=== PATIENT | female | born 1940 | race Caucasian/White ===

== ENCOUNTER 2016-12-11 12:21 | Inpatient (IN) | payer MEDICARE, OTHER ==
[2016-12-11] MEDS ORDERED: Famotidine 20 MG/2 ML SDV IVPUSH ONE (12:35)
[2016-12-11] MEDS ORDERED: Lactated Ringers 1,000 ML IV ONE (12:35)
[2016-12-11] MEDS ORDERED: Pantoprazole 40 MG Vial IVPUSH ONE (12:35)
--- NOTE | 2016-12-11 12:35 | EDM.PDOC ---
ED HPI GENERAL MEDICAL PROBLEM - General Chief Complaint: Abdominal Pain Stated Complaint: upper epigastric pain Time Seen by Provider: 12/11/16 12:30 Source of Information: Reports: Patient, Family (Sister), Old Records ([facility] chart/EMR), Other (Limited records from [facility] in [place]) History Limitations: Reports: No Limitations - History of Present Illness INITIAL COMMENTS - FREE TEXT/NARRATIVE: The patient drove herself to the emergency room via private automobile for evaluation of nonspecific 9/10 sharp epigastric pain with symptoms starting at about 22:30 hours this past evening. She was briefly evaluated by her regular provider, Jenae Blank PA-C, at the [facility] in [place], who did send the patient to our facility for further evaluation. No medical therapy in that facility, although x-rays were conducted as below. Patient apparently did take her medications this morning with 3 normal bowel movements during the last 24 hours. The patient denies any chest pain/pressure, heart flutter, dizziness, orthostasis, orthopnea, diaphoresis, paresthesias, recent decreased exercise tolerance, or any other anginal-type symptoms. No recent history of abdominal pain, heartburn, nausea, diarrhea, melena, gross hematochezia, or any food intolerance, including fatty foods, etc.. The patient also denies any recent fever, cough, wheezing, dyspnea, etc.. There is a pleuritic component to patient 's symptoms, which also worsened with movement. Onset: Today, Gradual Onset Date: 12/10/16 Onset Time: 22:30 Duration: Constant Location: Reports: Abdomen. Denies: Head, Face, Neck, Chest, Upper Extremity, Left, Upper Extremity, Right, Generalized, Radiates to Quality: Reports: Same as Previous Episode, Sharp Severity: Severe Improves with: Reports: Rest Worsens with: Reports: Movement Context: Reports: Other (As above) Associated Symptoms: Denies: Confusion, Chest Pain, Cough, Diaphoresis, Fever/ Chills, Headaches, Malaise, Nausea/Vomiting, Seizure, Shortness of Breath, Syncope, Weakness Treatments HEAD OF ENGLISH: Reports: Other (see below) (Morning medications) Upper Epigastric Pain Score (Numeric/FACES): 9 - Related Data Allergies Allergy/AdvReac Type Severity Reaction Status Date / Time cephalexin monohydrate Allergy Cannot Verified 03/13/15 18:22 [From [employer]] Remember Home Meds: Home Meds Albuterol/Ipratropium [Combivent] 2 puff INH QID PRN 06/05/13 [History] Calcium Carbonate/Vitamin D3 [Calcium 600 + Vit D 400] 1 each PO BID 06/05/13 [ History] Hydroxychloroquine [Plaquenil] 200 mg PO DAILY 06/05/13 [History] Metoclopramide [Reglan] 10 mg PO TIDAC PRN 06/05/13 [History] Metoprolol Succinate [Toprol XL] 50 mg PO DAILY 06/05/13 [History] Omeprazole [Omeprazole] 20 mg PO QAM 06/05/13 [History] Simvastatin [Zocor] 40 mg PO BEDTIME 06/05/13 [History] Vitamin B Complex 1 each PO DAILY 06/05/13 [History] Warfarin [Coumadin] 5 mg PO DAILY@1800 06/05/13 [History] Ascorbic Acid 500 mg PO DAILY 03/13/15 [History] Aspirin 325 mg PO DAILY 03/13/15 [History] Cholecalciferol (Vitamin D3) [Vitamin D3] 400 unit PO DAILY 03/13/15 [History] Digoxin 125 mcg PO DAILY 03/13/15 [History] Levothyroxine Sodium [Synthroid] 75 mcg PO DAILY 03/13/15 [History] Oxybutynin [Oxybutynin ER] 5 mg PO DAILY 03/13/15 [History] Fluticasone Propionate [Flonase] 1 spray NASBOTH BID 12/11/16 [History] Lisinopril/Hydrochlorothiazide [Zestoretic 10-12.5 mg Tablet] 1 tab PO DAILY 02/16 [History] Past Medical History HEENT History: Reports: Allergic Rhinitis, Hard of Hearing, Impaired Vision, Other (See Below). Denies: Cataract, Glaucoma, Macular Degeneration, Retinal Detachment Other HEENT History: Reading glasses, moderate presbycusis with no current hearing aide therapy Cardiovascular History: Reports: Afib, Arrhythmia, CAD, Cardiomyopathy, Heart Failure, High Cholesterol, Hypertension, PVD, Syncope, Other (See Below). Denies: Aneurysm, Blood Clots/VTE/DVT, Bypass, Heart Murmur, SD, Pacemaker Other Cardiovascular History: Incomplete right bundle branch block, history of atrial fibrillation with rapid ventricular response on 06/29/08 with current Coumadin therapy, PVCs, mild cardiomegaly and borderline CHF with possible history of mild borderline anterior wall cardiac ischemia with negative subsequent heart catheterization as below, borderline carotid occlusive disease Respiratory History: Reports: Asthma, COPD Gastrointestinal History: Reports: Cholelithiasis, Diverticulosis, Gastritis, GERD, Hepatitis, Hiatal Hernia, Jaundice, Other (See Below). Denies: Celiac Disease, Chronic Constipation, Chronic Diarrhea, Colon Polyp, GI Bleed, Inflammatory Bowel Disease, Irritable Bowel Syndrome, Pancreatitis, PUD Other Gastrointestinal History: sigmoid diverticulosis without diverticulitis, GERD and peptic ulcer disease with moderate lower esophageal insufficiency and secondary chronic cough, fatty liver secondary to hyperlipidemia with mild hepatomegaly and secondary LFTs elevation, acute cholecystitis with secondary LFTs elevation and borderline jaundice on 06/05/13 Genitourinary History: Reports: Urinary Incontinence, UTI, Recurrent, Other ( See Below) Other Genitourinary History: Cystocele and rectocele with history of urinary incontinence 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 Denies: Dysfunctional Uterine Bleeding, Endometriosis, Spontaneous : 2 Para: 2 (Full term without complications during pregnancies or deliveries) LMP (Approximate): Other (See Below) (Menopause in her 40s with history of fibrocystic breast disease and recent negative breast biopsy as below, large uterine fibroids and small bilateral ovarian cysts by CT scan can on 06/05/13) Musculoskeletal History: Reports: Arthritis, Back Pain, Chronic, Fracture, Gout , Neck Pain, Chronic, Osteoarthritis, Osteoporosis, Other (See Below). 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 Denies: Alzheimers Disease, Cerebral Aneurysms, Concussion, CVA, Head Trauma, Migraines, MS, Neuropathy, Peripheral, Parkinson's, Seizure, TIA Psychiatric History: Reports: Anxiety, Depression. Denies: Abuse, Victim of, ADD, ADHD, Addiction, Psych Hospitalization(s), PTSD, Suicide Attempt, Suicidal Ideation Endocrine/Metabolic History: Reports: Diabetes, Type II, Hypothyroidism, Obesity /BMI 30+, Osteoporosis, Other (See Below). Denies: Diabetes, Type I, IDDM Other Endocrine/Metabolic History: Mild hyperglycemia currently treated with diet, obesity, probable benign 1.2 cm right adrenal adenoma by CT scan on 06/05/13 Hematologic History: Reports: None. Denies: Anemia, Blood Transfusion(s), Iron Deficiency Immunologic History: Reports: None. Denies: AIDS, HIV, SLE Oncologic (Cancer) History: Reports: None. Denies: Basal Cell Carcinoma, Cervix , Colon, Hodgkin's Lymphoma, Leukemia, Liver, Lymphoma, Malignant Melanoma, Non- Hodgkin's Lymphoma, Squamous Cell Carcinoma Dermatologic History: Reports: None. Denies: Eczema, Psoriasis - Infectious Disease History Infectious Disease History: Reports: Other (See Below). Denies: C-Difficile, Chicken Pox, Helicobacter Pylori, Measles, Meningitis, Mononucleosis, MRSA, Mumps, Pertussis (Whooping Cough), Rubella, Scarlet Fever, VRE Other Infectious Disease History: Smallpox, CMV - Past Surgical History Head Surgeries/Procedures: Reports: None HEENT Surgical History: Reports: Oral Surgery, Other (See Below). Denies: Adenoidectomy, Cataract Surgery, Eye Surgery, Laser Surgery, LASIK, Myringotomy w Tube(s), Naso-Sinus Surgery, Tonsillectomy Other HEENT Surgeries/Procedures: Multiple tooth extractions with partial dentures uppers and lowers Cardiovascular Surgical History: Reports: None. Denies: Varicose, Vascular Surgery Respiratory Surgical History: Reports: None. Denies: Lung Biopsies, Thoracentesis GI Surgical History: Reports: Cholecystectomy, Colonoscopy, EGD, Other (See Below). Denies: Appendectomy, ERCP, Hernia, Abdominal, Hernia, Inguinal, Hernia Repair/Other, Polypectomy Other GI Surgeries/Procedures: Liver biopsy on 09/16/96, laparoscopic cholecystectomy on 06/05/13, EGD and colonoscopy on 01/31/07 Female Surgical History: Reports: Breast Biopsy, Other (See Below). Denies: Cystoscopy, D&C, Hysterectomy, Oophorectomy, Salpingo-Oophorectomy, Tubal Ligation Other Female Surgeries/Procedures: Left breast biopsy for benign disease in January 2016 Endocrine Surgical History: Reports: None. Denies: Thyroid Biopsy Neurological Surgical History: Reports: None. Denies: C-Spine, Discectomy, Laminectomy, Lumbar Spine, Scoliosis, Spinal Fusion, Vertebroplasty Musculoskeletal Surgical History: Reports: Arthroscopic Knee, Arthroscopic Procedure, Other (See Below). Denies: Amputation, Carpal Tunnel, Ganglion Cyst , Joint Replacement, ORIF, Shoulder Replacement, Shoulder Surgery Other Musculoskeletal Surgeries/Procedures:: Right arthroscopic knee surgery for medial meniscal repair on 08/18/08 in July 2009, left arthroscopic knee surgery in 2010 Oncologic Surgical History: Reports: Biopsy of Breast, Other (See Below) Other Oncologic Surgeries/Procedures: Left breast biopsy for benign disease as above Dermatological Surgical History: Reports: None - Past Imaging History Past Imaging History: Reports: Angiography (Negative by history heart catheterization on 08/18/08), CAT Scan (CT of the abdomen and pelvis on 06/05/13), DEXA Scan (Last DEXA scan on 09/09/12), Mammogram (Last mammogram on 12/30/15), PFT (01/18/07), Stress Testing (Cardiolite stress test on 07/30/08 showed some borderline anterior wall cardiac ischemia with ejection fraction of 61% with previous Cardiolite stress test on 12/06/06 with similar findings and ejection fraction of 60% at that time), Ultrasound (Left breast ultrasound on 12/30/15) Social & Family History - Family History HEENT: Reports: None. Denies: Glaucoma, Macular Degeneration, Retinal Detachment Cardiac: Reports: CAD, High Cholesterol, Hypertension, SD, Other (See Below). Denies: Afib, Aneurysm, Arrhythmia, Blood Clots/VTE/DVT, Heart Failure, Pacemaker, PVD/COD Other Cardiac Family History: Mother with fatal SD at age 89, mother with possible hypertension, half sister with hyperlipidemia Respiratory: Reports: None. Denies: Asthma, COPD, PE, Pneumothorax, Sleep Apnea GI: Reports: None. Denies: Celiac Disease, Cholelithiasis, Colon Polyps, GERD, GI bleed, Inflammatory Bowel Disease, Irritable Bowel Syndrome, PUD : Reports: None. Denies: Dialysis, Renal Calculus, Renal Disease/ Insufficiency OBGYN: Reports: None. Denies: Endometriosis, Fibroids, Recurrent Spontaneous Musculoskeletal: Reports: Osteoarthritis, Other (See Below). Denies: Gout, RA, SLE Other Musculoskeletal Family History: Mother with osteoarthritis Neurological: Reports: CVA, MS, Seizure, TIA, Other (See Below) Other Neurological Family History: Mother with history of CVA 2 in her 80s, maternal cousin with MS and fatal unknown type of seizure disorder, half-sister with TIA at age 64 Psychiatric: Reports: Anxiety, Depression, Other (See Below). Denies: Abuse, Victim of, ADD, ADHD, Psych Hospitalization(s), PTSD, Suicide Attempt Other Psychiatric Family History: Mother with anxiety depression disorder Endocrine/Metabolic: Reports: None. Denies: Diabetes, Type I, Diabetes, type II , Hypothyroidism, IDDM Hematologic: Reports: None. Denies: Anemia, SLE, Transfusion Reaction Immunologic: Reports: None. Denies: AIDS, HIV, SLE Dermatologic: Reports: Eczema, Other (See Below). Denies: Psoriasis Other Dermatologic Family History: Mother with possible eczema Oncologic: Reports: Breast, Other (See Below). Denies: Colon, Hodgkin's Lymphoma, Leukemia, Lymphoma, Non-Hodgkin's Lymphoma, Ovarian, Uterine Other Oncologic Family History: First maternal cousin with breast cancer - Tobacco Use Smoking Status *Q: Former Smoker Tobacco Use Within Last Twelve Months: Cigarettes Years of Tobacco use: 1 Packs/Tins Daily: 0.1 (Experimented at age 16) Used Tobacco, but Quit: No Smoking Cessation Information Provided To Patient: No Second Hand Smoke Exposure: No Second Hand Smoke Education Provided: No - Caffeine Use Caffeine Use: Reports: Soda (1 soda per week). Denies: Coffee, Energy Drinks, Tea - Alcohol Use Alcohol Use History: No Days Per Week of Alcohol Use: 0 (No previous DWIs, problems with alcohol abuse, etc.) Number of Drinks Per Day: 0 Total Drinks Per Week: 0 Alcohol Use in Last Twelve Months: No - Recreational Drug Use Recreational Drug Use: No Drug Use in Last 12 Months: No Recreational Drug Type: Denies: Amphetamines (Speed), Cocaine, Heroin, LSD (Acid ), Marijuana/Hashish, Methamphetamine, Morphine - Living Situation & Occupation Living situation: Reports: (10/26/03, 2 children), Alone Occupation: Retired (Retired at age 63, previously a [id number]) ED ROS GENERAL - Review of Systems Review Of Systems: See Below Constitutional: Reports: No Symptoms. Denies: Fever, Chills, Malaise, Weakness , Fatigue, Night Sweats, Diaphoresis, Decreased Appetite, Weight Loss, Weight Gain HEENT: Reports: Glasses, Hearing Loss (Stable chronic). Denies: Contact Lenses , Dental Pain, Ear Pain, Eye Pain, Rhinitis, Sinus Problem, Throat Pain, Throat Swelling, Vertigo, Vision Change Respiratory: Reports: Pleuritic Chest Pain. Denies: Shortness of Breath, Wheezing, Cough, Hemoptysis Cardiovascular: Reports: Edema (Stable chronic). Denies: Chest Pain, Blood Pressure Problem, Claudication, Dyspnea on Exertion, Lightheadedness, Orthopnea , Palpitations, PND, Syncope Endocrine: Reports: No Symptoms. Denies: Fatigue, High Glucose GI/Abdominal: Reports: Abdominal Pain. Denies: Anorexia, Black Stool, Bloody Stool, Constipation, Diarrhea, Decreased Appetite, Difficulty Swallowing, Distension, Flatus, Hematemesis, Hematochezia, Melena, Mucous in Stool, Nausea, Stool Incontinence, Vomiting : Reports: Incontinence (Stable chronic). Denies: Discharge, Dysuria, Flank Pain, Frequency, Hematuria, Pain, Urgency, Urinary Retention Musculoskeletal: Reports: No Symptoms. Denies: Neck Pain, Shoulder Pain, Arm Pain, Back Pain, Leg Pain Skin: Reports: No Symptoms. Denies: Jaundice, Pallor, Diaphoresis, Bruising, Wound Neurological: Reports: No Symptoms. Denies: Confusion, Dizziness, Headache, Numbness, Paresthesia, Tingling, Trouble Speaking, Difficulty Walking, Weakness , Change in Speech Psychiatric: Reports: No Symptoms. Denies: Agitation, Anxiety, Confusion, Cravings, Depression, Hallucinations, Homicidal Ideation, Suicidal Ideation Hematologic/Lymphatic: Reports: No Symptoms Immunologic: Reports: No Symptoms ED EXAM, GI/ABD - Physical Exam Exam: See Below Exam Limited By: No Limitations General Appearance: Alert, WD/WN, No Apparent Distress Eyes: Bilateral: Normal Appearance (No nystagmus, mild bilateral arcus senilis) , EOMI (PERRLA) Ears: Normal External Exam, Normal Canal, Normal TMs, Hearing Loss (Moderate bilateral presbycusis) Nose: Normal Inspection, Normal Mucosa, No Blood Throat/Mouth: Normal Inspection, Normal Lips, Normal Gums, Normal Oropharynx, Normal Voice, No Airway Compromise. No: Normal Teeth (Partial dentures uppers and lowers), Dysphagia, Inflammation, Perioral Cyanosis Head: Atraumatic, Normocephalic. No: Facial Swelling, Facial Tenderness, Sinus Tenderness Neck: Normal Inspection, Supple, Non-Tender, Full Range of Motion, Carotid Bruit (Mild bilateral carotid bruits versus transmitted heart sounds). No: Lymphadenopathy (L), Lymphadenopathy (R), Thyromegaly Respiratory/Chest: No Respiratory Distress, Lungs Clear, Normal Breath Sounds, No Accessory Muscle Use, Chest Non-Tender. No: Pleural Rub, Retractions Cardiovascular: Normal Peripheral Pulses, Regular Rate, Rhythm, No Gallop, No JVD, No Murmur, No Rub, Systolic Murmur (Mild 1/6 BROOKS of the aortic valve). No : No Edema (Dependent edema as below) GI/Abdominal Exam: Normal Bowel Sounds, Soft, No Organomegaly, No Distention, No Abnormal Bruit, No Mass, Pelvis Stable, Tender (Mild to moderate palpation pain in the epigastric region), Other (Obese, 1 cm in diameter benign rash in the right upper quadrant with possible eczema ). No: Guarding, Rebound (Female) Exam: Deferred Rectal (Female) Exam: Normal Rectal Tone, Heme - Stool (Brown stool), Hemorrhoids (Grade 4 internal/external hemorrhoids). No: Fecal Impaction, Tenderness (No Aidan space tenderness) Back Exam: Normal Inspection, Full Range of Motion. No: CVA Tenderness (L), CVA Tenderness (R), Muscle Spasm Extremities: Normal Range of Motion, Non-Tender, Normal Capillary Refill, Pedal Edema (Bilateral +1 pedal/pretibial edema). No: Red's Sign Neurological: Alert, Oriented, CN II-XII Intact, Normal Cognition, Normal Gait, Normal Reflexes (Negative Babinski's), No Motor/Sensory Deficits Psychiatric: Normal Affect, Normal Mood Skin Exam: Warm, Dry, Intact, Normal Color, Rash (As above). No: Diaphoretic, Ecchymosis, Lymphangitis, Wound/Incision Lymphatic: No Adenopathy EKG INTERPRETATION EKG Date: 12/11/16 Time: 12:40 Rhythm: NSR Rate (Beats/Min): 64 [place]: Normal (Neutral) P-Wave: Enlarged (Mild diffuse biphasic P waves with moderate decreased R-wave progression in the anterior leads) QRS: RBBB (QRS interval of 0.11 seconds representing a stable incomplete right bundle branch block) ST-T: Other (T-wave inversion in lead 3 and V1 through V3 with previous T-wave inversions through V4 at time of Cardiolite stress test as below) QT: Normal PA/PQ Interval: 0.18 seconds Comparison: Change From Previous EKG (Cardiolite stress test on 09/29/08) EKG Interpretation Comments: 1. Improved/stable mild anterior wall cardiac ischemia 2. Incomplete right bundle branch block Course - Vital Signs Last Recorded V/S: Last Vital Signs Temp 36.4 C 12/11/16 12:23 Pulse 69 12/11/16 16:20 Resp 25 H 12/11/16 16:20 BP 148/53 H 12/11/16 16:20 Pulse Ox 97 12/11/16 16:20 Vital Signs - 24 hr 12/11/16 12/11/16 12/11/16 12:23 12:55 13:30 Temperature [ 36.4 C Temporal] Pulse, 71 70 69 Peripheral [ Left Pulse Oximetry] Respiratory 18 25 H 26 H Rate Blood Pressure 152/71 H 153/67 H 149/64 H [Left Upper Arm ] O2 Sat by Pulse 96 96 94 L Oximetry 12/11/16 12/11/16 12/11/16 14:00 14:28 15:05 Temperature [ Temporal] Pulse, 69 68 66 Peripheral [ Left Pulse Oximetry] Respiratory 28 H 22 H 26 H Rate Blood Pressure 162/65 H 154/56 H 164/56 H [Left Upper Arm ] O2 Sat by Pulse 97 97 97 Oximetry 12/11/16 12/11/16 15:21 16:20 Temperature [ Temporal] Pulse, 71 69 Peripheral [ Left Pulse Oximetry] Respiratory 28 H 25 H Rate Blood Pressure 155/56 H 148/53 H [Left Upper Arm ] O2 Sat by Pulse 97 97 Oximetry - Orders/Labs/Meds Orders: Active Orders 24 hr Category Date Time Status Cardiac Monitoring [RC] . DIRECTED Care 12/11/16 12:38 Active EKG Documentation Completion [RC] ASDIRECTED Care 12/11/16 12:37 Active Peripheral IV Care [RC] . DIRECTED Care 12/11/16 12:35 Active Nothing Per Oral Diet [DIET] Diet 12/11/16 Breakfast Active Abdomen Pelvis w Cont [CT] Stat Exams 12/11/16 13:58 Taken CULTURE URINE [RM] Routine Lab 12/11/16 13:55 Received H PYLORI STOOL ANTIGEN [MREF] Urgent Lab 12/11/16 12:35 Uncollected Ciprofloxacin in D5W [Cipro in D5W 200 MG/100 ML] 200 Med 12/11/16 14:14 Active mg Premix Bag 1 bag IV Q12HR Sodium Chloride 0.9% [Saline Flush] Med 12/11/16 12:35 Active 10 ml FLUSH ASDIRECTED PRN metroNIDAZOLE/Normal Saline [Flagyl 500 MG in NS 100 ML Med 12/11/16 14:00 Active ] 500 mg Premix Bag 1 bag IV Q8H Obtain Past Medical Record [OM.PC] Urgent Oth 12/11/16 12:35 Active Peripheral IV Insertion Adult [OM.PC] Stat Oth 12/11/16 12:35 Ordered Resuscitation Status Stat Resus Stat 12/11/16 12:35 Ordered Medication Orders Metronidazole 500 mg/ Premix 100 mls @ 100 mls/hr IV Q8H HYACINTH Last Admin: 12/11/16 14:20 Dose: 100 mls/hr Ciprofloxacin/Dextrose 200 mg/ (Premix) 100 mls @ 100 mls/hr IV Q12HR HYACINTH Last Admin: 12/11/16 15:37 Dose: 100 mls/hr Sodium Chloride (Saline Flush) 10 ml FLUSH ASDIRECTED PRN PRN Reason: Keep Vein Open Labs: Laboratory Tests 12/11/16 12/11/16 12/11/16 Range/Units 12:25 12:25 12:25 WBC 12.5 H (4.0-10.2) K/uL RBC 4.63 (3.77-5.09) M/uL Hgb 14.6 (11.7-15.5) g/dL Hct 43.1 (34.0-46.0) % MCV 93.1 (84.0-98.0) fL MCH 31.5 (28.2-33.3) pg MCHC 33.9 (31.7-36.0) g/dL RDW 12.9 (11.2-14.1) % Plt Count 296 (150-350) K/uL Neut % (Auto) 74.7 (45.0-80.0) % Lymph % (Auto) 13.7 (10.0-50.0) % [facility] % (Auto) 9.7 (2.0-14.0) % Eos % (Auto) 1.6 (0.0-5.0) % Baso % (Auto) 0.3 (0.0-2.0) % Neut # (Auto) 9.36 H (1.40-7.00) K/uL Lymph # (Auto) 1.72 (0.50-3.50) K/uL [facility] # (Auto) 1.21 H (0.00-1.00) K/uL Eos # (Auto) 0.20 (0.00-0.50) K/uL Baso # (Auto) 0.04 (0.00-0.20) K/uL PT 20.0 H (9.8-11.7) SEC INR 1.8 APTT 30.9 H (23.5-30.0) SEC D-Dimer, Quantitative (0-400) ng/mL Sodium (136-145) mmol/L Potassium (3.5-5.1) mmol/L Chloride (98-107) mmol/L Carbon Dioxide (21.0-32.0) mmol/L BUN (7-18) mg/dL Creatinine (0.51-1.17) mg/dL Est Cr Clr Drug Dosing mL/min Estimated GFR (MDRD) mL/min Glucose (74-106) mg/dL Lactic Acid (0.4-2.0) mmol/L Uric Acid (2.6-7.2) mg/dL Calcium (8.5-10.1) mg/dL Magnesium (1.8-2.4) mg/dL Total Bilirubin (0.2-1.0) mg/dL Direct Bilirubin (0.0-0.2) mg/dL Indirect Bilirubin AST (15-37) U/L ALT (12-78) U/L Alkaline Phosphatase (46-116) IU/L Creatine Kinase (26-308) U/L Creatine Kinase Index (0.0-2.5) % CK-MB (CK-2) (0.00-3.60) ng/mL Troponin I (0.000-0.056) ng/mL NT-Pro-B Natriuret Pep (0-125) pg/mL Total Protein (6.4-8.2) g/dL Albumin (3.4-5.0) g/dL Amylase 23 L (25-115) U/L Lipase (73-393) U/L Specimen Type Urine Color Urine Appearance Urine pH (5.0-9.0) Ur Specific [place] (1.005-1.030) Urine Protein (NEGATIVE) mg/dL Urine Glucose (UA) (NEGATIVE) mg/dL Urine Ketones (NEGATIVE) mg/dL Urine Occult Blood (NEGATIVE) Urine Nitrite (NEGATIVE) Urine Bilirubin (NEGATIVE) Urine Urobilinogen (0.2-1.0) E.U./dL Ur Leukocyte Esterase (NEGATIVE) Urine RBC /HPF Urine WBC /HPF Ur Epithelial Cells /LPF Urine Bacteria (NONE TO FEW) /HPF Digoxin (0.90-2.00) ng/mL 12/11/16 12/11/16 12/11/16 Range/Units 12:25 12:25 12:25 WBC (4.0-10.2) K/uL RBC (3.77-5.09) M/uL Hgb (11.7-15.5) g/dL Hct (34.0-46.0) % MCV (84.0-98.0) fL MCH (28.2-33.3) pg MCHC (31.7-36.0) g/dL RDW (11.2-14.1) % Plt Count (150-350) K/uL Neut % (Auto) (45.0-80.0) % Lymph % (Auto) (10.0-50.0) % [facility] % (Auto) (2.0-14.0) % Eos % (Auto) (0.0-5.0) % Baso % (Auto) (0.0-2.0) % Neut # (Auto) (1.40-7.00) K/uL Lymph # (Auto) (0.50-3.50) K/uL [facility] # (Auto) (0.00-1.00) K/uL Eos # (Auto) (0.00-0.50) K/uL Baso # (Auto) (0.00-0.20) K/uL PT (9.8-11.7) SEC INR APTT (23.5-30.0) SEC D-Dimer, Quantitative 112 (0-400) ng/mL Sodium 136 (136-145) mmol/L Potassium 4.6 (3.5-5.1) mmol/L Chloride 101 (98-107) mmol/L Carbon Dioxide 27.4 (21.0-32.0) mmol/L BUN 17 (7-18) mg/dL Creatinine 0.79 (0.51-1.17) mg/dL Est Cr Clr Drug Dosing 50.90 mL/min Estimated GFR (MDRD) > 60 mL/min Glucose 108 H (74-106) mg/dL Lactic Acid 1.3 (0.4-2.0) mmol/L Uric Acid 7.8 H (2.6-7.2) mg/dL Calcium 9.9 (8.5-10.1) mg/dL Magnesium 1.7 L (1.8-2.4) mg/dL Total Bilirubin 2.1 H (0.2-1.0) mg/dL Direct Bilirubin (0.0-0.2) mg/dL Indirect Bilirubin AST 458 H (15-37) U/L ALT 383 H (12-78) U/L Alkaline Phosphatase 128 H (46-116) IU/L Creatine Kinase 185 (26-308) U/L Creatine Kinase Index 0.7 (0.0-2.5) % CK-MB (CK-2) 1.30 (0.00-3.60) ng/mL Troponin I 0.006 (0.000-0.056) ng/mL NT-Pro-B Natriuret Pep 276 H (0-125) pg/mL Total Protein 7.7 (6.4-8.2) g/dL Albumin 4.1 (3.4-5.0) g/dL Amylase (25-115) U/L Lipase 154 (73-393) U/L Specimen Type Urine Color Urine Appearance Urine pH (5.0-9.0) Ur Specific [place] (1.005-1.030) Urine Protein (NEGATIVE) mg/dL Urine Glucose (UA) (NEGATIVE) mg/dL Urine Ketones (NEGATIVE) mg/dL Urine Occult Blood (NEGATIVE) Urine Nitrite (NEGATIVE) Urine Bilirubin (NEGATIVE) Urine Urobilinogen (0.2-1.0) E.U./dL Ur Leukocyte Esterase (NEGATIVE) Urine RBC /HPF Urine WBC /HPF Ur Epithelial Cells /LPF Urine Bacteria (NONE TO FEW) /HPF Digoxin (0.90-2.00) ng/mL 12/11/16 12/11/16 12/11/16 Range/Units 12:35 12:48 13:55 WBC (4.0-10.2) K/uL RBC (3.77-5.09) M/uL Hgb (11.7-15.5) g/dL Hct (34.0-46.0) % MCV (84.0-98.0) fL MCH (28.2-33.3) pg MCHC (31.7-36.0) g/dL RDW (11.2-14.1) % Plt Count (150-350) K/uL Neut % (Auto) (45.0-80.0) % Lymph % (Auto) (10.0-50.0) % [place] % (Auto) (2.0-14.0) % Eos % (Auto) (0.0-5.0) % Baso % (Auto) (0.0-2.0) % Neut # (Auto) (1.40-7.00) K/uL Lymph # (Auto) (0.50-3.50) K/uL [facility] # (Auto) (0.00-1.00) K/uL Eos # (Auto) (0.00-0.50) K/uL Baso # (Auto) (0.00-0.20) K/uL PT (9.8-11.7) SEC INR APTT (23.5-30.0) SEC D-Dimer, Quantitative (0-400) ng/mL Sodium (136-145) mmol/L Potassium (3.5-5.1) mmol/L Chloride (98-107) mmol/L Carbon Dioxide (21.0-32.0) mmol/L BUN (7-18) mg/dL Creatinine (0.51-1.17) mg/dL Est Cr Clr Drug Dosing mL/min Estimated GFR (MDRD) mL/min Glucose (74-106) mg/dL Lactic Acid (0.4-2.0) mmol/L Uric Acid (2.6-7.2) mg/dL Calcium (8.5-10.1) mg/dL Magnesium (1.8-2.4) mg/dL Total Bilirubin 2.1 H (0.2-1.0) mg/dL Direct Bilirubin 1.4 H (0.0-0.2) mg/dL Indirect Bilirubin 0.7 AST (15-37) U/L ALT (12-78) U/L Alkaline Phosphatase (46-116) IU/L Creatine Kinase (26-308) U/L Creatine Kinase Index (0.0-2.5) % CK-MB (CK-2) (0.00-3.60) ng/mL Troponin I (0.000-0.056) ng/mL NT-Pro-B Natriuret Pep (0-125) pg/mL Total Protein (6.4-8.2) g/dL Albumin (3.4-5.0) g/dL Amylase (25-115) U/L Lipase (73-393) U/L Specimen Type Urincc Urine Color Dark yellow Urine Appearance Clear Urine pH 7.0 (5.0-9.0) Ur Specific [place] 1.020 (1.005-1.030) Urine Protein Negative (NEGATIVE) mg/dL Urine Glucose (UA) Negative (NEGATIVE) mg/dL Urine Ketones Negative (NEGATIVE) mg/dL Urine Occult Blood Negative (NEGATIVE) Urine Nitrite Negative (NEGATIVE) Urine Bilirubin Negative (NEGATIVE) Urine Urobilinogen 0.2 (0.2-1.0) E.U./dL Ur Leukocyte Esterase Negative (NEGATIVE) Urine RBC 0-5 /HPF Urine WBC 0-5 /HPF Ur Epithelial Cells Few /LPF Urine Bacteria Rare (NONE TO FEW) /HPF Digoxin 0.98 (0.90-2.00) ng/mL Meds: Medications Generic Name Dose Route Start Last Admin Trade Name Freq PRN Reason Stop Dose Admin Metronidazole 500 mg/ Premix 100 mls @ 100 mls/hr 12/11/16 14:00 12/11/16 14: 20 IV 100 mls/hr Q8H HYACINTH Administration Ciprofloxacin/Dextrose 200 mg/ 100 mls @ 100 mls/hr 12/11/16 14:14 12/11/16 15:37 Premix IV 100 mls/hr Q12HR HYACINTH Administration Sodium Chloride 10 ml 12/11/16 12:35 Saline Flush FLUSH ASDIRECTED PRN Keep Vein Open Discontinued Medications Generic Name Dose Route Start Last Admin Trade Name Benq PRN Reason Stop Dose Admin Famotidine 40 mg 12/11/16 12:35 12/11/16 13:05 Pepcid IVPUSH 12/11/16 12:36 40 mg ONETIME ONE Administration Lactated Ringer's 1,000 mls @ 999 mls/hr 12/11/16 12:35 12/11/16 13:32 Ringers, Lactated IV 12/11/16 13:35 Not Given .BOLUS ONE Ciprofloxacin/Dextrose 200 mg/ 100 mls @ 100 mls/hr 12/11/16 20:00 Premix IV Q12HR HYACINTH Iopamidol 100 ml 12/11/16 14:30 12/11/16 15:46 Isovue-300 (61%) IVPUSH 12/11/16 14:31 100 ml ONETIME ONE Administration Pantoprazole Sodium 40 mg 12/11/16 12:35 12/11/16 13:05 Protonix Iv IVPUSH 12/11/16 12:36 40 mg ONETIME ONE Administration - Radiology Interpretation Free Text/Narrative:: monitoring analyst showed evidence of normal sinus rhythm with heart rate in the 60s and 70s with no ectopy or arrhythmia Acute abdominal x-rays, which were taken at the [facility] in [place], were reviewed through PACS with evidence of moderate distal stool and mild to moderate increased nonspecific bowel gaseous distention with no free air, fluid levels, ileus, or obstruction. Note status post cholecystectomy with additional moderate COPD and probable pulmonary hypertension versus mild borderline centralized CHF. No pneumothorax or pulmonary infiltrates. 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 Borderline mild hiatal hernia noted Telephone consultation at 16:12 hours with the radiology department at [facility] with verbal report of CT scan of the abdomen and pelvis with both IV and oral contrast. No acute changes with stable exam from previous evaluation on 06/05/13. No explanation of current LFTs elevation. CT Results Date: 12/11/16 CT Results Time: 16:12 Departure - Departure Time of Disposition: 16:30 Disposition: Admitted As Inpatient 67 Clinical Impression: Abdominal pain, Coronary artery disease, Hypertension, COPD (chronic obstructive pulmonary disease), Peptic reflux disease, CHF (congestive heart failure), Elevated LFTs, Hypomagnesemia, Hyperuricemia - Discharge Information Referrals: Jenny Blank PA [Primary Care Provider] - Forms: ED Department Discharge Care Plan Goals: See plan - Problem List & Annotations (1) Abdominal pain SNOMED Code(s): 11653201 Code(s): R10.9 - UNSPECIFIED ABDOMINAL PAIN Status: Acute Priority: High Current Visit: Yes Onset Date: 12/11/16 Annotation/Comment:: Note CT scan results as above with no direct explanation of patient's significant LFTs elevation and mild hyperbilirubinemia. The patient did have some flatulence during later part of emergency room care with some improvement of her symptoms. Direct evidence of diverticulitis by CT scan however known history of diverticulosis with evidence of some possible constipation by x-rays as above. Note IV Cipro and IV Flagyl initiated in the emergency room and very to some leukocytosis with possible beginning mild diverticulitis by clinical history and exam. Lipase and amylase are normal. INR is subtherapeutic as below, however closely observe her coagulation studies secondary to the above antibiotics and LFTs elevation. Further GI consultation depending on her clinical course. TARIQ, hepatitis panel, etc. also to be conducted. Qualifiers: Abdominal location: epigastric Qualified Code(s): R10.13 - Epigastric pain (2) Elevated LFTs SNOMED Code(s): 340113233 Code(s): R79.89 - OTHER SPECIFIED ABNORMAL FINDINGS OF BLOOD CHEMISTRY Status: Acute Priority: High Current Visit: Yes Onset Date: 12/11/16 Annotation/Comment:: As above. Significant progression of her LFTs elevation, including after past acute cholecystitis in 2013 as above, with additional evidence of persistent hyperbilirubinemia. Previous known history of chronic LFTs elevation secondary to fatty liver (3) Coronary artery disease SNOMED Code(s): 04537949 Code(s): I25.10 - ATHSCL HEART DISEASE OF [place] CORONARY ARTERY W/O ANG PCTRS Status: Chronic Priority: Medium Current Visit: Yes Annotation/ Comment:: Borderline anterior wall cardiac ischemia by Cardiolite stress test with negative follow-up heart catheterization as above. No recent anginal complaints as above. Initiate standard rule out SD orders Qualifiers: Coronary Disease-Associated Artery/Lesion type: [place] artery [place] vs. transplanted heart: minto heart Associated angina: without angina Qualified Code(s): I25.10 - Atherosclerotic heart disease of [place] coronary artery without angina pectoris (4) CHF (congestive heart failure) SNOMED Code(s): 78182610 Code(s): I50.9 - HEART FAILURE, UNSPECIFIED Status: Acute Priority: Medium Current Visit: Yes Annotation/Comment:: Borderline BNP elevation with no significant clinical evidence of acute CHF. Mild secondary change of her troponin I with no true chest pain or other anginal-type symptoms. Note EKG does show stable anterior wall cardiac ischemia with previous negative heart catheterization as above. Consider cardiology consultation depending on her clinical course. The patient is a no code, however does agree to possible transfer to [facility] depending on her clinical course. Echocardiogram in the a.m. Qualifiers: Congestive heart failure type: unspecified congestive heart failure type Congestive heart failure chronicity: acute on chronic Qualified Code(s): I50.9 - Heart failure, unspecified (5) COPD (chronic obstructive pulmonary disease) SNOMED Code(s): 81815138 Code(s): J44.9 - CHRONIC OBSTRUCTIVE PULMONARY DISEASE, UNSPECIFIED Status : Chronic Priority: Medium Current Visit: Yes Annotation/Comment:: Stable by history with no recent fever or bronchitic type symptoms Qualifiers: COPD type: emphysema Emphysema type: panlobular Qualified Code(s): J43.1 - Panlobular emphysema (6) Hypertension SNOMED Code(s): 03876300 Code(s): I10 - ESSENTIAL (PRIMARY) HYPERTENSION Status: Acute Priority: Medium Current Visit: Yes Annotation/Comment:: Stable BPs in the emergency room. Continue to observe closely Qualifiers: Hypertension type: essential hypertension Qualified Code(s): I10 - Essential (primary) hypertension (7) Hyperuricemia SNOMED Code(s): 31525226 Code(s): E79.0 - HYPERURICEMIA W/O SIGNS OF INFLAM ARTHRIT AND TOPHACEOUS DIS Status: Chronic Priority: Medium Current Visit: Yes Annotation/ Comment:: History of known hyperuricemia with no recent gout-type symptoms. Her arthritis is otherwise been stable. 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 (9) Peptic reflux disease SNOMED Code(s): 99585734 Code(s): K21.9 - GASTRO-ESOPHAGEAL REFLUX DISEASE WITHOUT ESOPHAGITIS Status: Chronic Priority: Medium Current Visit: Yes Annotation/Comment:: High-dose IV Pepcid and IV Protonix given in the emergency room with no significant improvement of patient's symptoms. Continue to observe symptoms closely (10) Atrial fibrillation SNOMED Code(s): 65996317 Code(s): I48.91 - UNSPECIFIED ATRIAL FIBRILLATION Status: Chronic Priority: Medium Current Visit: Yes Annotation/Comment:: INR subtherapeutic today with previous INR of 2.4 on 11/30/16. Normal sinus rhythm by telemetry today. No adjustment of her Coumadin for now secondary to IV Cipro and IV Flagyl therapy as above, however Coumadin will be held this afternoon secondary to these antibiotics. Qualifiers: Atrial fibrillation type: chronic Qualified Code(s): I48.2 - Chronic atrial fibrillation - Problem List Review Problem List Initiated/Reviewed/Updated: Yes - My Orders Last 24 Hours: My Active Orders 12/11/16 12:35 Peripheral IV Care [RC] . DIRECTED H PYLORI STOOL ANTIGEN [MREF] Urgent Sodium Chloride 0.9% [Saline Flush] 10 ml FLUSH ASDIRECTED PRN Obtain Past Medical Record [OM.PC] Urgent Peripheral IV Insertion Adult [OM.PC] Stat Resuscitation Status Stat 12/11/16 12:37 EKG Documentation Completion [RC] ASDIRECTED 12/11/16 12:38 Cardiac Monitoring [RC] . DIRECTED 12/11/16 13:55 CULTURE URINE [RM] Routine 12/11/16 13:58 Abdomen Pelvis w Cont [CT] Stat 12/11/16 14:00 metroNIDAZOLE/Normal Saline [Flagyl 500 MG in NS 100 ML] 500 mg Premix Bag 1 bag IV Q8H 12/11/16 14:14 Ciprofloxacin in D5W [Cipro in D5W 200 MG/100 ML] 200 mg Premix Bag 1 bag IV Q12HR 12/11/16 Breakfast Nothing Per Oral Diet [DIET] - Assessment/Plan Admission H&P: Please use this note as an admission H&P Last 24 Hours: My Active Orders 12/11/16 12:35 Peripheral IV Care [RC] . DIRECTED H PYLORI STOOL ANTIGEN [MREF] Urgent Sodium Chloride 0.9% [Saline Flush] 10 ml FLUSH ASDIRECTED PRN Obtain Past Medical Record [OM.PC] Urgent Peripheral IV Insertion Adult [OM.PC] Stat Resuscitation Status Stat 12/11/16 12:37 EKG Documentation Completion [RC] ASDIRECTED 12/11/16 12:38 Cardiac Monitoring [RC] . DIRECTED 12/11/16 13:55 CULTURE URINE [RM] Routine 12/11/16 13:58 Abdomen Pelvis w Cont [CT] Stat 12/11/16 14:00 metroNIDAZOLE/Normal Saline [Flagyl 500 MG in NS 100 ML] 500 mg Premix Bag 1 bag IV Q8H 12/11/16 14:14 Ciprofloxacin in D5W [Cipro in D5W 200 MG/100 ML] 200 mg Premix Bag 1 bag IV Q12HR 12/11/16 Breakfast Nothing Per Oral Diet [DIET] Assessment:: As above Plan: As above. Extensive precautions were given to the patient and her sister, who are in agreement with the treatment plan.
[2016-12-11 13:18] LABS: CHLORIDE,CL 101 mmol/L (98-107); SODIUM,NA 136 mmol/L (136-145)
[2016-12-11] MEDS: metroNIDAZOLE/Normal Saline 500 MG in Premix Bag 1 BAG IV SCH ×2 (14:20→22:42)
[2016-12-11] MEDS ORDERED: Iopamidol 612 MG/ML 100 ML Bottle IVPUSH ONE (14:30)
[2016-12-11] MEDS: Ciprofloxacin in D5W 200 MG in Premix Bag 1 BAG IV SCH ×4 (15:37→19:42)
[2016-12-11] MEDS ORDERED: Temazepam 15 MG Cap PO PRN (16:39)
[2016-12-11] MEDS ORDERED: Albuterol/Ipratropium 3.0-0.5 MG/3 ML Neb Soln NEB PRN (16:45)
[2016-12-11] MEDS ORDERED: Albuterol 0.083% 2.5 MG/3 ML Neb Soln INH PRN (17:00)
[2016-12-11] MEDS: Acetaminophen 325 MG Tab PO PRN (17:36)
[2016-12-11] MEDS: Magnesium Oxide 400 MG Tab PO SCH (17:36)
[2016-12-11] MEDS: Fluticasone Propionate Nasal Spray 16 GM Bottle NASBOTH SCH (17:37)
[2016-12-11] MEDS: Sodium Chloride 0.9% 10 ML Syringe FLUSH PRN ×4 (19:41→23:59)
[2016-12-11] MEDS: Albuterol/Ipratropium 3.0-0.5 MG/3 ML Neb Soln NEB SCH (19:42)
[2016-12-11] MEDS ORDERED: Ciprofloxacin in D5W 200 MG in Premix Bag 1 BAG IV SCH ×2 (20:00)
[2016-12-11] MEDS: Pantoprazole 40 MG Vial IVPUSH SCH (23:59)
[2016-12-12] MEDS ORDERED: Pantoprazole 40 MG Vial IVPUSH SCH (00:05)
[2016-12-12] MEDS: Albuterol/Ipratropium 3.0-0.5 MG/3 ML Neb Soln NEB SCH ×4 (01:45→20:05)
[2016-12-12] MEDS: Acetaminophen 325 MG Tab PO PRN (04:12)
[2016-12-12] MEDS: Sodium Chloride 0.9% 10 ML Syringe FLUSH PRN ×7 (05:57→21:16)
[2016-12-12] MEDS: metroNIDAZOLE/Normal Saline 500 MG in Premix Bag 1 BAG IV SCH ×3 (05:57→21:16)
[2016-12-12] MEDS: Ciprofloxacin in D5W 200 MG in Premix Bag 1 BAG IV SCH ×4 (07:27→20:06)
[2016-12-12] MEDS: Metoprolol Succinate 50 MG Tab.ER PO SCH (07:28)
[2016-12-12] MEDS: Digoxin 125 MCG Tab PO SCH (07:28)
[2016-12-12] MEDS: Magnesium Oxide 400 MG Tab PO SCH (07:28)
[2016-12-12] MEDS: Levothyroxine 75 MCG Tab PO SCH (07:28)
[2016-12-12] MEDS: Lisinopril 10 MG Tab PO SCH (07:28)
[2016-12-12] MEDS: Hydrochlorothiazide 25 MG Tab PO SCH (07:28)
[2016-12-12] MEDS: Aspirin 325 MG Tab PO SCH (07:28)
[2016-12-12] MEDS: Fluticasone Propionate Nasal Spray 16 GM Bottle NASBOTH SCH (07:32)
[2016-12-12] MEDS: Oxybutynin 5 MG Tab.ER PO SCH (07:32)
[2016-12-12] MEDS ORDERED: LISINOPRIL PO SCH (08:00)
[2016-12-12] MEDS ORDERED: Hydroxychloroquine 200 MG Tab PO SCH (08:00)
[2016-12-12] MEDS ORDERED: HYDROCHLOROTHIAZIDE PO SCH (08:00)
[2016-12-12] MEDS ORDERED: [UNRECOGNIZED DRUG - OTHER] PO SCH (08:00)
[2016-12-12 08:19] LABS: CHLORIDE,CL 100 mmol/L (98-107); SODIUM,NA 136 mmol/L (136-145)
--- NOTE | 2016-12-12 09:26 | PCM.PN ---
- General Info Date of Service: 12/12/16 Admission Dx/Problem (Free Text): 1. Abdominal pain 2. CHF 3. LFTs elevation Functional Status: Reports: Pain Controlled, Tolerating Diet, Ambulating, Urinating. Denies: New Symptoms Pain Score: 0 - Review of Systems General: Reports: No Symptoms. Denies: Fever, Weakness, Fatigue, Malaise, Chills, Night Sweats, Appetite (Tolerating diet well) HEENT: Reports: Glasses. Denies: Ear Pain, Eye Pain, Headaches, Post Nasal Drip , Sinus Congestion, Sore Throat, Rhinitis, Visual Changes Pulmonary: Reports: No Symptoms. Denies: Shortness of Breath, Pleuritic Chest Pain, Cough, Sputum, Hemoptysis, Wheezing Cardiovascular: Reports: No Symptoms, Edema (Stable dependent). Denies: Chest Pain, Palpitations, Dyspnea on Exertion, Orthopnea, Lightheadedness Gastrointestinal: Reports: No Symptoms, Other (2 normal bowel movement since admission by patient history). Denies: Abdominal Pain, Constipation, Decreased Appetite, Diarrhea, Difficulty Swallowing, Flatus, Hematochezia, Melena, Nausea , Vomiting Genitourinary: Reports: Incontinence (Stable). Denies: Dysuria, Frequency, Burning, Pain, Urgency, Hematuria, Retention, Flank Pain Musculoskeletal: Reports: No Symptoms. Denies: Neck Pain, Shoulder Pain, Arm Pain, Back Pain, Leg Pain Skin: Reports: Jaundice (Beginning scleral icterus). Denies: Mottled, Pallor, Diaphoresis, Bruising, Pruritis, Rash Neurological: Reports: No Symptoms. Denies: Confusion, Dizziness, Headache, Numbness, Paresthesia, Tingling, Weakness Psychiatric: Reports: No Symptoms. Denies: Confusion, Depression, Anxiety, Agitation, Hallucinations - Patient Data Vitals - Most Recent: Last Vital Signs Temp 36.4 C 12/12/16 07:56 Pulse 77 12/12/16 07:56 Resp 20 12/12/16 07:56 BP 148/66 H 12/12/16 07:56 Pulse Ox 95 12/12/16 07:56 Vital Signs - 24 hr 12/11/16 12/11/16 12/11/16 12:23 12:55 13:30 Temperature [ Oral] Temperature [ 36.4 C Temporal] Pulse, Peripheral Pulse, 71 70 69 Peripheral [ Left Pulse Oximetry] Respiratory 18 25 H 26 H Rate Blood Pressure Blood Pressure [Left Lower Arm ] Blood Pressure 152/71 H 153/67 H 149/64 H [Left Upper Arm ] O2 Sat by Pulse 96 96 94 L Oximetry 12/11/16 12/11/16 12/11/16 14:00 14:28 15:05 Temperature [ Oral] Temperature [ Temporal] Pulse, Peripheral Pulse, 69 68 66 Peripheral [ Left Pulse Oximetry] Respiratory 28 H 22 H 26 H Rate Blood Pressure Blood Pressure [Left Lower Arm ] Blood Pressure 162/65 H 154/56 H 164/56 H [Left Upper Arm ] O2 Sat by Pulse 97 97 97 Oximetry 12/11/16 12/11/16 12/11/16 15:21 16:20 16:39 Temperature [ Oral] Temperature [ 36.4 C Temporal] Pulse, Peripheral Pulse, 71 69 68 Peripheral [ Left Pulse Oximetry] Respiratory 28 H 25 H 25 H Rate Blood Pressure Blood Pressure [Left Lower Arm ] Blood Pressure 155/56 H 148/53 H 144/53 H [Left Upper Arm ] O2 Sat by Pulse 97 97 97 Oximetry 12/11/16 12/11/16 12/11/16 16:54 18:50 20:00 Temperature [ 36.7 C Oral] Temperature [ 36.3 C Temporal] Pulse, Peripheral Pulse, 61 62 Peripheral [ Left Pulse Oximetry] Respiratory 20 16 Rate Blood Pressure Blood Pressure 170/65 H 153/58 H [Left Lower Arm ] Blood Pressure [Left Upper Arm ] O2 Sat by Pulse 98 99 99 Oximetry 12/12/16 12/12/16 12/12/16 00:00 04:00 07:28 Temperature [ Oral] Temperature [ 36.6 C 36.6 C Temporal] Pulse, 77 Peripheral Pulse, 67 64 Peripheral [ Left Pulse Oximetry] Respiratory 18 20 Rate Blood Pressure 148/66 H Blood Pressure 159/66 H [Left Lower Arm ] Blood Pressure 151/54 H [Left Upper Arm ] O2 Sat by Pulse 96 99 Oximetry 12/12/16 07:56 Temperature [ 36.4 C Oral] Temperature [ Temporal] Pulse, Peripheral Pulse, 77 Peripheral [ Left Pulse Oximetry] Respiratory 20 Rate Blood Pressure Blood Pressure [Left Lower Arm ] Blood Pressure 148/66 H [Left Upper Arm ] O2 Sat by Pulse 95 Oximetry Weight - Most Recent: 91.172 kg I&O - Last 24 Hours: Intake & Output 12/11/16 12/12/16 12/12/16 22:59 06:59 14:59 Intake Total 200 600 480 Output Total 1050 950 450 Balance -850 -350 30 Imaging Impressions - Last 24 Hours: cardiac monitor shows normal sinus rhythm with heart rate in the 60s to 70s with no ectopy or arrhythmia Lab Results Last 24 Hours: Laboratory Results - last 24 hr 12/11/16 12/11/16 12/12/16 Range/Units 17:00 22:55 07:44 WBC 8.0 (4.0-10.2) K/uL RBC 4.34 (3.77-5.09) M/uL Hgb 13.7 (11.7-15.5) g/dL Hct 40.6 (34.0-46.0) % MCV 93.5 (84.0-98.0) fL MCH 31.6 (28.2-33.3) pg MCHC 33.7 (31.7-36.0) g/dL RDW 12.7 (11.2-14.1) % Plt Count 271 (150-350) K/uL Neut % (Auto) 65.8 (45.0-80.0) % Lymph % (Auto) 19.2 (10.0-50.0) % Lewis % (Auto) 11.4 (2.0-14.0) % Eos % (Auto) 2.9 (0.0-5.0) % Baso % (Auto) 0.7 (0.0-2.0) % Neut # (Auto) 5.29 (1.40-7.00) K/uL Lymph # (Auto) 1.54 (0.50-3.50) K/uL Lewis # (Auto) 0.92 (0.00-1.00) K/uL Eos # (Auto) 0.23 (0.00-0.50) K/uL Baso # (Auto) 0.06 (0.00-0.20) K/uL APTT (23.5-30.0) SEC Sodium (136-145) mmol/L Potassium (3.5-5.1) mmol/L Chloride (98-107) mmol/L Carbon Dioxide (21.0-32.0) mmol/L BUN (7-18) mg/dL Creatinine (0.51-1.17) mg/dL Est Cr Clr Drug Dosing mL/min Estimated GFR (MDRD) mL/min Glucose (74-106) mg/dL Calcium (8.5-10.1) mg/dL Total Bilirubin (0.2-1.0) mg/dL AST (15-37) U/L ALT (12-78) U/L Alkaline Phosphatase (46-116) IU/L Creatine Kinase 168 160 (26-308) U/L Creatine Kinase Index 0.7 0.9 (0.0-2.5) % CK-MB (CK-2) 1.10 1.40 (0.00-3.60) ng/mL Troponin I 0.010 0.012 (0.000-0.056) ng/mL NT-Pro-B Natriuret Pep (0-125) pg/mL Total Protein (6.4-8.2) g/dL Albumin (3.4-5.0) g/dL Triglycerides (30-150) mg/dL Cholesterol (100-200) mg/dL LDL Cholesterol, Calc (0-100) mg/dL HDL Cholesterol (40-60) mg/dL Amylase (25-115) U/L Lipase (73-393) U/L 12/12/16 12/12/16 Range/Units 07:44 07:44 WBC (4.0-10.2) K/uL RBC (3.77-5.09) M/uL Hgb (11.7-15.5) g/dL Hct (34.0-46.0) % MCV (84.0-98.0) fL MCH (28.2-33.3) pg MCHC (31.7-36.0) g/dL RDW (11.2-14.1) % Plt Count (150-350) K/uL Neut % (Auto) (45.0-80.0) % Lymph % (Auto) (10.0-50.0) % Lewis % (Auto) (2.0-14.0) % Eos % (Auto) (0.0-5.0) % Baso % (Auto) (0.0-2.0) % Neut # (Auto) (1.40-7.00) K/uL Lymph # (Auto) (0.50-3.50) K/uL [place] # (Auto) (0.00-1.00) K/uL Eos # (Auto) (0.00-0.50) K/uL Baso # (Auto) (0.00-0.20) K/uL APTT 30.0 (23.5-30.0) SEC Sodium 136 (136-145) mmol/L Potassium 4.5 (3.5-5.1) mmol/L Chloride 100 (98-107) mmol/L Carbon Dioxide 29.5 (21.0-32.0) mmol/L BUN 14 (7-18) mg/dL Creatinine 0.91 (0.51-1.17) mg/dL Est Cr Clr Drug Dosing 44.17 mL/min Estimated GFR (MDRD) > 60 mL/min Glucose 111 H (74-106) mg/dL Calcium 9.3 (8.5-10.1) mg/dL Total Bilirubin 5.4 H (0.2-1.0) mg/dL AST 749 H (15-37) U/L ALT 917 H (12-78) U/L Alkaline Phosphatase 162 H (46-116) IU/L Creatine Kinase 158 (26-308) U/L Creatine Kinase Index 1.0 (0.0-2.5) % CK-MB (CK-2) 1.60 (0.00-3.60) ng/mL Troponin I 0.008 (0.000-0.056) ng/mL NT-Pro-B Natriuret Pep 350 H (0-125) pg/mL Total Protein 6.9 (6.4-8.2) g/dL Albumin 3.7 (3.4-5.0) g/dL Triglycerides 49 (30-150) mg/dL Cholesterol 141 (100-200) mg/dL LDL Cholesterol, Calc 51 (0-100) mg/dL HDL Cholesterol 80 H (40-60) mg/dL Amylase 18 L (25-115) U/L Lipase 104 (73-393) U/L Laboratory Tests 12/11/16 12/11/16 12/11/16 Range/Units 12:25 12:25 12:25 WBC 12.5 H (4.0-10.2) K/uL RBC 4.63 (3.77-5.09) M/uL Hgb 14.6 (11.7-15.5) g/dL Hct 43.1 (34.0-46.0) % MCV 93.1 (84.0-98.0) fL MCH 31.5 (28.2-33.3) pg MCHC 33.9 (31.7-36.0) g/dL RDW 12.9 (11.2-14.1) % Plt Count 296 (150-350) K/uL Neut % (Auto) 74.7 (45.0-80.0) % Lymph % (Auto) 13.7 (10.0-50.0) % Lewis % (Auto) 9.7 (2.0-14.0) % Eos % (Auto) 1.6 (0.0-5.0) % Baso % (Auto) 0.3 (0.0-2.0) % Neut # (Auto) 9.36 H (1.40-7.00) K/uL Lymph # (Auto) 1.72 (0.50-3.50) K/uL Lewis # (Auto) 1.21 H (0.00-1.00) K/uL Eos # (Auto) 0.20 (0.00-0.50) K/uL Baso # (Auto) 0.04 (0.00-0.20) K/uL PT 20.0 H (9.8-11.7) SEC INR 1.8 APTT 30.9 H (23.5-30.0) SEC D-Dimer, Quantitative (0-400) ng/mL Sodium (136-145) mmol/L Potassium (3.5-5.1) mmol/L Chloride (98-107) mmol/L Carbon Dioxide (21.0-32.0) mmol/L BUN (7-18) mg/dL Creatinine (0.51-1.17) mg/dL Est Cr Clr Drug Dosing mL/min Estimated GFR (MDRD) mL/min Glucose (74-106) mg/dL Lactic Acid (0.4-2.0) mmol/L Uric Acid (2.6-7.2) mg/dL Calcium (8.5-10.1) mg/dL Magnesium (1.8-2.4) mg/dL Total Bilirubin (0.2-1.0) mg/dL Direct Bilirubin (0.0-0.2) mg/dL Indirect Bilirubin AST (15-37) U/L ALT (12-78) U/L Alkaline Phosphatase (46-116) IU/L Creatine Kinase (26-308) U/L Creatine Kinase Index (0.0-2.5) % CK-MB (CK-2) (0.00-3.60) ng/mL Troponin I (0.000-0.056) ng/mL NT-Pro-B Natriuret Pep (0-125) pg/mL Total Protein (6.4-8.2) g/dL Albumin (3.4-5.0) g/dL Triglycerides (30-150) mg/dL Cholesterol (100-200) mg/dL LDL Cholesterol, Calc (0-100) mg/dL HDL Cholesterol (40-60) mg/dL Amylase 23 L (25-115) U/L Lipase (73-393) U/L Specimen Type Urine Color Urine Appearance Urine pH (5.0-9.0) Ur Specific [place] (1.005-1.030) Urine Protein (NEGATIVE) mg/dL Urine Glucose (UA) (NEGATIVE) mg/dL Urine Ketones (NEGATIVE) mg/dL Urine Occult Blood (NEGATIVE) Urine Nitrite (NEGATIVE) Urine Bilirubin (NEGATIVE) Urine Urobilinogen (0.2-1.0) E.U./dL Ur Leukocyte Esterase (NEGATIVE) Urine RBC /HPF Urine WBC /HPF Ur Epithelial Cells /LPF Urine Bacteria (NONE TO FEW) /HPF Digoxin (0.90-2.00) ng/mL 12/11/16 12/11/16 12/11/16 Range/Units 12:25 12:25 12:25 WBC (4.0-10.2) K/uL RBC (3.77-5.09) M/uL Hgb (11.7-15.5) g/dL Hct (34.0-46.0) % MCV (84.0-98.0) fL MCH (28.2-33.3) pg MCHC (31.7-36.0) g/dL RDW (11.2-14.1) % Plt Count (150-350) K/uL Neut % (Auto) (45.0-80.0) % Lymph % (Auto) (10.0-50.0) % Lewis % (Auto) (2.0-14.0) % Eos % (Auto) (0.0-5.0) % Baso % (Auto) (0.0-2.0) % Neut # (Auto) (1.40-7.00) K/uL Lymph # (Auto) (0.50-3.50) K/uL Lewis # (Auto) (0.00-1.00) K/uL Eos # (Auto) (0.00-0.50) K/uL Baso # (Auto) (0.00-0.20) K/uL PT (9.8-11.7) SEC INR APTT (23.5-30.0) SEC D-Dimer, Quantitative 112 (0-400) ng/mL Sodium 136 (136-145) mmol/L Potassium 4.6 (3.5-5.1) mmol/L Chloride 101 (98-107) mmol/L Carbon Dioxide 27.4 (21.0-32.0) mmol/L BUN 17 (7-18) mg/dL Creatinine 0.79 (0.51-1.17) mg/dL Est Cr Clr Drug Dosing 50.90 mL/min Estimated GFR (MDRD) > 60 mL/min Glucose 108 H (74-106) mg/dL Lactic Acid 1.3 (0.4-2.0) mmol/L Uric Acid 7.8 H (2.6-7.2) mg/dL Calcium 9.9 (8.5-10.1) mg/dL Magnesium 1.7 L (1.8-2.4) mg/dL Total Bilirubin 2.1 H (0.2-1.0) mg/dL Direct Bilirubin (0.0-0.2) mg/dL Indirect Bilirubin AST 458 H (15-37) U/L ALT 383 H (12-78) U/L Alkaline Phosphatase 128 H (46-116) IU/L Creatine Kinase 185 (26-308) U/L Creatine Kinase Index 0.7 (0.0-2.5) % CK-MB (CK-2) 1.30 (0.00-3.60) ng/mL Troponin I 0.006 (0.000-0.056) ng/mL NT-Pro-B Natriuret Pep 276 H (0-125) pg/mL Total Protein 7.7 (6.4-8.2) g/dL Albumin 4.1 (3.4-5.0) g/dL Triglycerides (30-150) mg/dL Cholesterol (100-200) mg/dL LDL Cholesterol, Calc (0-100) mg/dL HDL Cholesterol (40-60) mg/dL Amylase (25-115) U/L Lipase 154 (73-393) U/L Specimen Type Urine Color Urine Appearance Urine pH (5.0-9.0) Ur Specific [place] (1.005-1.030) Urine Protein (NEGATIVE) mg/dL Urine Glucose (UA) (NEGATIVE) mg/dL Urine Ketones (NEGATIVE) mg/dL Urine Occult Blood (NEGATIVE) Urine Nitrite (NEGATIVE) Urine Bilirubin (NEGATIVE) Urine Urobilinogen (0.2-1.0) E.U./dL Ur Leukocyte Esterase (NEGATIVE) Urine RBC /HPF Urine WBC /HPF Ur Epithelial Cells /LPF Urine Bacteria (NONE TO FEW) /HPF Digoxin (0.90-2.00) ng/mL 12/11/16 12/11/16 12/11/16 Range/Units 12:35 12:48 13:55 WBC (4.0-10.2) K/uL RBC (3.77-5.09) M/uL Hgb (11.7-15.5) g/dL Hct (34.0-46.0) % MCV (84.0-98.0) fL MCH (28.2-33.3) pg MCHC (31.7-36.0) g/dL RDW (11.2-14.1) % Plt Count (150-350) K/uL Neut % (Auto) (45.0-80.0) % Lymph % (Auto) (10.0-50.0) % Lewis % (Auto) (2.0-14.0) % Eos % (Auto) (0.0-5.0) % Baso % (Auto) (0.0-2.0) % Neut # (Auto) (1.40-7.00) K/uL Lymph # (Auto) (0.50-3.50) K/uL Lewis # (Auto) (0.00-1.00) K/uL Eos # (Auto) (0.00-0.50) K/uL Baso # (Auto) (0.00-0.20) K/uL PT (9.8-11.7) SEC INR APTT (23.5-30.0) SEC D-Dimer, Quantitative (0-400) ng/mL Sodium (136-145) mmol/L Potassium (3.5-5.1) mmol/L Chloride (98-107) mmol/L Carbon Dioxide (21.0-32.0) mmol/L BUN (7-18) mg/dL Creatinine (0.51-1.17) mg/dL Est Cr Clr Drug Dosing mL/min Estimated GFR (MDRD) mL/min Glucose (74-106) mg/dL Lactic Acid (0.4-2.0) mmol/L Uric Acid (2.6-7.2) mg/dL Calcium (8.5-10.1) mg/dL Magnesium (1.8-2.4) mg/dL Total Bilirubin 2.1 H (0.2-1.0) mg/dL Direct Bilirubin 1.4 H (0.0-0.2) mg/dL Indirect Bilirubin 0.7 AST (15-37) U/L ALT (12-78) U/L Alkaline Phosphatase (46-116) IU/L Creatine Kinase (26-308) U/L Creatine Kinase Index (0.0-2.5) % CK-MB (CK-2) (0.00-3.60) ng/mL Troponin I (0.000-0.056) ng/mL NT-Pro-B Natriuret Pep (0-125) pg/mL Total Protein (6.4-8.2) g/dL Albumin (3.4-5.0) g/dL Triglycerides (30-150) mg/dL Cholesterol (100-200) mg/dL LDL Cholesterol, Calc (0-100) mg/dL HDL Cholesterol (40-60) mg/dL Amylase (25-115) U/L Lipase (73-393) U/L Specimen Type Urincc Urine Color Dark yellow Urine Appearance Clear Urine pH 7.0 (5.0-9.0) Ur Specific [place] 1.020 (1.005-1.030) Urine Protein Negative (NEGATIVE) mg/dL Urine Glucose (UA) Negative (NEGATIVE) mg/dL Urine Ketones Negative (NEGATIVE) mg/dL Urine Occult Blood Negative (NEGATIVE) Urine Nitrite Negative (NEGATIVE) Urine Bilirubin Negative (NEGATIVE) Urine Urobilinogen 0.2 (0.2-1.0) E.U./dL Ur Leukocyte Esterase Negative (NEGATIVE) Urine RBC 0-5 /HPF Urine WBC 0-5 /HPF Ur Epithelial Cells Few /LPF Urine Bacteria Rare (NONE TO FEW) /HPF Digoxin 0.98 (0.90-2.00) ng/mL 12/11/16 12/11/16 12/12/16 Range/Units 17:00 22:55 07:44 WBC 8.0 (4.0-10.2) K/uL RBC 4.34 (3.77-5.09) M/uL Hgb 13.7 (11.7-15.5) g/dL Hct 40.6 (34.0-46.0) % MCV 93.5 (84.0-98.0) fL MCH 31.6 (28.2-33.3) pg MCHC 33.7 (31.7-36.0) g/dL RDW 12.7 (11.2-14.1) % Plt Count 271 (150-350) K/uL Neut % (Auto) 65.8 (45.0-80.0) % Lymph % (Auto) 19.2 (10.0-50.0) % Lewis % (Auto) 11.4 (2.0-14.0) % Eos % (Auto) 2.9 (0.0-5.0) % Baso % (Auto) 0.7 (0.0-2.0) % Neut # (Auto) 5.29 (1.40-7.00) K/uL Lymph # (Auto) 1.54 (0.50-3.50) K/uL [place] # (Auto) 0.92 (0.00-1.00) K/uL Eos # (Auto) 0.23 (0.00-0.50) K/uL Baso # (Auto) 0.06 (0.00-0.20) K/uL PT (9.8-11.7) SEC INR APTT (23.5-30.0) SEC D-Dimer, Quantitative (0-400) ng/mL Sodium (136-145) mmol/L Potassium (3.5-5.1) mmol/L Chloride (98-107) mmol/L Carbon Dioxide (21.0-32.0) mmol/L BUN (7-18) mg/dL Creatinine (0.51-1.17) mg/dL Est Cr Clr Drug Dosing mL/min Estimated GFR (MDRD) mL/min Glucose (74-106) mg/dL Lactic Acid (0.4-2.0) mmol/L Uric Acid (2.6-7.2) mg/dL Calcium (8.5-10.1) mg/dL Magnesium (1.8-2.4) mg/dL Total Bilirubin (0.2-1.0) mg/dL Direct Bilirubin (0.0-0.2) mg/dL Indirect Bilirubin AST (15-37) U/L ALT (12-78) U/L Alkaline Phosphatase (46-116) IU/L Creatine Kinase 168 160 (26-308) U/L Creatine Kinase Index 0.7 0.9 (0.0-2.5) % CK-MB (CK-2) 1.10 1.40 (0.00-3.60) ng/mL Troponin I 0.010 0.012 (0.000-0.056) ng/mL NT-Pro-B Natriuret Pep (0-125) pg/mL Total Protein (6.4-8.2) g/dL Albumin (3.4-5.0) g/dL Triglycerides (30-150) mg/dL Cholesterol (100-200) mg/dL LDL Cholesterol, Calc (0-100) mg/dL HDL Cholesterol (40-60) mg/dL Amylase (25-115) U/L Lipase (73-393) U/L Specimen Type Urine Color Urine Appearance Urine pH (5.0-9.0) Ur Specific [place] (1.005-1.030) Urine Protein (NEGATIVE) mg/dL Urine Glucose (UA) (NEGATIVE) mg/dL Urine Ketones (NEGATIVE) mg/dL Urine Occult Blood (NEGATIVE) Urine Nitrite (NEGATIVE) Urine Bilirubin (NEGATIVE) Urine Urobilinogen (0.2-1.0) E.U./dL Ur Leukocyte Esterase (NEGATIVE) Urine RBC /HPF Urine WBC /HPF Ur Epithelial Cells /LPF Urine Bacteria (NONE TO FEW) /HPF Digoxin (0.90-2.00) ng/mL 12/12/16 12/12/16 Range/Units 07:44 07:44 WBC (4.0-10.2) K/uL RBC (3.77-5.09) M/uL Hgb (11.7-15.5) g/dL Hct (34.0-46.0) % MCV (84.0-98.0) fL MCH (28.2-33.3) pg MCHC (31.7-36.0) g/dL RDW (11.2-14.1) % Plt Count (150-350) K/uL Neut % (Auto) (45.0-80.0) % Lymph % (Auto) (10.0-50.0) % [place] % (Auto) (2.0-14.0) % Eos % (Auto) (0.0-5.0) % Baso % (Auto) (0.0-2.0) % Neut # (Auto) (1.40-7.00) K/uL Lymph # (Auto) (0.50-3.50) K/uL [place] # (Auto) (0.00-1.00) K/uL Eos # (Auto) (0.00-0.50) K/uL Baso # (Auto) (0.00-0.20) K/uL PT (9.8-11.7) SEC INR APTT 30.0 (23.5-30.0) SEC D-Dimer, Quantitative (0-400) ng/mL Sodium 136 (136-145) mmol/L Potassium 4.5 (3.5-5.1) mmol/L Chloride 100 (98-107) mmol/L Carbon Dioxide 29.5 (21.0-32.0) mmol/L BUN 14 (7-18) mg/dL Creatinine 0.91 (0.51-1.17) mg/dL Est Cr Clr Drug Dosing 44.17 mL/min Estimated GFR (MDRD) > 60 mL/min Glucose 111 H (74-106) mg/dL Lactic Acid (0.4-2.0) mmol/L Uric Acid (2.6-7.2) mg/dL Calcium 9.3 (8.5-10.1) mg/dL Magnesium (1.8-2.4) mg/dL Total Bilirubin 5.4 H (0.2-1.0) mg/dL Direct Bilirubin (0.0-0.2) mg/dL Indirect Bilirubin AST 749 H (15-37) U/L ALT 917 H (12-78) U/L Alkaline Phosphatase 162 H (46-116) IU/L Creatine Kinase 158 (26-308) U/L Creatine Kinase Index 1.0 (0.0-2.5) % CK-MB (CK-2) 1.60 (0.00-3.60) ng/mL Troponin I 0.008 (0.000-0.056) ng/mL NT-Pro-B Natriuret Pep 350 H (0-125) pg/mL Total Protein 6.9 (6.4-8.2) g/dL Albumin 3.7 (3.4-5.0) g/dL Triglycerides 49 (30-150) mg/dL Cholesterol 141 (100-200) mg/dL LDL Cholesterol, Calc 51 (0-100) mg/dL HDL Cholesterol 80 H (40-60) mg/dL Amylase 18 L (25-115) U/L Lipase 104 (73-393) U/L Specimen Type Urine Color Urine Appearance Urine pH (5.0-9.0) Ur Specific [place] (1.005-1.030) Urine Protein (NEGATIVE) mg/dL Urine Glucose (UA) (NEGATIVE) mg/dL Urine Ketones (NEGATIVE) mg/dL Urine Occult Blood (NEGATIVE) Urine Nitrite (NEGATIVE) Urine Bilirubin (NEGATIVE) Urine Urobilinogen (0.2-1.0) E.U./dL Ur Leukocyte Esterase (NEGATIVE) Urine RBC /HPF Urine WBC /HPF Ur Epithelial Cells /LPF Urine Bacteria (NONE TO FEW) /HPF Digoxin (0.90-2.00) ng/mL INR 1.7 today Brandan Results Last 24 Hours: Microbiology 12/12/16 02:00 Stool Occult Blood (BRANDAN) - Final Stool / Feces NEGATIVE OCCULT BLOOD Microbiology 12/12/16 02:00 Stool / Feces Stool Occult Blood (BRANDAN) - Final NEGATIVE OCCULT BLOOD 12/11/16 12:35 Stool / Feces Stool Occult Blood (BRANDAN) - Final NEGATIVE OCCULT BLOOD Med Orders - Current: Current Medications Acetaminophen (Tylenol) 650 mg PO Q4H PRN PRN Reason: Pain Last Admin: 12/12/16 04:12 Dose: 650 mg Albuterol (Proventil Neb Soln) 2.5 mg INH Q2H PRN PRN Reason: SHORTNESS OF BREATH Albuterol/Ipratropium (Duoneb 3.0-0.5 Mg/3 Ml) 3 ml NEB Q4HRRT PRN PRN Reason: Dyspnea Albuterol/Ipratropium (Duoneb 3.0-0.5 Mg/3 Ml) 3 ml NEB Q6HRRT [facility] Last Admin: 12/12/16 07:29 Dose: 3 ml Aspirin (Aspirin) 325 mg PO DAILY [facility] Last Admin: 12/12/16 07:28 Dose: 325 mg Digoxin (Lanoxin) 125 mcg PO DAILY [facility] Last Admin: 12/12/16 07:28 Dose: 125 mcg Famotidine (Pepcid) 20 mg IVPUSH BID [facility] Fluticasone Propionate (Flonase) 0 gm NASBOTH BID [facility] Last Admin: 12/12/16 07:32 Dose: Not Given Hydrochlorothiazide (Hydrochlorothiazide) 12.5 mg PO DAILY [facility] Last Admin: 12/12/16 07:28 Dose: 12.5 mg Hydroxychloroquine Sulfate (Plaquenil) 200 mg PO DAILY [facility] Last Admin: 12/12/16 07:28 Dose: 200 mg Metronidazole 500 mg/ Premix 100 mls @ 100 mls/hr IV Q8H [facility] Last Admin: 12/12/16 05:57 Dose: 100 mls/hr Ciprofloxacin/Dextrose 200 mg/ (Premix) 100 mls @ 100 mls/hr IV Q12HR [facility] Last Admin: 12/12/16 07:27 Dose: 100 mls/hr Levothyroxine Sodium (Levothyroxine) 75 mcg PO DAILY [facility] Last Admin: 12/12/16 07:28 Dose: 75 mcg Lisinopril (Prinivil) 10 mg PO DAILY [facility] Last Admin: 12/12/16 07:28 Dose: 10 mg Magnesium Oxide (Magnesium Oxide) 400 mg PO DAILY [facility] Last Admin: 12/12/16 07:28 Dose: 400 mg Metoprolol Succinate (Toprol Xl) 50 mg PO DAILY [facility] Last Admin: 12/12/16 07:28 Dose: 50 mg Oxybutynin Chloride (Oxybutynin Er) 5 mg PO DAILY [facility] Last Admin: 12/12/16 07:32 Dose: 5 mg Pantoprazole Sodium (Protonix Iv) 40 mg IVPUSH Q12H [facility] Last Admin: 12/11/16 23:59 Dose: 40 mg Sodium Chloride (Saline Flush) 10 ml FLUSH ASDIRECTED PRN PRN Reason: Keep Vein Open Last Admin: 12/12/16 05:57 Dose: 10 ml Sodium Chloride (Saline Flush) 10 ml FLUSH Q12HR PRN PRN Reason: Keep Vein Open Last Admin: 12/11/16 23:59 Dose: 10 ml Temazepam (Restoril) 15 mg PO BEDTIME PRN PRN Reason: Insomnia Discontinued Medications Famotidine (Pepcid) 40 mg IVPUSH ONETIME ONE Stop: 12/11/16 12:36 Last Admin: 12/11/16 13:05 Dose: 40 mg Lactated Ringer's (Ringers, Lactated) 1,000 mls @ 999 mls/hr IV .BOLUS ONE Stop: 12/11/16 13:35 Last Admin: 12/11/16 13:32 Dose: Not Given Ciprofloxacin/Dextrose 200 mg/ (Premix) 100 mls @ 100 mls/hr IV Q12HR [facility] Iopamidol (Isovue-300 (61%)) 100 ml IVPUSH ONETIME ONE Stop: 12/11/16 14:31 Last Admin: 12/11/16 15:46 Dose: 100 ml Non-Formulary Medication (Lisinopril/Hydrochlorothiazide [Zestoretic 10-12.5 Mg Tablet]) 1 tab PO DAILY [facility] Pantoprazole Sodium (Protonix Iv) 40 mg IVPUSH ONETIME ONE Stop: 12/11/16 12:36 Last Admin: 12/11/16 13:05 Dose: 40 mg Pantoprazole Sodium (Protonix Iv) 40 mg IVPUSH Q12H [facility] - Exam Quality Assessment: Supplemental Oxygen, DVT Prophylaxis (On Coumadin). No: Central Line/PICC, Urine Catheter, Skin Breakdown, Restraints General: Oriented, Cooperative, No Acute Distress HEENT: Pupils Equal, Pupils Reactive, EOMI, Mucous Membr. Moist/[place], Scleral Icterus (Borderline) Neck: Supple, Trachea Midline, No JVD, No Thyromegaly, Carotid Bruit (Mild bilateral carotid bruits versus transmitted heart sounds). No: Lymphadenopathy Lungs: Normal Respiratory Effort, Rales (Mild bilateral basilar rales). No: Rub Cardiovascular: Regular Rate, Regular Rhythm, Murmurs (Mild 1/6 BROOKS of the aortic valve). No: Gallops, Rubs GI/Abdominal Exam: Normal Bowel Sounds, Soft, Non-Tender, No Organomegaly, No Distention, No Abnormal Bruit, No Mass, Pelvis Stable, Other (Obese). No: Guarding (Female) Exam: Deferred Back Exam: Normal Inspection, Full Range of Motion. No: CVA Tenderness (L), CVA Tenderness (R), Muscle Spasm Extremities: Normal Range of Motion, Non-Tender, Normal Capillary Refill, Pedal Edema (Stable +1 bilateral pedal/pretibial edema). No: Red's Sign Peripheral Pulses: 2+: Radial (L), Radial (R), Dorsalis Pedis (L), Dorsalis Pedis (R) Skin: Warm, Dry, Intact. No: Ecchymosis Neurological: No New Focal Deficit Psy/Mental Status: Alert, Normal Affect, Normal Mood EKG INTERPRETATION EKG Date: 12/12/16 Time: 07:40 Rhythm: NSR Rate (Beats/Min): 64 [place]: Normal (Neutral cardiac axis) P-Wave: Enlarged (Mild diffuse biphasic P waves with extreme poor R-wave progression in the anterior leads) QRS: Wide (QRS interval of 0.10 seconds representing a stable incomplete right bundle branch block) ST-T: Other (T-wave inversions in leads V1 through V3 with resolution of previous T-wave inversion in lead 3) Comparison: Change From Previous EKG (As above since last EKG on 12/12/16) EKG Interpretation Comments: 1. Stable probable anterior wall cardiac ischemia 2. Incomplete right bundle branch block - Problem List & Annotations (1) Abdominal pain SNOMED Code(s): 45103275 Code(s): R10.9 - UNSPECIFIED ABDOMINAL PAIN Status: Acute Priority: High Current Visit: Yes Onset Date: 12/11/16 Qualifiers: Abdominal location: epigastric Qualified Code(s): R10.13 - Epigastric pain Annotation/Comment:: Abdominal pain has resolved since emergency room evaluation. Normal bowel movements to this point as above with [address] scan results from yesterday show no direct explanation of patient's significant LFTs elevation and hyperbilirubinemia, which has progressed this morning. The patient did have some flatulence during later part of emergency room care with some improvement of her symptoms prior to admission. No direct evidence of diverticulitis by CT scan however known history of diverticulosis with evidence of some possible constipation by x-rays as above. Repeat acute abdominal x-rays in the a.m. tomorrow. Continue IV Cipro and IV Flagyl, which was initiated in the emergency room. Leukocytosis has since resolved with blood work to be repeated in the a.m. Possible mild diverticulitis by clinical history and exam. Lipase and amylase are normal again this morning. INR and PTT to be repeated tomorrow secondary to her Coumadin therapy and also LFTs elevation. Further GI consultation, including possible transfer to [place] for liver biopsy depending on her clinical course. TARIQ, hepatitis panel, etc. results still pending. Initiate hepatitis precautions. Progression of LFTs elevation despite discontinuation of Zocor with discontinuation of Plaquenil today and one dose of IV Solu-Medrol therapy as anti-inflammatory agent. (2) Elevated LFTs SNOMED Code(s): 215286167 Code(s): R79.89 - OTHER SPECIFIED ABNORMAL FINDINGS OF BLOOD CHEMISTRY Status: Acute Priority: High Current Visit: Yes Onset Date: 12/11/16 Annotation/Comment:: As above. Significant progression of her LFTs elevation, including after past acute cholecystitis in 2013 with additional evidence of persistent and progressive hyperbilirubinemia. Previous known history of chronic LFTs elevation secondary to fatty liver (3) Coronary artery disease SNOMED Code(s): 44310187 Code(s): I25.10 - ATHSCL HEART DISEASE OF [place] CORONARY ARTERY W/O ANG PCTRS Status: Chronic Priority: Medium Current Visit: Yes Qualifiers: Coronary Disease-Associated Artery/Lesion type: [place] artery [place] vs. transplanted heart: [place] heart Associated angina: without angina Qualified Code(s): I25.10 - Atherosclerotic heart disease of [place] coronary artery without angina pectoris Annotation/Comment:: Stable anterior wall cardiac ischemia with previous distant negative heart catheterization as per emergency room note. No recent anginal complaints as above. Negative workup for acute AL to this point. Repeat EKG and blood work in the a.m. Cardiology consultation depending on her clinical course (4) CHF (congestive heart failure) SNOMED Code(s): 87480548 Code(s): I50.9 - HEART FAILURE, UNSPECIFIED Status: Acute Priority: Medium Current Visit: Yes Qualifiers: Congestive heart failure type: unspecified congestive heart failure type Congestive heart failure chronicity: acute on chronic Qualified Code(s): I50.9 - Heart failure, unspecified Annotation/Comment:: Persistent mild BNP elevation with no significant clinical evidence of acute CHF. Mild change of her troponin I secondary to her CHF with no true chest pain or other anginal-type symptoms. Note EKG does show stable anterior wall cardiac ischemia with previous negative heart catheterization as above. Consider cardiology consultation depending on her clinical course. The patient is a no code, however does agree to possible transfer to [place] depending on her clinical course. Echocardiogram to be conducted later today. Her weight is down 2 kg since admission (5) COPD (chronic obstructive pulmonary disease) SNOMED Code(s): 23698703 Code(s): J44.9 - CHRONIC OBSTRUCTIVE PULMONARY DISEASE, UNSPECIFIED Status : Chronic Priority: Medium Current Visit: Yes Qualifiers: COPD type: emphysema Emphysema type: panlobular Qualified Code(s): J43.1 - Panlobular emphysema Annotation/Comment:: Stable by history with no recent fever or bronchitic type symptoms. Continue nebulizer therapy. Initiate incentive spirometry (6) Hypertension SNOMED Code(s): 13739414 Code(s): I10 - ESSENTIAL (PRIMARY) HYPERTENSION Status: Acute Priority: Medium Current Visit: Yes Qualifiers: Hypertension type: essential hypertension Qualified Code(s): I10 - Essential (primary) hypertension Annotation/Comment:: Stable BPs during this hospitalization with occasional mildly elevated values. Continue to observe closely (7) Hyperuricemia SNOMED Code(s): 16084502 Code(s): E79.0 - HYPERURICEMIA W/O SIGNS OF INFLAM ARTHRIT AND TOPHACEOUS DIS Status: Chronic Priority: Medium Current Visit: Yes Annotation/ Comment:: History of known hyperuricemia with no recent gout-type symptoms. Her arthritis is otherwise been stable. 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 Repeat magnesium level in the a.m. (9) Peptic reflux disease SNOMED Code(s): 70426469 Code(s): K21.9 - GASTRO-ESOPHAGEAL REFLUX DISEASE WITHOUT ESOPHAGITIS Status: Chronic Priority: Medium Current Visit: Yes Annotation/Comment:: High-dose IV Pepcid and IV Protonix given in the emergency room with no significant improvement of patient's symptoms initially in the emergency room. Continue to observe symptoms closely with continuation of IV Protonix and IV Pepcid for now (10) Atrial fibrillation SNOMED Code(s): 73090321 Code(s): I48.91 - UNSPECIFIED ATRIAL FIBRILLATION Status: Chronic Priority: Medium Current Visit: Yes Qualifiers: Atrial fibrillation type: chronic Qualified Code(s): I48.2 - Chronic atrial fibrillation Annotation/Comment:: INR still subtherapeutic this morning Coumadin still to be held for the time being. INR and PTT to be repeated in the a.m. as above with previous INR of 2.4 on 11/30/16. Normal sinus rhythm by telemetry today. No adjustment of her Coumadin for now secondary to IV Cipro and IV Flagyl therapy as above, however Coumadin will be adjusted carefully secondary to her LFTs elevation and the above antibiotics tomorrow. - Problem List Review Problem List Initiated/Reviewed/Updated: Yes - My Orders Last 24 Hours: My Active Orders 12/11/16 12:35 Resuscitation Status Stat 12/11/16 16:39 Antiembolic Devices [RC] .Routine Antiembolic Devices [RC] 08,20 Communication Order [RC] ROUTINE EKG Documentation Completion [RC] 0700 Height and Weight [RC] DAILY Intake and Output Strict [RC] 06,14,22 Oxygen Therapy [RC] 2300 Pulse Oximetry [RC] ASDIRECTED Up With Assistance [RC] ASDIRECTED VTE/DVT Education [RC] PER UNIT ROUTINE Sodium Chloride 0.9% [Saline Flush] 10 ml FLUSH Q12HR PRN Temazepam [Restoril] 15 mg PO BEDTIME PRN Antiembolic Hose [OM.PC] Routine CHF Questionnaire [COMM] Routine DVT/VTE Prophylaxis Reflex [OM.PC] Routine GM Immunization Reflex [OM.PC] Click To Edit 12/11/16 16:45 Albuterol/Ipratropium [DuoNeb 3.0-0.5 MG/3 ML] 3 ml NEB Q4HRRT PRN Magnesium Oxide 400 mg PO DAILY 12/11/16 16:46 RT Aerosol Therapy [RC] 02,08,14,20 12/11/16 16:47 RT Aerosol Therapy [RC] .PRN 12/11/16 16:51 Communication Order [RC] Q4HR 12/11/16 17:00 Acetaminophen [Tylenol] 650 mg PO Q4H PRN Albuterol [Proventil Neb Soln] 2.5 mg INH Q2H PRN 12/11/16 18:00 Fluticasone Propionate [Flonase] 0 gm NASBOTH BID 12/11/16 20:00 Albuterol/Ipratropium [DuoNeb 3.0-0.5 MG/3 ML] 3 ml NEB Q6HRRT 12/11/16 20:28 Vital Signs [RC] Q4HR 12/12/16 00:30 Pantoprazole [ProTONIX IV] 40 mg IVPUSH Q12H 12/12/16 05:11 Abdomen Series w Chest 1V [CR] Routine Echo Comp wo Cont [US] Routine INR,PT,PROTHROMBIN TIME [COAG] Stat 12/12/16 07:44 TARIQ SCREEN RFLX [REF] Routine HEPATITIS PANEL, ACUTE [REF] Routine 12/12/16 08:00 Aspirin 325 mg PO DAILY Digoxin [Lanoxin] 125 mcg PO DAILY Hydrochlorothiazide 12.5 mg PO DAILY Hydroxychloroquine [Plaquenil] 200 mg PO DAILY Levothyroxine 75 mcg PO DAILY Lisinopril [Prinivil] 10 mg PO DAILY Metoprolol Succinate [Toprol XL] 50 mg PO DAILY Oxybutynin [Oxybutynin ER] 5 mg PO DAILY 12/12/16 18:00 Famotidine [Pepcid] 20 mg IVPUSH BID 12/12/16 Breakfast Fluid Restriction [DIET] - Assessment Assessment:: As above - Plan Plan:: As above. Extensive precautions were given to the patient, who is in agreement with the treatment plan. Anticipate 1-2 days of inpatient care versus transfer to [place] as above
[2016-12-12] MEDS ORDERED: methylPREDNISolone Sodium Succinate 125 MG/2 ML SDV IVPUSH ONE (09:44)
[2016-12-12] MEDS ORDERED: Fluticasone Propionate Nasal Spray 16 GM Bottle NASBOTH PRN (09:50)
[2016-12-12] MEDS: Budesonide 0.5 MG/2 ML Neb Susp NEB SCH ×2 (10:10→20:05)
[2016-12-12] MEDS: Pantoprazole 40 MG Vial IVPUSH SCH (12:11)
[2016-12-12] MEDS ORDERED: Metoclopramide 10 MG/2 ML SDV IVPUSH PRN (16:06)
[2016-12-12] MEDS: Famotidine 20 MG/2 ML SDV IVPUSH SCH (17:21)
[2016-12-12] MEDS ORDERED: Ondansetron 4 MG/2 ML SDV IVPUSH PRN (17:41)
[2016-12-13] MEDS: Pantoprazole 40 MG Vial IVPUSH SCH ×3 (00:57→23:31)
[2016-12-13] MEDS: Sodium Chloride 0.9% 10 ML Syringe FLUSH PRN ×15 (00:57→23:22)
[2016-12-13] MEDS: Albuterol/Ipratropium 3.0-0.5 MG/3 ML Neb Soln NEB SCH ×4 (01:02→19:26)
[2016-12-13] MEDS: metroNIDAZOLE/Normal Saline 500 MG in Premix Bag 1 BAG IV SCH ×3 (05:01→22:18)
[2016-12-13] MEDS: Aspirin 325 MG Tab PO SCH (07:19)
[2016-12-13] MEDS: Oxybutynin 5 MG Tab.ER PO SCH (07:19)
[2016-12-13] MEDS: Levothyroxine 75 MCG Tab PO SCH (07:20)
[2016-12-13] MEDS: Magnesium Oxide 400 MG Tab PO SCH ×2 (07:20→17:14)
[2016-12-13] MEDS: Hydrochlorothiazide 25 MG Tab PO SCH (07:20)
[2016-12-13] MEDS: Digoxin 125 MCG Tab PO SCH (07:20)
[2016-12-13] MEDS: Famotidine 20 MG/2 ML SDV IVPUSH SCH ×2 (07:22→17:14)
[2016-12-13] MEDS: Ciprofloxacin in D5W 200 MG in Premix Bag 1 BAG IV SCH ×6 (07:22→19:26)
[2016-12-13] MEDS: Budesonide 0.5 MG/2 ML Neb Susp NEB SCH ×2 (07:22→19:26)
[2016-12-13 07:40] LABS: CHLORIDE,CL 97 mmol/L (98-107); SODIUM,NA 132 mmol/L (136-145)
[2016-12-13] MEDS: Lisinopril 10 MG Tab PO SCH (09:14)
[2016-12-13] MEDS: Metoprolol Succinate 50 MG Tab.ER PO SCH (09:14)
--- NOTE | 2016-12-13 10:35 | PCM.PN ---
- General Info Date of Service: 12/13/16 Admission Dx/Problem (Free Text): 1. Abdominal pain 2. CHF 3. LFTs elevation Subjective Update: As below Functional Status: Reports: Pain Controlled, Tolerating Diet, Ambulating, Urinating, New Symptoms (Patient did have some mild nausea and emesis yesterday afternoon and evening with no symptoms today and overall good results with IV Reglan and IV Zofran. She is tolerating clear liquid diet and crackers at this time and requests advance of her diet), Incentive Spirometry Pain Score: 0 - Review of Systems General: Reports: No Symptoms. Denies: Fever, Weakness, Fatigue, Malaise, Chills, Night Sweats, Appetite (Appetite improved as above) HEENT: Reports: Other (Persistent bilateral presbycusis). Denies: Ear Pain, Eye Pain, Headaches, Sinus Congestion, Visual Changes Pulmonary: Reports: No Symptoms. Denies: Shortness of Breath, Pleuritic Chest Pain, Cough, Sputum, Wheezing Cardiovascular: Reports: Edema (Stable dependent edema). Denies: Chest Pain, Palpitations, Dyspnea on Exertion, Orthopnea, PND, Lightheadedness Gastrointestinal: Reports: Other (Normal bowel movement earlier this morning by her history). Denies: Abdominal Pain, Constipation, Decreased Appetite, Diarrhea, Difficulty Swallowing, Flatus, Hematochezia, Melena, Nausea (Resolved as above), Vomiting (Resolved as above) Genitourinary: Reports: No Symptoms. Denies: Dysuria, Frequency, Burning, Urgency, Hematuria, Retention, Flank Pain Musculoskeletal: Reports: No Symptoms. Denies: Neck Pain, Shoulder Pain, Arm Pain, Back Pain, Leg Pain Skin: Reports: No Symptoms. Denies: Jaundice, Diaphoresis, Bruising Neurological: Reports: No Symptoms. Denies: Confusion, Dizziness, Headache, Numbness, Paresthesia, Tingling, Weakness Psychiatric: Reports: No Symptoms. Denies: Confusion, Depression, Anxiety, Agitation, Hallucinations - Patient Data Vitals - Most Recent: Last Vital Signs Temp 36.4 C 12/13/16 07:56 Pulse 71 12/13/16 09:14 Resp 17 12/13/16 07:56 BP 137/53 L 12/13/16 09:14 Pulse Ox 94 L 12/13/16 07:56 Vital Signs - 24 hr 12/12/16 12/12/1617 12:00 17:20 20:00 Temperature [ Oral] Temperature [ 36.8 C 36.4 C 36.4 C Temporal] Pulse, Peripheral Pulse, 75 93 87 Peripheral [ Left Pulse Oximetry] Respiratory 15 12 24 H Rate Blood Pressure Blood Pressure 164/77 H 154/64 H [Left Lower Arm ] Blood Pressure 157/67 H [Left Upper Arm ] O2 Sat by Pulse 94 L 93 L 93 L Oximetry 12/13/16 12/13/16 12/13/16 01:05 05:00 07:20 Temperature [ 37.0 C Oral] Temperature [ 37.2 C Temporal] Pulse, 71 Peripheral Pulse, 83 73 Peripheral [ Left Pulse Oximetry] Respiratory 20 18 Rate Blood Pressure Blood Pressure 115/54 L 110/52 L [Left Lower Arm ] Blood Pressure [Left Upper Arm ] O2 Sat by Pulse 95 94 L Oximetry 12/13/16 12/13/16 12/13/16 07:56 09:10 09:14 Temperature [ 36.4 C Oral] Temperature [ Temporal] Pulse, 71 Peripheral Pulse, 71 Peripheral [ Left Pulse Oximetry] Respiratory 17 Rate Blood Pressure 137/53 L Blood Pressure 137/53 L [Left Lower Arm ] Blood Pressure 138/49 L [Left Upper Arm ] O2 Sat by Pulse 94 L Oximetry Weight - Most Recent: 92.442 kg I&O - Last 24 Hours: Intake & Output 12/12/16 12/13/16 12/13/16 22:59 06:59 14:59 Intake Total 400 440 400 Output Total 1100 550 Balance -700 -110 400 Imaging Impressions - Last 24 Hours: Acute abdominal x-rays shows evidence of moderate diffuse stool and contrast in the distal colon with mild increased nonspecific bowel gaseous pattern with no fluid levels, ileus, obstruction, free air, etc. Moderate osteoarthritic changes noted. Moderate COPD and cardiomegaly with mild centralized CHF and pulmonary hypertension Heart monitor shows normal sinus rhythm with heart rate in the 70s to 80s with no ectopy or arrhythmia Lab Results Last 24 Hours: Laboratory Results - last 24 hr 12/13/16 12/13/16 12/13/16 Range/Units 06:50 06:50 06:50 WBC 21.5 H (4.0-10.2) K/uL RBC 4.36 (3.77-5.09) M/uL Hgb 13.8 (11.7-15.5) g/dL Hct 40.7 (34.0-46.0) % MCV 93.3 (84.0-98.0) fL MCH 31.7 (28.2-33.3) pg MCHC 33.9 (31.7-36.0) g/dL RDW 13.1 (11.2-14.1) % Plt Count 298 (150-350) K/uL Neut % (Auto) 86.2 H (45.0-80.0) % Lymph % (Auto) 6.3 L (10.0-50.0) % Wallace % (Auto) 7.5 (2.0-14.0) % Eos % (Auto) 0.0 (0.0-5.0) % Baso % (Auto) 0.0 (0.0-2.0) % Neut # (Auto) 18.53 H (1.40-7.00) K/uL Lymph # (Auto) 1.36 (0.50-3.50) K/uL Wallace # (Auto) 1.62 H (0.00-1.00) K/uL Eos # (Auto) 0.01 (0.00-0.50) K/uL Baso # (Auto) 0.01 (0.00-0.20) K/uL PT 16.3 H (9.8-11.7) SEC INR 1.5 APTT 27.4 (23.5-30.0) SEC Sodium 132 L (136-145) mmol/L Potassium 4.5 (3.5-5.1) mmol/L Chloride 97 L (98-107) mmol/L Carbon Dioxide 25.7 (21.0-32.0) mmol/L BUN 17 (7-18) mg/dL Creatinine 0.84 (0.51-1.17) mg/dL Est Cr Clr Drug Dosing 47.85 mL/min Estimated GFR (MDRD) > 60 mL/min Glucose 139 H (74-106) mg/dL Uric Acid 7.2 (2.6-7.2) mg/dL Calcium 9.1 (8.5-10.1) mg/dL Magnesium 1.6 L (1.8-2.4) mg/dL Total Bilirubin 3.3 H (0.2-1.0) mg/dL Direct Bilirubin 2.3 H (0.0-0.2) mg/dL Indirect Bilirubin 1.0 AST 456 H (15-37) U/L ALT 842 H (12-78) U/L Alkaline Phosphatase 154 H (46-116) IU/L Creatine Kinase 193 (26-308) U/L Creatine Kinase Index 1.3 (0.0-2.5) % CK-MB (CK-2) 2.60 (0.00-3.60) ng/mL Troponin I 0.012 (0.000-0.056) ng/mL NT-Pro-B Natriuret Pep 523 H (0-125) pg/mL Total Protein 6.6 (6.4-8.2) g/dL Albumin 3.4 (3.4-5.0) g/dL Brandan Results Last 24 Hours: Microbiology 12/12/16 02:00 Helicobacter pylori Antigen - Final Stool / Feces 12/13/16 06:35 Stool Occult Blood (BRANDAN) - Final Stool / Feces NEGATIVE OCCULT BLOOD 12/12/16 02:00 Stool Occult Blood (BRANDAN) - Final Stool / Feces NEGATIVE OCCULT BLOOD H. pylori antigen negative Med Orders - Current: Current Medications Albuterol (Proventil Neb Soln) 2.5 mg INH Q2H PRN PRN Reason: SHORTNESS OF BREATH Albuterol/Ipratropium (Duoneb 3.0-0.5 Mg/3 Ml) 3 ml NEB Q4HRRT PRN PRN Reason: Dyspnea Albuterol/Ipratropium (Duoneb 3.0-0.5 Mg/3 Ml) 3 ml NEB Q6HRRT [facility] Last Admin: 12/13/16 07:22 Dose: 3 ml Aspirin (Aspirin) 325 mg PO DAILY [facility] Last Admin: 12/13/16 07:19 Dose: 325 mg Budesonide (Pulmicort) 0.5 mg NEB BIDRT [facility] Last Admin: 12/13/16 07:22 Dose: 0.5 mg Digoxin (Lanoxin) 125 mcg PO DAILY [facility] Last Admin: 12/13/16 07:20 Dose: 125 mcg Famotidine (Pepcid) 20 mg IVPUSH BID [facility] Last Admin: 12/13/16 07:22 Dose: 20 mg Fluticasone Propionate (Flonase) 0 gm NASBOTH BID PRN PRN Reason: Allergies Hydrochlorothiazide (Hydrochlorothiazide) 12.5 mg PO DAILY [facility] Last Admin: 12/13/16 07:20 Dose: 12.5 mg Metronidazole 500 mg/ Premix 100 mls @ 100 mls/hr IV Q8H [facility] Last Admin: 12/13/16 05:01 Dose: 100 mls/hr Ciprofloxacin/Dextrose 200 mg/ (Premix) 100 mls @ 100 mls/hr IV Q12HR [facility] Last Admin: 12/13/16 07:35 Dose: 100 mls/hr Levothyroxine Sodium (Levothyroxine) 75 mcg PO DAILY [facility] Last Admin: 12/13/16 07:20 Dose: 75 mcg Lisinopril (Prinivil) 10 mg PO DAILY [facility] Last Admin: 12/13/16 09:14 Dose: 10 mg Magnesium Oxide (Magnesium Oxide) 400 mg PO DAILY [facility] Last Admin: 12/13/16 07:20 Dose: 400 mg Metoclopramide HCl (Reglan) 10 mg IVPUSH Q6H PRN PRN Reason: Nausea/Vomiting Last Admin: 12/12/16 16:49 Dose: 10 mg Metoprolol Succinate (Toprol Xl) 50 mg PO DAILY [facility] Last Admin: 12/13/16 09:14 Dose: 50 mg Ondansetron HCl (Zofran) 4 mg IVPUSH Q6H PRN PRN Reason: Nausea/Vomiting Last Admin: 12/12/16 18:08 Dose: 4 mg Oxybutynin Chloride (Oxybutynin Er) 5 mg PO DAILY [facility] Last Admin: 12/13/16 07:19 Dose: 5 mg Pantoprazole Sodium (Protonix Iv) 40 mg IVPUSH Q12H [facility] Last Admin: 12/13/16 00:57 Dose: 40 mg Sodium Chloride (Saline Flush) 10 ml FLUSH ASDIRECTED PRN PRN Reason: Keep Vein Open Last Admin: 12/13/16 07:23 Dose: 10 ml Sodium Chloride (Saline Flush) 10 ml FLUSH Q12HR PRN PRN Reason: Keep Vein Open Last Admin: 12/11/16 23:59 Dose: 10 ml Temazepam (Restoril) 15 mg PO BEDTIME PRN PRN Reason: Insomnia Last Admin: 12/12/16 20:05 Dose: 15 mg Discontinued Medications Acetaminophen (Tylenol) 650 mg PO Q4H PRN PRN Reason: Pain Last Admin: 12/12/16 04:12 Dose: 650 mg Famotidine (Pepcid) 40 mg IVPUSH ONETIME ONE Stop: 12/11/16 12:36 Last Admin: 12/11/16 13:05 Dose: 40 mg Fluticasone Propionate (Flonase) 0 gm NASBOTH BID [facility] Last Admin: 12/12/16 07:32 Dose: Not Given Hydroxychloroquine Sulfate (Plaquenil) 200 mg PO DAILY [facility] Last Admin: 12/12/16 07:28 Dose: 200 mg Lactated Ringer's (Ringers, Lactated) 1,000 mls @ 999 mls/hr IV .BOLUS ONE Stop: 12/11/16 13:35 Last Admin: 12/11/16 13:32 Dose: Not Given Ciprofloxacin/Dextrose 200 mg/ (Premix) 100 mls @ 100 mls/hr IV Q12HR [facility] Iopamidol (Isovue-300 (61%)) 100 ml IVPUSH ONETIME ONE Stop: 12/11/16 14:31 Last Admin: 12/11/16 15:46 Dose: 100 ml Methylprednisolone Sodium Succinate (Solu-Medrol) 125 mg IVPUSH ONETIME ONE Stop: 12/12/16 09:45 Last Admin: 12/12/16 10:10 Dose: 125 mg Non-Formulary Medication (Lisinopril/Hydrochlorothiazide [Zestoretic 10-12.5 Mg Tablet]) 1 tab PO DAILY [facility] Pantoprazole Sodium (Protonix Iv) 40 mg IVPUSH ONETIME ONE Stop: 12/11/16 12:36 Last Admin: 12/11/16 13:05 Dose: 40 mg Pantoprazole Sodium (Protonix Iv) 40 mg IVPUSH Q12H [facility] - Exam Quality Assessment: Supplemental Oxygen, DVT Prophylaxis. No: Central Line/PICC , Urine Catheter, Skin Breakdown, Restraints General: Alert, Oriented, Cooperative, No Acute Distress HEENT: Pupils Equal, Pupils Reactive, EOMI, Mucous Membr. Moist/[place], Other ( Stable presbycusis) Neck: Supple, Trachea Midline, No JVD, No Thyromegaly, Carotid Bruit (Mild bilateral carotid bruits versus transmitted heart sounds). No: Lymphadenopathy Lungs: Clear to Auscultation, Normal Respiratory Effort. No: Rub Cardiovascular: Regular Rate, Regular Rhythm, Murmurs (Mild 1/6 BROOKS at the aortic valve). No: Gallops, Rubs GI/Abdominal Exam: Normal Bowel Sounds, Soft, Non-Tender, No Organomegaly, No Distention, No Abnormal Bruit, No Mass, Pelvis Stable, Other (Obese). No: Guarding, Rebound (Female) Exam: Deferred Back Exam: Normal Inspection, Full Range of Motion. No: CVA Tenderness (L), CVA Tenderness (R), Muscle Spasm Extremities: Normal Range of Motion, Non-Tender, No Pedal Edema, Normal Capillary Refill, Pedal Edema (Stable bilateral +1 pedal/pretibial edema). No: Red's Sign Peripheral Pulses: 2+: Radial (L), Radial (R), Dorsalis Pedis (L), Dorsalis Pedis (R) Skin: Warm, Dry, Intact. No: Ecchymosis Neurological: No New Focal Deficit, Other (No clinical orthostasis) Psy/Mental Status: Alert, Normal Affect, Normal Mood. No: Agitated, Hallucinations, Withdrawal Symptoms EKG INTERPRETATION EKG Date: 12/13/16 Time: 07:12 Rhythm: NSR Rate (Beats/Min): 70 [place]: Normal (Neutral) P-Wave: Enlarged (Moderate diffuse biphasic P waves with poor R-wave progression in the anterior leads) QRS: RBBB (QRS interval of 0.10 seconds representing an incomplete right bundle branch block with T-wave inversion in leads V1 through V3) ST-T: Other (As above) QT: Normal [place]/PQ Interval: 0.20 seconds representing a new first degree AV block Comparison: Change From Previous EKG (As above since last EKG on 12/12/16) EKG Interpretation Comments: 1. Stable anterior wall cardiac ischemia 2. New borderline first-degree AV block 3. Incomplete right bundle branch block 4. Left atrial enlargement - Problem List & Annotations (1) Abdominal pain SNOMED Code(s): 76387095 Code(s): R10.9 - UNSPECIFIED ABDOMINAL PAIN Status: Acute Priority: High Current Visit: Yes Onset Date: 12/11/16 Qualifiers: Abdominal location: epigastric Qualified Code(s): R10.13 - Epigastric pain Annotation/Comment:: Abdominal pain has resolved since emergency room evaluation with resolution this morning of previous mild nausea and emesis yesterday as above. Normal bowel movements to this point, including this morning. Negative stool specimen for H. pylori antigen with additional [address] scan of the abdomen and pelvis results from 12/11 show no direct explanation of patient's significant LFTs elevation and hyperbilirubinemia. Patient's LFTs have improved somewhat with high-dose IV Solu -Medrol yesterday and discontinuation of her plaque when L and Zocor. Various therapeutic options were discussed with the patient and her son, Albino, including transfer to [place] for possible GI evaluation on the liver biopsy, etc. Per the request the patient will be kept in this facility with additional IV Solu-Medrol to be given today. Repeat blood work in the a.m.. Planned hospital discharged tomorrow and/or transfer to [place] depending on her clinical course. No direct evidence of diverticulitis by CT scan however known history of diverticulosis with evidence of some possible constipation by x-rays as above. Note significant leukocytosis this morning likely secondary to IV Solu- Medrol yesterday with no fever at this time. Continue IV Cipro and IV Flagyl, which was initiated in the emergency room. Possible mild diverticulitis by clinical history and exam. Lipase and amylase have been normal during this hospitalization. INR subtherapeutic at 1.5 this morning with one dose of Coumadin today. TARIQ and hepatitis panel results are still pending. Continue hepatitis precautions. (2) Elevated LFTs SNOMED Code(s): 126684893 Code(s): R79.89 - OTHER SPECIFIED ABNORMAL FINDINGS OF BLOOD CHEMISTRY Status: Acute Priority: High Current Visit: Yes Onset Date: 12/11/16 Annotation/Comment:: As above. Previous known history of chronic LFTs elevation secondary to fatty liver (3) Coronary artery disease SNOMED Code(s): 77968649 Code(s): I25.10 - ATHSCL HEART DISEASE OF [place] CORONARY ARTERY W/O ANG PCTRS Status: Chronic Priority: Medium Current Visit: Yes Qualifiers: Coronary Disease-Associated Artery/Lesion type: [place] artery [place] vs. transplanted heart: [place] heart Associated angina: without angina Qualified Code(s): I25.10 - Atherosclerotic heart disease of [place] coronary artery without angina pectoris Annotation/Comment:: Stable anterior wall cardiac ischemia by EKG with previous distant negative heart catheterization as per emergency room note. No recent anginal complaints as above. Negative workup for acute AL to this point. Cardiology consultation depending on her clinical course (4) CHF (congestive heart failure) SNOMED Code(s): 67953171 Code(s): I50.9 - HEART FAILURE, UNSPECIFIED Status: Acute Priority: Medium Current Visit: Yes Qualifiers: Congestive heart failure type: unspecified congestive heart failure type Congestive heart failure chronicity: acute on chronic Qualified Code(s): I50.9 - Heart failure, unspecified Annotation/Comment:: Persistent and somewhat progressive BNP elevation with no significant clinical evidence of acute CHF. Initiate IV Lasix and potassium supplementation today with caution secondary to her current hepatitis. Mild progressive change of her troponin I secondary to her CHF, although this is still in the normal range. The patient is a no code, however does agree to possible transfer to [place] depending on her clinical course. Echocardiogram to be conducted yesterday, however verbal report not received from the quick technician. (5) COPD (chronic obstructive pulmonary disease) SNOMED Code(s): 97604581 Code(s): J44.9 - CHRONIC OBSTRUCTIVE PULMONARY DISEASE, UNSPECIFIED Status : Chronic Priority: Medium Current Visit: Yes Qualifiers: COPD type: emphysema Emphysema type: panlobular Qualified Code(s): J43.1 - Panlobular emphysema Annotation/Comment:: Stable by history with no recent fever or bronchitic type symptoms. Continue nebulizer therapy. Initiate incentive spirometry (6) Hypertension SNOMED Code(s): 42685070 Code(s): I10 - ESSENTIAL (PRIMARY) HYPERTENSION Status: Acute Priority: Medium Current Visit: Yes Qualifiers: Hypertension type: essential hypertension Qualified Code(s): I10 - Essential (primary) hypertension Annotation/Comment:: Stable BPs during this hospitalization with occasional mildly elevated values. Continue to observe closely (7) Hyperuricemia SNOMED Code(s): 28436237 Code(s): E79.0 - HYPERURICEMIA W/O SIGNS OF INFLAM ARTHRIT AND TOPHACEOUS DIS Status: Chronic Priority: Medium Current Visit: Yes Annotation/ Comment:: History of known hyperuricemia with no recent gout-type symptoms. Her arthritis is otherwise been stable. 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 Repeat magnesium level this morning is still increased with increase of supplementation to a twice a day regimen secondary to initiation of IV Lasix therapy today. (9) Peptic reflux disease SNOMED Code(s): 05518768 Code(s): K21.9 - GASTRO-ESOPHAGEAL REFLUX DISEASE WITHOUT ESOPHAGITIS Status: Chronic Priority: Medium Current Visit: Yes Annotation/Comment:: High-dose IV Pepcid and IV Protonix given in the emergency room with no significant improvement of patient's symptoms initially in the emergency room. Continue to observe symptoms closely with continuation of IV Protonix and IV Pepcid for now (10) Atrial fibrillation SNOMED Code(s): 49930984 Code(s): I48.91 - UNSPECIFIED ATRIAL FIBRILLATION Status: Chronic Priority: Medium Current Visit: Yes Qualifiers: Atrial fibrillation type: chronic Qualified Code(s): I48.2 - Chronic atrial fibrillation Annotation/Comment:: INR still subtherapeutic this morning as above. Coumadin will be given today. INR and PTT to be repeated in the a.m. as above with previous INR of 2.4 on 11/30/16. Normal sinus rhythm by telemetry today. No further adjustment of her Coumadin for now secondary to IV Cipro and IV Flagyl therapy as above, however Coumadin will be adjusted carefully secondary to her LFTs elevation and the above antibiotics. - Problem List Review Problem List Initiated/Reviewed/Updated: Yes - My Orders Last 24 Hours: My Active Orders 12/12/16 09:41 Communication Order [RC] 12/12/16 09:48 RT Incentive Spirometry [RC] Q2HR 12/12/16 09:49 RT Aerosol Therapy [RC] 08,20 Budesonide [Pulmicort] 0.5 mg NEB BIDRT 12/12/16 09:50 Fluticasone Propionate [Flonase] 0 gm NASBOTH BID PRN 12/12/16 16:06 Metoclopramide [Reglan] 10 mg IVPUSH Q6H PRN 12/12/16 17:41 Ondansetron [Zofran] 4 mg IVPUSH Q6H PRN 12/12/16 17:43 Vital Signs [RC] Q4HR 12/12/16 18:00 Famotidine [Pepcid] 20 mg IVPUSH BID 12/12/16 Dinner Clear Liquid Diet [DIET] 12/13/16 05:11 EKG Documentation Completion [RC] ASDIRECTED 12/13/16 08:09 Abdomen Series w Chest 1V [CR] Routine - Assessment Assessment:: As above - Plan Plan:: As above. Extensive precautions were given to the patient and her son, who are in agreement with the treatment plan. Anticipate 1 additional day of inpatient care versus transfer to [place] as above.
[2016-12-13] MEDS ORDERED: Warfarin 5 MG Tab PO ONE (10:55)
[2016-12-13] MEDS: methylPREDNISolone Sodium Succinate 125 MG/2 ML SDV IVPUSH SCH ×2 (11:48→23:22)
[2016-12-13] MEDS: Furosemide 40 MG/4 ML VIAL IVPUSH SCH ×2 (11:50→23:22)
[2016-12-13] MEDS: Potassium Chloride 20 MEQ Tab.ER PO SCH (17:13)
[2016-12-14] MEDS: Albuterol/Ipratropium 3.0-0.5 MG/3 ML Neb Soln NEB SCH ×2 (02:53→07:10)
[2016-12-14] MEDS: Sodium Chloride 0.9% 10 ML Syringe FLUSH PRN ×5 (05:46→11:50)
[2016-12-14] MEDS: metroNIDAZOLE/Normal Saline 500 MG in Premix Bag 1 BAG IV SCH (05:47)
[2016-12-14] MEDS: Budesonide 0.5 MG/2 ML Neb Susp NEB SCH (07:10)
[2016-12-14] MEDS: Potassium Chloride 20 MEQ Tab.ER PO SCH (07:10)
[2016-12-14] MEDS: Metoprolol Succinate 50 MG Tab.ER PO SCH (07:10)
[2016-12-14] MEDS: Digoxin 125 MCG Tab PO SCH (07:10)
[2016-12-14] MEDS: Oxybutynin 5 MG Tab.ER PO SCH (07:11)
[2016-12-14] MEDS: Magnesium Oxide 400 MG Tab PO SCH (07:11)
[2016-12-14] MEDS: Ciprofloxacin in D5W 200 MG in Premix Bag 1 BAG IV SCH ×2 (07:11)
[2016-12-14] MEDS: Levothyroxine 75 MCG Tab PO SCH (07:11)
[2016-12-14] MEDS: Aspirin 325 MG Tab PO SCH (07:11)
[2016-12-14] MEDS: Lisinopril 10 MG Tab PO SCH (07:11)
[2016-12-14] MEDS: Famotidine 20 MG/2 ML SDV IVPUSH SCH (07:11)
--- NOTE | 2016-12-14 10:28 | PCM.DCSUM1 ---
Discharge Summary - Hospital Course HPI Initial Comments: See emergency room note/admission H&P Brief History: See emergency room note/admission H&P - Discharge Data Discharge Date: 12/14/16 Discharge Disposition: Home, W Home Health Agency 06 Condition: Good - Discharge Diagnosis/Problem(s) (1) Abdominal pain SNOMED Code(s): 00698983 ICD Code: R10.9 - UNSPECIFIED ABDOMINAL PAIN Status: Acute Priority: High Current Visit: Yes Onset Date: 12/11/16 Problem Details: She is tolerating the advanced diet well with no recurrence of her abdominal pain, nausea, and emesis. Only one loose we formed BM yesterday with no diarrhea or other GI complaints. Negative stool specimen for H. pylori antigen with additional [address] scan of the abdomen and pelvis results from 12/11 show no direct explanation of patient's significant LFTs elevation and hyperbilirubinemia. Patient's LFTs and change to improve slowly with increased IV Solu-Medrol therapy yesterday and previous discontinuation of her high-dose Zocor and Plaquenil. Patient will be discharged to home today with close follow-up by her regular provider, Jenae Blank PA-C, at the [facility] in [facility], as per discharge instructions. Strict compliance with diet was strongly encouraged. Weight loss in moderation is also advisable. Consider reinitiation of Zocor and/or Plaquenil once her LFTs normalize. Further workup depending on her clinical course, including possible liver biopsy, etc. Acute hepatitis panel and TARIQ results are still pending. No direct evidence of diverticulitis by CT scan however known history of diverticulosis with evidence of some possible constipation by previous x-rays as below. Note previous significant leukocytosis has improved today despite increase of her IV Solu- Medrol therapy yesterday. Continue oral prednisone with consideration of tapering regimen at follow-up visit. Adrenal crisis precautions given. Previous IV Cipro and IV Flagyl, which was initiated in the emergency room, will be changed to an oral regimen. Lipase and amylase have been normal during this hospitalization. INR and PTT to be followed closely by her regular provider secondary to LFTs elevation and antibiotics. Continue hepatitis precautions. She is requesting home health at discharge Qualifiers: Abdominal location: epigastric Qualified Code(s): R10.13 - Epigastric pain (2) Elevated LFTs SNOMED Code(s): 843337623 ICD Code: R79.89 - OTHER SPECIFIED ABNORMAL FINDINGS OF BLOOD CHEMISTRY Status: Acute Priority: High Current Visit: Yes Onset Date: 12/11/16 Problem Details: As above. Previous known history of chronic LFTs elevation secondary to fatty liver (3) Coronary artery disease SNOMED Code(s): 27058819 ICD Code: I25.10 - ATHSCL HEART DISEASE OF [place] CORONARY ARTERY W/O ANG PCTRS Status: Chronic Priority: Medium Current Visit: Yes Problem Details: Stable anterior wall cardiac ischemia by EKG with previous distant negative heart catheterization as per emergency room note. No recent anginal complaints as above. Negative workup for acute AR to this point. Repeat EKG and cardiac enzymes at follow-up with mild troponin I change secondary to her CHF, which is improved with initiation of IV Lasix therapy yesterday. Cardiology consultation depending on her clinical course Qualifiers: Coronary Disease-Associated Artery/Lesion type: [place] artery [place] vs. transplanted heart: [place] heart Associated angina: without angina Qualified Code(s): I25.10 - Atherosclerotic heart disease of [place] coronary artery without angina pectoris (4) CHF (congestive heart failure) SNOMED Code(s): 88720596 ICD Code: I50.9 - HEART FAILURE, UNSPECIFIED Status: Acute Priority: Medium Current Visit: Yes Problem Details: Significantly improved BNP initiation of IV Lasix therapy. Continue oral Lasix therapy at discharge with continuation of her previous lisinopril HCT. No clinical evidence of significant CHF with mild improvement of her previous hyponatremia. The patient is a no code, however does agree to possible further evaluation in [place] depending on her clinical course. Echocardiogram was conducted on 12/12, however verbal report not received from the all terrain vehicle technician. Discuss results at follow-up visit with regular provider at follow-up Qualifiers: Congestive heart failure type: unspecified congestive heart failure type Congestive heart failure chronicity: acute on chronic Qualified Code(s): I50.9 - Heart failure, unspecified (5) COPD (chronic obstructive pulmonary disease) SNOMED Code(s): 02865864 ICD Code: J44.9 - CHRONIC OBSTRUCTIVE PULMONARY DISEASE, UNSPECIFIED Status : Chronic Priority: Medium Current Visit: Yes Problem Details: Stable by history with no recent fever or bronchitic type symptoms. Aggressive nebulizer therapy during this hospitalization, including additional incentive spirometry Qualifiers: COPD type: emphysema Emphysema type: panlobular Qualified Code(s): J43.1 - Panlobular emphysema (6) Hypertension SNOMED Code(s): 74044644 ICD Code: I10 - ESSENTIAL (PRIMARY) HYPERTENSION Status: Acute Priority: Medium Current Visit: Yes Problem Details: Stable BPs during this hospitalization with occasional mildly elevated values. Continue to observe closely by her regular provider Qualifiers: Hypertension type: essential hypertension Qualified Code(s): I10 - Essential (primary) hypertension (7) Hyperuricemia SNOMED Code(s): 58066330 ICD Code: E79.0 - HYPERURICEMIA W/O SIGNS OF INFLAM ARTHRIT AND TOPHACEOUS DIS Status: Chronic Priority: Medium Current Visit: Yes Problem Details : History of known hyperuricemia with no recent gout-type symptoms. Her arthritis is otherwise been stable. Uric acid level at follow-up secondary to new Lasix therapy. 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 Repeat magnesium level at follow-up with high- dose magnesium oxide supplementation at a twice a day regimen required during this hospitalization. Consider decreasing this therapy at follow-up depending on blood work results. (9) Peptic reflux disease SNOMED Code(s): 39230128 ICD Code: K21.9 - GASTRO-ESOPHAGEAL REFLUX DISEASE WITHOUT ESOPHAGITIS Status: Chronic Priority: Medium Current Visit: Yes Problem Details: High- dose IV Pepcid and IV Protonix given throughout this hospitalization with continuation of GI prophylaxis at discharge especially in light of her steroid therapy. (10) Atrial fibrillation SNOMED Code(s): 88311888 ICD Code: I48.91 - UNSPECIFIED ATRIAL FIBRILLATION Status: Chronic Priority: Medium Current Visit: Yes Problem Details: INR still subtherapeutic this morning with Coumadin just reinitiated yesterday. Continue Coumadin therapy her previous home regimen with caution secondary to antibiotics and LFTs elevation as above. Qualifiers: Atrial fibrillation type: chronic Qualified Code(s): I48.2 - Chronic atrial fibrillation (11) Dyslipidemia SNOMED Code(s): 857996528 ICD Code: E78.5 - HYPERLIPIDEMIA, UNSPECIFIED Status: Chronic Priority: Medium Current Visit: Yes Problem Details: Persistent dyslipidemia despite previous high dose Zocor therapy. Close follow-up by regular provider. Continue to hold Zocor for now as above. Weight loss in moderation advisable with strict dietary compliance strongly encouraged (12) Hypothyroidism (acquired) SNOMED Code(s): 825076415 ICD Code: E03.9 - HYPOTHYROIDISM, UNSPECIFIED Status: Chronic Priority: Medium Current Visit: Yes Problem Details: Under therapy with normal TSH during this hospitalization - Patient Summary/Data Operative Procedure(s) Performed: None Complications: LFTs elevation Consults: None Labs Pending at D/C: Hepatitis panel, TARIQ titer, and echocardiogram results as above Recommended Follow-up Testing/Procedures: As per discharge instructions Planned Operative Procedure(s) after DC: None Hospital Course: The patient was admitted to inpatient/acute care on telemetry with negative workup for acute AR. Secondary to progression of BNP elevation she was started on IV Lasix with overall improvement of her subclinical CHF at that time. No chest pain or anginal type symptoms during this hospitalization. Note significant LFTs elevation including initial mild progression during this hospitalization with etiology unknown based on CT scan on admission. Her hepatitis is likely secondary to medications with improvement with IV Solu- Medrol and discontinuation of her previous Zocor and Plaquenil as above. TARIQ panel and acute hepatitis panel were conducted with results pending at time of discharge. Close follow-up by her regular provider. Note that IV Cipro and IV Flagyl therapy was initiated in the emergency room and continued during hospitalization secondary to possibility of concomitant mild diverticulitis by clinical exam with resolution of patient's previous abdominal pain, nausea, and emesis prior to discharge. - Patient Instructions Diet: Fluid Restriction Diet, Other: Strict heart healthy, diverticulosis Fluid Restriction: 2000 mL Activity: No Strenuous Activities (50% maximum exercise restriction until otherwise directed by your regular providers) Driving: May Drive Today Showering/Bathing: May Shower Notify Provider of: Fever, Increased Pain, Nausea and/or Vomiting Other/Special Instructions: 1. Follow-up with your regular provider on 12/18/16 for reevaluation with recommended CBC, comprehensive metabolic panel, direct/ indirect bilirubin, uric acid level, magnesium level, CPK, CPK-MB, troponin I, BNP, INR, PTT, EKG, and acute abdominal x-rays. 2. Discuss pending acute hepatitis panel, TARIQ titer, and echocardiogram results at follow-up visit. 3. Hepatitis precautions including fluid isolation. 4. Adrenal crisis precautions as discussed, i.e., do not discontinue oral prednisone therapy until otherwise directed - Discharge Plan Prescriptions/Med Rec: Ciprofloxacin [Ciprofloxacin HCl] 500 mg PO BID #14 tablet Furosemide [Lasix] 20 mg PO DAILY #10 tablet Magnesium Oxide 400 mg PO BID #30 tablet metroNIDAZOLE [Flagyl] 500 mg PO Q8H #21 tablet Potassium Chloride 20 meq PO DAILY #10 tablet.er Prednisone [IJD: predniSONE] 20 mg PO BID #10 tab Home Medications: Home Meds Albuterol/Ipratropium [Combivent] 2 puff INH QID PRN 06/05/13 [History] Calcium Carbonate/Vitamin D3 [Calcium 600 + Vit D 400] 1 each PO BID 06/05/13 [ History] Metoclopramide [Reglan] 10 mg PO TIDAC PRN 06/05/13 [History] Metoprolol Succinate [Toprol XL 100mg] 50 mg PO DAILY 06/05/13 [History] Omeprazole 20 mg PO QAM 06/05/13 [History] Vitamin B Complex 1 each PO DAILY 06/05/13 [History] Warfarin [Coumadin] 5 mg PO DAILY@1800 06/05/13 [History] Ascorbic Acid 500 mg PO DAILY 03/13/15 [History] Aspirin 325 mg PO DAILY 03/13/15 [History] Cholecalciferol (Vitamin D3) [Vitamin D3] 400 unit PO DAILY 03/13/15 [History] Digoxin 125 mcg PO DAILY 03/13/15 [History] Levothyroxine Sodium [Synthroid] 75 mcg PO DAILY 03/13/15 [History] Oxybutynin [Oxybutynin ER] 5 mg PO DAILY 03/13/15 [History] Fluticasone Propionate [Flonase] 1 spray NASBOTH BID PRN 12/11/16 [History] Lisinopril/Hydrochlorothiazide [Zestoretic 10-12.5 mg Tablet] 1 tab PO DAILY 02/16 [History] Ciprofloxacin [Ciprofloxacin HCl] 500 mg PO BID #14 tablet 12/14/16 [Rx] Furosemide [Lasix] 20 mg PO DAILY #10 tablet 12/14/16 [Rx] Magnesium Oxide 400 mg PO BID #30 tablet 12/14/16 [Rx] Potassium Chloride 20 meq PO DAILY #10 tablet.er 12/14/16 [Rx] Prednisone [IJD: predniSONE] 20 mg PO BID #10 tab 12/14/16 [Rx] metroNIDAZOLE [Flagyl] 500 mg PO Q8H #21 tablet 12/14/16 [Rx] Patient Handouts: Abdominal Pain, Adult, [id number], Heart Failure, Metronidazole injection, Ciprofloxacin injection Forms: ED Department Discharge Referrals: Jenny Blank PA [Primary Care Provider] - - Discharge Summary/Plan Comment DC Time >30 min.: Yes (Coordination of care) Discharge Summary/Plan Comment: As above. Extensive precautions were given to the patient, who is in agreement with the treatment plan. See Patient Instructions for further treatment and plan. - General Info Date of Service: 12/14/16 Admission Dx/Problem (Free Text: 1. Abdominal pain 2. CHF 3. LFTs elevation Subjective Update: As below Functional Status: Reports: Pain Controlled, Tolerating Diet, Ambulating, Urinating, New Symptoms, Incentive Spirometry Numeric/FACES Score: 0 - Review of Systems General: Reports: No Symptoms. Denies: Fever, Weakness, Fatigue, Malaise, Chills, Night Sweats, Appetite (Appetite good) HEENT: Reports: Glasses. Denies: Dysphasia, Ear Pain, Eye Pain, Headaches, Post Nasal Drip, Sinus Congestion, Sore Throat, Visual Changes Pulmonary: Reports: No Symptoms. Denies: Shortness of Breath, Pleuritic Chest Pain, Cough, Sputum, Hemoptysis, Wheezing Cardiovascular: Reports: Edema (Stable dependent). Denies: Chest Pain, Palpitations, Dyspnea on Exertion, Orthopnea, PND, Lightheadedness Gastrointestinal: Reports: No Symptoms. Denies: Abdominal Pain, Constipation, Decreased Appetite, Diarrhea, Difficulty Swallowing, Flatus, Hematochezia, Melena, Nausea, Vomiting Genitourinary: Reports: No Symptoms. Denies: Dysuria, Frequency, Burning, Pain , Urgency, Hematuria, Retention, Flank Pain Musculoskeletal: Reports: No Symptoms. Denies: Neck Pain, Shoulder Pain, Arm Pain, Back Pain, Leg Pain Skin: Reports: No Symptoms. Denies: Diaphoresis, Bruising Neurological: Denies: Confusion, Dizziness, Headache, Numbness, Paresthesia, Tingling, Difficulty Walking, Weakness Psychiatric: Reports: No Symptoms. Denies: Confusion, Depression, Anxiety, Agitation, Hallucinations - Patient Data Vitals - Most Recent: Last Vital Signs Temp 36.4 C 12/14/16 05:44 Pulse 71 12/14/16 07:10 Resp 20 12/14/16 05:44 BP 119/52 L 12/14/16 07:11 Pulse Ox 94 L 12/14/16 05:44 Vital Signs (72 hours) 12/11/16 12/11/16 12/11/16 12:23 12:55 13:30 Temperature [ Oral] Temperature [ 36.4 C Temporal] Pulse, Peripheral Pulse, 71 70 69 Peripheral [ Left Pulse Oximetry] Respiratory 18 25 H 26 H Rate Blood Pressure Blood Pressure [Left Lower Arm ] Blood Pressure 152/71 H 153/67 H 149/64 H [Left Upper Arm ] O2 Sat by Pulse 96 96 94 L Oximetry 12/11/16 12/11/16 12/11/16 14:00 14:28 15:05 Temperature [ Oral] Temperature [ Temporal] Pulse, Peripheral Pulse, 69 68 66 Peripheral [ Left Pulse Oximetry] Respiratory 28 H 22 H 26 H Rate Blood Pressure Blood Pressure [Left Lower Arm ] Blood Pressure 162/65 H 154/56 H 164/56 H [Left Upper Arm ] O2 Sat by Pulse 97 97 97 Oximetry 12/11/16 12/11/16 12/11/16 15:21 16:20 16:39 Temperature [ Oral] Temperature [ 36.4 C Temporal] Pulse, Peripheral Pulse, 71 69 68 Peripheral [ Left Pulse Oximetry] Respiratory 28 H 25 H 25 H Rate Blood Pressure Blood Pressure [Left Lower Arm ] Blood Pressure 155/56 H 148/53 H 144/53 H [Left Upper Arm ] O2 Sat by Pulse 97 97 97 Oximetry 12/11/16 12/11/16 12/11/16 16:54 18:50 20:00 Temperature [ 36.7 C Oral] Temperature [ 36.3 C Temporal] Pulse, Peripheral Pulse, 61 62 Peripheral [ Left Pulse Oximetry] Respiratory 20 16 Rate Blood Pressure Blood Pressure 170/65 H 153/58 H [Left Lower Arm ] Blood Pressure [Left Upper Arm ] O2 Sat by Pulse 98 99 99 Oximetry 12/12/16 12/12/16 12/12/16 00:00 04:00 07:28 Temperature [ Oral] Temperature [ 36.6 C 36.6 C Temporal] Pulse, 77 Peripheral Pulse, 67 64 Peripheral [ Left Pulse Oximetry] Respiratory 18 20 Rate Blood Pressure 148/66 H Blood Pressure 159/66 H [Left Lower Arm ] Blood Pressure 151/54 H [Left Upper Arm ] O2 Sat by Pulse 96 99 Oximetry 12/12/16 12/12/16 12/12/16 07:56 12:00 17:20 Temperature [ 36.4 C Oral] Temperature [ 36.8 C 36.4 C Temporal] Pulse, Peripheral Pulse, 77 75 93 Peripheral [ Left Pulse Oximetry] Respiratory 20 15 12 Rate Blood Pressure Blood Pressure 164/77 H [Left Lower Arm ] Blood Pressure 148/66 H 157/67 H [Left Upper Arm ] O2 Sat by Pulse 95 94 L 93 L Oximetry 12/12/16 12/13/16 12/13/16 20:00 01:05 05:00 Temperature [ 37.0 C Oral] Temperature [ 36.4 C 37.2 C Temporal] Pulse, Peripheral Pulse, 87 83 73 Peripheral [ Left Pulse Oximetry] Respiratory 24 H 20 18 Rate Blood Pressure Blood Pressure 154/64 H 115/54 L 110/52 L [Left Lower Arm ] Blood Pressure [Left Upper Arm ] O2 Sat by Pulse 93 L 95 94 L Oximetry 12/13/16 12/13/16 12/13/16 07:20 07:56 09:10 Temperature [ 36.4 C Oral] Temperature [ Temporal] Pulse, 71 Peripheral Pulse, 71 Peripheral [ Left Pulse Oximetry] Respiratory 17 Rate Blood Pressure Blood Pressure 137/53 L [Left Lower Arm ] Blood Pressure 138/49 L [Left Upper Arm ] O2 Sat by Pulse 94 L Oximetry 12/13/16 12/13/16 12/13/16 09:14 11:14 18:00 Temperature [ Oral] Temperature [ 36.1 C 36.3 C Temporal] Pulse, 71 Peripheral Pulse, 72 71 Peripheral [ Left Pulse Oximetry] Respiratory 18 18 Rate Blood Pressure 137/53 L Blood Pressure 110/41 L [Left Lower Arm ] Blood Pressure 145/59 H [Left Upper Arm ] O2 Sat by Pulse 96 93 L Oximetry 12/13/16 12/14/16 12/14/16 23:29 05:44 07:10 Temperature [ Oral] Temperature [ 36.7 C 36.4 C Temporal] Pulse, 71 Peripheral Pulse, 69 84 Peripheral [ Left Pulse Oximetry] Respiratory 18 20 Rate Blood Pressure 119/52 L Blood Pressure 121/50 L 102/45 L [Left Lower Arm ] Blood Pressure [Left Upper Arm ] O2 Sat by Pulse 94 L 94 L Oximetry 12/14/16 12/14/16 07:11 11:08 Temperature [ 36.2 C Oral] Temperature [ Temporal] Pulse, Peripheral Pulse, 69 Peripheral [ Left Pulse Oximetry] Respiratory 18 Rate Blood Pressure 119/52 L Blood Pressure 124/52 L [Left Lower Arm ] Blood Pressure [Left Upper Arm ] O2 Sat by Pulse 91 L Oximetry Weight - Most Recent: 90.673 kg (Patient has lost 2 kg since yesterday) I&O - Last 24 hours: Intake & Output 12/13/16 12/14/16 12/14/16 22:59 06:59 14:59 Intake Total 890 360 Output Total 700 850 Balance 190 -850 360 Imaging Impressions - Last 24 hrs: Acute abdominal x-rays on 12/13/16 shows evidence of moderate diffuse stool and contrast in the distal colon with mild increased nonspecific bowel gaseous pattern with no fluid levels, ileus, obstruction, free air, etc. Moderate osteoarthritic changes noted. Moderate COPD and cardiomegaly with mild centralized CHF and pulmonary hypertension Acute abdominal x-rays, which were taken at the [facility] in [place], on were reviewed through PACS with evidence of moderate distal stool and mild to moderate increased nonspecific bowel gaseous distention with no free air , fluid levels, ileus, or obstruction. Note status post cholecystectomy with additional moderate COPD and probable pulmonary hypertension versus mild borderline centralized CHF. No pneumothorax or pulmonary infiltrates. 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 Borderline mild hiatal hernia noted Telephone consultation at 16:12 hours with the radiology department at [facility] with verbal report of CT scan of the abdomen and pelvis with both IV and oral contrast, which was conducted on 12/12/16. No acute changes with stable exam from previous evaluation on 06/05/13. No explanation of current LFTs elevation. Subsequent official written report confirm the above findings Serial EKGs showed multiple stable T-wave inversions in leads V1 through V3 representing likely stable anterior wall cardiac ischemia frozen food department manager during previous 24 hours prior to discharge showed a normal sinus rhythm with heart rates ranging in the 60s to 80s with no ectopy or arrhythmia Echocardiogram on 12/12/16 showed a somewhat technically difficult study with ejection fraction of 60-65%. There was some mild left atrial enlargement and mild mitral valve, pulmonary valve, and tricuspid valve insufficiency, however no current aortic valve stenosis despite clinical exam Lab Results - Last 24 hrs: Laboratory Results - last 24 hr 12/14/16 12/14/16 12/14/16 Range/Units 06:55 06:55 06:55 WBC 15.4 H (4.0-10.2) K/uL RBC 4.42 (3.77-5.09) M/uL Hgb 14.0 (11.7-15.5) g/dL Hct 40.9 (34.0-46.0) % MCV 92.5 (84.0-98.0) fL MCH 31.7 (28.2-33.3) pg MCHC 34.2 (31.7-36.0) g/dL RDW 13.0 (11.2-14.1) % Plt Count 294 (150-350) K/uL Neut % (Auto) 90.5 H (45.0-80.0) % Lymph % (Auto) 5.6 L (10.0-50.0) % [place] % (Auto) 3.7 (2.0-14.0) % Eos % (Auto) 0.1 (0.0-5.0) % Baso % (Auto) 0.1 (0.0-2.0) % Neut # (Auto) 13.92 H (1.40-7.00) K/uL Lymph # (Auto) 0.86 (0.50-3.50) K/uL [place] # (Auto) 0.57 (0.00-1.00) K/uL Eos # (Auto) 0.01 (0.00-0.50) K/uL Baso # (Auto) 0.01 (0.00-0.20) K/uL PT 16.1 H (9.8-11.7) SEC INR 1.5 APTT 26.9 (23.5-30.0) SEC Sodium 133 L (136-145) mmol/L Potassium 4.3 (3.5-5.1) mmol/L Chloride 98 (98-107) mmol/L Carbon Dioxide 28.8 (21.0-32.0) mmol/L BUN 25 H (7-18) mg/dL Creatinine 0.94 (0.51-1.17) mg/dL Est Cr Clr Drug Dosing 42.76 mL/min Estimated GFR (MDRD) 58 mL/min Glucose 156 H (74-106) mg/dL Calcium 9.1 (8.5-10.1) mg/dL Total Bilirubin 1.5 H (0.2-1.0) mg/dL AST 235 H (15-37) U/L ALT 698 H (12-78) U/L Alkaline Phosphatase 142 H (46-116) IU/L Creatine Kinase 204 (26-308) U/L Creatine Kinase Index 1.4 (0.0-2.5) % CK-MB (CK-2) 2.90 (0.00-3.60) ng/mL Troponin I 0.007 (0.000-0.056) ng/mL NT-Pro-B Natriuret Pep 235 H (0-125) pg/mL Total Protein 6.9 (6.4-8.2) g/dL Albumin 3.5 (3.4-5.0) g/dL Laboratory Tests 12/11/16 12/11/16 12/11/16 Range/Units 12:25 12:25 12:25 WBC 12.5 H (4.0-10.2) K/uL RBC 4.63 (3.77-5.09) M/uL Hgb 14.6 (11.7-15.5) g/dL Hct 43.1 (34.0-46.0) % MCV 93.1 (84.0-98.0) fL MCH 31.5 (28.2-33.3) pg MCHC 33.9 (31.7-36.0) g/dL RDW 12.9 (11.2-14.1) % Plt Count 296 (150-350) K/uL Neut % (Auto) 74.7 (45.0-80.0) % Lymph % (Auto) 13.7 (10.0-50.0) % [place] % (Auto) 9.7 (2.0-14.0) % Eos % (Auto) 1.6 (0.0-5.0) % Baso % (Auto) 0.3 (0.0-2.0) % Neut # (Auto) 9.36 H (1.40-7.00) K/uL Lymph # (Auto) 1.72 (0.50-3.50) K/uL [place] # (Auto) 1.21 H (0.00-1.00) K/uL Eos # (Auto) 0.20 (0.00-0.50) K/uL Baso # (Auto) 0.04 (0.00-0.20) K/uL PT 20.0 H (9.8-11.7) SEC INR 1.8 APTT 30.9 H (23.5-30.0) SEC D-Dimer, Quantitative (0-400) ng/mL Sodium (136-145) mmol/L Potassium (3.5-5.1) mmol/L Chloride (98-107) mmol/L Carbon Dioxide (21.0-32.0) mmol/L BUN (7-18) mg/dL Creatinine (0.51-1.17) mg/dL Est Cr Clr Drug Dosing mL/min Estimated GFR (MDRD) mL/min Glucose (74-106) mg/dL Lactic Acid (0.4-2.0) mmol/L Uric Acid (2.6-7.2) mg/dL Calcium (8.5-10.1) mg/dL Magnesium (1.8-2.4) mg/dL Total Bilirubin (0.2-1.0) mg/dL Direct Bilirubin (0.0-0.2) mg/dL Indirect Bilirubin AST (15-37) U/L ALT (12-78) U/L Alkaline Phosphatase (46-116) IU/L Creatine Kinase (26-308) U/L Creatine Kinase Index (0.0-2.5) % CK-MB (CK-2) (0.00-3.60) ng/mL Troponin I (0.000-0.056) ng/mL NT-Pro-B Natriuret Pep (0-125) pg/mL Total Protein (6.4-8.2) g/dL Albumin (3.4-5.0) g/dL Triglycerides (30-150) mg/dL Cholesterol (100-200) mg/dL LDL Cholesterol, Calc (0-100) mg/dL HDL Cholesterol (40-60) mg/dL Amylase 23 L (25-115) U/L Lipase (73-393) U/L Specimen Type Urine Color Urine Appearance Urine pH (5.0-9.0) Ur Specific [place] (1.005-1.030) Urine Protein (NEGATIVE) mg/dL Urine Glucose (UA) (NEGATIVE) mg/dL Urine Ketones (NEGATIVE) mg/dL Urine Occult Blood (NEGATIVE) Urine Nitrite (NEGATIVE) Urine Bilirubin (NEGATIVE) Urine Urobilinogen (0.2-1.0) E.U./dL Ur Leukocyte Esterase (NEGATIVE) Urine RBC /HPF Urine WBC /HPF Ur Epithelial Cells /LPF Urine Bacteria (NONE TO FEW) /HPF Digoxin (0.90-2.00) ng/mL 12/11/16 12/11/16 12/11/16 Range/Units 12:25 12:25 12:25 WBC (4.0-10.2) K/uL RBC (3.77-5.09) M/uL Hgb (11.7-15.5) g/dL Hct (34.0-46.0) % MCV (84.0-98.0) fL MCH (28.2-33.3) pg MCHC (31.7-36.0) g/dL RDW (11.2-14.1) % Plt Count (150-350) K/uL Neut % (Auto) (45.0-80.0) % Lymph % (Auto) (10.0-50.0) % [place] % (Auto) (2.0-14.0) % Eos % (Auto) (0.0-5.0) % Baso % (Auto) (0.0-2.0) % Neut # (Auto) (1.40-7.00) K/uL Lymph # (Auto) (0.50-3.50) K/uL [place] # (Auto) (0.00-1.00) K/uL Eos # (Auto) (0.00-0.50) K/uL Baso # (Auto) (0.00-0.20) K/uL PT (9.8-11.7) SEC INR APTT (23.5-30.0) SEC D-Dimer, Quantitative 112 (0-400) ng/mL Sodium 136 (136-145) mmol/L Potassium 4.6 (3.5-5.1) mmol/L Chloride 101 (98-107) mmol/L Carbon Dioxide 27.4 (21.0-32.0) mmol/L BUN 17 (7-18) mg/dL Creatinine 0.79 (0.51-1.17) mg/dL Est Cr Clr Drug Dosing 50.90 mL/min Estimated GFR (MDRD) > 60 mL/min Glucose 108 H (74-106) mg/dL Lactic Acid 1.3 (0.4-2.0) mmol/L Uric Acid 7.8 H (2.6-7.2) mg/dL Calcium 9.9 (8.5-10.1) mg/dL Magnesium 1.7 L (1.8-2.4) mg/dL Total Bilirubin 2.1 H (0.2-1.0) mg/dL Direct Bilirubin (0.0-0.2) mg/dL Indirect Bilirubin AST 458 H (15-37) U/L ALT 383 H (12-78) U/L Alkaline Phosphatase 128 H (46-116) IU/L Creatine Kinase 185 (26-308) U/L Creatine Kinase Index 0.7 (0.0-2.5) % CK-MB (CK-2) 1.30 (0.00-3.60) ng/mL Troponin I 0.006 (0.000-0.056) ng/mL NT-Pro-B Natriuret Pep 276 H (0-125) pg/mL Total Protein 7.7 (6.4-8.2) g/dL Albumin 4.1 (3.4-5.0) g/dL Triglycerides (30-150) mg/dL Cholesterol (100-200) mg/dL LDL Cholesterol, Calc (0-100) mg/dL HDL Cholesterol (40-60) mg/dL Amylase (25-115) U/L Lipase 154 (73-393) U/L Specimen Type Urine Color Urine Appearance Urine pH (5.0-9.0) Ur Specific [place] (1.005-1.030) Urine Protein (NEGATIVE) mg/dL Urine Glucose (UA) (NEGATIVE) mg/dL Urine Ketones (NEGATIVE) mg/dL Urine Occult Blood (NEGATIVE) Urine Nitrite (NEGATIVE) Urine Bilirubin (NEGATIVE) Urine Urobilinogen (0.2-1.0) E.U./dL Ur Leukocyte Esterase (NEGATIVE) Urine RBC /HPF Urine WBC /HPF Ur Epithelial Cells /LPF Urine Bacteria (NONE TO FEW) /HPF Digoxin (0.90-2.00) ng/mL 12/11/16 12/11/16 12/11/16 Range/Units 12:35 12:48 13:55 WBC (4.0-10.2) K/uL RBC (3.77-5.09) M/uL Hgb (11.7-15.5) g/dL Hct (34.0-46.0) % MCV (84.0-98.0) fL MCH (28.2-33.3) pg MCHC (31.7-36.0) g/dL RDW (11.2-14.1) % Plt Count (150-350) K/uL Neut % (Auto) (45.0-80.0) % Lymph % (Auto) (10.0-50.0) % [place] % (Auto) (2.0-14.0) % Eos % (Auto) (0.0-5.0) % Baso % (Auto) (0.0-2.0) % Neut # (Auto) (1.40-7.00) K/uL Lymph # (Auto) (0.50-3.50) K/uL [place] # (Auto) (0.00-1.00) K/uL Eos # (Auto) (0.00-0.50) K/uL Baso # (Auto) (0.00-0.20) K/uL PT (9.8-11.7) SEC INR APTT (23.5-30.0) SEC D-Dimer, Quantitative (0-400) ng/mL Sodium (136-145) mmol/L Potassium (3.5-5.1) mmol/L Chloride (98-107) mmol/L Carbon Dioxide (21.0-32.0) mmol/L BUN (7-18) mg/dL Creatinine (0.51-1.17) mg/dL Est Cr Clr Drug Dosing mL/min Estimated GFR (MDRD) mL/min Glucose (74-106) mg/dL Lactic Acid (0.4-2.0) mmol/L Uric Acid (2.6-7.2) mg/dL Calcium (8.5-10.1) mg/dL Magnesium (1.8-2.4) mg/dL Total Bilirubin 2.1 H (0.2-1.0) mg/dL Direct Bilirubin 1.4 H (0.0-0.2) mg/dL Indirect Bilirubin 0.7 AST (15-37) U/L ALT (12-78) U/L Alkaline Phosphatase (46-116) IU/L Creatine Kinase (26-308) U/L Creatine Kinase Index (0.0-2.5) % CK-MB (CK-2) (0.00-3.60) ng/mL Troponin I (0.000-0.056) ng/mL NT-Pro-B Natriuret Pep (0-125) pg/mL Total Protein (6.4-8.2) g/dL Albumin (3.4-5.0) g/dL Triglycerides (30-150) mg/dL Cholesterol (100-200) mg/dL LDL Cholesterol, Calc (0-100) mg/dL HDL Cholesterol (40-60) mg/dL Amylase (25-115) U/L Lipase (73-393) U/L Specimen Type Urincc Urine Color Dark yellow Urine Appearance Clear Urine pH 7.0 (5.0-9.0) Ur Specific [place] 1.020 (1.005-1.030) Urine Protein Negative (NEGATIVE) mg/dL Urine Glucose (UA) Negative (NEGATIVE) mg/dL Urine Ketones Negative (NEGATIVE) mg/dL Urine Occult Blood Negative (NEGATIVE) Urine Nitrite Negative (NEGATIVE) Urine Bilirubin Negative (NEGATIVE) Urine Urobilinogen 0.2 (0.2-1.0) E.U./dL Ur Leukocyte Esterase Negative (NEGATIVE) Urine RBC 0-5 /HPF Urine WBC 0-5 /HPF Ur Epithelial Cells Few /LPF Urine Bacteria Rare (NONE TO FEW) /HPF Digoxin 0.98 (0.90-2.00) ng/mL 12/11/16 12/11/1617 Range/Units 17:00 22:55 07:44 WBC 8.0 (4.0-10.2) K/uL RBC 4.34 (3.77-5.09) M/uL Hgb 13.7 (11.7-15.5) g/dL Hct 40.6 (34.0-46.0) % MCV 93.5 (84.0-98.0) fL MCH 31.6 (28.2-33.3) pg MCHC 33.7 (31.7-36.0) g/dL RDW 12.7 (11.2-14.1) % Plt Count 271 (150-350) K/uL Neut % (Auto) 65.8 (45.0-80.0) % Lymph % (Auto) 19.2 (10.0-50.0) % [place] % (Auto) 11.4 (2.0-14.0) % Eos % (Auto) 2.9 (0.0-5.0) % Baso % (Auto) 0.7 (0.0-2.0) % Neut # (Auto) 5.29 (1.40-7.00) K/uL Lymph # (Auto) 1.54 (0.50-3.50) K/uL [place] # (Auto) 0.92 (0.00-1.00) K/uL Eos # (Auto) 0.23 (0.00-0.50) K/uL Baso # (Auto) 0.06 (0.00-0.20) K/uL PT (9.8-11.7) SEC INR APTT (23.5-30.0) SEC D-Dimer, Quantitative (0-400) ng/mL Sodium (136-145) mmol/L Potassium (3.5-5.1) mmol/L Chloride (98-107) mmol/L Carbon Dioxide (21.0-32.0) mmol/L BUN (7-18) mg/dL Creatinine (0.51-1.17) mg/dL Est Cr Clr Drug Dosing mL/min Estimated GFR (MDRD) mL/min Glucose (74-106) mg/dL Lactic Acid (0.4-2.0) mmol/L Uric Acid (2.6-7.2) mg/dL Calcium (8.5-10.1) mg/dL Magnesium (1.8-2.4) mg/dL Total Bilirubin (0.2-1.0) mg/dL Direct Bilirubin (0.0-0.2) mg/dL Indirect Bilirubin AST (15-37) U/L ALT (12-78) U/L Alkaline Phosphatase (46-116) IU/L Creatine Kinase 168 160 (26-308) U/L Creatine Kinase Index 0.7 0.9 (0.0-2.5) % CK-MB (CK-2) 1.10 1.40 (0.00-3.60) ng/mL Troponin I 0.010 0.012 (0.000-0.056) ng/mL NT-Pro-B Natriuret Pep (0-125) pg/mL Total Protein (6.4-8.2) g/dL Albumin (3.4-5.0) g/dL Triglycerides (30-150) mg/dL Cholesterol (100-200) mg/dL LDL Cholesterol, Calc (0-100) mg/dL HDL Cholesterol (40-60) mg/dL Amylase (25-115) U/L Lipase (73-393) U/L Specimen Type Urine Color Urine Appearance Urine pH (5.0-9.0) Ur Specific [place] (1.005-1.030) Urine Protein (NEGATIVE) mg/dL Urine Glucose (UA) (NEGATIVE) mg/dL Urine Ketones (NEGATIVE) mg/dL Urine Occult Blood (NEGATIVE) Urine Nitrite (NEGATIVE) Urine Bilirubin (NEGATIVE) Urine Urobilinogen (0.2-1.0) E.U./dL Ur Leukocyte Esterase (NEGATIVE) Urine RBC /HPF Urine WBC /HPF Ur Epithelial Cells /LPF Urine Bacteria (NONE TO FEW) /HPF Digoxin (0.90-2.00) ng/mL 12/12/16 12/12/16 12/12/16 Range/Units 07:44 07:44 07:44 WBC (4.0-10.2) K/uL RBC (3.77-5.09) M/uL Hgb (11.7-15.5) g/dL Hct (34.0-46.0) % MCV (84.0-98.0) fL MCH (28.2-33.3) pg MCHC (31.7-36.0) g/dL RDW (11.2-14.1) % Plt Count (150-350) K/uL Neut % (Auto) (45.0-80.0) % Lymph % (Auto) (10.0-50.0) % [place] % (Auto) (2.0-14.0) % Eos % (Auto) (0.0-5.0) % Baso % (Auto) (0.0-2.0) % Neut # (Auto) (1.40-7.00) K/uL Lymph # (Auto) (0.50-3.50) K/uL [place] # (Auto) (0.00-1.00) K/uL Eos # (Auto) (0.00-0.50) K/uL Baso # (Auto) (0.00-0.20) K/uL PT 18.8 H (9.8-11.7) SEC INR 1.7 APTT 30.0 (23.5-30.0) SEC D-Dimer, Quantitative (0-400) ng/mL Sodium 136 (136-145) mmol/L Potassium 4.5 (3.5-5.1) mmol/L Chloride 100 (98-107) mmol/L Carbon Dioxide 29.5 (21.0-32.0) mmol/L BUN 14 (7-18) mg/dL Creatinine 0.91 (0.51-1.17) mg/dL Est Cr Clr Drug Dosing 44.17 mL/min Estimated GFR (MDRD) > 60 mL/min Glucose 111 H (74-106) mg/dL Lactic Acid (0.4-2.0) mmol/L Uric Acid (2.6-7.2) mg/dL Calcium 9.3 (8.5-10.1) mg/dL Magnesium (1.8-2.4) mg/dL Total Bilirubin 5.4 H (0.2-1.0) mg/dL Direct Bilirubin (0.0-0.2) mg/dL Indirect Bilirubin AST 749 H (15-37) U/L ALT 917 H (12-78) U/L Alkaline Phosphatase 162 H (46-116) IU/L Creatine Kinase 158 (26-308) U/L Creatine Kinase Index 1.0 (0.0-2.5) % CK-MB (CK-2) 1.60 (0.00-3.60) ng/mL Troponin I 0.008 (0.000-0.056) ng/mL NT-Pro-B Natriuret Pep 350 H (0-125) pg/mL Total Protein 6.9 (6.4-8.2) g/dL Albumin 3.7 (3.4-5.0) g/dL Triglycerides 49 (30-150) mg/dL Cholesterol 141 (100-200) mg/dL LDL Cholesterol, Calc 51 (0-100) mg/dL HDL Cholesterol 80 H (40-60) mg/dL Amylase 18 L (25-115) U/L Lipase 104 (73-393) U/L Specimen Type Urine Color Urine Appearance Urine pH (5.0-9.0) Ur Specific [place] (1.005-1.030) Urine Protein (NEGATIVE) mg/dL Urine Glucose (UA) (NEGATIVE) mg/dL Urine Ketones (NEGATIVE) mg/dL Urine Occult Blood (NEGATIVE) Urine Nitrite (NEGATIVE) Urine Bilirubin (NEGATIVE) Urine Urobilinogen (0.2-1.0) E.U./dL Ur Leukocyte Esterase (NEGATIVE) Urine RBC /HPF Urine WBC /HPF Ur Epithelial Cells /LPF Urine Bacteria (NONE TO FEW) /HPF Digoxin (0.90-2.00) ng/mL 12/13/16 12/13/16 12/13/16 Range/Units 06:50 06:50 06:50 WBC 21.5 H (4.0-10.2) K/uL RBC 4.36 (3.77-5.09) M/uL Hgb 13.8 (11.7-15.5) g/dL Hct 40.7 (34.0-46.0) % MCV 93.3 (84.0-98.0) fL MCH 31.7 (28.2-33.3) pg MCHC 33.9 (31.7-36.0) g/dL RDW 13.1 (11.2-14.1) % Plt Count 298 (150-350) K/uL Neut % (Auto) 86.2 H (45.0-80.0) % Lymph % (Auto) 6.3 L (10.0-50.0) % [place] % (Auto) 7.5 (2.0-14.0) % Eos % (Auto) 0.0 (0.0-5.0) % Baso % (Auto) 0.0 (0.0-2.0) % Neut # (Auto) 18.53 H (1.40-7.00) K/uL Lymph # (Auto) 1.36 (0.50-3.50) K/uL [place] # (Auto) 1.62 H (0.00-1.00) K/uL Eos # (Auto) 0.01 (0.00-0.50) K/uL Baso # (Auto) 0.01 (0.00-0.20) K/uL PT 16.3 H (9.8-11.7) SEC INR 1.5 APTT 27.4 (23.5-30.0) SEC D-Dimer, Quantitative (0-400) ng/mL Sodium 132 L (136-145) mmol/L Potassium 4.5 (3.5-5.1) mmol/L Chloride 97 L (98-107) mmol/L Carbon Dioxide 25.7 (21.0-32.0) mmol/L BUN 17 (7-18) mg/dL Creatinine 0.84 (0.51-1.17) mg/dL Est Cr Clr Drug Dosing 47.85 mL/min Estimated GFR (MDRD) > 60 mL/min Glucose 139 H (74-106) mg/dL Lactic Acid (0.4-2.0) mmol/L Uric Acid 7.2 (2.6-7.2) mg/dL Calcium 9.1 (8.5-10.1) mg/dL Magnesium 1.6 L (1.8-2.4) mg/dL Total Bilirubin 3.3 H (0.2-1.0) mg/dL Direct Bilirubin 2.3 H (0.0-0.2) mg/dL Indirect Bilirubin 1.0 AST 456 H (15-37) U/L ALT 842 H (12-78) U/L Alkaline Phosphatase 154 H (46-116) IU/L Creatine Kinase 193 (26-308) U/L Creatine Kinase Index 1.3 (0.0-2.5) % CK-MB (CK-2) 2.60 (0.00-3.60) ng/mL Troponin I 0.012 (0.000-0.056) ng/mL NT-Pro-B Natriuret Pep 523 H (0-125) pg/mL Total Protein 6.6 (6.4-8.2) g/dL Albumin 3.4 (3.4-5.0) g/dL Triglycerides (30-150) mg/dL Cholesterol (100-200) mg/dL LDL Cholesterol, Calc (0-100) mg/dL HDL Cholesterol (40-60) mg/dL Amylase (25-115) U/L Lipase (73-393) U/L Specimen Type Urine Color Urine Appearance Urine pH (5.0-9.0) Ur Specific [place] (1.005-1.030) Urine Protein (NEGATIVE) mg/dL Urine Glucose (UA) (NEGATIVE) mg/dL Urine Ketones (NEGATIVE) mg/dL Urine Occult Blood (NEGATIVE) Urine Nitrite (NEGATIVE) Urine Bilirubin (NEGATIVE) Urine Urobilinogen (0.2-1.0) E.U./dL Ur Leukocyte Esterase (NEGATIVE) Urine RBC /HPF Urine WBC /HPF Ur Epithelial Cells /LPF Urine Bacteria (NONE TO FEW) /HPF Digoxin (0.90-2.00) ng/mL 12/14/16 12/14/16 12/14/16 Range/Units 06:55 06:55 06:55 WBC 15.4 H (4.0-10.2) K/uL RBC 4.42 (3.77-5.09) M/uL Hgb 14.0 (11.7-15.5) g/dL Hct 40.9 (34.0-46.0) % MCV 92.5 (84.0-98.0) fL MCH 31.7 (28.2-33.3) pg MCHC 34.2 (31.7-36.0) g/dL RDW 13.0 (11.2-14.1) % Plt Count 294 (150-350) K/uL Neut % (Auto) 90.5 H (45.0-80.0) % Lymph % (Auto) 5.6 L (10.0-50.0) % [place] % (Auto) 3.7 (2.0-14.0) % Eos % (Auto) 0.1 (0.0-5.0) % Baso % (Auto) 0.1 (0.0-2.0) % Neut # (Auto) 13.92 H (1.40-7.00) K/uL Lymph # (Auto) 0.86 (0.50-3.50) K/uL [place] # (Auto) 0.57 (0.00-1.00) K/uL Eos # (Auto) 0.01 (0.00-0.50) K/uL Baso # (Auto) 0.01 (0.00-0.20) K/uL PT 16.1 H (9.8-11.7) SEC INR 1.5 APTT 26.9 (23.5-30.0) SEC D-Dimer, Quantitative (0-400) ng/mL Sodium 133 L (136-145) mmol/L Potassium 4.3 (3.5-5.1) mmol/L Chloride 98 (98-107) mmol/L Carbon Dioxide 28.8 (21.0-32.0) mmol/L BUN 25 H (7-18) mg/dL Creatinine 0.94 (0.51-1.17) mg/dL Est Cr Clr Drug Dosing 42.76 mL/min Estimated GFR (MDRD) 58 mL/min Glucose 156 H (74-106) mg/dL Lactic Acid (0.4-2.0) mmol/L Uric Acid (2.6-7.2) mg/dL Calcium 9.1 (8.5-10.1) mg/dL Magnesium (1.8-2.4) mg/dL Total Bilirubin 1.5 H (0.2-1.0) mg/dL Direct Bilirubin (0.0-0.2) mg/dL Indirect Bilirubin AST 235 H (15-37) U/L ALT 698 H (12-78) U/L Alkaline Phosphatase 142 H (46-116) IU/L Creatine Kinase 204 (26-308) U/L Creatine Kinase Index 1.4 (0.0-2.5) % CK-MB (CK-2) 2.90 (0.00-3.60) ng/mL Troponin I 0.007 (0.000-0.056) ng/mL NT-Pro-B Natriuret Pep 235 H (0-125) pg/mL Total Protein 6.9 (6.4-8.2) g/dL Albumin 3.5 (3.4-5.0) g/dL Triglycerides (30-150) mg/dL Cholesterol (100-200) mg/dL LDL Cholesterol, Calc (0-100) mg/dL HDL Cholesterol (40-60) mg/dL Amylase (25-115) U/L Lipase (73-393) U/L Specimen Type Urine Color Urine Appearance Urine pH (5.0-9.0) Ur Specific [place] (1.005-1.030) Urine Protein (NEGATIVE) mg/dL Urine Glucose (UA) (NEGATIVE) mg/dL Urine Ketones (NEGATIVE) mg/dL Urine Occult Blood (NEGATIVE) Urine Nitrite (NEGATIVE) Urine Bilirubin (NEGATIVE) Urine Urobilinogen (0.2-1.0) E.U./dL Ur Leukocyte Esterase (NEGATIVE) Urine RBC /HPF Urine WBC /HPF Ur Epithelial Cells /LPF Urine Bacteria (NONE TO FEW) /HPF Digoxin (0.90-2.00) ng/mL [facility] Results - Last 24 hrs: Microbiology 12/12/16 02:00 Helicobacter pylori Antigen - Final Stool / Feces 12/13/16 06:35 Stool Occult Blood ([facility]) - Final Stool / Feces NEGATIVE OCCULT BLOOD Microbiology 12/12/16 02:00 Stool / Feces Helicobacter pylori Antigen - Final 12/13/16 06:35 Stool / Feces Stool Occult Blood ([facility]) - Final NEGATIVE OCCULT BLOOD 12/12/16 02:00 Stool / Feces Stool Occult Blood ([facility]) - Final NEGATIVE OCCULT BLOOD 12/11/16 12:35 Stool / Feces Stool Occult Blood ([facility]) - Final NEGATIVE OCCULT BLOOD Note stool specimen for H. pylori antigen was negative Med Orders - Current: Current Medications Albuterol (Proventil Neb Soln) 2.5 mg INH Q2H PRN PRN Reason: SHORTNESS OF BREATH Albuterol/Ipratropium (Duoneb 3.0-0.5 Mg/3 Ml) 3 ml NEB Q4HRRT PRN PRN Reason: Dyspnea Albuterol/Ipratropium (Duoneb 3.0-0.5 Mg/3 Ml) 3 ml NEB Q6HRRT [facility] Last Admin: 12/14/16 07:10 Dose: 3 ml Aspirin (Aspirin) 325 mg PO DAILY [facility] Last Admin: 12/14/16 07:11 Dose: 325 mg Budesonide (Pulmicort) 0.5 mg NEB BIDRT [facility] Last Admin: 12/14/16 07:10 Dose: 0.5 mg Digoxin (Lanoxin) 125 mcg PO DAILY [facility] Last Admin: 12/14/16 07:10 Dose: 125 mcg Famotidine (Pepcid) 20 mg IVPUSH BID [facility] Last Admin: 12/14/16 07:11 Dose: 20 mg Fluticasone Propionate (Flonase) 0 gm NASBOTH BID PRN PRN Reason: Allergies Furosemide (Lasix) 40 mg IVPUSH Q12H [facility] Last Admin: 12/13/16 23:22 Dose: 40 mg Metronidazole 500 mg/ Premix 100 mls @ 100 mls/hr IV Q8H [facility] Last Admin: 12/14/16 05:47 Dose: 100 mls/hr Ciprofloxacin/Dextrose 200 mg/ (Premix) 100 mls @ 100 mls/hr IV Q12HR [facility] Last Admin: 12/14/16 07:11 Dose: 100 mls/hr Levothyroxine Sodium (Levothyroxine) 75 mcg PO DAILY [facility] Last Admin: 12/14/16 07:11 Dose: 75 mcg Lisinopril (Prinivil) 10 mg PO DAILY [facility] Last Admin: 12/14/16 07:11 Dose: 10 mg Magnesium Oxide (Magnesium Oxide) 400 mg PO BID [facility] Last Admin: 12/14/16 07:11 Dose: 400 mg Methylprednisolone Sodium Succinate (Solu-Medrol) 125 mg IVPUSH Q12H [facility] Last Admin: 12/13/16 23:22 Dose: 125 mg Metoclopramide HCl (Reglan) 10 mg IVPUSH Q6H PRN PRN Reason: Nausea/Vomiting Last Admin: 12/12/16 16:49 Dose: 10 mg Metoprolol Succinate (Toprol Xl) 50 mg PO DAILY [facility] Last Admin: 12/14/16 07:10 Dose: 50 mg Ondansetron HCl (Zofran) 4 mg IVPUSH Q6H PRN PRN Reason: Nausea/Vomiting Last Admin: 12/12/16 18:08 Dose: 4 mg Oxybutynin Chloride (Oxybutynin Er) 5 mg PO DAILY [facility] Last Admin: 12/14/16 07:11 Dose: 5 mg Pantoprazole Sodium (Protonix Iv) 40 mg IVPUSH Q12H [facility] Last Admin: 12/13/16 23:31 Dose: 40 mg Potassium Chloride (Klor-Con M20) 20 meq PO BID [facility] Last Admin: 12/14/16 07:10 Dose: 20 meq Sodium Chloride (Saline Flush) 10 ml FLUSH ASDIRECTED PRN PRN Reason: Keep Vein Open Last Admin: 12/14/16 07:14 Dose: 10 ml Sodium Chloride (Saline Flush) 10 ml FLUSH Q12HR PRN PRN Reason: Keep Vein Open Last Admin: 12/13/16 23:22 Dose: 10 ml Temazepam (Restoril) 15 mg PO BEDTIME PRN PRN Reason: Insomnia Last Admin: 12/12/16 20:05 Dose: 15 mg Discontinued Medications Acetaminophen (Tylenol) 650 mg PO Q4H PRN PRN Reason: Pain Last Admin: 12/12/16 04:12 Dose: 650 mg Famotidine (Pepcid) 40 mg IVPUSH ONETIME ONE Stop: 12/11/16 12:36 Last Admin: 12/11/16 13:05 Dose: 40 mg Fluticasone Propionate (Flonase) 0 gm NASBOTH BID [facility] Last Admin: 12/12/16 07:32 Dose: Not Given Hydrochlorothiazide (Hydrochlorothiazide) 12.5 mg PO DAILY [facility] Last Admin: 12/13/16 07:20 Dose: 12.5 mg Hydroxychloroquine Sulfate (Plaquenil) 200 mg PO DAILY [facility] Last Admin: 12/12/16 07:28 Dose: 200 mg Lactated Ringer's (Ringers, Lactated) 1,000 mls @ 999 mls/hr IV .BOLUS ONE Stop: 12/11/16 13:35 Last Admin: 12/11/16 13:32 Dose: Not Given Ciprofloxacin/Dextrose 200 mg/ (Premix) 100 mls @ 100 mls/hr IV Q12HR [facility] Iopamidol (Isovue-300 (61%)) 100 ml IVPUSH ONETIME ONE Stop: 12/11/16 14:31 Last Admin: 12/11/16 15:46 Dose: 100 ml Magnesium Oxide (Magnesium Oxide) 400 mg PO DAILY [facility] Last Admin: 12/13/16 07:20 Dose: 400 mg Methylprednisolone Sodium Succinate (Solu-Medrol) 125 mg IVPUSH ONETIME ONE Stop: 12/12/16 09:45 Last Admin: 12/12/16 10:10 Dose: 125 mg Non-Formulary Medication (Lisinopril/Hydrochlorothiazide [Zestoretic 10-12.5 Mg Tablet]) 1 tab PO DAILY [facility] Pantoprazole Sodium (Protonix Iv) 40 mg IVPUSH ONETIME ONE Stop: 12/11/16 12:36 Last Admin: 12/11/16 13:05 Dose: 40 mg Pantoprazole Sodium (Protonix Iv) 40 mg IVPUSH Q12H [facility] Warfarin Sodium (Coumadin) 5 mg PO ONETIME ONE Stop: 12/13/16 10:56 Last Admin: 12/13/16 11:49 Dose: 5 mg - Exam Quality Assessment: Reports: DVT Prophylaxis (On Coumadin). Denies: Supplemental Oxygen, Urine Catheter, Skin Breakdown, Restraints General: Reports: Alert, Oriented, Cooperative, No Acute Distress HEENT: Reports: Pupils Equal, Pupils Reactive, EOMI, Mucous Membr. Moist/[place]: Reports: Supple, Trachea Midline, No JVD, No Thyromegaly, Carotid Bruit ( Mild Bilateral carotid bruits versus transmitted heart sounds). Denies: Lymphadenopathy Lungs: Reports: Clear to Auscultation, Normal Respiratory Effort. Denies: Rub Cardiovascular: Reports: Regular Rate, Regular Rhythm, Murmurs (1/6 BROOKS at the aortic valve). Denies: Gallops, Rubs GI/Abdominal Exam: Normal Bowel Sounds, Soft, Non-Tender, No Organomegaly, No Distention, No Abnormal Bruit, No Mass, Pelvis Stable, Other (Obese) (Female) Exam: Deferred Rectal (Female) Exam: Deferred Back Exam: Reports: Normal Inspection, Full Range of Motion. Denies: CVA Tenderness (L), CVA Tenderness (R), Muscle Spasm Extremities: Normal Range of Motion, Non-Tender, No Pedal Edema, Normal Capillary Refill, Pedal Edema (Stable +1 bilateral tibial/pretibial edema). No : Red's Sign Skin: Reports: Warm, Dry, Intact. Denies: Ecchymosis Neurological: Reports: No New Focal Deficit, Other (No clinical orthostasis) Psy/Mental Status: Reports: Alert, Normal Affect, Normal Mood. Denies: Agitated , Hallucinations, Withdrawal Symptoms *Q Meaningful Use (DIS) - VTE *Q VTE Criteria *Q: - Stroke *Q Stroke Criteria *Q: - AMI *Q AMI Criteria *Q:
[2016-12-14 11:09] VITALS: BP 124/52
[2016-12-14] MEDS: methylPREDNISolone Sodium Succinate 125 MG/2 ML SDV IVPUSH SCH (11:48)
[2016-12-14] MEDS: Pantoprazole 40 MG Vial IVPUSH SCH (11:48)
[2016-12-14] MEDS: Furosemide 40 MG/4 ML VIAL IVPUSH SCH (11:48)
[2016-12-14] MEDS ORDERED: Aluminum Hydroxide/Magnesium Hydroxide/Simethicone Susp 30 ML Cup PO ONE (13:14)
== END 2016-12-14 13:40 | disposition home health service (06) | DRG 392 ==
LOC: LL.ED 12:21 → LL.MS 16:28
PROVIDERS: ADMIT Family Medicine; ATTEND Family Medicine
DX: R10.13 Epigastric pain (principal); I25.10 Atherosclerotic heart disease of native coronary artery without angina pectoris; I11.0 Hypertensive heart disease with heart failure; I50.9 Heart failure, unspecified; Z87.891 Personal history of nicotine dependence; J44.9 Chronic obstructive pulmonary disease, unspecified; E79.0 Hyperuricemia without signs of inflammatory arthritis and tophaceous disease; E83.42 Hypomagnesemia; K21.9 Gastro-esophageal reflux disease without esophagitis; K44.9 Diaphragmatic hernia without obstruction or gangrene; I48.91 Unspecified atrial fibrillation; E78.5 Hyperlipidemia, unspecified; E03.9 Hypothyroidism, unspecified; E11.9 Type 2 diabetes mellitus without complications; I73.9 Peripheral vascular disease, unspecified; M19.90 Unspecified osteoarthritis, unspecified site; K76.0 Fatty (change of) liver, not elsewhere classified; Z88.1 Allergy status to other antibiotic agents; Z79.01 Long term (current) use of anticoagulants; Z79.82 Long term (current) use of aspirin; Z79.899 Other long term (current) drug therapy
CPT/HCPCS: 36415; 74177; 80053; 80162; 81001; 82150; 82248; 82272; 82550; 82553; 83605; 83690; 83735; 83880; 84484; 84550; 85025; 85379; 85610; 85730; 87086; 93005; 96365; 96367; 96375; 99285; C9113; J0744; Q9967 ×2; 74022; 80061; 80074; 82247; 86038; 87338; 93306; 94640; 94664; A9270-GY; J1940; J2405; J2765; J2930; J7050; S0028

== ENCOUNTER → 2019-02-17 | Outpatient (CLI) | payer MEDICARE, OTHER, MEDICAID | LOC: LL.US 16:10 | PROVIDERS: ATTEND Physician Assistant | DX: M79.604 Pain in right leg (principal) | CPT/HCPCS: 93971 ==

== ENCOUNTER 2020-09-17 07:23 | Inpatient (IN) | payer MEDICARE, MEDICAID ==
[2020-09-17] MEDS ORDERED: Pantoprazole 40 MG Vial IVPUSH ONE (07:46)
[2020-09-17] MEDS ORDERED: Famotidine 20 MG/2 ML SDV IVPUSH ONE (07:46)
--- NOTE | 2020-09-17 07:46 | EDM.PDOC ---
ED HPI GENERAL MEDICAL PROBLEM - General Chief Complaint: Respiratory Problem Stated Complaint: cough/sob Time Seen by Provider: 09/17/20 07:45 Source of Information: Reports: Patient, Old Records ([facility] chart/EMR) History Limitations: Reports: Other (Presbycusis) - History of Present Illness INITIAL COMMENTS - FREE TEXT/NARRATIVE: Patient was brought to the emergency room via private automobile by her son for evaluation of progressive nonproductive cough, nasal drainage, borderline left- sided pleurisy, and nonspecific epigastric pain with symptoms starting on 09/14/2020. She did see her normal provider at the [facility] in [place] on 09/15 with no antibiotics given or prescribed at that time, although she was prescribed prednisone. She is a somewhat poor historian secondary to her severe presbycusis. The patient denies any chest pressure, heart flutter, dizziness, orthostasis, orthopnea, diaphoresis, paresthesias, recent decreased exercise tolerance, or any other anginal-type symptoms. No recent history of other abdominal pain, emesis, nausea, diarrhea, melena, gross hematochezia, or any food intolerance, including fatty foods, etc.. She denies any gross hematuria, colic, or UTI symptoms. The patient also denies any recent fever, wheezing, etc., although some mild dyspnea and cough as above. No history of recent headaches, visual changes, diplopia, change in mental status, or other change in neurological status. She did not take her morning medications. Onset: Gradual Onset Date: 09/14/20 Duration: Constant, Getting Worse Location: Reports: Chest, Abdomen. Denies: Head, Face, Neck, Back, Pelvis, Upper Extremity, Left, Upper Extremity, Right Quality: Reports: Ache, Same as Previous Episode Severity: Mild Improves with: Reports: None Worsens with: Reports: None Context: Reports: Other (As above). Denies: Sick Contact, Trauma Associated Symptoms: Reports: Chest Pain (Pleurisy), Cough, Shortness of Breath. Denies: Confusion, cough w sputum, Diaphoresis, Fever/Chills, Loss of Appetite, Malaise, Nausea/Vomiting, Rash, Seizure, Syncope, Weakness Treatments [employer]LOBAL MARKETING INTERN: Reports: Other (see below) (None) - Related Data Allergies Allergy/AdvReac Type Severity Reaction Status Date / Time cephalexin monohydrate Allergy Cannot Verified 03/13/15 18:22 [From SMR SITE] Remember Home Meds: Home Meds Albuterol/Ipratropium [Combivent] 2 puff INH QID PRN 06/05/13 [History] Calcium Carbonate/Vitamin D3 [Calcium 600 + Vit D 400] 1 each PO BID 06/05/13 [History] Metoprolol Succinate [Toprol XL 100mg] 25 mg PO DAILY 06/05/13 [History] Omeprazole 20 mg PO QAM 06/05/13 [History] Vitamin B Complex 1 each PO DAILY 06/05/13 [History] Warfarin [Coumadin] 5 mg PO DAILY@1800 06/05/13 [History] Ascorbic Acid 500 mg PO DAILY 03/13/15 [History] Cholecalciferol (Vitamin D3) [Vitamin D3] 400 unit PO DAILY 03/13/15 [History] Digoxin 0.25 mg PO DAILY 03/13/15 [History] Levothyroxine Sodium [Synthroid] 75 mcg PO DAILY 03/13/15 [History] Fluticasone Propionate [Flonase] 50 mcg NASBOTH BID PRN 12/11/16 [History] Lisinopril/Hydrochlorothiazide [Zestoretic 10-12.5 mg Tablet] 2 tab PO DAILY 12/11/16 [History] Magnesium Oxide 400 mg PO BID #30 tablet 12/14/16 [Rx] Acetaminophen [8 Hour Pain Relief] 650 mg PO Q4HWA PRN 09/17/20 [History] Albuterol [Proventil Neb Soln] 1 vial INH DAILY 09/17/20 [History] Budesonide [Pulmicort] 1 vial INH BID 09/17/20 [History] Budesonide [Pulmicort] 1 vial INH DAILY 09/17/20 [History] Clotrimazole/Betameth Dip/Zinc [Dermacinrx Therazole Brandon] 1 applic TOP BID 09/17/20 [History] Denosumab [Prolia] 1 ml [id number] ASDIRECTED 09/17/20 [History] Formoterol [Perforomist] 1 vial INH BID 09/17/20 [History] Ipratropium [Atrovent] 1 vial INH ASDIRECTED 09/17/20 [History] Loratadine [Claritin] 10 mg PO DAILY 09/17/20 [History] Simvastatin [Zocor] 40 mg PO BEDTIME 09/17/20 [History] predniSONE [Prednisone] 20 mg PO BID 09/17/20 [History] Past Medical History HEENT History: Reports: Allergic Rhinitis, Cataract, Hard of Hearing, Impaired Vision, Other (See Below). Denies: Glaucoma, Macular Degeneration, Otitis Media, Retinal Detachment Other HEENT History: Reading glasses, Moderate to severe presbycusis with no current hearing aide therapy Cardiovascular History: Reports: Afib, Arrhythmia, CAD, Cardiomyopathy, Heart Failure, High Cholesterol, Hypertension, PVD, Syncope, Other (See Below). Denies: Aneurysm, Blood Clots/VTE/DVT, Bypass, MD, PTCA, Stents Other Cardiovascular History: Incomplete right bundle branch block, history of atrial fibrillation with rapid ventricular response on 06/29/08 with current Coumadin therapy, PVCs, mild cardiomegaly and borderline CHF with possible history of mild borderline anterior wall cardiac ischemia with negative subsequent heart catheterization as below, borderline carotid occlusive disease. Dyslipidemia. Respiratory History: Reports: Asthma, Bronchitis, Recurrent, COPD, Intubation, Previous. Denies: Intubation, Difficult, PE, Pneumonia, Recurrent, Pneumothorax, Pulmonary Fibrosis, Sleep Apnea, TB Gastrointestinal History: Reports: Cholelithiasis, Diverticulosis, Fatty Liver, Gastritis, GERD, Hepatitis, Hiatal Hernia, Jaundice, Other (See Below). Denies: Bowel Obstruction, Celiac Disease, Chronic Constipation, Chronic Diarrhea, Colon Polyp, Fecal Incontinence, GI Bleed, Irritable Bowel Syndrome, Pancreatitis, PUD Other Gastrointestinal History: sigmoid diverticulosis without diverticulitis, GERD and peptic ulcer disease with moderate lower esophageal insufficiency and secondary chronic cough, fatty liver secondary to hyperlipidemia with mild hepatomegaly and secondary LFTs elevation, acute cholecystitis with secondary LFTs elevation and borderline jaundice on 06/05/13 Genitourinary History: Reports: Urinary Incontinence, UTI, Recurrent, Other (See Below). Denies: Acute Renal Failure, Chronic Renal Insuffiency, Renal Calculus, STD Other Genitourinary History: Cystocele and rectocele with history of urinary incontinence SUTURE POLISHER History: Reports: Fibroids, . Denies: Dysfunctional Uterine Bleeding, Spontaneous : 2 Para: 2 LMP (Approximate): Other (See Below) Other SUTURE POLISHER History: Menopause in her 40s. Fibrocystic breast disease. Bilateral ovarian cysts. Full term without complications during pregnancies or deliveries. Musculoskeletal History: Reports: Arthritis, Back Pain, Chronic, Fracture, Gout, Neck Pain, Chronic, Osteoarthritis, Osteoporosis, Other (See Below). 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 Neurological History: Reports: Headaches, Chronic. Denies: Alzheimers Disease, Cerebral Aneurysms, Concussion, CVA, Head Trauma, Migraines, MS, Neuropathy, Peripheral, Parkinson's, Seizure, TIA, Vertigo Psychiatric History: Reports: Anxiety, Depression. Denies: Abuse, Victim of, ADD, ADHD, Addiction, Psych Hospitalization(s), PTSD, Suicide Attempt, Suicidal Ideation Endocrine/Metabolic History: Reports: Diabetes, Type II, Hypothyroidism, Obesity/BMI 30+, Osteopenia, Osteoporosis, Other (See Below). Denies: Diabetes, Gestational, Diabetes Mellitus, Type 3c Other Endocrine/Metabolic History: Mild hyperglycemia currently treated with diet, obesity, probable benign 1.2 cm right adrenal adenoma by CT scan on 06/05/13 Hematologic History: Reports: None. Denies: Anemia, Blood Transfusion(s), Iron Deficiency Immunologic History: Reports: None. Denies: AIDS, HIV, SLE Oncologic (Cancer) History: Reports: None. Denies: Basal Cell Carcinoma, Breast, Cervix, Colon, Hodgkin's Lymphoma, Leukemia, Lymphoma, Malignant Melanoma, Non-Hodgkin's Lymphoma, Ovarian, Squamous Cell Carcinoma, Uterine Dermatologic History: Reports: None. Denies: Eczema, Psoriasis - Infectious Disease History Infectious Disease History: Reports: Other (See Below). Denies: C-Difficile, Chicken Pox, Measles, Meningitis, Mononucleosis, MRSA, Mumps, Novel Coronavirus (No immunizations), Pertussis (Whooping Cough) (Acute), Rheumatic Fever, Rubella, Scarlet Fever, Shingles, TB, VRE Other Infectious Disease History: Smallpox, CMV - Past Surgical History Head Surgeries/Procedures: Reports: None HEENT Surgical History: Reports: Cataract Surgery, Oral Surgery, Other (See Below). Denies: Adenoidectomy, Eye Surgery, Laser Surgery, LASIK, Myringotomy w Tube(s), Naso-Sinus Surgery, Tonsillectomy Other HEENT Surgeries/Procedures: Bilateral cataract surgery in about 2017. Multiple tooth extractions with partial dentures uppers and lowers Cardiovascular Surgical History: Reports: None. Denies: Varicose Respiratory Surgical History: Reports: None. Denies: Thoracentesis GI Surgical History: Reports: Cholecystectomy, Colonoscopy, EGD, Other (See Below). Denies: Appendectomy, Hernia, Abdominal, Hernia, Inguinal, Hernia Repair/Other, Polypectomy Other GI Surgeries/Procedures: Liver biopsy on 09/16/96, laparoscopic cholecystectomy on 06/05/13, EGD and colonoscopy on 01/31/07 Female Surgical History: Reports: Breast Biopsy, Other (See Below). Denies: Section, D&C, Hysterectomy, Lithotripsy/ESWL, Salpingo-Oophorectomy, Tubal Ligation Other Female Surgeries/Procedures: Left breast biopsy for benign disease in January 2016 Endocrine Surgical History: Reports: None. Denies: Thyroid Biopsy Neurological Surgical History: Reports: None. Denies: C-Spine, Discectomy, Laminectomy, Lumbar Spine, Sacral Spine, Spinal Fusion, Thoracic Spine, Vertebroplasty Musculoskeletal Surgical History: Reports: Arthroscopic Knee, Arthroscopic Procedure, Other (See Below). Denies: Carpal Tunnel, Ganglion Cyst, Joint Replacement, ORIF, Shoulder Surgery Other Musculoskeletal Surgeries/Procedures:: Right arthroscopic knee surgery for medial meniscal repair on 08/18/08 in July 2009, left arthroscopic knee surgery in 2010 Oncologic Surgical History: Reports: Biopsy of Breast, Other (See Below) Other Oncologic Surgeries/Procedures: Left breast biopsy for benign disease as above Dermatological Surgical History: Reports: None - Past Imaging History Past Imaging History: Reports: Angiography (Negative by history heart catheterization on 08/18/08), Cardiac Echo (01/08/2018 with ejection fraction of 55-60% with previous evaluation on 12/11/2016.), CAT Scan (CT of the abdomen and pelvis on 12/11/2016 and 06/05/13.), DEXA Scan (Last DEXA scan on 01/27/2019 and 09/09/12.), Mammogram (Last mammogram on 12/30/15), MRI (Lumbar spine on 07/19/2020 and 07/12/2020.), PFT (01/18/07), Stress Testing (Cardiolite stress test on 07/30/08 showed some borderline anterior wall cardiac ischemia with ejection fraction of 61% with previous Cardiolite stress test on 12/06/06 with similar findings and ejection fraction of 60% at that time), Ultrasound (Left breast ultrasound on 12/30/15), Venous Doppler (Negative of the right leg on 02/17/2019.) Social & Family History - Family History HEENT: Reports: None. Denies: Glaucoma, Macular Degeneration, Retinal Detachment Cardiac: Reports: CAD, High Cholesterol, Hypertension, MD, Other (See Below). Denies: AICD, Aneurysm, Arrhythmia, Blood Clots/VTE/DVT, Bypass, Heart Failure, Pacemaker, PVD/COD, Syncope Other Cardiac Family History: Mother with fatal MD at age 89, mother with possible hypertension, half sister with hyperlipidemia Respiratory: Reports: None. Denies: Asthma, COPD, PE, Pneumothorax, Sleep Apnea GI: Reports: None. Denies: Celiac Disease, Cholelithiasis, Colon Polyps, GERD, GI bleed, Inflammatory Bowel Disease, Irritable Bowel Syndrome, PUD : Reports: None. Denies: Renal Calculus, Renal Disease/Insufficiency OBGYN: Reports: None. Denies: Dysfunctional uterine bleeding, Endometriosis, Recurrent Spontaneous Musculoskeletal: Reports: Arthritis, Osteoarthritis, Other (See Below). Denies: Gout, RA, SLE Other Musculoskeletal Family History: Mother with osteoarthritis Neurological: Reports: CVA, MS, Seizure, TIA, Other (See Below). Denies: Alzheimers Disease, Cerebral Aneurysms, Dementia, Migraines, Parkinson's Other Neurological Family History: Mother with history of CVA 2 in her 80s, maternal cousin with MS and fatal unknown type of seizure disorder, half-sister with TIA at age 64 Psychiatric: Reports: Anxiety, Depression, Other (See Below). Denies: Abuse, Victim of, ADD, ADHD, Psych Hospitalization(s), PTSD, Suicide Attempt Other Psychiatric Family History: Mother with anxiety depression disorder Endocrine/Metabolic: Reports: None. Denies: Diabetes, Type I, Diabetes, type II, Diabetes Mellitus, Type 3c, Hypothyroidism, IDDM Hematologic: Reports: None. Denies: Anemia, SLE Immunologic: Reports: None. Denies: AIDS, HIV, SLE Dermatologic: Reports: Eczema, Other (See Below). Denies: Psoriasis Other Dermatologic Family History: Mother with possible eczema Oncologic: Reports: Breast, Other (See Below). Denies: Cervix, Colon, Hodgkin's Lymphoma, Leukemia, Lung, Lymphoma, Non-Hodgkin's Lymphoma, Ovarian, Skin, Uterine Other Oncologic Family History: First maternal cousin with breast cancer - Tobacco Use Tobacco Use Status *Q: Never Tobacco User Tobacco Use Within Last Twelve Months: No Used Tobacco, but Quit: No Second Hand Smoke Exposure: No - Caffeine Use Caffeine Use: Reports: Soda (1 soda per week), Tea. Denies: Coffee, Energy Drinks - Alcohol Use Alcohol Use History: No Days Per Week of Alcohol Use: 0 Number of Drinks Per Day: 0 Number of Drinks Per Day Comment: No previous DWIs, problems with alcohol abuse, etc. Total Drinks Per Week: 0 Alcohol Use in Last Twelve Months: No - Recreational Drug Use Recreational Drug Use: No Drug Use in Last 12 Months: No Recreational Drug Type: Denies: Amphetamines (Speed), Cocaine, Dextromethorphan (Cough Syrup), Heroin, Inhalants (Glues, Solvents, Aerosols), LSD (Acid), Marijuana/Hashish, Methamphetamine, Oxycodone - Living Situation & Occupation Living situation: Reports: (10/26/03, 2 children), Alone Occupation: Retired (Retired at age 63, previously a [id number]) ED ROS GENERAL - Review of Systems Review Of Systems: Comprehensive ROS is negative, except as noted in HPI. ED EXAM, GENERAL - Physical Exam Exam: See Below Exam Limited By: No Limitations General Appearance: Alert, WD/WN, No Apparent Distress, Anxious (Mild) Eye Exam: Bilateral Eye: EOMI, Normal Inspection (The patient is wearing glasses. No vertigo or nystagmus), PERRL Ears: Normal External Exam, Normal Canal, Normal TMs, Hearing Loss (Severe bilateral presbycusis) Nose: Normal Mucosa, No Blood, Clear Rhinorrhea (Moderate bilateral) Throat/Mouth: Normal Lips, Normal Gums, Normal Oropharynx, Normal Voice, No Airway Compromise. No: Normal Teeth (Multiple missing teeth and only few lower dentition remaining with no acute caries, etc.), Dysphagia, Perioral Cyanosis Head: Atraumatic, Normocephalic. No: Facial Swelling, Facial Tenderness, Sinus Tenderness Neck: Supple, Non-Tender, Full Range of Motion, Carotid Bruit (Mild bilateral carotid bruits versus transmitted heart sounds). No: Lymphadenopathy (L), Lymphadenopathy (R), Thyromegaly Respiratory/Chest: No Respiratory Distress, No Accessory Muscle Use, Chest Non- Tender, Rales (Mild diffuse bilateral), Other (Harsh cough). No: Rhonchi, Wheezing, Pleural Rub, Retractions Cardiovascular: Normal Peripheral Pulses, Regular Rate, Rhythm, No Gallop, No JVD, No Rub, Systolic Murmur (1/6 BROOKS of the aortic and mitral valves). No: No Edema (Dependent edema as below), Gallop/S3, Gallop/S4, Extra Beats (No extrasystoles at time of exam) Peripheral Pulses: 2+: Radial (L), Radial (R), Dorsalis Pedis (L), Dorsalis Pedis (R) GI/Abdominal: Normal Bowel Sounds, Soft, Non-Tender, No Organomegaly, No Distention, No Abnormal Bruit, No Mass, Other (Obese). No: Guarding (Female) Exam: Deferred Rectal (Female) Exam: Deferred Back Exam: Normal Inspection, Full Range of Motion. No: CVA Tenderness (L), CVA Tenderness (R), Muscle Spasm Extremities: Normal Inspection, Normal Range of Motion, Non-Tender, Normal Capillary Refill, Pedal Edema (+1+2 bilateral pedal/pretibial edema). No: Red's Sign Neurological: Alert, Oriented, CN II-XII Intact, Normal Cognition, Normal Gait, Normal Reflexes (Negative Babinski's), No Motor/Sensory Deficits Psychiatric: Anxious (Mild), Depressed Mood (Borderline) Skin Exam: Warm, Dry, Intact, Normal Color, No Rash. No: Diaphoretic, Wound/Incision Lymphatic: No Adenopathy Course - Vital Signs Last Recorded V/S: Last Vital Signs Temp 36.9 C 09/17/20 07:30 Pulse 86 09/17/20 09:19 Resp 18 09/17/20 09:19 BP 153/62 H 09/17/20 09:19 Pulse Ox 96 09/17/20 09:19 - Orders/Labs/Meds Orders: Active Orders 24 hr Category Date Time Status Cardiac Monitoring [RC] . DIRECTED Care 09/17/20 07:48 Active Peripheral IV Care [RC] . DIRECTED Care 09/17/20 07:47 Active Nothing Per Oral Diet [DIET] Diet 09/17/20 Breakfast Active Abdomen Series w Chest 1V [CR] Stat Exams 09/17/20 07:46 Taken CORONAVIRUS COVID-19 MARY KATE [MOLEC] Stat Lab 09/17/20 08:00 Received CULTURE BLOOD [BC] Stat Lab 09/17/20 07:55 Received CULTURE BLOOD [BC] Stat Lab 09/17/20 08:35 Received Sodium Chloride 0.9% [Saline Flush] Med 09/17/20 07:46 Active 10 ml FLUSH ASDIRECTED PRN Blood Culture x2 Reflex Set [OM.PC] Urgent Oth 09/17/20 07:46 Ordered Isolation [COMM] Routine Oth 09/17/20 07:48 Active Obtain Past Medical Record [OM.PC] Urgent Oth 09/17/20 07:46 Active Peripheral IV Insertion Adult [OM.PC] Stat Oth 09/17/20 07:46 Ordered Resuscitation Status Stat Resus Stat 09/17/20 07:46 Ordered Medication Orders Sodium Chloride (Sodium Chloride 0.9% 10 Ml Syringe) 10 ml FLUSH ASDIRECTED PRN PRN Reason: Keep Vein Open Last Admin: 09/17/20 08:02 Dose: 10 ml Documented by: RENATE Labs: Laboratory Tests 09/17/20 09/17/20 09/17/20 Range/Units 07:55 07:55 07:55 WBC 10.4 H (4.0-10.2) K/uL RBC 4.69 (3.77-5.09) M/uL Hgb 14.8 (11.7-15.5) g/dL Hct 43.1 (34.0-46.0) % MCV 91.9 (84.0-98.0) fL MCH 31.6 (28.2-33.3) pg MCHC 34.3 (31.7-36.0) g/dL RDW 12.4 (11.2-14.1) % Plt Count 310 (150-350) K/uL Neut % (Auto) 85.7 H (45.0-80.0) % Lymph % (Auto) 5.1 L (10.0-50.0) % [place] % (Auto) 8.9 (2.0-14.0) % Eos % (Auto) 0.1 (0.0-5.0) % Baso % (Auto) 0.2 (0.0-2.0) % Neut # (Auto) 8.91 H (1.40-7.00) K/uL Lymph # (Auto) 0.53 (0.50-3.50) K/uL [place] # (Auto) 0.92 (0.00-1.00) K/uL Eos # (Auto) 0.01 (0.00-0.50) K/uL Baso # (Auto) 0.02 (0.00-0.20) K/uL PT 18.8 H (9.5-12.0) SEC INR 1.9 Sodium (136-145) mmol/L Potassium (3.5-5.1) mmol/L Chloride (98-107) mmol/L Carbon Dioxide (21.0-32.0) mmol/L BUN (7-18) mg/dL Creatinine (0.51-1.17) mg/dL Est Cr Clr Drug Dosing mL/min Estimated GFR (MDRD) mL/min Glucose (70-99) mg/dL Lactic Acid (0.4-2.0) mmol/L Uric Acid (2.6-7.2) mg/dL Calcium (8.5-10.1) mg/dL Magnesium (1.8-2.4) mg/dL Total Bilirubin (0.2-1.0) mg/dL AST (15-37) U/L ALT (12-78) U/L Alkaline Phosphatase (46-116) IU/L Troponin I (0.000-0.056) ng/mL NT-Pro-B Natriuret Pep (0-125) pg/mL Total Protein (6.4-8.2) g/dL Albumin (3.4-5.0) g/dL Amylase 16 L (25-115) U/L Lipase (73-393) U/L 09/17/20 09/17/20 Range/Units 07:55 07:55 WBC (4.0-10.2) K/uL RBC (3.77-5.09) M/uL Hgb (11.7-15.5) g/dL Hct (34.0-46.0) % MCV (84.0-98.0) fL MCH (28.2-33.3) pg MCHC (31.7-36.0) g/dL RDW (11.2-14.1) % Plt Count (150-350) K/uL Neut % (Auto) (45.0-80.0) % Lymph % (Auto) (10.0-50.0) % [place] % (Auto) (2.0-14.0) % Eos % (Auto) (0.0-5.0) % Baso % (Auto) (0.0-2.0) % Neut # (Auto) (1.40-7.00) K/uL Lymph # (Auto) (0.50-3.50) K/uL [place] # (Auto) (0.00-1.00) K/uL Eos # (Auto) (0.00-0.50) K/uL Baso # (Auto) (0.00-0.20) K/uL PT (9.5-12.0) SEC INR Sodium 130 L (136-145) mmol/L Potassium 4.2 (3.5-5.1) mmol/L Chloride 95 L (98-107) mmol/L Carbon Dioxide 24.4 (21.0-32.0) mmol/L BUN 14 (7-18) mg/dL Creatinine 0.71 (0.51-1.17) mg/dL Est Cr Clr Drug Dosing 54.02 mL/min Estimated GFR (MDRD) > 60 mL/min Glucose 127 H (70-99) mg/dL Lactic Acid 2.3 H (0.4-2.0) mmol/L Uric Acid 6.6 (2.6-7.2) mg/dL Calcium 8.9 (8.5-10.1) mg/dL Magnesium 1.5 L (1.8-2.4) mg/dL Total Bilirubin 0.5 (0.2-1.0) mg/dL AST 50 H (15-37) U/L ALT 41 (12-78) U/L Alkaline Phosphatase 55 (46-116) IU/L Troponin I 0.016 (0.000-0.056) ng/mL NT-Pro-B Natriuret Pep 1522 H (0-125) pg/mL Total Protein 7.1 (6.4-8.2) g/dL Albumin 3.6 (3.4-5.0) g/dL Amylase (25-115) U/L Lipase 68 L (73-393) U/L Meds: Medications Generic Name Dose Route Start Last Admin Trade Name Freq PRN Reason Stop Dose Admin Sodium Chloride 10 ml 09/17/20 07:46 09/17/20 08:02 Sodium Chloride 0.9% 10 Ml Syringe FLUSH 10 ml ASDIRECTED PRN Administration Keep Vein Open Discontinued Medications Generic Name Dose Route Start Last Admin Trade Name Freq PRN Reason Stop Dose Admin Famotidine 40 mg 09/17/20 07:46 09/17/20 08:03 Famotidine 20 Mg/2 Ml Sdv IVPUSH 09/17/20 07:47 40 mg ONETIME ONE Administration Pantoprazole Sodium 40 mg 09/17/20 07:46 09/17/20 08:02 Pantoprazole 40 Mg Vial IVPUSH 09/17/20 07:47 40 mg ONETIME ONE Administration - Radiology Interpretation Free Text/Narrative:: mohs surgeon shows normal sinus rhythm with heart rate in the 80s to 90s with very occasional PVCs but no other significant arrhythmia Acute abdominal x-rays shows evidence of moderate COPD with no significant pulmonary infiltrates or pneumothorax. Life alert button noted. Mild cardiomegaly with probable pulmonary hypertension and/or mild centralized CHF. Mild aortic valve calcification. Departure - Departure Time of Disposition: 10:00 Disposition: Admitted As Inpatient 67 Condition: Good Clinical Impression: Peptic reflux disease, PVCs (premature ventricular contractions), Presbycusis of both ears, Hypomagnesemia, Elevated LFTs, Hyponatremia, Elevated lactic acid level COPD (chronic obstructive pulmonary disease) Qualifiers: COPD type: emphysema Emphysema type: panlobular Qualified Code(s): J43.1 - Panlobular emphysema Coronary artery disease Qualifiers: Coronary Disease-Associated Artery/Lesion type: crow artery [place] vs. transplanted heart: crow heart Associated angina: without angina Qualified Code(s): I25.10 - Atherosclerotic heart disease of crow coronary artery without angina pectoris Hypertension Qualifiers: Hypertension type: essential hypertension Qualified Code(s): I10 - Essential (primary) hypertension CHF (congestive heart failure) Qualifiers: Qualified Code(s): I50.9 - Heart failure, unspecified - Discharge Information *PRESCRIPTION DRUG MONITORING PROGRAM REVIEWED*: Not Applicable *COPY OF PRESCRIPTION DRUG MONITORING REPORT IN PATIENT MIKE: Not Applicable Referrals: PCP,None [Primary Care Provider] - Forms: ED Department Discharge Care Plan Goals: See plan Sepsis Event Note (ED) - Evaluation Sepsis Screening Result: No Definite Risk - Focused Exam Vital Signs: Vital Signs Temp Pulse Resp BP Pulse Ox 09/17/20 09:19 86 18 153/62 H 96 09/17/20 08:08 92 18 149/64 H 96 09/17/20 07:32 97 21 H 164/64 H 97 09/17/20 07:30 36.9 C 97 20 215/74 H 96 - Problem List & Annotations (1) CHF (congestive heart failure) SNOMED Code(s): 33759592 Code(s): I50.9 - HEART FAILURE, UNSPECIFIED Status: Acute Priority: Medium Current Visit: Yes Annotation/Comment:: No chest pain or anginal type symptoms. Initiate IV Lasix and oral potassium therapy. Cardiology consultation depending on her clinical course. Note previous echocardiogram on 01/08/2018 with consideration of repeating this on an outpatient basis. Initiate GUERRERO inhibitor therapy/lisinopril later this afternoon. Initiate standard rule out MD orders with EKG shortly after admission. (2) COPD (chronic obstructive pulmonary disease) SNOMED Code(s): 61974910 Code(s): J44.9 - CHRONIC OBSTRUCTIVE PULMONARY DISEASE, UNSPECIFIED Status: Chronic Priority: Medium Current Visit: Yes Annotation/Comment:: Probable bronchitis and/or developing pneumonia. IV Levaquin therapy will be initiated with additional Mucinex DM. Change from oral to IV Solu-Medrol therapy. Attempt to obtain sputum specimen RICARDO. Qualifiers: COPD type: emphysema Emphysema type: panlobular Qualified Code(s): J43.1 - Panlobular emphysema (3) Elevated lactic acid level SNOMED Code(s): 2806715 Code(s): R79.89 - OTHER SPECIFIED ABNORMAL FINDINGS OF BLOOD CHEMISTRY Status: Acute Priority: High Current Visit: Yes Onset Date: 09/17/20 Annotation/Comment:: No clinical evidence of sepsis. Blood cultures x2 were collected. IV Levaquin initiated as above. (4) Coronary artery disease SNOMED Code(s): 54472876 Code(s): I25.10 - ATHSCL HEART DISEASE OF [place] CORONARY ARTERY W/O ANG PCTRS Status: Chronic Priority: Medium Current Visit: Yes Deisy otation/Comment:: As above Qualifiers: Coronary Disease-Associated Artery/Lesion type: crow artery [place] vs. transplanted heart: crow heart Associated angina: without angina Qualified Code(s): I25.10 - Atherosclerotic heart disease of [place] coronary artery without angina pectoris (5) Elevated LFTs SNOMED Code(s): 702460242 Code(s): R79.89 - OTHER SPECIFIED ABNORMAL FINDINGS OF BLOOD CHEMISTRY Status: Acute Priority: High Current Visit: Yes Onset Date: 12/11/16 Annotation/Comment:: As above. Previous known history of chronic LFTs elevation secondary to fatty liver and current mild CHF. (6) Hypertension SNOMED Code(s): 57544212 Code(s): I10 - ESSENTIAL (PRIMARY) HYPERTENSION Status: Acute Priority: Medium Current Visit: Yes Annotation/Comment:: Elevated blood pressures initially on arrival in the emergency room, however improved without therapy. IV Lasix and oral lisinopril therapy to be initiated as above. Qualifiers: Hypertension type: essential hypertension Qualified Code(s): I10 - Essential (primary) hypertension (7) Hypomagnesemia SNOMED Code(s): 966716079 Code(s): E83.42 - HYPOMAGNESEMIA Status: Acute Priority: Medium Current Visit: Yes Onset Date: 12/11/16 Annotation/Comment:: Additional increase of her previous magnesium oxide therapy especially in light of IV Lasix. Continue close follow-up during this hospitalization and by her regular providers after discharge. (8) Hyponatremia SNOMED Code(s): 72258392 Code(s): E87.1 - HYPO-OSMOLALITY AND HYPONATREMIA Status: Acute Priority: Medium Current Visit: Yes Onset Date: 09/17/20 Annotation/Comment:: Likely secondary to her CHF. (9) Peptic reflux disease SNOMED Code(s): 471592096 Code(s): K21.9 - GASTRO-ESOPHAGEAL REFLUX DISEASE WITHOUT ESOPHAGITIS Sta t[place]: Chronic Priority: Medium Current Visit: Yes Annotation/Comment:: High-dose IV Pepcid and IV Protonix given in the emergency room and will be continued during this hospitalization. Further GI work-up depending on her clinical course. - Problem List Review Problem List Initiated/Reviewed/Updated: Yes - My Orders Last 24 Hours: My Active Orders 09/17/20 Breakfast Nothing Per Oral Diet [DIET] 09/17/20 07:46 Abdomen Series w Chest 1V [CR] Stat Sodium Chloride 0.9% [Saline Flush] 10 ml FLUSH ASDIRECTED PRN Blood Culture x2 Reflex Set [OM.PC] Urgent Obtain Past Medical Record [OM.PC] Urgent Peripheral IV Insertion Adult [OM.PC] Stat Resuscitation Status Stat 09/17/20 07:47 Peripheral IV Care [RC] . DIRECTED 09/17/20 07:48 Cardiac Monitoring [RC] . DIRECTED Isolation [COMM] Routine 09/17/20 07:55 CULTURE BLOOD [BC] Stat 09/17/20 08:00 CORONAVIRUS COVID-19 MARY KATE [MOLEC] Stat 09/17/20 08:35 CULTURE BLOOD [BC] Stat - Assessment/Plan Admission H&P: Please use this note as an admission H&P Last 24 Hours: My Active Orders 09/17/20 Breakfast Nothing Per Oral Diet [DIET] 09/17/20 07:46 Abdomen Series w Chest 1V [CR] Stat Sodium Chloride 0.9% [Saline Flush] 10 ml FLUSH ASDIRECTED PRN Blood Culture x2 Reflex Set [OM.PC] Urgent Obtain Past Medical Record [OM.PC] Urgent Peripheral IV Insertion Adult [OM.PC] Stat Resuscitation Status Stat 09/17/20 07:47 Peripheral IV Care [RC] . DIRECTED 09/17/20 07:48 Cardiac Monitoring [RC] . DIRECTED Isolation [COMM] Routine 09/17/20 07:55 CULTURE BLOOD [BC] Stat 09/17/20 08:00 CORONAVIRUS COVID-19 MARY KATE [MOLEC] Stat 09/17/20 08:35 CULTURE BLOOD [BC] Stat Assessment:: As above Plan: As above. Extensive precautions were given to the patient and her son, who are in agreement with the treatment plan. The patient will require about 3-4 days of inpatient/acute care secondary to multiple health problems as above. Cooper fischer provider assumes care in the a.m.
[2020-09-17] MEDS: Sodium Chloride 0.9% 10 ML Syringe FLUSH PRN ×5 (08:02→21:47)
[2020-09-17 08:37] LABS: CHLORIDE,CL 95 mmol/L (98-107); SODIUM,NA 130 mmol/L (136-145)
[2020-09-17] MEDS ORDERED: Fluticasone Propionate Nasal Spray 16 GM Bottle NASBOTH PRN (10:56)
[2020-09-17] MEDS ORDERED: Temazepam 15 MG Cap PO PRN (10:57)
[2020-09-17] MEDS ORDERED: Albuterol 0.083% 2.5 MG/3 ML Neb Soln NEB PRN (10:57)
[2020-09-17] MEDS ORDERED: Albuterol/Ipratropium 3.0-0.5 MG/3 ML Neb Soln NEB PRN (10:57)
[2020-09-17] MEDS ORDERED: Magnesium Oxide 400 MG Tab PO ONE (10:57)
[2020-09-17] MEDS ORDERED: methylPREDNISolone Sodium Succinate 125 MG/2 ML SDV IVPUSH ONE (11:01)
[2020-09-17] MEDS: Acetaminophen 325 MG Tab PO PRN ×2 (11:44→17:17)
[2020-09-17] MEDS: Furosemide 40 MG/4 ML VIAL IVPUSH SCH ×2 (11:55→20:03)
[2020-09-17] MEDS: Sodium Chloride 0.9% 10 ML Syringe FLUSH SCH ×2 (11:59→23:57)
[2020-09-17] MEDS: Dextromethorphan/guaiFENesin 600-30 MG Tab.ER PO SCH ×2 (12:00→17:17)
[2020-09-17] MEDS: Levofloxacin/Dextrose 5%-Water 500 MG in Premix Bag 1 BAG IV SCH (12:01)
[2020-09-17] MEDS: Potassium Chloride 20 MEQ Tab.ER PO SCH ×2 (12:01→17:15)
[2020-09-17] MEDS: Albuterol/Ipratropium 3.0-0.5 MG/3 ML Neb Soln NEB SCH ×2 (13:50→19:14)
[2020-09-17] MEDS: VANCOmycin 1.5 GM/300 ML 1.5 GM in Premix Bag 1 BAG IV SCH (16:39)
[2020-09-17] MEDS: Warfarin 5 MG Tab PO SCH (17:16)
[2020-09-17] MEDS: Magnesium Oxide 400 MG Tab PO SCH (17:16)
[2020-09-17] MEDS ORDERED: GI Cocktail Oral Solution 30 ML PO ONE (18:24)
[2020-09-17] MEDS: Budesonide 0.5 MG/2 ML Neb Susp NEB SCH (20:02)
[2020-09-17] MEDS: Simvastatin 20 MG Tab PO SCH (20:03)
[2020-09-17] MEDS: Pantoprazole 40 MG Vial IVPUSH SCH (20:03)
[2020-09-17] MEDS: Arformoterol 15 MCG/2 ML Neb Soln INH SCH (20:03)
[2020-09-17] MEDS ORDERED: Lactated Ringers 1,000 ML IV ONE (21:24)
[2020-09-17] MEDS ORDERED: Diltiazem 25 MG/5 ML SDV IVPUSH ONE (21:24)
[2020-09-17] MEDS ORDERED: Metoprolol Tartrate 50 MG Tab PO ONE (21:50)
[2020-09-17] MEDS: Metoclopramide 10 MG/2 ML SDV IVPUSH PRN (22:01)
[2020-09-18] MEDS: Albuterol/Ipratropium 3.0-0.5 MG/3 ML Neb Soln NEB SCH ×4 (02:25→19:50)
[2020-09-18] MEDS: Sodium Chloride 0.9% 10 ML Syringe FLUSH PRN ×4 (07:36→19:51)
[2020-09-18] MEDS: Pantoprazole 40 MG Vial IVPUSH SCH ×2 (07:36→19:50)
[2020-09-18] MEDS: Metoclopramide 10 MG/2 ML SDV IVPUSH PRN (07:40)
[2020-09-18] MEDS: Magnesium Oxide 400 MG Tab PO SCH ×2 (07:43→17:21)
[2020-09-18] MEDS: Loratadine 10 MG Tab PO SCH (07:43)
[2020-09-18] MEDS: Ascorbic Acid 500 MG Tab PO SCH (07:43)
[2020-09-18] MEDS: Digoxin 125 MCG Tab PO SCH (07:43)
[2020-09-18] MEDS: Acetaminophen 325 MG Tab PO PRN ×2 (07:44→17:21)
[2020-09-18] MEDS: Potassium Chloride 20 MEQ Tab.ER PO SCH ×2 (07:44→12:16)
[2020-09-18] MEDS: Vitamin B Complex Tab PO SCH (07:44)
[2020-09-18] MEDS: Levothyroxine 75 MCG Tab PO SCH (07:44)
[2020-09-18] MEDS: Dextromethorphan/guaiFENesin 600-30 MG Tab.ER PO SCH ×2 (07:45→17:22)
[2020-09-18] MEDS: Budesonide 0.5 MG/2 ML Neb Susp NEB SCH ×2 (07:46→19:50)
[2020-09-18] MEDS: Arformoterol 15 MCG/2 ML Neb Soln INH SCH ×2 (07:49→19:50)
[2020-09-18] MEDS: Famotidine 20 MG/2 ML SDV IVPUSH SCH (07:49)
[2020-09-18] MEDS: Lisinopril 20 MG Tab PO SCH (07:58)
[2020-09-18] MEDS: Hydrochlorothiazide 25 MG Tab PO SCH (07:58)
[2020-09-18] MEDS: Metoprolol Succinate 25 MG Tab.ER PO SCH (07:58)
[2020-09-18 08:45] LABS: CHLORIDE,CL 91 mmol/L (98-107); SODIUM,NA 130 mmol/L (136-145)
[2020-09-18] MEDS ORDERED: Diltiazem 25 MG/5 ML SDV IVPUSH ONE (09:05)
[2020-09-18] MEDS ORDERED: Diltiazem 25 MG/5 ML SDV ONE (09:08)
[2020-09-18] MEDS ORDERED: Iopamidol 612 MG/ML 100 ML Bottle IVPUSH ONE (09:54)
--- NOTE | 2020-09-18 11:45 | PCM.PN ---
- General Info Date of Service: 09/18/20 Subjective Update: Pt. has had 2 episodes of afib/flutter with RVR since admission. At shift change today, pt. was found to have a heart rate of 150 in a flutter. Pt. was given IV diltiazem 20mg IV and rate decreased to 70s-80s. She did not convert back into a sinus rhythm. She remained hemodynamically stable when she was tachycardic and post IV diltiazem. Pt. did not have any chest pain, shortness of breath, lightheadedness, or palpitations when her rate was that high. Pt. was continuing to experience abdominal discomfort and lactic acid was still elevated. It has dropped from 5.5 last night to 3.0 this AM. She continues to be afebrile. She is currently on IV levaquin but was also started on vancomycin 1.5gm/kg BID which was started due to the lactic acidosis. She has had several loose stools. Pt. did have a CT abdomen and pelvis with contrast. No obvious acute pathology was noted per [place] radiologist. She did report some bronchial wall thickening. No perforation, abscess, or other pathology noted. - Review of Systems General: Reports: Weakness HEENT: Reports: Other (extremely hard of hearing) Pulmonary: Reports: No Symptoms Cardiovascular: Reports: No Symptoms Gastrointestinal: Reports: Diarrhea Genitourinary: Reports: No Symptoms Musculoskeletal: Reports: No Symptoms Skin: Reports: No Symptoms Neurological: Reports: No Symptoms Psychiatric: Reports: No Symptoms - Patient Data Vitals - Most Recent: Last Vital Signs Temp 36.3 C 09/18/20 07:40 Pulse 79 09/18/20 10:30 Resp 24 H 09/18/20 07:40 BP 112/45 L 09/18/20 10:30 Pulse Ox 96 09/18/20 07:45 Weight - Most Recent: 74.797 kg I&O - Last 24 Hours: Intake & Output 09/17/20 09/18/20 09/18/20 22:59 06:59 14:59 Intake Total 700 300 Output Total 400 100 Balance 700 -400 200 Lab Results Last 24 Hours: Laboratory Results - last 24 hr 09/17/20 09/17/20 09/17/20 Range/Units 14:10 14:10 20:39 WBC (4.0-10.2) K/uL RBC (3.77-5.09) M/uL Hgb (11.7-15.5) g/dL Hct (34.0-46.0) % MCV (84.0-98.0) fL MCH (28.2-33.3) pg MCHC (31.7-36.0) g/dL RDW (11.2-14.1) % Plt Count (150-350) K/uL Neut % (Auto) (45.0-80.0) % Lymph % (Auto) (10.0-50.0) % Greene % (Auto) (2.0-14.0) % Eos % (Auto) (0.0-5.0) % Baso % (Auto) (0.0-2.0) % Neut # (Auto) (1.40-7.00) K/uL Lymph # (Auto) (0.50-3.50) K/uL Greene # (Auto) (0.00-1.00) K/uL Eos # (Auto) (0.00-0.50) K/uL Baso # (Auto) (0.00-0.20) K/uL PT (9.5-12.0) SEC INR D-Dimer, Quantitative (0-400) ng/mL Sodium (136-145) mmol/L Potassium (3.5-5.1) mmol/L Chloride (98-107) mmol/L Carbon Dioxide (21.0-32.0) mmol/L BUN (7-18) mg/dL Creatinine (0.51-1.17) mg/dL Est Cr Clr Drug Dosing mL/min Estimated GFR (MDRD) mL/min Glucose (70-99) mg/dL Hemoglobin A1c (4.3-5.7) % Lactic Acid 3.4 H (0.4-2.0) mmol/L Calcium (8.5-10.1) mg/dL Total Bilirubin (0.2-1.0) mg/dL AST (15-37) U/L ALT (12-78) U/L Alkaline Phosphatase (46-116) IU/L Troponin I 0.012 0.017 (0.000-0.056) ng/mL NT-Pro-B Natriuret Pep (0-125) pg/mL Total Protein (6.4-8.2) g/dL Albumin (3.4-5.0) g/dL Triglycerides (30-150) mg/dL Cholesterol (100-200) mg/dL LDL Cholesterol, Calc (0-100) mg/dL HDL Cholesterol (40-60) mg/dL TSH, Ultra Sensitive (0.358-3.740) mIU/mL Specimen Type Urine Color Urine Appearance Urine pH (5.0-9.0) Ur Specific [place] (1.005-1.030) Urine Protein (NEGATIVE) mg/dL Urine Glucose (UA) (NEGATIVE) mg/dL Urine Ketones (NEGATIVE) mg/dL Urine Occult Blood (NEGATIVE) Urine Nitrite (NEGATIVE) Urine Bilirubin (NEGATIVE) Urine Urobilinogen (0.2-1.0) E.U./dL Ur Leukocyte Esterase (NEGATIVE) Urine RBC /HPF Urine WBC /HPF Ur Epithelial Cells /LPF Urine Bacteria (NONE TO FEW) /HPF Digoxin 1.11 (0.90-2.00) ng/mL 09/17/20 09/17/20 09/17/20 Range/Units 20:39 23:24 23:40 WBC (4.0-10.2) K/uL RBC (3.77-5.09) M/uL Hgb (11.7-15.5) g/dL Hct (34.0-46.0) % MCV (84.0-98.0) fL MCH (28.2-33.3) pg MCHC (31.7-36.0) g/dL RDW (11.2-14.1) % Plt Count (150-350) K/uL Neut % (Auto) (45.0-80.0) % Lymph % (Auto) (10.0-50.0) % Greene % (Auto) (2.0-14.0) % Eos % (Auto) (0.0-5.0) % Baso % (Auto) (0.0-2.0) % Neut # (Auto) (1.40-7.00) K/uL Lymph # (Auto) (0.50-3.50) K/uL Greene # (Auto) (0.00-1.00) K/uL Eos # (Auto) (0.00-0.50) K/uL Baso # (Auto) (0.00-0.20) K/uL PT (9.5-12.0) SEC INR D-Dimer, Quantitative (0-400) ng/mL Sodium (136-145) mmol/L Potassium (3.5-5.1) mmol/L Chloride (98-107) mmol/L Carbon Dioxide (21.0-32.0) mmol/L BUN (7-18) mg/dL Creatinine (0.51-1.17) mg/dL Est Cr Clr Drug Dosing mL/min Estimated GFR (MDRD) mL/min Glucose (70-99) mg/dL Hemoglobin A1c (4.3-5.7) % Lactic Acid 6.0 H 5.5 H (0.4-2.0) mmol/L Calcium (8.5-10.1) mg/dL Total Bilirubin (0.2-1.0) mg/dL AST (15-37) U/L ALT (12-78) U/L Alkaline Phosphatase (46-116) IU/L Troponin I (0.000-0.056) ng/mL NT-Pro-B Natriuret Pep (0-125) pg/mL Total Protein (6.4-8.2) g/dL Albumin (3.4-5.0) g/dL Triglycerides (30-150) mg/dL Cholesterol (100-200) mg/dL LDL Cholesterol, Calc (0-100) mg/dL HDL Cholesterol (40-60) mg/dL TSH, Ultra Sensitive (0.358-3.740) mIU/mL Specimen Type Urinvoid Urine Color Yellow Urine Appearance Clear Urine pH 5.0 (5.0-9.0) Ur Specific [place] 1.015 (1.005-1.030) Urine Protein Negative (NEGATIVE) mg/dL Urine Glucose (UA) Negative (NEGATIVE) mg/dL Urine Ketones Negative (NEGATIVE) mg/dL Urine Occult Blood Trace-intact H (NEGATIVE) Urine Nitrite Negative (NEGATIVE) Urine Bilirubin Negative (NEGATIVE) Urine Urobilinogen 0.2 (0.2-1.0) E.U./dL Ur Leukocyte Esterase Negative (NEGATIVE) Urine RBC 0-5 /HPF Urine WBC Not seen /HPF Ur Epithelial Cells Occasional /LPF Urine Bacteria Few (NONE TO FEW) /HPF Digoxin (0.90-2.00) ng/mL 09/18/20 09/18/20 09/18/20 Range/Units 07:51 07:51 07:51 WBC 13.5 H (4.0-10.2) K/uL RBC 4.76 (3.77-5.09) M/uL Hgb 14.9 (11.7-15.5) g/dL Hct 43.4 (34.0-46.0) % MCV 91.2 (84.0-98.0) fL MCH 31.3 (28.2-33.3) pg MCHC 34.3 (31.7-36.0) g/dL RDW 12.5 (11.2-14.1) % Plt Count 315 (150-350) K/uL Neut % (Auto) 85.2 H (45.0-80.0) % Lymph % (Auto) 4.7 L (10.0-50.0) % Greene % (Auto) 10.0 (2.0-14.0) % Eos % (Auto) 0.0 (0.0-5.0) % Baso % (Auto) 0.1 (0.0-2.0) % Neut # (Auto) 11.47 H (1.40-7.00) K/uL Lymph # (Auto) 0.63 (0.50-3.50) K/uL Greene # (Auto) 1.35 H (0.00-1.00) K/uL Eos # (Auto) 0.00 (0.00-0.50) K/uL Baso # (Auto) 0.01 (0.00-0.20) K/uL PT 22.4 H (9.5-12.0) SEC INR 2.3 D-Dimer, Quantitative (0-400) ng/mL Sodium 130 L (136-145) mmol/L Potassium 4.3 (3.5-5.1) mmol/L Chloride 91 L (98-107) mmol/L Carbon Dioxide 25.5 (21.0-32.0) mmol/L BUN 16 (7-18) mg/dL Creatinine 0.74 (0.51-1.17) mg/dL Est Cr Clr Drug Dosing 51.83 mL/min Estimated GFR (MDRD) > 60 mL/min Glucose 119 H (70-99) mg/dL Hemoglobin A1c (4.3-5.7) % Lactic Acid (0.4-2.0) mmol/L Calcium 8.1 L (8.5-10.1) mg/dL Total Bilirubin 0.5 (0.2-1.0) mg/dL AST 48 H (15-37) U/L ALT 46 (12-78) U/L Alkaline Phosphatase 52 (46-116) IU/L Troponin I 0.030 (0.000-0.056) ng/mL NT-Pro-B Natriuret Pep 4217 H (0-125) pg/mL Total Protein 6.9 (6.4-8.2) g/dL Albumin 3.3 L (3.4-5.0) g/dL Triglycerides 129 (30-150) mg/dL Cholesterol 138 (100-200) mg/dL LDL Cholesterol, Calc 56 (0-100) mg/dL HDL Cholesterol 56 (40-60) mg/dL TSH, Ultra Sensitive 1.091 (0.358-3.740) mIU/mL Specimen Type Urine Color Urine Appearance Urine pH (5.0-9.0) Ur Specific [place] (1.005-1.030) Urine Protein (NEGATIVE) mg/dL Urine Glucose (UA) (NEGATIVE) mg/dL Urine Ketones (NEGATIVE) mg/dL Urine Occult Blood (NEGATIVE) Urine Nitrite (NEGATIVE) Urine Bilirubin (NEGATIVE) Urine Urobilinogen (0.2-1.0) E.U./dL Ur Leukocyte Esterase (NEGATIVE) Urine RBC /HPF Urine WBC /HPF Ur Epithelial Cells /LPF Urine Bacteria (NONE TO FEW) /HPF Digoxin (0.90-2.00) ng/mL 09/18/20 09/18/20 09/18/20 Range/Units 07:51 07:51 07:51 WBC (4.0-10.2) K/uL RBC (3.77-5.09) M/uL Hgb (11.7-15.5) g/dL Hct (34.0-46.0) % MCV (84.0-98.0) fL MCH (28.2-33.3) pg MCHC (31.7-36.0) g/dL RDW (11.2-14.1) % Plt Count (150-350) K/uL Neut % (Auto) (45.0-80.0) % Lymph % (Auto) (10.0-50.0) % Greene % (Auto) (2.0-14.0) % Eos % (Auto) (0.0-5.0) % Baso % (Auto) (0.0-2.0) % Neut # (Auto) (1.40-7.00) K/uL Lymph # (Auto) (0.50-3.50) K/uL Greene # (Auto) (0.00-1.00) K/uL Eos # (Auto) (0.00-0.50) K/uL Baso # (Auto) (0.00-0.20) K/uL PT (9.5-12.0) SEC INR D-Dimer, Quantitative 228 (0-400) ng/mL Sodium (136-145) mmol/L Potassium (3.5-5.1) mmol/L Chloride (98-107) mmol/L Carbon Dioxide (21.0-32.0) mmol/L BUN (7-18) mg/dL Creatinine (0.51-1.17) mg/dL Est Cr Clr Drug Dosing mL/min Estimated GFR (MDRD) mL/min Glucose (70-99) mg/dL Hemoglobin A1c 6.0 H (4.3-5.7) % Lactic Acid 3.0 H (0.4-2.0) mmol/L Calcium (8.5-10.1) mg/dL Total Bilirubin (0.2-1.0) mg/dL AST (15-37) U/L ALT (12-78) U/L Alkaline Phosphatase (46-116) IU/L Troponin I (0.000-0.056) ng/mL NT-Pro-B Natriuret Pep (0-125) pg/mL Total Protein (6.4-8.2) g/dL Albumin (3.4-5.0) g/dL Triglycerides (30-150) mg/dL Cholesterol (100-200) mg/dL LDL Cholesterol, Calc (0-100) mg/dL HDL Cholesterol (40-60) mg/dL TSH, Ultra Sensitive (0.358-3.740) mIU/mL Specimen Type Urine Color Urine Appearance Urine pH (5.0-9.0) Ur Specific [place]row (1.005-1.030) Urine Protein (NEGATIVE) mg/dL Urine Glucose (UA) (NEGATIVE) mg/dL Urine Ketones (NEGATIVE) mg/dL Urine Occult Blood (NEGATIVE) Urine Nitrite (NEGATIVE) Urine Bilirubin (NEGATIVE) Urine Urobilinogen (0.2-1.0) E.U./dL Ur Leukocyte Esterase (NEGATIVE) Urine RBC /HPF Urine WBC /HPF Ur Epithelial Cells /LPF Urine Bacteria (NONE TO FEW) /HPF Digoxin (0.90-2.00) ng/mL Brandan Results Last 24 Hours: Microbiology 09/18/20 08:22 Stool Occult Blood (BRANDAN) - Final Stool / Feces NEGATIVE OCCULT BLOOD REFERENCE RANGE: NEGATIVE 09/17/20 08:35 Aerobic Blood Culture - Preliminary Blood - Venous - Lab Draw NO GROWTH AFTER 1 DAY Anaerobic Blood Culture - Preliminary NO GROWTH AFTER 1 DAY 09/17/20 07:55 Aerobic Blood Culture - Preliminary Blood - Venous NO GROWTH AFTER 1 DAY Anaerobic Blood Culture - Preliminary NO GROWTH AFTER 1 DAY 09/17/20 08:00 Respiratory Syncytial Virus Ag Scrn - Final Nasal, Unspecified NEGATIVE RSV ANTIGEN REFERENCE RANGE: NEGATIVE Med Orders - Current: Current Medications Acetaminophen (Acetaminophen 325 Mg Tab) 650 mg PO Q4H PRN PRN Reason: Pain/Fever Last Admin: 09/18/20 07:44 Dose: 650 mg Documented by: Albuterol (Albuterol 0.083% 2.5 Mg/3 Ml Neb Soln) 2.5 mg NEB Q2H PRN PRN Reason: Dyspnea Albuterol/Ipratropium (Albuterol/Ipratropium 3.0-0.5 Mg/3 Ml Neb Soln) 3 ml NEB Q4HRRT PRN PRN Reason: Dyspnea Last Admin: 09/17/20 11:40 Dose: 3 ml Documented by: Albuterol/Ipratropium (Albuterol/Ipratropium 3.0-0.5 Mg/3 Ml Neb Soln) 3 ml NEB Q6HRRT HYACINTH Last Admin: 09/18/20 07:39 Dose: 3 ml Documented by: Arformoterol Tartrate (Arformoterol 15 Mcg/2 Ml Neb Soln) 15 mcg INH BIDRT HYACINTH Last Admin: 09/18/20 07:49 Dose: 15 mcg Documented by: Ascorbic Acid (Ascorbic Acid 500 Mg Tab) 500 mg PO DAILY [facility] Last Admin: 09/18/20 07:43 Dose: 500 mg Documented by: Budesonide (Budesonide 0.5 Mg/2 Ml Neb Susp) 0.5 mg NEB BIDRT [facility] Last Admin: 09/18/20 07:46 Dose: 0.5 mg Documented by: Digoxin (Digoxin 125 Mcg Tab) 250 mcg PO DAILY [facility] Last Admin: 09/18/20 07:43 Dose: 250 mcg Documented by: Diltiazem HCl (Diltiazem 120 Mg Cap.Cd) 120 mg PO DAILY [facility] Famotidine (Famotidine 20 Mg/2 Ml Sdv) 20 mg IVPUSH Q24H [facility] Last Admin: 09/18/20 07:49 Dose: 20 mg Documented by: Fluticasone Propionate (Fluticasone Propionate Nasal [place] 16 Gm Bottle) 0 gm NASBOTH BID PRN PRN Reason: Allergies Guaifenesin/Dextromethorphan (Dextromethorphan/Guaifenesin 600-30 Mg Tab.Er) 1 tab PO BID [facility] Last Admin: 09/18/20 07:45 Dose: 1 tab Documented by: Hydrochlorothiazide (Hydrochlorothiazide 25 Mg Tab) 25 mg PO DAILY [facility] Last Admin: 09/18/20 07:58 Dose: 25 mg Documented by: Levofloxacin/Dextrose 500 mg/ (Premix) 100 mls @ 100 mls/hr IV Q24H [facility] Last Admin: 09/17/20 12:01 Dose: 100 mls/hr Documented by: Vancomycin HCl 1.5 gm/ Premix 300 mls @ 200 mls/hr IV Q24H [facility] Last Admin: 09/17/20 16:39 Dose: 200 mls/hr Documented by: Levothyroxine Sodium (Levothyroxine 75 Mcg Tab) 75 mcg PO ACBREAKFAST [facility] Last Admin: 09/18/20 07:44 Dose: 75 mcg Documented by: Lisinopril (Lisinopril 20 Mg Tab) 20 mg PO DAILY [facility] Last Admin: 09/18/20 07:58 Dose: 20 mg Documented by: Loratadine (Loratadine 10 Mg Tab) 10 mg PO DAILY [facility] Last Admin: 09/18/20 07:43 Dose: 10 mg Documented by: Magnesium Oxide (Magnesium Oxide 400 Mg Tab) 400 mg PO BID [facility] Last Admin: 09/18/20 07:43 Dose: 400 mg Documented by: Metoclopramide HCl (Metoclopramide 10 Mg/2 Ml Sdv) 10 mg IVPUSH Q6H PRN PRN Reason: Abdominal Pain Last Admin: 09/18/20 07:40 Dose: 10 mg Documented by: Metoprolol Succinate (Metoprolol Succinate 25 Mg Tab.Er) 25 mg PO DAILY [facility] Last Admin: 09/18/20 07:58 Dose: 25 mg Documented by: Pantoprazole Sodium (Pantoprazole 40 Mg Vial) 40 mg IVPUSH Q12H [facility] Last Admin: 09/18/20 07:36 Dose: 40 mg Documented by: Potassium Chloride (Potassium Chloride 20 Meq Tab.Er) 20 meq PO TID [facility] Last Admin: 09/18/20 07:44 Dose: 20 meq Documented by: Simvastatin (Simvastatin 20 Mg Tab) 40 mg PO BEDTIME [facility] Last Admin: 09/17/20 20:03 Dose: 40 mg Documented by: Sodium Chloride (Sodium Chloride 0.9% 10 Ml Syringe) 10 ml FLUSH ASDIRECTED PRN PRN Reason: Keep Vein Open Last Admin: 09/18/20 07:40 Dose: 10 ml Documented by: Sodium Chloride (Sodium Chloride 0.9% 10 Ml Syringe) 10 ml FLUSH Q12H [facility] Last Admin: 09/17/20 23:57 Dose: Not Given Documented by: Temazepam (Temazepam 15 Mg Cap) 15 mg PO BEDTIME PRN PRN Reason: Insomnia Vitamin B Complex (Vitamin B Complex Tab) 1 each PO DAILY [facility] Last Admin: 09/18/20 07:44 Dose: 1 each Documented by: Warfarin Sodium (Warfarin 5 Mg Tab) 5 mg PO DAILY@1800 [facility] Last Admin: 09/17/20 17:16 Dose: 5 mg Documented by: Discontinued Medications Al Hydroxide/Mg Hydroxide (Gi Cocktail Oral Solution 30 Ml) 30 ml PO ONETIME ONE Stop: 09/17/20 18:25 Last Admin: 09/17/20 19:12 Dose: 30 ml Documented by: Diltiazem HCl (Diltiazem 25 Mg/5 Ml Sdv) 20 mg IVPUSH ONETIME ONE Stop: 09/17/20 21:25 Last Admin: 09/17/20 21:45 Dose: 20 mg Documented by: Diltiazem HCl (Diltiazem 25 Mg/5 Ml Sdv) 20 mg IVPUSH ONETIME ONE Stop: 09/18/20 09:06 Last Admin: 09/18/20 09:06 Dose: 20 mg Documented by: Diltiazem HCl (Diltiazem 25 Mg/5 Ml Sdv) Confirm Administered Dose 25 mg .ROUTE .STK-MED ONE Stop: 09/18/20 09:09 Last Admin: 09/18/20 09:50 Dose: Not Given Documented by: Famotidine (Famotidine 20 Mg/2 Ml Sdv) 40 mg IVPUSH ONETIME ONE Stop: 09/17/20 07:47 Last Admin: 09/17/20 08:03 Dose: 40 mg Documented by: Furosemide (Furosemide 40 Mg/4 Ml Vial) 40 mg IVPUSH Q8H [facility] Last Admin: 09/17/20 20:03 Dose: 40 mg Documented by: Vancomycin HCl 1 gm/ Dextrose/ (Water) 250 mls @ 165 mls/hr IV Q24H [facility] Last Admin: 09/17/20 16:13 Dose: Not Given Documented by: Lactated Ringer's (Ringers, Lactated) 1,000 mls @ 999 mls/hr IV .BOLUS ONE Stop: 09/17/20 22:24 Last Admin: 09/17/20 21:45 Dose: 999 mls/hr Documented by: Iopamidol (Iopamidol 612 Mg/Ml 100 Ml Bottle) 100 ml IVPUSH ONETIME ONE Stop: 09/18/20 09:55 Last Admin: 09/18/20 10:36 Dose: 100 ml Documented by: Magnesium Oxide (Magnesium Oxide 400 Mg Tab) 800 mg PO ONETIME ONE Stop: 09/17/20 10:58 Last Admin: 09/17/20 12:00 Dose: 800 mg Documented by: Methylprednisolone Sodium Succinate (Methylprednisolone Sodium Succinate 125 Mg/2 Ml Sdv) 125 mg IVPUSH ONETIME ONE Stop: 09/17/20 11:02 Last Admin: 09/17/20 11:52 Dose: 125 mg Documented by: Metoprolol Tartrate (Metoprolol Tartrate 50 Mg Tab) 25 mg PO ONETIME ONE Stop: 09/17/20 21:51 Last Admin: 09/17/20 22:01 Dose: 25 mg Documented by: Pantoprazole Sodium (Pantoprazole 40 Mg Vial) 40 mg IVPUSH ONETIME ONE Stop: 09/17/20 07:47 Last Admin: 09/17/20 08:02 Dose: 40 mg Documented by: - Exam Lungs: Clear to Auscultation, Normal Respiratory Effort Cardiovascular: Irregular Rhythm GI/Abdominal Exam: Soft, Non-Tender, No Organomegaly, No Mass Back Exam: Normal Inspection, Full Range of Motion Extremities: Normal Inspection, Normal Range of Motion, Non-Tender, No Pedal Edema, Normal Capillary Refill Skin: Warm, Dry, Intact Neurological: No New Focal Deficit Psy/Mental Status: Alert, Normal Affect, Normal Mood - Patient Data Lab Results Last 24 hrs: Laboratory Results - last 24 hr 09/17/20 09/17/20 09/17/20 Range/Units 14:10 14:10 20:39 WBC (4.0-10.2) K/uL RBC (3.77-5.09) M/uL Hgb (11.7-15.5) g/dL Hct (34.0-46.0) % MCV (84.0-98.0) fL MCH (28.2-33.3) pg MCHC (31.7-36.0) g/dL RDW (11.2-14.1) % Plt Count (150-350) K/uL Neut % (Auto) (45.0-80.0) % Lymph % (Auto) (10.0-50.0) % Greene % (Auto) (2.0-14.0) % Eos % (Auto) (0.0-5.0) % Baso % (Auto) (0.0-2.0) % Neut # (Auto) (1.40-7.00) K/uL Lymph # (Auto) (0.50-3.50) K/uL Greene # (Auto) (0.00-1.00) K/uL Eos # (Auto) (0.00-0.50) K/uL Baso # (Auto) (0.00-0.20) K/uL PT (9.5-12.0) SEC INR D-Dimer, Quantitative (0-400) ng/mL Sodium (136-145) mmol/L Potassium (3.5-5.1) mmol/L Chloride (98-107) mmol/L Carbon Dioxide (21.0-32.0) mmol/L BUN (7-18) mg/dL Creatinine (0.51-1.17) mg/dL Est Cr Clr Drug Dosing mL/min Estimated GFR (MDRD) mL/min Glucose (70-99) mg/dL Hemoglobin A1c (4.3-5.7) % Lactic Acid 3.4 H (0.4-2.0) mmol/L Calcium (8.5-10.1) mg/dL Total Bilirubin (0.2-1.0) mg/dL AST (15-37) U/L ALT (12-78) U/L Alkaline Phosphatase (46-116) IU/L Troponin I 0.012 0.017 (0.000-0.056) ng/mL NT-Pro-B Natriuret Pep (0-125) pg/mL Total Protein (6.4-8.2) g/dL Albumin (3.4-5.0) g/dL Triglycerides (30-150) mg/dL Cholesterol (100-200) mg/dL LDL Cholesterol, Calc (0-100) mg/dL HDL Cholesterol (40-60) mg/dL TSH, Ultra Sensitive (0.358-3.740) mIU/mL Specimen Type Urine Color Urine Appearance Urine pH (5.0-9.0) Ur Specific [place] (1.005-1.030) Urine Protein (NEGATIVE) mg/dL Urine Glucose (UA) (NEGATIVE) mg/dL Urine Ketones (NEGATIVE) mg/dL Urine Occult Blood (NEGATIVE) Urine Nitrite (NEGATIVE) Urine Bilirubin (NEGATIVE) Urine Urobilinogen (0.2-1.0) E.U./dL Ur Leukocyte Esterase (NEGATIVE) Urine RBC /HPF Urine WBC /HPF Ur Epithelial Cells /LPF Urine Bacteria (NONE TO FEW) /HPF Digoxin 1.11 (0.90-2.00) ng/mL 09/17/20 09/17/20 09/17/20 Range/Units 20:39 23:24 23:40 WBC (4.0-10.2) K/uL RBC (3.77-5.09) M/uL Hgb (11.7-15.5) g/dL Hct (34.0-46.0) % MCV (84.0-98.0) fL MCH (28.2-33.3) pg MCHC (31.7-36.0) g/dL RDW (11.2-14.1) % Plt Count (150-350) K/uL Neut % (Auto) (45.0-80.0) % Lymph % (Auto) (10.0-50.0) % Greene % (Auto) (2.0-14.0) % Eos % (Auto) (0.0-5.0) % Baso % (Auto) (0.0-2.0) % Neut # (Auto) (1.40-7.00) K/uL Lymph # (Auto) (0.50-3.50) K/uL Greene # (Auto) (0.00-1.00) K/uL Eos # (Auto) (0.00-0.50) K/uL Baso # (Auto) (0.00-0.20) K/uL PT (9.5-12.0) SEC INR D-Dimer, Quantitative (0-400) ng/mL Sodium (136-145) mmol/L Potassium (3.5-5.1) mmol/L Chloride (98-107) mmol/L Carbon Dioxide (21.0-32.0) mmol/L BUN (7-18) mg/dL Creatinine (0.51-1.17) mg/dL Est Cr Clr Drug Dosing mL/min Estimated GFR (MDRD) mL/min Glucose (70-99) mg/dL Hemoglobin A1c (4.3-5.7) % Lactic Acid 6.0 H 5.5 H (0.4-2.0) mmol/L Calcium (8.5-10.1) mg/dL Total Bilirubin (0.2-1.0) mg/dL AST (15-37) U/L ALT (12-78) U/L Alkaline Phosphatase (46-116) IU/L Troponin I (0.000-0.056) ng/mL NT-Pro-B Natriuret Pep (0-125) pg/mL Total Protein (6.4-8.2) g/dL Albumin (3.4-5.0) g/dL Triglycerides (30-150) mg/dL Cholesterol (100-200) mg/dL LDL Cholesterol, Calc (0-100) mg/dL HDL Cholesterol (40-60) mg/dL TSH, Ultra Sensitive (0.358-3.740) mIU/mL Specimen Type Urinvoid Urine Color Yellow Urine Appearance Clear Urine pH 5.0 (5.0-9.0) Ur Specific Morrow 1.015 (1.005-1.030) Urine Protein Negative (NEGATIVE) mg/dL Urine Glucose (UA) Negative (NEGATIVE) mg/dL Urine Ketones Negative (NEGATIVE) mg/dL Urine Occult Blood Trace-intact H (NEGATIVE) Urine Nitrite Negative (NEGATIVE) Urine Bilirubin Negative (NEGATIVE) Urine Urobilinogen 0.2 (0.2-1.0) E.U./dL Ur Leukocyte Esterase Negative (NEGATIVE) Urine RBC 0-5 /HPF Urine WBC Not seen /HPF Ur Epithelial Cells Occasional /LPF Urine Bacteria Few (NONE TO FEW) /HPF Digoxin (0.90-2.00) ng/mL 09/18/20 09/18/20 09/18/20 Range/Units 07:51 07:51 07:51 WBC 13.5 H (4.0-10.2) K/uL RBC 4.76 (3.77-5.09) M/uL Hgb 14.9 (11.7-15.5) g/dL Hct 43.4 (34.0-46.0) % MCV 91.2 (84.0-98.0) fL MCH 31.3 (28.2-33.3) pg MCHC 34.3 (31.7-36.0) g/dL RDW 12.5 (11.2-14.1) % Plt Count 315 (150-350) K/uL Neut % (Auto) 85.2 H (45.0-80.0) % Lymph % (Auto) 4.7 L (10.0-50.0) % Greene % (Auto) 10.0 (2.0-14.0) % Eos % (Auto) 0.0 (0.0-5.0) % Baso % (Auto) 0.1 (0.0-2.0) % Neut # (Auto) 11.47 H (1.40-7.00) K/uL Lymph # (Auto) 0.63 (0.50-3.50) K/uL Greene # (Auto) 1.35 H (0.00-1.00) K/uL Eos # (Auto) 0.00 (0.00-0.50) K/uL Baso # (Auto) 0.01 (0.00-0.20) K/uL PT 22.4 H (9.5-12.0) SEC INR 2.3 D-Dimer, Quantitative (0-400) ng/mL Sodium 130 L (136-145) mmol/L Potassium 4.3 (3.5-5.1) mmol/L Chloride 91 L (98-107) mmol/L Carbon Dioxide 25.5 (21.0-32.0) mmol/L BUN 16 (7-18) mg/dL Creatinine 0.74 (0.51-1.17) mg/dL Est Cr Clr Drug Dosing 51.83 mL/min Estimated GFR (MDRD) > 60 mL/min Glucose 119 H (70-99) mg/dL Hemoglobin A1c (4.3-5.7) % Lactic Acid (0.4-2.0) mmol/L Calcium 8.1 L (8.5-10.1) mg/dL Total Bilirubin 0.5 (0.2-1.0) mg/dL AST 48 H (15-37) U/L ALT 46 (12-78) U/L Alkaline Phosphatase 52 (46-116) IU/L Troponin I 0.030 (0.000-0.056) ng/mL NT-Pro-B Natriuret Pep 4217 H (0-125) pg/mL Total Protein 6.9 (6.4-8.2) g/dL Albumin 3.3 L (3.4-5.0) g/dL Triglycerides 129 (30-150) mg/dL Cholesterol 138 (100-200) mg/dL LDL Cholesterol, Calc 56 (0-100) mg/dL HDL Cholesterol 56 (40-60) mg/dL TSH, Ultra Sensitive 1.091 (0.358-3.740) mIU/mL Specimen Type Urine Color Urine Appearance Urine pH (5.0-9.0) Ur Specific Morrow (1.005-1.030) Urine Protein (NEGATIVE) mg/dL Urine Glucose (UA) (NEGATIVE) mg/dL Urine Ketones (NEGATIVE) mg/dL Urine Occult Blood (NEGATIVE) Urine Nitrite (NEGATIVE) Urine Bilirubin (NEGATIVE) Urine Urobilinogen (0.2-1.0) E.U./dL Ur Leukocyte Esterase (NEGATIVE) Urine RBC /HPF Urine WBC /HPF Ur Epithelial Cells /LPF Urine Bacteria (NONE TO FEW) /HPF Digoxin (0.90-2.00) ng/mL 09/18/20 09/18/20 09/18/20 Range/Units 07:51 07:51 07:51 WBC (4.0-10.2) K/uL RBC (3.77-5.09) M/uL Hgb (11.7-15.5) g/dL Hct (34.0-46.0) % MCV (84.0-98.0) fL MCH (28.2-33.3) pg MCHC (31.7-36.0) g/dL RDW (11.2-14.1) % Plt Count (150-350) K/uL Neut % (Auto) (45.0-80.0) % Lymph % (Auto) (10.0-50.0) % Greene % (Auto) (2.0-14.0) % Eos % (Auto) (0.0-5.0) % Baso % (Auto) (0.0-2.0) % Neut # (Auto) (1.40-7.00) K/uL Lymph # (Auto) (0.50-3.50) K/uL Greene # (Auto) (0.00-1.00) K/uL Eos # (Auto) (0.00-0.50) K/uL Baso # (Auto) (0.00-0.20) K/uL PT (9.5-12.0) SEC INR D-Dimer, Quantitative 228 (0-400) ng/mL Sodium (136-145) mmol/L Potassium (3.5-5.1) mmol/L Chloride (98-107) mmol/L Carbon Dioxide (21.0-32.0) mmol/L BUN (7-18) mg/dL Creatinine (0.51-1.17) mg/dL Est Cr Clr Drug Dosing mL/min Estimated GFR (MDRD) mL/min Glucose (70-99) mg/dL Hemoglobin A1c 6.0 H (4.3-5.7) % Lactic Acid 3.0 H (0.4-2.0) mmol/L Calcium (8.5-10.1) mg/dL Total Bilirubin (0.2-1.0) mg/dL AST (15-37) U/L ALT (12-78) U/L Alkaline Phosphatase (46-116) IU/L Troponin I (0.000-0.056) ng/mL NT-Pro-B Natriuret Pep (0-125) pg/mL Total Protein (6.4-8.2) g/dL Albumin (3.4-5.0) g/dL Triglycerides (30-150) mg/dL Cholesterol (100-200) mg/dL LDL Cholesterol, Calc (0-100) mg/dL HDL Cholesterol (40-60) mg/dL TSH, Ultra Sensitive (0.358-3.740) mIU/mL Specimen Type Urine Color Urine Appearance Urine pH (5.0-9.0) Ur Specific Morrow (1.005-1.030) Urine Protein (NEGATIVE) mg/dL Urine Glucose (UA) (NEGATIVE) mg/dL Urine Ketones (NEGATIVE) mg/dL Urine Occult Blood (NEGATIVE) Urine Nitrite (NEGATIVE) Urine Bilirubin (NEGATIVE) Urine Urobilinogen (0.2-1.0) E.U./dL Ur Leukocyte Esterase (NEGATIVE) Urine RBC /HPF Urine WBC /HPF Ur Epithelial Cells /LPF Urine Bacteria (NONE TO FEW) /HPF Digoxin (0.90-2.00) ng/mL Result Diagrams: 09/18/20 07:51 09/18/20 07:51 Brandan Results Last 24 hrs: Microbiology 09/18/20 08:22 Stool Occult Blood (BRANDAN) - Final Stool / Feces NEGATIVE OCCULT BLOOD REFERENCE RANGE: NEGATIVE 09/17/20 08:35 Aerobic Blood Culture - Preliminary Blood - Venous - Lab Draw NO GROWTH AFTER 1 DAY Anaerobic Blood Culture - Preliminary NO GROWTH AFTER 1 DAY 09/17/20 07:55 Aerobic Blood Culture - Preliminary Blood - Venous NO GROWTH AFTER 1 DAY Anaerobic Blood Culture - Preliminary NO GROWTH AFTER 1 DAY 09/17/20 08:00 Respiratory Syncytial Virus Ag Scrn - Final Nasal, Unspecified NEGATIVE RSV ANTIGEN REFERENCE RANGE: NEGATIVE Sepsis Event Note - Evaluation Sepsis Screening Result: Severe Sepsis Risk - Focused Exam Vital Signs: Vital Signs Temp Pulse Pulse Pulse Resp BP BP 09/18/20 10:30 79 112/45 L 09/18/20 09:34 84 114/41 L 09/18/20 09:24 86 96/44 L 09/18/20 09:12 109 H 124/46 L 09/18/20 07:58 130 H 150/82 H 09/18/20 07:45 09/18/20 07:43 90 09/18/20 07:40 36.3 C 130 H 24 H 150/82 H 09/18/20 04:00 36.2 C 97 20 126/55 L 09/17/20 23:53 36.5 C 99 22 H 159/70 H Pulse Ox 09/18/20 10:30 09/18/20 09:34 09/18/20 09:24 09/18/20 09:12 09/18/20 07:58 09/18/20 07:45 96 09/18/20 07:43 09/18/20 07:40 91 L 09/18/20 04:00 97 09/17/20 23:53 97 - Problem List Review Problem List Initiated/Reviewed/Updated: Yes - My Orders Last 24 Hours: My Active Orders 09/18/20 09:49 Abdomen Pelvis w Cont [CT] Stat 09/18/20 10:24 EKG Documentation Completion [RC] ASDIRECTED 09/18/20 11:45 Diltiazem [Cardizem CD] 120 mg PO DAILY 09/18/20 13:00 LACTATE SEPSIS W/ REFLEX [CHEM] Routine - Plan Plan:: Start diltiazem ER 120mg PO daily. Will continue Toprol XL and digoxin for now. Stool for c-diff. She has not recently been on antibiotics and has not recently been hospitalized. Lactic acid today at 1300. If continuing to trend downward, likely we will discontinue IV vancomycin and just continue the levaquin. Diet was advanced after obtained CT results. Pt. is currently anticoagulated and her INR is theraputic today.
[2020-09-18] MEDS: Diltiazem 120 MG Cap.CD PO SCH (12:16)
[2020-09-18] MEDS: Levofloxacin/Dextrose 5%-Water 500 MG in Premix Bag 1 BAG IV SCH (12:16)
[2020-09-18] MEDS: Sodium Chloride 0.9% 10 ML Syringe FLUSH SCH (12:17)
[2020-09-18] MEDS: VANCOmycin 1.5 GM/300 ML 1.5 GM in Premix Bag 1 BAG IV SCH (16:13)
[2020-09-18] MEDS: Warfarin 5 MG Tab PO SCH (17:21)
[2020-09-18] MEDS: Nystatin Susp 100,000 Unit/ML 5 ML UD Cup PO SCH (19:50)
[2020-09-18] MEDS: Simvastatin 20 MG Tab PO SCH (19:50)
[2020-09-19] MEDS: Sodium Chloride 0.9% 10 ML Syringe FLUSH SCH ×3 (01:45→19:56)
[2020-09-19] MEDS: Albuterol/Ipratropium 3.0-0.5 MG/3 ML Neb Soln NEB SCH ×4 (03:04→19:55)
[2020-09-19] MEDS: Sodium Chloride 0.9% 10 ML Syringe FLUSH PRN ×2 (07:26→16:39)
[2020-09-19] MEDS: Famotidine 20 MG/2 ML SDV IVPUSH SCH (07:26)
[2020-09-19] MEDS: Pantoprazole 40 MG Vial IVPUSH SCH ×2 (07:30→19:54)
[2020-09-19] MEDS: Dextromethorphan/guaiFENesin 600-30 MG Tab.ER PO SCH ×2 (07:32→18:02)
[2020-09-19] MEDS: Acetaminophen 325 MG Tab PO PRN ×2 (07:32→18:02)
[2020-09-19] MEDS: Loratadine 10 MG Tab PO SCH (07:33)
[2020-09-19] MEDS: Magnesium Oxide 400 MG Tab PO SCH ×2 (07:33→18:02)
[2020-09-19] MEDS: Levothyroxine 75 MCG Tab PO SCH (07:33)
[2020-09-19] MEDS: Diltiazem 120 MG Cap.CD PO SCH (07:33)
[2020-09-19] MEDS: Nystatin Susp 100,000 Unit/ML 5 ML UD Cup PO SCH ×3 (07:33→19:54)
[2020-09-19] MEDS: Hydrochlorothiazide 25 MG Tab PO SCH (07:34)
[2020-09-19] MEDS: Metoprolol Succinate 25 MG Tab.ER PO SCH (07:34)
[2020-09-19] MEDS: Ascorbic Acid 500 MG Tab PO SCH (07:34)
[2020-09-19] MEDS: Lisinopril 20 MG Tab PO SCH (07:34)
[2020-09-19] MEDS: Digoxin 125 MCG Tab PO SCH (07:34)
[2020-09-19] MEDS: Potassium Chloride 20 MEQ Tab.ER PO SCH (07:35)
[2020-09-19] MEDS: Vitamin B Complex Tab PO SCH (07:35)
[2020-09-19] MEDS: Budesonide 0.5 MG/2 ML Neb Susp NEB SCH ×2 (07:36→19:54)
[2020-09-19] MEDS: Arformoterol 15 MCG/2 ML Neb Soln INH SCH ×2 (07:36→19:54)
[2020-09-19 08:57] LABS: CHLORIDE,CL 91 mmol/L (98-107); SODIUM,NA 127 mmol/L (136-145)
[2020-09-19] MEDS ORDERED: Diltiazem 120 MG Cap.CD PO ONE (09:00)
[2020-09-19] MEDS: Levofloxacin/Dextrose 5%-Water 500 MG in Premix Bag 1 BAG IV SCH (11:29)
--- NOTE | 2020-09-19 11:50 | PCM.PN ---
- General Info Date of Service: 09/19/20 Admission Dx/Problem (Free Text): Hospital day 3. Pt. heart rate has remained in the 70-90 range on diltiazem ER 120mg daily until early this AM. Her rate was increasing into the 120 range with activity. Her diltiazem ER was increased to 240mg daily and her rate has been back in normal range. Pt. denies any chest pain, shortness of breath, or palpitations. Blood culture was positive for gram positive cocci. Her WBCs increased to 16.7 from 13.5 and lactic acid did increase to 3.7 from 3. Pt. has been afebrile since yesterday. IV vancomycin and IV levaquin are continued pending susceptibility. Pt. seems stronger today, sitting upright in chair. She did eat breakfast. She does complain of continued abdominal discomfort. CT abdomen and pelvis with contrast were obtained yesterday and did not show any acute pathology. Functional Status: Reports: Pain Controlled - Review of Systems General: Reports: No Symptoms HEENT: Reports: No Symptoms Pulmonary: Reports: No Symptoms Cardiovascular: Reports: No Symptoms Gastrointestinal: Reports: No Symptoms Genitourinary: Reports: No Symptoms Musculoskeletal: Reports: No Symptoms Skin: Reports: No Symptoms Neurological: Reports: No Symptoms Psychiatric: Reports: No Symptoms - Patient Data Vitals - Most Recent: Last Vital Signs Temp 36.3 C 09/19/20 07:27 Pulse 108 H 09/19/20 08:20 Resp 20 09/19/20 07:27 BP 144/59 H 09/19/20 08:20 Pulse Ox 94 L 09/19/20 07:27 Weight - Most Recent: 74.797 kg I&O - Last 24 Hours: Intake & Output 09/18/20 09/19/20 09/19/20 22:59 06:59 14:59 Intake Total 940 300 Output Total 100 200 300 Balance 840 -200 0 Lab Results Last 24 Hours: Laboratory Results - last 24 hr 09/18/20 09/18/20 09/19/20 Range/Units 13:10 16:57 08:17 WBC (4.0-10.2) K/uL RBC (3.77-5.09) M/uL Hgb (11.7-15.5) g/dL Hct (34.0-46.0) % MCV (84.0-98.0) fL MCH (28.2-33.3) pg MCHC (31.7-36.0) g/dL RDW (11.2-14.1) % Plt Count (150-350) K/uL Neut % (Auto) (45.0-80.0) % Lymph % (Auto) (10.0-50.0) % [place] % (Auto) (2.0-14.0) % Eos % (Auto) (0.0-5.0) % Baso % (Auto) (0.0-2.0) % Neut # (Auto) (1.40-7.00) K/uL Lymph # (Auto) (0.50-3.50) K/uL [place] # (Auto) (0.00-1.00) K/uL Eos # (Auto) (0.00-0.50) K/uL Baso # (Auto) (0.00-0.20) K/uL PT 38.4 H D (9.5-12.0) SEC INR 4.0 Sodium (136-145) mmol/L Potassium (3.5-5.1) mmol/L Chloride (98-107) mmol/L Carbon Dioxide (21.0-32.0) mmol/L BUN (7-18) mg/dL Creatinine (0.51-1.17) mg/dL Est Cr Clr Drug Dosing mL/min Estimated GFR (MDRD) mL/min Glucose (70-99) mg/dL Lactic Acid 3.7 H 3.0 H (0.4-2.0) mmol/L Calcium (8.5-10.1) mg/dL 09/19/20 09/19/20 09/19/20 Range/Units 08:17 08:17 08:17 WBC 16.7 H (4.0-10.2) K/uL RBC 4.75 (3.77-5.09) M/uL Hgb 14.9 (11.7-15.5) g/dL Hct 43.2 (34.0-46.0) % MCV 90.9 (84.0-98.0) fL MCH 31.4 (28.2-33.3) pg MCHC 34.5 (31.7-36.0) g/dL RDW 12.7 (11.2-14.1) % Plt Count 309 (150-350) K/uL Neut % (Auto) 82.1 H (45.0-80.0) % Lymph % (Auto) 9.3 L (10.0-50.0) % [place] % (Auto) 8.3 (2.0-14.0) % Eos % (Auto) 0.2 (0.0-5.0) % Baso % (Auto) 0.1 (0.0-2.0) % Neut # (Auto) 13.71 H (1.40-7.00) K/uL Lymph # (Auto) 1.56 (0.50-3.50) K/uL [place] # (Auto) 1.38 H (0.00-1.00) K/uL Eos # (Auto) 0.04 (0.00-0.50) K/uL Baso # (Auto) 0.02 (0.00-0.20) K/uL PT (9.5-12.0) SEC INR Sodium 127 L (136-145) mmol/L Potassium 4.3 (3.5-5.1) mmol/L Chloride 91 L (98-107) mmol/L Carbon Dioxide 24.6 (21.0-32.0) mmol/L BUN 16 (7-18) mg/dL Creatinine 0.71 (0.51-1.17) mg/dL Est Cr Clr Drug Dosing 54.02 mL/min Estimated GFR (MDRD) > 60 mL/min Glucose 131 H (70-99) mg/dL Lactic Acid 3.7 H (0.4-2.0) mmol/L Calcium 7.8 L (8.5-10.1) mg/dL Brandan Results Last 24 Hours: Microbiology 09/17/20 07:55 Aerobic Blood Culture - Preliminary Blood - Venous Gram Positive Cocci Anaerobic Blood Culture - Preliminary NO GROWTH AFTER 2 DAYS 09/17/20 08:35 Aerobic Blood Culture - Preliminary Blood - Venous - Lab Draw NO GROWTH AFTER 2 DAYS Anaerobic Blood Culture - Preliminary NO GROWTH AFTER 2 DAYS 09/18/20 08:22 Stool Occult Blood (BRANDAN) - Final Stool / Feces NEGATIVE OCCULT BLOOD REFERENCE RANGE: NEGATIVE Med Orders - Current: Current Medications Acetaminophen (Acetaminophen 325 Mg Tab) 650 mg PO Q4H PRN PRN Reason: Pain/Fever Last Admin: 09/19/20 07:32 Dose: 650 mg Documented by: Albuterol (Albuterol 0.083% 2.5 Mg/3 Ml Neb Soln) 2.5 mg NEB Q2H PRN PRN Reason: Dyspnea Albuterol/Ipratropium (Albuterol/Ipratropium 3.0-0.5 Mg/3 Ml Neb Soln) 3 ml NEB Q4HRRT PRN PRN Reason: Dyspnea Last Admin: 09/17/20 11:40 Dose: 3 ml Documented by: Albuterol/Ipratropium (Albuterol/Ipratropium 3.0-0.5 Mg/3 Ml Neb Soln) 3 ml NEB Q6HRRT [facility] Last Admin: 09/19/20 03:04 Dose: 3 ml Documented by: Arformoterol Tartrate (Arformoterol 15 Mcg/2 Ml Neb Soln) 15 mcg INH BIDRT [facility] Last Admin: 09/19/20 07:36 Dose: 15 mcg Documented by: Ascorbic Acid (Ascorbic Acid 500 Mg Tab) 500 mg PO DAILY [facility] Last Admin: 09/19/20 07:34 Dose: 500 mg Documented by: Budesonide (Budesonide 0.5 Mg/2 Ml Neb Susp) 0.5 mg NEB BIDRT [facility] Last Admin: 09/19/20 07:36 Dose: 0.5 mg Documented by: Digoxin (Digoxin 125 Mcg Tab) 250 mcg PO DAILY [facility] Last Admin: 09/19/20 07:34 Dose: 250 mcg Documented by: Diltiazem HCl (Diltiazem 120 Mg Cap.Cd) 240 mg PO DAILY [facility] Famotidine (Famotidine 20 Mg/2 Ml Sdv) 20 mg IVPUSH Q24H [facility] Last Admin: 09/19/20 07:26 Dose: 20 mg Documented by: Fluticasone Propionate (Fluticasone Propionate Nasal [place] 16 Gm Bottle) 0 gm NASBOTH BID PRN PRN Reason: Allergies Guaifenesin/Dextromethorphan (Dextromethorphan/Guaifenesin 600-30 Mg Tab.Er) 1 tab PO BID [facility] Last Admin: 09/19/20 07:32 Dose: 1 tab Documented by: Hydrochlorothiazide (Hydrochlorothiazide 25 Mg Tab) 25 mg PO DAILY [facility] Last Admin: 09/19/20 07:34 Dose: 25 mg Documented by: Levofloxacin/Dextrose 500 mg/ (Premix) 100 mls @ 100 mls/hr IV Q24H [facility] Last Admin: 09/19/20 11:29 Dose: 100 mls/hr Documented by: Vancomycin HCl 1.5 gm/ Premix 300 mls @ 200 mls/hr IV Q24H [facility] Last Admin: 09/18/20 16:13 Dose: 200 mls/hr Documented by: Levothyroxine Sodium (Levothyroxine 75 Mcg Tab) 75 mcg PO ACBREAKFAST [facility] Last Admin: 09/19/20 07:33 Dose: 75 mcg Documented by: Lisinopril (Lisinopril 20 Mg Tab) 20 mg PO DAILY [facility] Last Admin: 09/19/20 07:34 Dose: 20 mg Documented by: Loratadine (Loratadine 10 Mg Tab) 10 mg PO DAILY [facility] Last Admin: 09/19/20 07:33 Dose: 10 mg Documented by: Magnesium Oxide (Magnesium Oxide 400 Mg Tab) 400 mg PO BID [facility] Last Admin: 09/19/20 07:33 Dose: 400 mg Documented by: Metoclopramide HCl (Metoclopramide 10 Mg/2 Ml Sdv) 10 mg IVPUSH Q6H PRN PRN Reason: Abdominal Pain Last Admin: 09/18/20 07:40 Dose: 10 mg Documented by: Metoprolol Succinate (Metoprolol Succinate 25 Mg Tab.Er) 25 mg PO DAILY [facility] Last Admin: 09/19/20 07:34 Dose: 25 mg Documented by: Nystatin (Nystatin Susp 100,000 Unit/Ml 5 Ml Ud Cup) 5 ml PO QID [facility] Last Admin: 09/19/20 11:30 Dose: 5 ml Documented by: Pantoprazole Sodium (Pantoprazole 40 Mg Vial) 40 mg IVPUSH Q12H [facility] Last Admin: 09/19/20 07:30 Dose: 40 mg Documented by: Potassium Chloride (Potassium Chloride 20 Meq Tab.Er) 20 meq PO DAILY [facility] Last Admin: 09/19/20 07:35 Dose: 20 meq Documented by: Simvastatin (Simvastatin 20 Mg Tab) 40 mg PO BEDTIME [facility] Last Admin: 09/18/20 19:50 Dose: 40 mg Documented by: Sodium Chloride (Sodium Chloride 0.9% 10 Ml Syringe) 10 ml FLUSH ASDIRECTED PRN PRN Reason: Keep Vein Open Last Admin: 09/19/20 07:26 Dose: 10 ml Documented by: Sodium Chloride (Sodium Chloride 0.9% 10 Ml Syringe) 10 ml FLUSH Q12H [facility] Last Admin: 09/19/20 01:45 Dose: Not Given Documented by: Temazepam (Temazepam 15 Mg Cap) 15 mg PO BEDTIME PRN PRN Reason: Insomnia Vancomycin HCl (Pharmacy To Dose - Vancomycin) 1 dose .XX ASDIRECTED [facility] Vitamin B Complex (Vitamin B Complex Tab) 1 each PO DAILY [facility] Last Admin: 09/19/20 07:35 Dose: 1 each Documented by: Warfarin Sodium (Warfarin 5 Mg Tab) 5 mg PO DAILY@1800 [facility] Last Admin: 09/18/20 17:21 Dose: 5 mg Documented by: Discontinued Medications Al Hydroxide/Mg Hydroxide (Gi Cocktail Oral Solution 30 Ml) 30 ml PO ONETIME ONE Stop: 09/17/20 18:25 Last Admin: 09/17/20 19:12 Dose: 30 ml Documented by: Diltiazem HCl (Diltiazem 25 Mg/5 Ml Sdv) 20 mg IVPUSH ONETIME ONE Stop: 09/17/20 21:25 Last Admin: 09/17/20 21:45 Dose: 20 mg Documented by: Diltiazem HCl (Diltiazem 25 Mg/5 Ml Sdv) 20 mg IVPUSH ONETIME ONE Stop: 09/18/20 09:06 Last Admin: 09/18/20 09:06 Dose: 20 mg Documented by: Diltiazem HCl (Diltiazem 25 Mg/5 Ml Sdv) Confirm Administered Dose 25 mg .ROUTE .STK-MED ONE Stop: 09/18/20 09:09 Last Admin: 09/18/20 09:50 Dose: Not Given Documented by: Diltiazem HCl (Diltiazem 120 Mg Cap.Cd) 120 mg PO DAILY [facility] Last Admin: 09/19/20 07:33 Dose: 120 mg Documented by: Diltiazem HCl (Diltiazem 120 Mg Cap.Cd) 120 mg PO ONETIME ONE Stop: 09/19/20 09:01 Last Admin: 09/19/20 08:20 Dose: 120 mg Documented by: Famotidine (Famotidine 20 Mg/2 Ml Sdv) 40 mg IVPUSH ONETIME ONE Stop: 09/17/20 07:47 Last Admin: 09/17/20 08:03 Dose: 40 mg Documented by: Furosemide (Furosemide 40 Mg/4 Ml Vial) 40 mg IVPUSH Q8H [facility] Last Admin: 09/17/20 20:03 Dose: 40 mg Documented by: Vancomycin HCl 1 gm/ Dextrose/ (Water) 250 mls @ 165 mls/hr IV Q24H [facility] Last Admin: 09/17/20 16:13 Dose: Not Given Documented by: Lactated Ringer's (Ringers, Lactated) 1,000 mls @ 999 mls/hr IV .BOLUS ONE Stop: 09/17/20 22:24 Last Admin: 09/17/20 21:45 Dose: 999 mls/hr Documented by: Iopamidol (Iopamidol 612 Mg/Ml 100 Ml Bottle) 100 ml IVPUSH ONETIME ONE Stop: 09/18/20 09:55 Last Admin: 09/18/20 10:36 Dose: 100 ml Documented by: Magnesium Oxide (Magnesium Oxide 400 Mg Tab) 800 mg PO ONETIME ONE Stop: 09/17/20 10:58 Last Admin: 09/17/20 12:00 Dose: 800 mg Documented by: Methylprednisolone Sodium Succinate (Methylprednisolone Sodium Succinate 125 Mg/2 Ml Sdv) 125 mg IVPUSH ONETIME ONE Stop: 09/17/20 11:02 Last Admin: 09/17/20 11:52 Dose: 125 mg Documented by: Metoprolol Tartrate (Metoprolol Tartrate 50 Mg Tab) 25 mg PO ONETIME ONE Stop: 09/17/20 21:51 Last Admin: 09/17/20 22:01 Dose: 25 mg Documented by: Pantoprazole Sodium (Pantoprazole 40 Mg Vial) 40 mg IVPUSH ONETIME ONE Stop: 09/17/20 07:47 Last Admin: 09/17/20 08:02 Dose: 40 mg Documented by: Potassium Chloride (Potassium Chloride 20 Meq Tab.Er) 20 meq PO TID [facility] Last Admin: 09/18/20 12:16 Dose: 20 meq Documented by: - Exam General: Alert, Oriented Lungs: Decreased Breath Sounds Cardiovascular: Regular Rate, Regular Rhythm GI/Abdominal Exam: Soft, Non-Tender, No Organomegaly, No Distention, No Mass (Female) Exam: Deferred Extremities: Normal Inspection, Normal Range of Motion, No Pedal Edema, Normal Capillary Refill Peripheral Pulses: 4+: Radial (L) Skin: Warm, Dry, Intact Neurological: No New Focal Deficit Psy/Mental Status: Alert, Normal Affect, Normal Mood - Patient Data Lab Results Last 24 hrs: Laboratory Results - last 24 hr 09/18/20 09/18/20 09/19/20 Range/Units 13:10 16:57 08:17 WBC (4.0-10.2) K/uL RBC (3.77-5.09) M/uL Hgb (11.7-15.5) g/dL Hct (34.0-46.0) % MCV (84.0-98.0) fL MCH (28.2-33.3) pg MCHC (31.7-36.0) g/dL RDW (11.2-14.1) % Plt Count (150-350) K/uL Neut % (Auto) (45.0-80.0) % Lymph % (Auto) (10.0-50.0) % [place] % (Auto) (2.0-14.0) % Eos % (Auto) (0.0-5.0) % Baso % (Auto) (0.0-2.0) % Neut # (Auto) (1.40-7.00) K/uL Lymph # (Auto) (0.50-3.50) K/uL [place] # (Auto) (0.00-1.00) K/uL Eos # (Auto) (0.00-0.50) K/uL Baso # (Auto) (0.00-0.20) K/uL PT 38.4 H D (9.5-12.0) SEC INR 4.0 Sodium (136-145) mmol/L Potassium (3.5-5.1) mmol/L Chloride (98-107) mmol/L Carbon Dioxide (21.0-32.0) mmol/L BUN (7-18) mg/dL Creatinine (0.51-1.17) mg/dL Est Cr Clr Drug Dosing mL/min Estimated GFR (MDRD) mL/min Glucose (70-99) mg/dL Lactic Acid 3.7 H 3.0 H (0.4-2.0) mmol/L Calcium (8.5-10.1) mg/dL 09/19/20 09/19/20 09/19/20 Range/Units 08:17 08:17 08:17 WBC 16.7 H (4.0-10.2) K/uL RBC 4.75 (3.77-5.09) M/uL Hgb 14.9 (11.7-15.5) g/dL Hct 43.2 (34.0-46.0) % MCV 90.9 (84.0-98.0) fL MCH 31.4 (28.2-33.3) pg MCHC 34.5 (31.7-36.0) g/dL RDW 12.7 (11.2-14.1) % Plt Count 309 (150-350) K/uL Neut % (Auto) 82.1 H (45.0-80.0) % Lymph % (Auto) 9.3 L (10.0-50.0) % [place] % (Auto) 8.3 (2.0-14.0) % Eos % (Auto) 0.2 (0.0-5.0) % Baso % (Auto) 0.1 (0.0-2.0) % Neut # (Auto) 13.71 H (1.40-7.00) K/uL Lymph # (Auto) 1.56 (0.50-3.50) K/uL [place] # (Auto) 1.38 H (0.00-1.00) K/uL Eos # (Auto) 0.04 (0.00-0.50) K/uL Baso # (Auto) 0.02 (0.00-0.20) K/uL PT (9.5-12.0) SEC INR Sodium 127 L (136-145) mmol/L Potassium 4.3 (3.5-5.1) mmol/L Chloride 91 L (98-107) mmol/L Carbon Dioxide 24.6 (21.0-32.0) mmol/L BUN 16 (7-18) mg/dL Creatinine 0.71 (0.51-1.17) mg/dL Est Cr Clr Drug Dosing 54.02 mL/min Estimated GFR (MDRD) > 60 mL/min Glucose 131 H (70-99) mg/dL Lactic Acid 3.7 H (0.4-2.0) mmol/L Calcium 7.8 L (8.5-10.1) mg/dL Result Diagrams: 09/19/20 08:17 09/19/20 08:17 Brandan Results Last 24 hrs: Microbiology 09/17/20 07:55 Aerobic Blood Culture - Preliminary Blood - Venous Gram Positive Cocci Anaerobic Blood Culture - Preliminary NO GROWTH AFTER 2 DAYS 09/17/20 08:35 Aerobic Blood Culture - Preliminary Blood - Venous - Lab Draw NO GROWTH AFTER 2 DAYS Anaerobic Blood Culture - Preliminary NO GROWTH AFTER 2 DAYS 09/18/20 08:22 Stool Occult Blood (BRANDAN) - Final Stool / Feces NEGATIVE OCCULT BLOOD REFERENCE RANGE: NEGATIVE Sepsis Event Note - Evaluation Sepsis Screening Result: No Definite Risk - Focused Exam Vital Signs: Vital Signs Temp Pulse Pulse Pulse Resp BP BP 09/19/20 08:20 108 H 144/59 H 09/19/20 07:34 76 144/59 H 09/19/20 07:33 76 144/59 H 09/19/20 07:27 36.3 C 76 20 144/59 H 09/19/20 00:00 36.2 C 80 18 128/59 L Pulse Ox 09/19/20 08:20 09/19/20 07:34 09/19/20 07:33 09/19/20 07:27 94 L 09/19/20 00:00 96 - Problem List Review Problem List Initiated/Reviewed/Updated: Yes - My Orders Last 24 Hours: My Active Orders 09/18/20 11:48 CLOSTRIDIUM DIFFICILE TOX RFLX [MREF] Stat 09/18/20 11:49 Isolation [COMM] Stat 09/18/20 15:15 Pharmacy to Dose - Vancomycin 1 dose .XX ASDIRECTED 09/18/20 Dinner Heart Healthy Diet [DIET] 09/18/20 20:00 Nystatin [Mycostatin] 5 ml PO QID 09/19/20 08:00 Potassium Chloride [Klor-Con M20] 20 meq PO DAILY 09/19/20 10:36 Consult to Occupational Therapy [OT Evaluation and Treatment] [CONS] Routine PT Evaluation and Treatment [CONS] Routine 09/19/20 14:00 LACTIC ACID SEPSIS W/ REFLEX [LACTATE SEPSIS W/ REFLEX] [CHEM] Routine 09/20/20 08:00 Diltiazem [Cardizem CD] 240 mg PO DAILY - Plan Plan:: 09/18/2020 Start diltiazem ER 120mg PO daily. Will continue Toprol XL and digoxin for now. Stool for c-diff. She has not recently been on antibiotics and has not recently been hospitalized. Lactic acid today at 1300. If continuing to trend downward, likely we will discontinue IV vancomycin and just continue the levaquin. Diet was advanced after obtained CT results. Pt. is currently anticoagulated and her INR is theraputic today. 09/19/20 Diltiazem ER was increased to 240mg daily. Will continue to monitor. Stool for c-diff pending. Continue to trend lactic acid. Continue IV levaquin and IV vancomycin. Pharmacy to assist with dosing of vancomycin. Antibiotic susceptibility for positive blood cultures pending. Will adjust antibiotic regimen based on microbiology.
[2020-09-19] MEDS: VANCOmycin 1.5 GM/300 ML 1.5 GM in Premix Bag 1 BAG IV SCH (16:36)
[2020-09-19] MEDS: Simvastatin 20 MG Tab PO SCH (19:55)
[2020-09-20] MEDS: Sodium Chloride 0.9% 10 ML Syringe FLUSH SCH ×3 (03:43→23:11)
[2020-09-20] MEDS: Nystatin Susp 100,000 Unit/ML 5 ML UD Cup PO SCH ×4 (03:44→20:08)
[2020-09-20] MEDS: Albuterol/Ipratropium 3.0-0.5 MG/3 ML Neb Soln NEB SCH ×4 (03:44→19:57)
[2020-09-20] MEDS: Budesonide 0.5 MG/2 ML Neb Susp NEB SCH ×2 (07:55→19:47)
[2020-09-20] MEDS: Arformoterol 15 MCG/2 ML Neb Soln INH SCH ×2 (07:55→19:39)
[2020-09-20] MEDS: Famotidine 20 MG/2 ML SDV IVPUSH SCH (07:55)
[2020-09-20] MEDS: Pantoprazole 40 MG Vial IVPUSH SCH ×2 (07:55→19:35)
[2020-09-20] MEDS: Digoxin 125 MCG Tab PO SCH (07:56)
[2020-09-20] MEDS: Dextromethorphan/guaiFENesin 600-30 MG Tab.ER PO SCH ×2 (07:56→17:43)
[2020-09-20] MEDS: Hydrochlorothiazide 25 MG Tab PO SCH (07:56)
[2020-09-20] MEDS: Potassium Chloride 20 MEQ Tab.ER PO SCH (07:56)
[2020-09-20] MEDS: Metoprolol Succinate 25 MG Tab.ER PO SCH (07:57)
[2020-09-20] MEDS: Vitamin B Complex Tab PO SCH (07:57)
[2020-09-20] MEDS: Diltiazem 120 MG Cap.CD PO SCH (07:57)
[2020-09-20] MEDS: Magnesium Oxide 400 MG Tab PO SCH ×2 (07:57→17:43)
[2020-09-20] MEDS: Loratadine 10 MG Tab PO SCH (07:57)
[2020-09-20] MEDS: Ascorbic Acid 500 MG Tab PO SCH (07:57)
[2020-09-20] MEDS: Lisinopril 20 MG Tab PO SCH (07:58)
[2020-09-20] MEDS: Levothyroxine 75 MCG Tab PO SCH (07:58)
[2020-09-20] MEDS: Sodium Chloride 0.9% 10 ML Syringe FLUSH PRN ×3 (08:10→19:35)
[2020-09-20 09:29] LABS: CHLORIDE,CL 92 mmol/L (98-107); SODIUM,NA 127 mmol/L (136-145)
[2020-09-20] MEDS: Levofloxacin/Dextrose 5%-Water 500 MG in Premix Bag 1 BAG IV SCH (11:18)
--- NOTE | 2020-09-20 11:21 | PCM.PN ---
- General Info Date of Service: 09/20/20 Admission Dx/Problem (Free Text): hospital day 4 for a 79 y/o female with sepsis (gram + cocci) and afib with RVR. She is doing much better this AM. Susceptibility is still pending, so she remains on levaquin and vancomycin. heart rate has stabilized since increasing since increasing diltiazem ER to 240mg daily. She has remained hemodynamically stable. Staff states that she has been able to ambulate some with assistance. Lactic acid is now into the normal range. She has not had any WBCs have trended downward and are now 11.3. Pt. reports that her abdominal discomfort has improved as well. Denies any bloody stools. Denies any chest pain or shortness of breath. No nausea, v omiting, or diarrhea. Functional Status: Reports: Pain Controlled, Tolerating Diet, Ambulating, Urinating - Review of Systems General: Reports: No Symptoms HEENT: Reports: No Symptoms Pulmonary: Reports: No Symptoms Cardiovascular: Reports: No Symptoms Gastrointestinal: Reports: No Symptoms Genitourinary: Reports: No Symptoms Musculoskeletal: Reports: No Symptoms Skin: Reports: No Symptoms Neurological: Reports: No Symptoms Psychiatric: Reports: No Symptoms - Patient Data Vitals - Most Recent: Last Vital Signs Temp 36.4 C 09/20/20 08:00 Pulse 80 09/20/20 08:00 Resp 22 H 09/20/20 08:00 BP 118/68 09/20/20 08:00 Pulse Ox 96 09/20/20 08:00 Weight - Most Recent: 75.523 kg I&O - Last 24 Hours: Intake & Output 09/19/20 09/20/20 09/20/20 22:59 06:59 14:59 Intake Total 900 960 Output Total 300 Balance 900 660 Lab Results Last 24 Hours: Laboratory Results - last 24 hr 09/19/20 09/20/20 09/20/20 Range/Units 14:05 07:30 09:00 WBC 11.3 H (4.0-10.2) K/uL RBC 4.56 (3.77-5.09) M/uL Hgb 14.3 (11.7-15.5) g/dL Hct 41.0 (34.0-46.0) % MCV 89.9 (84.0-98.0) fL MCH 31.4 (28.2-33.3) pg MCHC 34.9 (31.7-36.0) g/dL RDW 12.5 (11.2-14.1) % Plt Count 282 (150-350) K/uL Neut % (Auto) 70.5 (45.0-80.0) % Lymph % (Auto) 16.4 (10.0-50.0) % [place] % (Auto) 12.4 (2.0-14.0) % Eos % (Auto) 0.4 (0.0-5.0) % Baso % (Auto) 0.3 (0.0-2.0) % Neut # (Auto) 7.99 H (1.40-7.00) K/uL Lymph # (Auto) 1.86 (0.50-3.50) K/uL [place] # (Auto) 1.41 H (0.00-1.00) K/uL Eos # (Auto) 0.04 (0.00-0.50) K/uL Baso # (Auto) 0.03 (0.00-0.20) K/uL INR 3.1 Sodium (136-145) mmol/L Potassium (3.5-5.1) mmol/L Chloride (98-107) mmol/L Carbon Dioxide (21.0-32.0) mmol/L BUN (7-18) mg/dL Creatinine (0.51-1.17) mg/dL Est Cr Clr Drug Dosing mL/min Estimated GFR (MDRD) mL/min Glucose (70-99) mg/dL Lactic Acid 1.9 (0.4-2.0) mmol/L Calcium (8.5-10.1) mg/dL 09/20/20 09/20/20 Range/Units 09:00 09:00 WBC (4.0-10.2) K/uL RBC (3.77-5.09) M/uL Hgb (11.7-15.5) g/dL Hct (34.0-46.0) % MCV (84.0-98.0) fL MCH (28.2-33.3) pg MCHC (31.7-36.0) g/dL RDW (11.2-14.1) % Plt Count (150-350) K/uL Neut % (Auto) (45.0-80.0) % Lymph % (Auto) (10.0-50.0) % [place] % (Auto) (2.0-14.0) % Eos % (Auto) (0.0-5.0) % Baso % (Auto) (0.0-2.0) % Neut # (Auto) (1.40-7.00) K/uL Lymph # (Auto) (0.50-3.50) K/uL [place] # (Auto) (0.00-1.00) K/uL Eos # (Auto) (0.00-0.50) K/uL Baso # (Auto) (0.00-0.20) K/uL INR Sodium 127 L (136-145) mmol/L Potassium 3.7 (3.5-5.1) mmol/L Chloride 92 L (98-107) mmol/L Carbon Dioxide 23.9 (21.0-32.0) mmol/L BUN 14 (7-18) mg/dL Creatinine 0.67 (0.51-1.17) mg/dL Est Cr Clr Drug Dosing 57.24 mL/min Estimated GFR (MDRD) > 60 mL/min Glucose 95 (70-99) mg/dL Lactic Acid 1.7 (0.4-2.0) mmol/L Calcium 7.9 L (8.5-10.1) mg/dL Brandan Results Last 24 Hours: Microbiology 09/17/20 08:35 Aerobic Blood Culture - Preliminary Blood - Venous - Lab Draw NO GROWTH AFTER 3 DAYS Anaerobic Blood Culture - Preliminary NO GROWTH AFTER 3 DAYS 09/17/20 07:55 Aerobic Blood Culture - Preliminary Blood - Venous Gram Positive Cocci Anaerobic Blood Culture - Preliminary NO GROWTH AFTER 3 DAYS Med Orders - Current: Current Medications Acetaminophen (Acetaminophen 325 Mg Tab) 650 mg PO Q4H PRN PRN Reason: Pain/Fever Last Admin: 09/19/20 18:02 Dose: 650 mg Documented by: Albuterol (Albuterol 0.083% 2.5 Mg/3 Ml Neb Soln) 2.5 mg NEB Q2H PRN PRN Reason: Dyspnea Albuterol/Ipratropium (Albuterol/Ipratropium 3.0-0.5 Mg/3 Ml Neb Soln) 3 ml NEB Q4HRRT PRN PRN Reason: Dyspnea Last Admin: 09/17/20 11:40 Dose: 3 ml Documented by: Albuterol/Ipratropium (Albuterol/Ipratropium 3.0-0.5 Mg/3 Ml Neb Soln) 3 ml NEB Q6HRRT [facility] Last Admin: 09/20/20 07:55 Dose: 3 ml Documented by: Arformoterol Tartrate (Arformoterol 15 Mcg/2 Ml Neb Soln) 15 mcg INH BIDRT [facility] Last Admin: 09/20/20 07:55 Dose: 15 mcg Documented by: Ascorbic Acid (Ascorbic Acid 500 Mg Tab) 500 mg PO DAILY [facility] Last Admin: 09/20/20 07:57 Dose: 500 mg Documented by: Budesonide (Budesonide 0.5 Mg/2 Ml Neb Susp) 0.5 mg NEB BIDRT [facility] Last Admin: 09/20/20 07:55 Dose: 0.5 mg Documented by: Digoxin (Digoxin 125 Mcg Tab) 250 mcg PO DAILY [facility] Last Admin: 09/20/20 07:56 Dose: 250 mcg Documented by: Diltiazem HCl (Diltiazem 120 Mg Cap.Cd) 240 mg PO DAILY [facility] Last Admin: 09/20/20 07:57 Dose: 240 mg Documented by: Famotidine (Famotidine 20 Mg/2 Ml Sdv) 20 mg IVPUSH Q24H [facility] Last Admin: 09/20/20 07:55 Dose: 20 mg Documented by: Fluticasone Propionate (Fluticasone Propionate Nasal [place] 16 Gm Bottle) 0 gm NASBOTH BID PRN PRN Reason: Allergies Guaifenesin/Dextromethorphan (Dextromethorphan/Guaifenesin 600-30 Mg Tab.Er) 1 tab PO BID [facility] Last Admin: 09/20/20 07:56 Dose: 1 tab Documented by: Hydrochlorothiazide (Hydrochlorothiazide 25 Mg Tab) 25 mg PO DAILY [facility] Last Admin: 09/20/20 07:56 Dose: 25 mg Documented by: Levofloxacin/Dextrose 500 mg/ (Premix) 100 mls @ 100 mls/hr IV Q24H [facility] Last Admin: 09/19/20 11:29 Dose: 100 mls/hr Documented by: Vancomycin HCl 1.5 gm/ Premix 300 mls @ 200 mls/hr IV Q24H [facility] Last Admin: 09/19/20 16:36 Dose: 200 mls/hr Documented by: Levothyroxine Sodium (Levothyroxine 75 Mcg Tab) 75 mcg PO ACBREAKFAST [facility] Last Admin: 09/20/20 07:58 Dose: 75 mcg Documented by: Lisinopril (Lisinopril 20 Mg Tab) 20 mg PO DAILY [facility] Last Admin: 09/20/20 07:58 Dose: 20 mg Documented by: Loratadine (Loratadine 10 Mg Tab) 10 mg PO DAILY [facility] Last Admin: 09/20/20 07:57 Dose: 10 mg Documented by: Magnesium Oxide (Magnesium Oxide 400 Mg Tab) 400 mg PO BID [facility] Last Admin: 09/20/20 07:57 Dose: 400 mg Documented by: Metoclopramide HCl (Metoclopramide 10 Mg/2 Ml Sdv) 10 mg IVPUSH Q6H PRN PRN Reason: Abdominal Pain Last Admin: 09/18/20 07:40 Dose: 10 mg Documented by: Metoprolol Succinate (Metoprolol Succinate 25 Mg Tab.Er) 25 mg PO DAILY [facility] Last Admin: 09/20/20 07:57 Dose: 25 mg Documented by: Nystatin (Nystatin Susp 100,000 Unit/Ml 5 Ml Ud Cup) 5 ml PO QID@0200,0800,1400,2000 [facility] Last Admin: 09/20/20 07:55 Dose: 5 ml Documented by: Pantoprazole Sodium (Pantoprazole 40 Mg Vial) 40 mg IVPUSH Q12H [facility] Last Admin: 09/20/20 07:55 Dose: 40 mg Documented by: Potassium Chloride (Potassium Chloride 20 Meq Tab.Er) 20 meq PO DAILY [facility] Last Admin: 09/20/20 07:56 Dose: 20 meq Documented by: Simvastatin (Simvastatin 20 Mg Tab) 40 mg PO BEDTIME [facility] Last Admin: 09/19/20 19:55 Dose: 40 mg Documented by: Sodium Chloride (Sodium Chloride 0.9% 10 Ml Syringe) 10 ml FLUSH ASDIRECTED PRN PRN Reason: Keep Vein Open Last Admin: 09/20/20 08:10 Dose: 10 ml Documented by: Sodium Chloride (Sodium Chloride 0.9% 10 Ml Syringe) 10 ml FLUSH Q12H [facility] Last Admin: 09/20/20 03:43 Dose: Not Given Documented by: Temazepam (Temazepam 15 Mg Cap) 15 mg PO BEDTIME PRN PRN Reason: Insomnia Vancomycin HCl (Pharmacy To Dose - Vancomycin) 1 dose .XX ASDIRECTED [facility] Vitamin B Complex (Vitamin B Complex Tab) 1 each PO DAILY [facility] Last Admin: 09/20/20 07:57 Dose: 1 each Documented by: Discontinued Medications Al Hydroxide/Mg Hydroxide (Gi Cocktail Oral Solution 30 Ml) 30 ml PO ONETIME ONE Stop: 09/17/20 18:25 Last Admin: 09/17/20 19:12 Dose: 30 ml Documented by: Diltiazem HCl (Diltiazem 25 Mg/5 Ml Sdv) 20 mg IVPUSH ONETIME ONE Stop: 09/17/20 21:25 Last Admin: 09/17/20 21:45 Dose: 20 mg Documented by: Diltiazem HCl (Diltiazem 25 Mg/5 Ml Sdv) 20 mg IVPUSH ONETIME ONE Stop: 09/18/20 09:06 Last Admin: 09/18/20 09:06 Dose: 20 mg Documented by: Diltiazem HCl (Diltiazem 25 Mg/5 Ml Sdv) Confirm Administered Dose 25 mg .ROUTE .STK-MED ONE Stop: 09/18/20 09:09 Last Admin: 09/18/20 09:50 Dose: Not Given Documented by: Diltiazem HCl (Diltiazem 120 Mg Cap.Cd) 120 mg PO DAILY [facility] Last Admin: 09/19/20 07:33 Dose: 120 mg Documented by: Diltiazem HCl (Diltiazem 120 Mg Cap.Cd) 120 mg PO ONETIME ONE Stop: 09/19/20 09:01 Last Admin: 09/19/20 08:20 Dose: 120 mg Documented by: Famotidine (Famotidine 20 Mg/2 Ml Sdv) 40 mg IVPUSH ONETIME ONE Stop: 09/17/20 07:47 Last Admin: 09/17/20 08:03 Dose: 40 mg Documented by: Furosemide (Furosemide 40 Mg/4 Ml Vial) 40 mg IVPUSH Q8H [facility] Last Admin: 09/17/20 20:03 Dose: 40 mg Documented by: Vancomycin HCl 1 gm/ Dextrose/ (Water) 250 mls @ 165 mls/hr IV Q24H [facility] Last Admin: 09/17/20 16:13 Dose: Not Given Documented by: Lactated Ringer's (Ringers, Lactated) 1,000 mls @ 999 mls/hr IV .BOLUS ONE Stop: 09/17/20 22:24 Last Admin: 09/17/20 21:45 Dose: 999 mls/hr Documented by: Iopamidol (Iopamidol 612 Mg/Ml 100 Ml Bottle) 100 ml IVPUSH ONETIME ONE Stop: 09/18/20 09:55 Last Admin: 09/18/20 10:36 Dose: 100 ml Documented by: Magnesium Oxide (Magnesium Oxide 400 Mg Tab) 800 mg PO ONETIME ONE Stop: 09/17/20 10:58 Last Admin: 09/17/20 12:00 Dose: 800 mg Documented by: Methylprednisolone Sodium Succinate (Methylprednisolone Sodium Succinate 125 Mg/2 Ml Sdv) 125 mg IVPUSH ONETIME ONE Stop: 09/17/20 11:02 Last Admin: 09/17/20 11:52 Dose: 125 mg Documented by: Metoprolol Tartrate (Metoprolol Tartrate 50 Mg Tab) 25 mg PO ONETIME ONE Stop: 09/17/20 21:51 Last Admin: 09/17/20 22:01 Dose: 25 mg Documented by: Nystatin (Nystatin Susp 100,000 Unit/Ml 5 Ml Ud Cup) 5 ml PO QID [facility] Last Admin: 09/19/20 11:30 Dose: 5 ml Documented by: Pantoprazole Sodium (Pantoprazole 40 Mg Vial) 40 mg IVPUSH ONETIME ONE Stop: 09/17/20 07:47 Last Admin: 09/17/20 08:02 Dose: 40 mg Documented by: Potassium Chloride (Potassium Chloride 20 Meq Tab.Er) 20 meq PO TID [facility] Last Admin: 09/18/20 12:16 Dose: 20 meq Documented by: Warfarin Sodium (Warfarin 5 Mg Tab) 5 mg PO DAILY@1800 [facility] Last Admin: 09/18/20 17:21 Dose: 5 mg Documented by: - Exam General: Alert, Oriented, Other (extremely [place] HEENT: Pupils Equal Neck: Supple Lungs: Decreased Breath Sounds Cardiovascular: Regular Rate GI/Abdominal Exam: Normal Bowel Sounds, Soft, Non-Tender, No Distention, No Mass (Female) Exam: Deferred Back Exam: Normal Inspection, Full Range of Motion Extremities: Normal Inspection, Normal Range of Motion Peripheral Pulses: 4+: Radial (R) Skin: Warm, Dry Neurological: No New Focal Deficit Psy/Mental Status: Alert, Normal Affect, Normal Mood - Patient Data Lab Results Last 24 hrs: Laboratory Results - last 24 hr 09/19/20 09/20/20 09/20/20 Range/Units 14:05 07:30 09:00 WBC 11.3 H (4.0-10.2) K/uL RBC 4.56 (3.77-5.09) M/uL Hgb 14.3 (11.7-15.5) g/dL Hct 41.0 (34.0-46.0) % MCV 89.9 (84.0-98.0) fL MCH 31.4 (28.2-33.3) pg MCHC 34.9 (31.7-36.0) g/dL RDW 12.5 (11.2-14.1) % Plt Count 282 (150-350) K/uL Neut % (Auto) 70.5 (45.0-80.0) % Lymph % (Auto) 16.4 (10.0-50.0) % [place] % (Auto) 12.4 (2.0-14.0) % Eos % (Auto) 0.4 (0.0-5.0) % Baso % (Auto) 0.3 (0.0-2.0) % Neut # (Auto) 7.99 H (1.40-7.00) K/uL Lymph # (Auto) 1.86 (0.50-3.50) K/uL [place] # (Auto) 1.41 H (0.00-1.00) K/uL Eos # (Auto) 0.04 (0.00-0.50) K/uL Baso # (Auto) 0.03 (0.00-0.20) K/uL INR 3.1 Sodium (136-145) mmol/L Potassium (3.5-5.1) mmol/L Chloride (98-107) mmol/L Carbon Dioxide (21.0-32.0) mmol/L BUN (7-18) mg/dL Creatinine (0.51-1.17) mg/dL Est Cr Clr Drug Dosing mL/min Estimated GFR (MDRD) mL/min Glucose (70-99) mg/dL Lactic Acid 1.9 (0.4-2.0) mmol/L Calcium (8.5-10.1) mg/dL 09/20/20 09/20/20 Range/Units 09:00 09:00 WBC (4.0-10.2) K/uL RBC (3.77-5.09) M/uL Hgb (11.7-15.5) g/dL Hct (34.0-46.0) % MCV (84.0-98.0) fL MCH (28.2-33.3) pg MCHC (31.7-36.0) g/dL RDW (11.2-14.1) % Plt Count (150-350) K/uL Neut % (Auto) (45.0-80.0) % Lymph % (Auto) (10.0-50.0) % [place] % (Auto) (2.0-14.0) % Eos % (Auto) (0.0-5.0) % Baso % (Auto) (0.0-2.0) % Neut # (Auto) (1.40-7.00) K/uL Lymph # (Auto) (0.50-3.50) K/uL [place] # (Auto) (0.00-1.00) K/uL Eos # (Auto) (0.00-0.50) K/uL Baso # (Auto) (0.00-0.20) K/uL INR Sodium 127 L (136-145) mmol/L Potassium 3.7 (3.5-5.1) mmol/L Chloride 92 L (98-107) mmol/L Carbon Dioxide 23.9 (21.0-32.0) mmol/L BUN 14 (7-18) mg/dL Creatinine 0.67 (0.51-1.17) mg/dL Est Cr Clr Drug Dosing 57.24 mL/min Estimated GFR (MDRD) > 60 mL/min Glucose 95 (70-99) mg/dL Lactic Acid 1.7 (0.4-2.0) mmol/L Calcium 7.9 L (8.5-10.1) mg/dL Result Diagrams: 09/20/20 09:00 09/20/20 09:00 Brandan Results Last 24 hrs: Microbiology 09/17/20 08:35 Aerobic Blood Culture - Preliminary Blood - Venous - Lab Draw NO GROWTH AFTER 3 DAYS Anaerobic Blood Culture - Preliminary NO GROWTH AFTER 3 DAYS 09/17/20 07:55 Aerobic Blood Culture - Preliminary Blood - Venous Gram Positive Cocci Anaerobic Blood Culture - Preliminary NO GROWTH AFTER 3 DAYS Sepsis Event Note - Evaluation Sepsis Screening Result: No Definite Risk - Focused Exam Vital Signs: Vital Signs Temp Temp Pulse Pulse Pulse Resp BP 09/20/20 08:00 36.4 C 80 22 H 09/20/20 07:58 118/68 09/20/20 07:57 80 118/68 09/20/20 07:56 80 09/20/20 00:00 37.1 C 62 20 BP BP Pulse Ox 09/20/20 08:00 118/68 96 09/20/20 07:58 09/20/20 07:57 09/20/20 07:56 09/20/20 00:00 108/44 L 96 - Problem List Review Problem List Initiated/Reviewed/Updated: Yes - My Orders Last 24 Hours: My Active Orders 09/19/20 10:36 Consult to Occupational Therapy [OT Evaluation and Treatment] [CONS] Routine PT Evaluation and Treatment [CONS] Routine 09/19/20 16:57 Consult to Case Management/Tourist Agent [CONS] Routine 09/19/20 20:00 Nystatin [Mycostatin] 5 ml PO QID@0200,0800,1400,2000 09/20/20 08:00 Diltiazem [Cardizem CD] 240 mg PO DAILY - Plan Plan:: 09/18/2020 Start diltiazem ER 120mg PO daily. Will continue Toprol XL and digoxin for now. Stool for c-diff. She has not recently been on antibiotics and has not recently been hospitalized. Lactic acid today at 1300. If continuing to trend downward, likely we will discontinue IV vancomycin and just continue the levaquin. Diet was advanced after obtained CT results. Pt. is currently anticoagulated and her INR is theraputic today. 09/19/20 Diltiazem ER was increased to 240mg daily. Will continue to monitor. Stool for c-diff pending. Continue to trend lactic acid. Continue IV levaquin and IV vancomycin. Pharmacy to assist with dosing of vancomycin. Antibiotic susceptibility for positive blood cultures pending. Will adjust antibiotic regimen based on microbiology. 09/20/2020 Continue IV vanco and levaquin pending susceptibility. Pharmacy to assist with dosing. Pt. has had 2 normal lactate levels so trending can be discontinued. No adjustments to be made to Diltiazem ER. We will discontinue her digoxin. Anticipate transfer to [facility] for continued IV antibiotics tomorrow AM.
[2020-09-20] MEDS: VANCOmycin 1.5 GM/300 ML 1.5 GM in Premix Bag 1 BAG IV SCH ×2 (17:43→17:46)
[2020-09-20] MEDS: Simvastatin 20 MG Tab PO SCH (19:34)
[2020-09-21] MEDS: Albuterol/Ipratropium 3.0-0.5 MG/3 ML Neb Soln NEB SCH ×2 (03:17→08:29)
[2020-09-21] MEDS: Nystatin Susp 100,000 Unit/ML 5 ML UD Cup PO SCH ×2 (03:17→08:30)
[2020-09-21] MEDS: VANCOmycin 1.5 GM/300 ML 1.5 GM in Premix Bag 1 BAG IV SCH (05:49)
[2020-09-21] MEDS: Sodium Chloride 0.9% 10 ML Syringe FLUSH PRN ×2 (05:52→08:40)
[2020-09-21 07:51] VITALS: BP 132/63; PULSE 72
[2020-09-21] MEDS: Pantoprazole 40 MG Vial IVPUSH SCH (08:23)
[2020-09-21] MEDS: Diltiazem 120 MG Cap.CD PO SCH (08:25)
[2020-09-21] MEDS: Potassium Chloride 20 MEQ Tab.ER PO SCH (08:26)
[2020-09-21] MEDS: Ascorbic Acid 500 MG Tab PO SCH (08:26)
[2020-09-21] MEDS: Metoprolol Succinate 25 MG Tab.ER PO SCH (08:27)
[2020-09-21] MEDS: Loratadine 10 MG Tab PO SCH (08:27)
[2020-09-21] MEDS: Dextromethorphan/guaiFENesin 600-30 MG Tab.ER PO SCH (08:27)
[2020-09-21] MEDS: Magnesium Oxide 400 MG Tab PO SCH (08:27)
[2020-09-21] MEDS: Lisinopril 20 MG Tab PO SCH (08:28)
[2020-09-21] MEDS: Hydrochlorothiazide 25 MG Tab PO SCH (08:28)
[2020-09-21] MEDS: Vitamin B Complex Tab PO SCH (08:29)
[2020-09-21] MEDS: Levothyroxine 75 MCG Tab PO SCH (08:29)
[2020-09-21] MEDS: Budesonide 0.5 MG/2 ML Neb Susp NEB SCH (08:30)
[2020-09-21] MEDS: Arformoterol 15 MCG/2 ML Neb Soln INH SCH (08:30)
[2020-09-21] MEDS: Famotidine 20 MG/2 ML SDV IVPUSH SCH (08:30)
[2020-09-21 08:58] LABS: CHLORIDE,CL 96 mmol/L (98-107); SODIUM,NA 130 mmol/L (136-145)
--- NOTE | 2020-09-21 09:08 | PCM.DCSUM1 ---
Discharge Summary - Hospital Course Free Text/Narrative:: Please use this discharge summary as pt. swingbed admission H and P. Current diagnosis: Gram + cocci sepsis secondary to pneumonia Pt. was admitted 09/17/2020 with weakness, chest pain, shortness of breath. During her stay, pt. developed a-fib with RVR in the 150-160 range. Pt. received several doses of IV diltiazem and was started on oral diltiazem ER. Rate has been controlled at 240mg daily. Pt. had been started on digoxin on onset of the a-fib with RVR. This was discontinued yesterday. Pt. did have an elevated lactic acid which has now normalized. Pt. continues to have mildly elevated WBC count. Hemogloblin and platelet counts have all been within normal limits. Pt. currently on IV levaquin as well as vancomycin dosed by pharmacy. Currently her dose is 1.5gm BID. Stool for c-diff is pending. Blood culture positive for gram + cocci. Unable to obtain susceptibility locally. This was sent to reference lab and result is pending, so vanco and levaquin will be continued for now. Kidney function, electrolytes and lactic acid are all within normal normal limits. Pt. commences her 96 hour acute stay today. Pt. is currently being transitioned to swing bed for further IV antibiotics, PT and OT for strengthening. Diagnosis: Stroke: No - Discharge Data Discharge Date: 09/21/20 Discharge Disposition: DC/Tfer W/I Hosp To [place] [id number] Condition: Good - Referral to Home Health Primary Care Physician: CROW Diaz-C - Discharge Diagnosis/Problem(s) (1) Sepsis SNOMED Code(s): 04405703 ICD Code: A41.9 - SEPSIS, UNSPECIFIED ORGANISM Status: Acute Current Visit: Yes Qualifiers: Sepsis acute organ dysfunction status: without acute organ dysfunction - Patient Summary/Data Consults: Consultations 09/19/20 10:36 Consult to Occupational Therapy [OT Evaluation and Treatment] [CONS] Routine PT Evaluation and Treatment [CONS] Routine 09/19/20 16:57 Consult to Case Management/[facility] [employer] Professor [CONS] Routine - Patient Instructions Diet: Heart Healthy Diet - Discharge Plan *PRESCRIPTION DRUG MONITORING PROGRAM REVIEWED*: Not Applicable *COPY OF PRESCRIPTION DRUG MONITORING REPORT IN PATIENT MIKE: Not Applicable Home Medications: Home Meds Albuterol/Ipratropium [Combivent] 2 puff INH QID PRN 06/05/13 [History] Calcium Carbonate/Vitamin D3 [Calcium 600 + Vit D 400] 1 each PO BID 06/05/13 [History] Metoprolol Succinate [Toprol XL 100mg] 25 mg PO DAILY 06/05/13 [History] Omeprazole 20 mg PO QAM 06/05/13 [History] Vitamin B Complex 1 each PO DAILY 06/05/13 [History] Warfarin [Coumadin] 5 mg PO DAILY@1800 06/05/13 [History] Ascorbic Acid 500 mg PO DAILY 03/13/15 [History] Cholecalciferol (Vitamin D3) [Vitamin D3] 400 unit PO DAILY 03/13/15 [History] Digoxin 0.25 mg PO DAILY 03/13/15 [History] Levothyroxine Sodium [Synthroid] 75 mcg PO DAILY 03/13/15 [History] Fluticasone Propionate [Flonase] 50 mcg NASBOTH BID PRN 12/11/16 [History] Lisinopril/Hydrochlorothiazide [Zestoretic 10-12.5 mg Tablet] 2 tab PO DAILY 12/11/16 [History] Magnesium Oxide 400 mg PO BID #30 tablet 12/14/16 [Rx] Acetaminophen [8 Hour Pain Relief] 650 mg PO Q4HWA PRN 09/17/20 [History] Albuterol [Proventil Neb Soln] 1 vial INH DAILY 09/17/20 [History] Boswellia Denny Extract 1 tab PO DAILY 09/17/20 [History] Budesonide [Pulmicort] 1 vial INH BID 09/17/20 [History] Budesonide [Pulmicort] 1 vial INH DAILY 09/17/20 [History] Clotrimazole/Betameth Dip/Zinc [Dermacinrx Therazole Brandon] 1 applic TOP BID 09/17/20 [History] Curcumin 1 tab PO DAILY 09/17/20 [History] Denosumab [Prolia] 1 ml SUBCNJ ASDIRECTED 09/17/20 [History] Formoterol [Perforomist] 1 vial INH BID 09/17/20 [History] Ipratropium [Atrovent] 1 vial INH ASDIRECTED 09/17/20 [History] Loratadine [Claritin] 10 mg PO DAILY 09/17/20 [History] Simvastatin [Zocor] 40 mg PO BEDTIME 09/17/20 [History] predniSONE [Prednisone] 20 mg PO BID 09/17/20 [History] Acetaminophen [Tylenol] 650 mg PO Q4H PRN tablet 09/21/20 [Rx] Albuterol [Proventil Neb Soln] 2.5 mg NEB Q2H PRN neb 09/21/20 [Rx] Albuterol/Ipratropium [DuoNeb 3.0-0.5 MG/3 ML] 3 ml NEB Q4HRRT PRN neb 09/21/20 [Rx] Albuterol/Ipratropium [DuoNeb 3.0-0.5 MG/3 ML] 3 ml NEB Q6HRRT neb 09/21/20 [Rx] Budesonide [Pulmicort] 0.5 mg NEB BIDRT neb 09/21/20 [Rx] Dextromethorphan/guaiFENesin [Mucinex DM ER 600-30 MG] 1 tab PO BID tab.er 09/21/20 [Rx] Diltiazem [Cardizem CD] 240 mg PO DAILY cap.cd 09/21/20 [Rx] Famotidine [Pepcid] 20 mg IVPUSH Q24H sdv 09/21/20 [Rx] Levofloxacin/Dextrose 5%-Water [Levaquin in D5W 500 MG/100 ML] 500 mg IV Q24H bag 09/21/20 [Rx] Metoclopramide [Reglan] 10 mg IVPUSH Q6H PRN sdv 09/21/20 [Rx] Nystatin [Mycostatin] 5 ml PO QID@0200,0800,1400,2000 cup 09/21/20 [Rx] Pantoprazole [ProTONIX IV] 40 mg IVPUSH Q12H vial 09/21/20 [Rx] Pharmacy to Dose - Vancomycin 1 dose .XX ASDIRECTED each 09/21/20 [Rx] Potassium Chloride [Klor-Con M20] 20 meq PO DAILY tab.er 09/21/20 [Rx] Premix Bag 1 bag IV Q12H bag 09/21/20 [Rx] Premix Bag 1 bag IV Q24H bag 09/21/20 [Rx] Sodium Chloride 0.9% [Saline Flush] 10 ml FLUSH ASDIRECTED PRN syringe 09/21/20 [Rx] Sodium Chloride 0.9% [Saline Flush] 10 ml FLUSH Q12H syringe 09/21/20 [Rx] Temazepam [Restoril] 15 mg PO BEDTIME PRN cap 09/21/20 [Rx] VANCOmycin 1.5 GM/300 ML 1.5 gm IV Q12H bag 09/21/20 [Rx] Warfarin [Coumadin] 5 mg PO DAILY tablet 09/21/20 [Rx] hydroCHLOROthiazide [Hydrochlorothiazide] 25 mg PO DAILY tablet 09/21/20 [Rx] Patient Handouts: Levofloxacin injection, Vancomycin injection, Diltiazem Oral Extended-Release 24-Hour Pellet Capsules, Atrial Fibrillation, [id number], Acute Bronchitis, Adult Forms: ED Department Discharge Referrals: PCP,None [Ordering Only Provider] - - Discharge Summary/Plan Comment DC Time >30 min.: Yes Discharge Summary/Plan Comment: Pt. will be transitioned to swing bed. Continue IV vancomycin 1.5gm BID and levaquin 500mg daily. Lab states that susceptibility was sent to reference lab. Will continue both antibiotics for now pending this result. CBC, INR in AM. Will discontinue lactic acid as this is within the normal range. PT and OT to evaluate and treat for strengthening, ambulation. Social service consult in anticipation of discharge. She will need home health. - General Info Date of Service: 09/21/20 Functional Status: Reports: Pain Controlled - Review of Systems General: Reports: No Symptoms HEENT: Reports: No Symptoms Pulmonary: Reports: Shortness of Breath (with activity. States that this is much improved.) Cardiovascular: Reports: No Symptoms Gastrointestinal: Reports: No Symptoms Genitourinary: Reports: No Symptoms Musculoskeletal: Reports: No Symptoms Skin: Reports: No Symptoms Neurological: Reports: No Symptoms Psychiatric: Reports: No Symptoms - Patient Data Vitals - Most Recent: Last Vital Signs Temp 36.5 C 09/21/20 07:50 Pulse 72 09/21/20 08:27 Resp 20 09/21/20 07:50 BP 132/63 09/21/20 08:28 Pulse Ox 94 L 09/21/20 07:50 Weight - Most Recent: 75.523 kg I&O - Last 24 hours: Intake & Output 09/20/20 09/21/20 09/21/20 22:59 06:59 14:59 Intake Total 1120 600 120 Output Total 850 200 200 Balance 270 400 -80 Lab Results - Last 24 hrs: Laboratory Results - last 24 hr 09/20/20 09/20/20 09/20/20 Range/Units 09:00 09:00 09:00 WBC 11.3 H (4.0-10.2) K/uL RBC 4.56 (3.77-5.09) M/uL Hgb 14.3 (11.7-15.5) g/dL Hct 41.0 (34.0-46.0) % MCV 89.9 (84.0-98.0) fL MCH 31.4 (28.2-33.3) pg MCHC 34.9 (31.7-36.0) g/dL RDW 12.5 (11.2-14.1) % Plt Count 282 (150-350) K/uL Neut % (Auto) 70.5 (45.0-80.0) % Lymph % (Auto) 16.4 (10.0-50.0) % [place] % (Auto) 12.4 (2.0-14.0) % Eos % (Auto) 0.4 (0.0-5.0) % Baso % (Auto) 0.3 (0.0-2.0) % Neut # (Auto) 7.99 H (1.40-7.00) K/uL Lymph # (Auto) 1.86 (0.50-3.50) K/uL [place] # (Auto) 1.41 H (0.00-1.00) K/uL Eos # (Auto) 0.04 (0.00-0.50) K/uL Baso # (Auto) 0.03 (0.00-0.20) K/uL Sodium 127 L (136-145) mmol/L Potassium 3.7 (3.5-5.1) mmol/L Chloride 92 L (98-107) mmol/L Carbon Dioxide 23.9 (21.0-32.0) mmol/L BUN 14 (7-18) mg/dL Creatinine 0.67 (0.51-1.17) mg/dL Est Cr Clr Drug Dosing 57.24 mL/min Estimated GFR (MDRD) > 60 mL/min Glucose 95 (70-99) mg/dL Lactic Acid 1.7 (0.4-2.0) mmol/L Calcium 7.9 L (8.5-10.1) mg/dL Vancomycin Trough (10-20) ug/mL 09/20/20 09/21/20 09/21/20 Range/Units 15:30 08:20 08:20 WBC 13.7 H (4.0-10.2) K/uL RBC 4.30 (3.77-5.09) M/uL Hgb 13.5 (11.7-15.5) g/dL Hct 39.0 (34.0-46.0) % MCV 90.7 (84.0-98.0) fL MCH 31.4 (28.2-33.3) pg MCHC 34.6 (31.7-36.0) g/dL RDW 12.6 (11.2-14.1) % Plt Count 312 (150-350) K/uL Neut % (Auto) 78.2 (45.0-80.0) % Lymph % (Auto) 12.0 (10.0-50.0) % [place] % (Auto) 9.1 (2.0-14.0) % Eos % (Auto) 0.6 (0.0-5.0) % Baso % (Auto) 0.1 (0.0-2.0) % Neut # (Auto) 10.68 H (1.40-7.00) K/uL Lymph # (Auto) 1.64 (0.50-3.50) K/uL [place] # (Auto) 1.24 H (0.00-1.00) K/uL Eos # (Auto) 0.08 (0.00-0.50) K/uL Baso # (Auto) 0.02 (0.00-0.20) K/uL Sodium 130 L (136-145) mmol/L Potassium 4.1 (3.5-5.1) mmol/L Chloride 96 L (98-107) mmol/L Carbon Dioxide 23.1 (21.0-32.0) mmol/L BUN 13 (7-18) mg/dL Creatinine 0.72 (0.51-1.17) mg/dL Est Cr Clr Drug Dosing 53.27 mL/min Estimated GFR (MDRD) > 60 mL/min Glucose 126 H (70-99) mg/dL Lactic Acid (0.4-2.0) mmol/L Calcium 8.0 L (8.5-10.1) mg/dL Vancomycin Trough 9.1 L (10-20) ug/mL 09/21/20 Range/Units 08:20 WBC (4.0-10.2) K/uL RBC (3.77-5.09) M/uL Hgb (11.7-15.5) g/dL Hct (34.0-46.0) % MCV (84.0-98.0) fL MCH (28.2-33.3) pg MCHC (31.7-36.0) g/dL RDW (11.2-14.1) % Plt Count (150-350) K/uL Neut % (Auto) (45.0-80.0) % Lymph % (Auto) (10.0-50.0) % [place] % (Auto) (2.0-14.0) % Eos % (Auto) (0.0-5.0) % Baso % (Auto) (0.0-2.0) % Neut # (Auto) (1.40-7.00) K/uL Lymph # (Auto) (0.50-3.50) K/uL [place] # (Auto) (0.00-1.00) K/uL Eos # (Auto) (0.00-0.50) K/uL Baso # (Auto) (0.00-0.20) K/uL Sodium (136-145) mmol/L Potassium (3.5-5.1) mmol/L Chloride (98-107) mmol/L Carbon Dioxide (21.0-32.0) mmol/L BUN (7-18) mg/dL Creatinine (0.51-1.17) mg/dL Est Cr Clr Drug Dosing mL/min Estimated GFR (MDRD) mL/min Glucose (70-99) mg/dL Lactic Acid 1.7 (0.4-2.0) mmol/L Calcium (8.5-10.1) mg/dL Vancomycin Trough (10-20) ug/mL [facility] Results - Last 24 hrs: Microbiology 09/17/20 08:35 Aerobic Blood Culture - Preliminary Blood - Venous - Lab Draw NO GROWTH AFTER 4 DAYS Anaerobic Blood Culture - Preliminary NO GROWTH AFTER 4 DAYS 09/17/20 07:55 Aerobic Blood Culture - Preliminary Blood - Venous Gram Positive Cocci Anaerobic Blood Culture - Preliminary NO GROWTH AFTER 4 DAYS Med Orders - Current: Current Medications Acetaminophen (Acetaminophen 325 Mg Tab) 650 mg PO Q4H PRN PRN Reason: Pain/Fever Last Admin: 09/19/20 18:02 Dose: 650 mg Documented by: Albuterol (Albuterol 0.083% 2.5 Mg/3 Ml Neb Soln) 2.5 mg NEB Q2H PRN PRN Reason: Dyspnea Albuterol/Ipratropium (Albuterol/Ipratropium 3.0-0.5 Mg/3 Ml Neb Soln) 3 ml NEB Q4HRRT PRN PRN Reason: Dyspnea Last Admin: 09/17/20 11:40 Dose: 3 ml Documented by: Albuterol/Ipratropium (Albuterol/Ipratropium 3.0-0.5 Mg/3 Ml Neb Soln) 3 ml NEB Q6HRRT [facility] Last Admin: 09/21/20 08:29 Dose: 3 ml Documented by: Arformoterol Tartrate (Arformoterol 15 Mcg/2 Ml Neb Soln) 15 mcg INH BIDRT [facility] Last Admin: 09/21/20 08:30 Dose: 15 mcg Documented by: Ascorbic Acid (Ascorbic Acid 500 Mg Tab) 500 mg PO DAILY [facility] Last Admin: 09/21/20 08:26 Dose: 500 mg Documented by: Budesonide (Budesonide 0.5 Mg/2 Ml Neb Susp) 0.5 mg NEB BIDRT [facility] Last Admin: 09/21/20 08:30 Dose: 0.5 mg Documented by: Diltiazem HCl (Diltiazem 120 Mg Cap.Cd) 240 mg PO DAILY [facility] Last Admin: 09/21/20 08:25 Dose: 240 mg Documented by: Famotidine (Famotidine 20 Mg/2 Ml Sdv) 20 mg IVPUSH Q24H [facility] Last Admin: 09/21/20 08:30 Dose: 20 mg Documented by: Fluticasone Propionate (Fluticasone Propionate Nasal Bowie 16 Gm Bottle) 0 gm NASBOTH BID PRN PRN Reason: Allergies Guaifenesin/Dextromethorphan (Dextromethorphan/Guaifenesin 600-30 Mg Tab.Er) 1 tab PO BID [facility] Last Admin: 09/21/20 08:27 Dose: 1 tab Documented by: Hydrochlorothiazide (Hydrochlorothiazide 25 Mg Tab) 25 mg PO DAILY [facility] Last Admin: 09/21/20 08:28 Dose: 25 mg Documented by: Levofloxacin/Dextrose 500 mg/ (Premix) 100 mls @ 100 mls/hr IV Q24H [facility] Last Admin: 09/20/20 11:18 Dose: 100 mls/hr Documented by: Vancomycin HCl 1.5 gm/ Premix 300 mls @ 200 mls/hr IV Q12H [facility] Last Admin: 09/21/20 05:49 Dose: 200 mls/hr Documented by: Levothyroxine Sodium (Levothyroxine 75 Mcg Tab) 75 mcg PO ACBREAKFAST [facility] Last Admin: 09/21/20 08:29 Dose: 75 mcg Documented by: Lisinopril (Lisinopril 20 Mg Tab) 20 mg PO DAILY [facility] Last Admin: 09/21/20 08:28 Dose: 20 mg Documented by: Loratadine (Loratadine 10 Mg Tab) 10 mg PO DAILY [facility] Last Admin: 09/21/20 08:27 Dose: 10 mg Documented by: Magnesium Oxide (Magnesium Oxide 400 Mg Tab) 400 mg PO BID [facility] Last Admin: 09/21/20 08:27 Dose: 400 mg Documented by: Metoclopramide HCl (Metoclopramide 10 Mg/2 Ml Sdv) 10 mg IVPUSH Q6H PRN PRN Reason: Abdominal Pain Last Admin: 09/18/20 07:40 Dose: 10 mg Documented by: Metoprolol Succinate (Metoprolol Succinate 25 Mg Tab.Er) 25 mg PO DAILY [facility] Last Admin: 09/21/20 08:27 Dose: 25 mg Documented by: Nystatin (Nystatin Susp 100,000 Unit/Ml 5 Ml Ud Cup) 5 ml PO QID@0200,0800,1400,2000 [facility] Last Admin: 09/21/20 08:30 Dose: 5 ml Documented by: Pantoprazole Sodium (Pantoprazole 40 Mg Vial) 40 mg IVPUSH Q12H [facility] Last Admin: 09/21/20 08:23 Dose: 40 mg Documented by: Potassium Chloride (Potassium Chloride 20 Meq Tab.Er) 20 meq PO DAILY [facility] Last Admin: 09/21/20 08:26 Dose: 20 meq Documented by: Simvastatin (Simvastatin 20 Mg Tab) 40 mg PO BEDTIME [facility] Last Admin: 09/20/20 19:34 Dose: 40 mg Documented by: Sodium Chloride (Sodium Chloride 0.9% 10 Ml Syringe) 10 ml FLUSH ASDIRECTED PRN PRN Reason: Keep Vein Open Last Admin: 09/21/20 08:40 Dose: 10 ml Documented by: Sodium Chloride (Sodium Chloride 0.9% 10 Ml Syringe) 10 ml FLUSH Q12H [facility] Last Admin: 09/20/20 23:11 Dose: Not Given Documented by: Temazepam (Temazepam 15 Mg Cap) 15 mg PO BEDTIME PRN PRN Reason: Insomnia Vancomycin HCl (Pharmacy To Dose - Vancomycin) 1 dose .XX ASDIRECTED [facility] Vitamin B Complex (Vitamin B Complex Tab) 1 each PO DAILY [facility] Last Admin: 09/21/20 08:29 Dose: 1 each Documented by: Discontinued Medications Al Hydroxide/Mg Hydroxide (Gi Cocktail Oral Solution 30 Ml) 30 ml PO ONETIME ONE Stop: 09/17/20 18:25 Last Admin: 09/17/20 19:12 Dose: 30 ml Documented by: Digoxin (Digoxin 125 Mcg Tab) 250 mcg PO DAILY [facility] Last Admin: 09/20/20 07:56 Dose: 250 mcg Documented by: Diltiazem HCl (Diltiazem 25 Mg/5 Ml Sdv) 20 mg IVPUSH ONETIME ONE Stop: 09/17/20 21:25 Last Admin: 09/17/20 21:45 Dose: 20 mg Documented by: Diltiazem HCl (Diltiazem 25 Mg/5 Ml Sdv) 20 mg IVPUSH ONETIME ONE Stop: 09/18/20 09:06 Last Admin: 09/18/20 09:06 Dose: 20 mg Documented by: Diltiazem HCl (Diltiazem 25 Mg/5 Ml Sdv) Confirm Administered Dose 25 mg .ROUTE .STK-MED ONE Stop: 09/18/20 09:09 Last Admin: 09/18/20 09:50 Dose: Not Given Documented by: Diltiazem HCl (Diltiazem 120 Mg Cap.Cd) 120 mg PO DAILY [facility] Last Admin: 09/19/20 07:33 Dose: 120 mg Documented by: Diltiazem HCl (Diltiazem 120 Mg Cap.Cd) 120 mg PO ONETIME ONE Stop: 09/19/20 09:01 Last Admin: 09/19/20 08:20 Dose: 120 mg Documented by: Famotidine (Famotidine 20 Mg/2 Ml Sdv) 40 mg IVPUSH ONETIME ONE Stop: 09/17/20 07:47 Last Admin: 09/17/20 08:03 Dose: 40 mg Documented by: Furosemide (Furosemide 40 Mg/4 Ml Vial) 40 mg IVPUSH Q8H [facility] Last Admin: 09/17/20 20:03 Dose: 40 mg Documented by: Vancomycin HCl 1 gm/ Dextrose/ (Water) 250 mls @ 165 mls/hr IV Q24H [facility] Last Admin: 09/17/20 16:13 Dose: Not Given Documented by: Vancomycin HCl 1.5 gm/ Premix 300 mls @ 200 mls/hr IV Q24H [facility] Last Admin: 09/20/20 17:46 Dose: Not Given Documented by: Lactated Ringer's (Ringers, Lactated) 1,000 mls @ 999 mls/hr IV .BOLUS ONE Stop: 09/17/20 22:24 Last Admin: 09/17/20 21:45 Dose: 999 mls/hr Documented by: Iopamidol (Iopamidol 612 Mg/Ml 100 Ml Bottle) 100 ml IVPUSH ONETIME ONE Stop: 09/18/20 09:55 Last Admin: 09/18/20 10:36 Dose: 100 ml Documented by: Magnesium Oxide (Magnesium Oxide 400 Mg Tab) 800 mg PO ONETIME ONE Stop: 09/17/20 10:58 Last Admin: 09/17/20 12:00 Dose: 800 mg Documented by: Methylprednisolone Sodium Succinate (Methylprednisolone Sodium Succinate 125 Mg/2 Ml Sdv) 125 mg IVPUSH ONETIME ONE Stop: 09/17/20 11:02 Last Admin: 09/17/20 11:52 Dose: 125 mg Documented by: Metoprolol Tartrate (Metoprolol Tartrate 50 Mg Tab) 25 mg PO ONETIME ONE Stop: 09/17/20 21:51 Last Admin: 09/17/20 22:01 Dose: 25 mg Documented by: Nystatin (Nystatin Susp 100,000 Unit/Ml 5 Ml Ud Cup) 5 ml PO QID [facility] Last Admin: 09/19/20 11:30 Dose: 5 ml Documented by: Pantoprazole Sodium (Pantoprazole 40 Mg Vial) 40 mg IVPUSH ONETIME ONE Stop: 09/17/20 07:47 Last Admin: 09/17/20 08:02 Dose: 40 mg Documented by: Potassium Chloride (Potassium Chloride 20 Meq Tab.Er) 20 meq PO TID [facility] Last Admin: 09/18/20 12:16 Dose: 20 meq Documented by: Warfarin Sodium (Warfarin 5 Mg Tab) 5 mg PO DAILY@1800 [facility] Last Admin: 09/18/20 17:21 Dose: 5 mg Documented by: - Exam General: Reports: Alert, Oriented Lungs: Reports: Decreased Breath Sounds (diminished in bases) Cardiovascular: Reports: Regular Rate, Irregular Rhythm GI/Abdominal Exam: Normal Bowel Sounds, Non-Tender, No Distention, No Mass (Female) Exam: Deferred Rectal (Female) Exam: Deferred Back Exam: Reports: Normal Inspection, Full Range of Motion Skin: Reports: Warm, Dry Psy/Mental Status: Reports: Alert, Normal Affect, Normal Mood
[2020-09-21] MEDS ORDERED: ALBUTEROL INH PRN (10:14)
[2020-09-21] MEDS ORDERED: IPRATROPIUM INH PRN (10:14)
[2020-09-21] MEDS ORDERED: Acetaminophen 650 MG Tab.ER PO PRN (10:14)
[2020-09-21] MEDS ORDERED: Albuterol 0.083% 2.5 MG/3 ML Neb Soln INH SCH (10:15)
[2020-09-21] MEDS ORDERED: Non-Formulary Medication 1 Each (Denosumab [Prolia] 60 MG/ML Syringe) SUBCNJ SCH (10:15)
[2020-09-21] MEDS ORDERED: Ipratropium 0.02% 0.5 MG/2.5 ML Neb Soln INH SCH (10:15)
[2020-09-21] MEDS: Levofloxacin/Dextrose 5%-Water 500 MG in Premix Bag 1 BAG IV SCH (10:49)
[2020-09-21] MEDS ORDERED: Non-Formulary Medication 1 Each (Clotrimazole/Betameth Dip/Zinc [Dermacinrx Therazole Pak] TOP SCH (18:00)
[2020-09-21] MEDS ORDERED: Non-Formulary Medication 1 Each (Prednisone [Prednisone] 10 MG Tablet) PO SCH (18:00)
[2020-09-21] MEDS ORDERED: Calcium Carbonate/Vitamin D3 1500 MG-400 Units Tab PO SCH (18:00)
[2020-09-21] MEDS ORDERED: Budesonide 0.5 MG/2 ML Neb Susp INH SCH (18:00)
[2020-09-21] MEDS ORDERED: Warfarin 5 MG Tab PO SCH (18:00)
[2020-09-22] MEDS ORDERED: CURCUMIN PO SCH (08:00)
[2020-09-22] MEDS ORDERED: Omeprazole 20 MG Cap.CR PO SCH (08:00)
[2020-09-22] MEDS ORDERED: Cholecalciferol (Vitamin D3) 10 MCG Tab PO SCH (08:00)
[2020-09-22] MEDS ORDERED: Budesonide 0.5 MG/2 ML Neb Susp INH SCH (08:00)
== END 2020-09-21 09:45 | disposition swing bed (61) | DRG 308 ==
LOC: LL.ED 07:23 → UNDOADMIN 10:03 → LL.MS 10:03 → UNDODISIN 09-21 09:45
PROVIDERS: ADMIT Family Medicine; ATTEND Family Medicine
DX: I48.91 Unspecified atrial fibrillation (principal); A40.1 Sepsis due to streptococcus, group B; J10.08 Influenza due to other identified influenza virus with other specified pneumonia; J15.211 Pneumonia due to Methicillin susceptible Staphylococcus aureus; R79.89 Other specified abnormal findings of blood chemistry; E87.1 Hypo-osmolality and hyponatremia; R74.02 Elevation of levels of lactic acid dehydrogenase [LDH]; K27.9 Peptic ulcer, site unspecified, unspecified as acute or chronic, without hemorrhage or perforation; I49.3 Ventricular premature depolarization; H91.13 Presbycusis, bilateral; I42.9 Cardiomyopathy, unspecified; E78.00 Pure hypercholesterolemia, unspecified; Z88.1 Allergy status to other antibiotic agents; I25.10 Atherosclerotic heart disease of native coronary artery without angina pectoris; Z79.890 Hormone replacement therapy; Z79.51 Long term (current) use of inhaled steroids; Z79.52 Long term (current) use of systemic steroids; Z79.899 Other long term (current) drug therapy; I11.0 Hypertensive heart disease with heart failure; I50.9 Heart failure, unspecified; E83.42 Hypomagnesemia; E78.5 Hyperlipidemia, unspecified; I73.9 Peripheral vascular disease, unspecified; J43.1 Panlobular emphysema; K21.9 Gastro-esophageal reflux disease without esophagitis; Z20.822 Contact with and (suspected) exposure to COVID-19; F41.9 Anxiety disorder, unspecified; F32.9 Major depressive disorder, single episode, unspecified; Z98.42 Cataract extraction status, left eye; Z79.01 Long term (current) use of anticoagulants; Z87.440 Personal history of urinary (tract) infections; Z98.41 Cataract extraction status, right eye; Z98.890 Other specified postprocedural states; Z90.49 Acquired absence of other specified parts of digestive tract
CPT/HCPCS: 36415; 74022; 74177; 80048; 80053; 80061; 80162; 80202; 81001; 82150; 82272; 83036; 83605; 83690; 83735; 83880; 84443; 84484; 84550; 85025; 85379; 85610; 87040; 87150; 87186; 87493; 87807; 93005; 94640; 96374; 96375; 97161-GP; 97530-GP; 99285-25; A9270-GY; C9113; J1940; J1956; J2765; J2930; J3370; J3490; J7120; J7620-GY; Q9967; U0002

== ENCOUNTER 2020-09-21 08:40 | Inpatient (IN) | payer MEDICARE, MEDICAID ==
[2020-09-21] MEDS ORDERED: Zolpidem 5 MG Tab PO PRN (09:41)
[2020-09-21] MEDS ORDERED: Calcium Carbonate 500 MG Tab.Chew PO PRN (09:41)
[2020-09-21] MEDS ORDERED: Bisacodyl 5 MG Tab PO PRN (09:41)
[2020-09-21] MEDS ORDERED: Albuterol/Ipratropium 3.0-0.5 MG/3 ML Neb Soln NEB PRN (10:50)
[2020-09-21] MEDS ORDERED: Acetaminophen 325 MG Tab PO PRN ×2 (10:50→11:00)
[2020-09-21] MEDS ORDERED: Temazepam 15 MG Cap PO PRN (10:50)
[2020-09-21] MEDS ORDERED: Albuterol 0.083% 2.5 MG/3 ML Neb Soln INH PRN (10:50)
[2020-09-21] MEDS ORDERED: Sodium Chloride 0.9% 10 ML Syringe FLUSH PRN (10:50)
[2020-09-21] MEDS ORDERED: DENOSUMAB SUBCNJ SCH (10:50)
[2020-09-21] MEDS ORDERED: Acetaminophen 650 MG Tab.ER PO PRN (10:50)
[2020-09-21] MEDS ORDERED: Non-Formulary Medication 1 Each (Albuterol/Ipratropium [Combivent] 2 PUFF) INH PRN (10:50)
[2020-09-21] MEDS ORDERED: Albuterol 0.083% 2.5 MG/3 ML Neb Soln NEB PRN (11:00)
[2020-09-21] MEDS ORDERED: Metoclopramide 10 MG/2 ML SDV IVPUSH PRN (12:00)
[2020-09-21] MEDS ORDERED: Ondansetron 4 MG Tab.DIS PO PRN (12:00)
[2020-09-21] MEDS: Albuterol/Ipratropium 3.0-0.5 MG/3 ML Neb Soln NEB SCH ×2 (14:32→20:11)
[2020-09-21] MEDS: Nystatin Susp 100,000 Unit/ML 5 ML UD Cup PO SCH ×2 (14:33→20:27)
[2020-09-21] MEDS: Magnesium Oxide 400 MG Tab PO SCH (17:04)
[2020-09-21] MEDS: Warfarin 5 MG Tab PO SCH (17:05)
[2020-09-21] MEDS: Dextromethorphan/guaiFENesin 600-30 MG Tab.ER PO SCH (17:06)
[2020-09-21] MEDS: Calcium Carbonate/Vitamin D3 1500 MG-400 Units Tab PO SCH (17:06)
[2020-09-21] MEDS: VANCOmycin 1.5 GM/300 ML 1.5 GM in Premix Bag 1 BAG IV SCH (17:07)
[2020-09-21] MEDS: Sodium Chloride 0.9% 10 ML Syringe FLUSH PRN (17:10)
[2020-09-21] MEDS ORDERED: Non-Formulary Medication 1 Each (Clotrimazole/Betameth Dip/Zinc [Dermacinrx Therazole Pak] TOP SCH (18:00)
[2020-09-21] MEDS ORDERED: PREDNISONE 20 MG PO SCH (18:00)
[2020-09-21] MEDS ORDERED: Budesonide 0.5 MG/2 ML Neb Susp INH SCH (18:00)
[2020-09-21] MEDS: Simvastatin 20 MG Tab PO SCH (19:15)
[2020-09-21] MEDS: Arformoterol 15 MCG/2 ML Neb Soln INH SCH (19:15)
[2020-09-21] MEDS: Budesonide 0.5 MG/2 ML Neb Susp NEB SCH (19:48)
[2020-09-21] MEDS: Sodium Chloride 0.9% 10 ML Syringe FLUSH SCH (19:51)
[2020-09-21] MEDS ORDERED: Ipratropium 0.02% 0.5 MG/2.5 ML Neb Soln INH SCH (20:00)
[2020-09-21] MEDS ORDERED: Pantoprazole 40 MG Vial IVPUSH SCH (20:00)
[2020-09-22] MEDS: Albuterol/Ipratropium 3.0-0.5 MG/3 ML Neb Soln NEB SCH ×4 (03:03→20:01)
[2020-09-22] MEDS: Nystatin Susp 100,000 Unit/ML 5 ML UD Cup PO SCH ×4 (03:03→20:09)
[2020-09-22] MEDS: VANCOmycin 1.5 GM/300 ML 1.5 GM in Premix Bag 1 BAG IV SCH ×2 (05:34→17:36)
[2020-09-22] MEDS: Sodium Chloride 0.9% 10 ML Syringe FLUSH PRN (05:35)
[2020-09-22] MEDS: Famotidine 20 MG/2 ML SDV IVPUSH SCH (07:17)
[2020-09-22] MEDS: Budesonide 0.5 MG/2 ML Neb Susp NEB SCH ×2 (07:17→19:52)
[2020-09-22] MEDS: Arformoterol 15 MCG/2 ML Neb Soln INH SCH ×2 (07:17→19:45)
[2020-09-22] MEDS: Omeprazole 20 MG Cap.CR PO SCH (07:19)
[2020-09-22] MEDS: Dextromethorphan/guaiFENesin 600-30 MG Tab.ER PO SCH ×2 (07:19→17:41)
[2020-09-22] MEDS: Ascorbic Acid 500 MG Tab PO SCH (07:19)
[2020-09-22] MEDS: Levothyroxine 75 MCG Tab PO SCH (07:20)
[2020-09-22] MEDS: Loratadine 10 MG Tab PO SCH (07:20)
[2020-09-22] MEDS: Potassium Chloride 20 MEQ Tab.ER PO SCH (07:20)
[2020-09-22] MEDS: Cholecalciferol (Vitamin D3) 10 MCG Tab PO SCH (07:20)
[2020-09-22] MEDS: Hydrochlorothiazide 25 MG Tab PO SCH (07:21)
[2020-09-22] MEDS: Calcium Carbonate/Vitamin D3 1500 MG-400 Units Tab PO SCH ×2 (07:21→17:41)
[2020-09-22] MEDS: Vitamin B Complex Tab PO SCH (07:21)
[2020-09-22] MEDS: Metoprolol Succinate 25 MG Tab.ER PO SCH (07:21)
[2020-09-22] MEDS: Magnesium Oxide 400 MG Tab PO SCH ×2 (07:21→17:41)
[2020-09-22] MEDS: Diltiazem 120 MG Cap.CD PO SCH (07:22)
[2020-09-22] MEDS: Lisinopril 20 MG Tab PO SCH (07:22)
[2020-09-22] MEDS: Sodium Chloride 0.9% 10 ML Syringe FLUSH SCH ×2 (07:23→19:44)
[2020-09-22] MEDS ORDERED: CURCUMIN PO SCH (08:00)
[2020-09-22] MEDS: Sodium Chloride 1 GM Tab PO SCH ×2 (09:31→17:41)
[2020-09-22] MEDS: Furosemide 40 MG Tab PO SCH (09:31)
[2020-09-22] MEDS: Levofloxacin/Dextrose 5%-Water 500 MG in Premix Bag 1 BAG IV SCH (10:51)
[2020-09-22] MEDS: Warfarin 5 MG Tab PO SCH (17:41)
[2020-09-22] MEDS: Simvastatin 20 MG Tab PO SCH (19:43)
[2020-09-23] MEDS: Albuterol/Ipratropium 3.0-0.5 MG/3 ML Neb Soln NEB SCH ×4 (02:01→20:01)
[2020-09-23] MEDS: Nystatin Susp 100,000 Unit/ML 5 ML UD Cup PO SCH ×4 (02:02→20:01)
[2020-09-23] MEDS: Arformoterol 15 MCG/2 ML Neb Soln INH SCH ×2 (07:24→20:01)
[2020-09-23] MEDS: Budesonide 0.5 MG/2 ML Neb Susp NEB SCH ×2 (07:24→20:01)
[2020-09-23] MEDS: Calcium Carbonate/Vitamin D3 1500 MG-400 Units Tab PO SCH ×2 (07:25→17:05)
[2020-09-23] MEDS: Omeprazole 20 MG Cap.CR PO SCH (07:25)
[2020-09-23] MEDS: Vitamin B Complex Tab PO SCH (07:25)
[2020-09-23] MEDS: Lisinopril 20 MG Tab PO SCH (07:26)
[2020-09-23] MEDS: Potassium Chloride 20 MEQ Tab.ER PO SCH (07:26)
[2020-09-23] MEDS: Magnesium Oxide 400 MG Tab PO SCH ×2 (07:27→17:05)
[2020-09-23] MEDS: Hydrochlorothiazide 25 MG Tab PO SCH (07:27)
[2020-09-23] MEDS: Dextromethorphan/guaiFENesin 600-30 MG Tab.ER PO SCH ×2 (07:27→17:05)
[2020-09-23] MEDS: Ascorbic Acid 500 MG Tab PO SCH (07:27)
[2020-09-23] MEDS: Metoprolol Succinate 25 MG Tab.ER PO SCH (07:28)
[2020-09-23] MEDS: Loratadine 10 MG Tab PO SCH (07:28)
[2020-09-23] MEDS: Levothyroxine 75 MCG Tab PO SCH (07:28)
[2020-09-23] MEDS: Sodium Chloride 1 GM Tab PO SCH ×2 (07:28→17:05)
[2020-09-23] MEDS: Cholecalciferol (Vitamin D3) 10 MCG Tab PO SCH (07:29)
[2020-09-23] MEDS: Diltiazem 120 MG Cap.CD PO SCH (07:29)
[2020-09-23] MEDS: Furosemide 40 MG Tab PO SCH (07:29)
[2020-09-23] MEDS: Famotidine 20 MG/2 ML SDV IVPUSH SCH (07:30)
[2020-09-23] MEDS: Sodium Chloride 0.9% 10 ML Syringe FLUSH SCH ×2 (07:31→20:02)
[2020-09-23] MEDS: Sodium Chloride 0.9% 10 ML Syringe FLUSH PRN (08:35)
[2020-09-23] MEDS ORDERED: Vancomycin 2 GM in Sodium Chloride 0.9% 500 ML IV SCH (09:00)
[2020-09-23] MEDS: Levofloxacin/Dextrose 5%-Water 500 MG in Premix Bag 1 BAG IV SCH (10:31)
--- NOTE | 2020-09-23 13:11 | PCM.SN.2 ---
- Free Text/Narrative Note: Note vancomycin IV dose is being controlled by pharmacy. Pharmacy did hold yesterday afternoon's vancomycin dose secondary to elevated trough vancomycin level with repeat trough vancomycin level this morning still somewhat elevated. The pharmacist did order resumption of her IV vancomycin therapy had a lower dose of 1 g every 12 hours. Continue swing bed care for IV antibiotic therapy and PT/OT with tentative plans of the patient being discharged to home with home health tomorrow. I did order blood work for tomorrow morning, including a repeat trough vancomycin level and INR, which was mildly subtherapeutic on 09/22. [facility] physician assumes care tomorrow morning with further medication adjustment depending on her clinical course. Laboratory Tests 09/22/20 09/22/20 09/22/20 Range/Units 16:27 16:27 16:27 WBC 12.1 H (4.0-10.2) K/uL RBC 4.37 (3.77-5.09) M/uL Hgb 13.9 (11.7-15.5) g/dL Hct 39.8 (34.0-46.0) % MCV 91.1 (84.0-98.0) fL MCH 31.8 (28.2-33.3) pg MCHC 34.9 (31.7-36.0) g/dL RDW 13.0 (11.2-14.1) % Plt Count 318 (150-350) K/uL Neut % (Auto) 72.0 (45.0-80.0) % Lymph % (Auto) 14.9 (10.0-50.0) % [place] % (Auto) 11.1 (2.0-14.0) % Eos % (Auto) 1.7 (0.0-5.0) % Baso % (Auto) 0.3 (0.0-2.0) % Neut # (Auto) 8.72 H (1.40-7.00) K/uL Lymph # (Auto) 1.81 (0.50-3.50) K/uL [place] # (Auto) 1.34 H (0.00-1.00) K/uL Eos # (Auto) 0.20 (0.00-0.50) K/uL Baso # (Auto) 0.04 (0.00-0.20) K/uL PT 18.6 H (9.5-12.0) SEC INR 1.9 Vancomycin Trough 25.6 H (10-20) ug/mL 09/23/20 Range/Units 06:27 WBC (4.0-10.2) K/uL RBC (3.77-5.09) M/uL Hgb (11.7-15.5) g/dL Hct (34.0-46.0) % MCV (84.0-98.0) fL MCH (28.2-33.3) pg MCHC (31.7-36.0) g/dL RDW (11.2-14.1) % Plt Count (150-350) K/uL Neut % (Auto) (45.0-80.0) % Lymph % (Auto) (10.0-50.0) % [place] % (Auto) (2.0-14.0) % Eos % (Auto) (0.0-5.0) % Baso % (Auto) (0.0-2.0) % Neut # (Auto) (1.40-7.00) K/uL Lymph # (Auto) (0.50-3.50) K/uL [place] # (Auto) (0.00-1.00) K/uL Eos # (Auto) (0.00-0.50) K/uL Baso # (Auto) (0.00-0.20) K/uL PT (9.5-12.0) SEC INR Vancomycin Trough 16.1 (10-20) ug/mL
[2020-09-23] MEDS: Warfarin 5 MG Tab PO SCH (17:05)
[2020-09-23] MEDS: Simvastatin 20 MG Tab PO SCH (20:01)
[2020-09-24] MEDS: Nystatin Susp 100,000 Unit/ML 5 ML UD Cup PO SCH ×4 (02:50→20:24)
[2020-09-24] MEDS: Albuterol/Ipratropium 3.0-0.5 MG/3 ML Neb Soln NEB SCH ×4 (02:50→20:24)
[2020-09-24] MEDS: Dextromethorphan/guaiFENesin 600-30 MG Tab.ER PO SCH ×2 (07:49→17:40)
[2020-09-24] MEDS: Magnesium Oxide 400 MG Tab PO SCH ×2 (07:52→17:40)
[2020-09-24] MEDS: Ascorbic Acid 500 MG Tab PO SCH (07:53)
[2020-09-24] MEDS: Vitamin B Complex Tab PO SCH (07:53)
[2020-09-24] MEDS: Diltiazem 120 MG Cap.CD PO SCH (07:53)
[2020-09-24] MEDS: Sodium Chloride 1 GM Tab PO SCH ×2 (07:53→17:40)
[2020-09-24] MEDS: Cholecalciferol (Vitamin D3) 10 MCG Tab PO SCH (07:53)
[2020-09-24] MEDS: Potassium Chloride 20 MEQ Tab.ER PO SCH (07:53)
[2020-09-24] MEDS: Calcium Carbonate/Vitamin D3 1500 MG-400 Units Tab PO SCH ×2 (07:53→17:40)
[2020-09-24] MEDS: Levothyroxine 75 MCG Tab PO SCH (07:53)
[2020-09-24] MEDS: Omeprazole 20 MG Cap.CR PO SCH (07:53)
[2020-09-24] MEDS: Lisinopril 20 MG Tab PO SCH (07:54)
[2020-09-24] MEDS: Metoprolol Succinate 25 MG Tab.ER PO SCH (07:54)
[2020-09-24] MEDS: Hydrochlorothiazide 25 MG Tab PO SCH (07:56)
[2020-09-24] MEDS: Furosemide 40 MG Tab PO SCH (07:57)
[2020-09-24] MEDS: Loratadine 10 MG Tab PO SCH (07:57)
[2020-09-24] MEDS: Budesonide 0.5 MG/2 ML Neb Susp NEB SCH ×2 (07:57→20:24)
[2020-09-24] MEDS: Arformoterol 15 MCG/2 ML Neb Soln INH SCH ×2 (07:57→20:24)
[2020-09-24] MEDS: Famotidine 20 MG/2 ML SDV IVPUSH SCH (08:55)
[2020-09-24 08:57] LABS: CHLORIDE,CL 100 mmol/L (98-107); SODIUM,NA 136 mmol/L (136-145)
[2020-09-24] MEDS: Sodium Chloride 0.9% 10 ML Syringe FLUSH SCH ×2 (10:04→20:25)
[2020-09-24] MEDS: Sodium Chloride 0.9% 10 ML Syringe FLUSH PRN (10:05)
[2020-09-24] MEDS: Levofloxacin/Dextrose 5%-Water 500 MG in Premix Bag 1 BAG IV SCH (11:52)
--- NOTE | 2020-09-24 12:44 | PCM.SN.2 ---
- Free Text/Narrative Note: Patient noted today to have increasing WBC. No fevers. Is otherwise without any acute changes. Given history of sepsis/+ blood cultures will plan on continuing IV antibiotics over weekend so that patient has full 10 days of IV antibiotics. Will recheck labs in 48 hours.
[2020-09-24] MEDS: Warfarin 5 MG Tab PO SCH (17:40)
[2020-09-24] MEDS: Simvastatin 20 MG Tab PO SCH (20:23)
[2020-09-25] MEDS: Albuterol/Ipratropium 3.0-0.5 MG/3 ML Neb Soln NEB SCH ×4 (02:01→19:54)
[2020-09-25] MEDS: Nystatin Susp 100,000 Unit/ML 5 ML UD Cup PO SCH ×4 (02:01→19:54)
[2020-09-25] MEDS: Famotidine 20 MG/2 ML SDV IVPUSH SCH (07:48)
[2020-09-25] MEDS: Dextromethorphan/guaiFENesin 600-30 MG Tab.ER PO SCH ×2 (07:49→17:42)
[2020-09-25] MEDS: Furosemide 40 MG Tab PO SCH (07:49)
[2020-09-25] MEDS: Levothyroxine 75 MCG Tab PO SCH (07:49)
[2020-09-25] MEDS: Metoprolol Succinate 25 MG Tab.ER PO SCH (07:49)
[2020-09-25] MEDS: Cholecalciferol (Vitamin D3) 10 MCG Tab PO SCH (07:49)
[2020-09-25] MEDS: Magnesium Oxide 400 MG Tab PO SCH ×2 (07:49→17:43)
[2020-09-25] MEDS: Potassium Chloride 20 MEQ Tab.ER PO SCH (07:49)
[2020-09-25] MEDS: Vitamin B Complex Tab PO SCH (07:49)
[2020-09-25] MEDS: Ascorbic Acid 500 MG Tab PO SCH (07:49)
[2020-09-25] MEDS: Calcium Carbonate/Vitamin D3 1500 MG-400 Units Tab PO SCH ×2 (07:49→17:42)
[2020-09-25] MEDS: Diltiazem 120 MG Cap.CD PO SCH (07:50)
[2020-09-25] MEDS: Omeprazole 20 MG Cap.CR PO SCH (07:50)
[2020-09-25] MEDS: Sodium Chloride 1 GM Tab PO SCH ×2 (07:50→17:43)
[2020-09-25] MEDS: Hydrochlorothiazide 25 MG Tab PO SCH (07:50)
[2020-09-25] MEDS: Lisinopril 20 MG Tab PO SCH (07:50)
[2020-09-25] MEDS: Loratadine 10 MG Tab PO SCH (07:51)
[2020-09-25] MEDS: Sodium Chloride 0.9% 10 ML Syringe FLUSH SCH ×2 (07:51→19:55)
[2020-09-25] MEDS: Arformoterol 15 MCG/2 ML Neb Soln INH SCH ×2 (09:18→19:54)
[2020-09-25] MEDS: Budesonide 0.5 MG/2 ML Neb Susp NEB SCH ×2 (09:18→19:55)
[2020-09-25] MEDS: Levofloxacin/Dextrose 5%-Water 500 MG in Premix Bag 1 BAG IV SCH (11:08)
[2020-09-25] MEDS: Warfarin 5 MG Tab PO SCH (17:43)
[2020-09-25] MEDS: Simvastatin 20 MG Tab PO SCH (19:54)
[2020-09-26] MEDS: Albuterol/Ipratropium 3.0-0.5 MG/3 ML Neb Soln NEB SCH ×4 (01:52→19:28)
[2020-09-26] MEDS: Nystatin Susp 100,000 Unit/ML 5 ML UD Cup PO SCH ×4 (01:52→19:28)
[2020-09-26 09:04] LABS: CHLORIDE,CL 101 mmol/L (98-107); SODIUM,NA 136 mmol/L (136-145)
[2020-09-26] MEDS: Arformoterol 15 MCG/2 ML Neb Soln INH SCH ×2 (09:06→19:28)
[2020-09-26] MEDS: Magnesium Oxide 400 MG Tab PO SCH ×2 (09:06→18:02)
[2020-09-26] MEDS: Budesonide 0.5 MG/2 ML Neb Susp NEB SCH ×2 (09:06→19:28)
[2020-09-26] MEDS: Sodium Chloride 0.9% 10 ML Syringe FLUSH SCH ×2 (09:06→19:29)
[2020-09-26] MEDS: Famotidine 20 MG/2 ML SDV IVPUSH SCH (09:07)
[2020-09-26] MEDS: Sodium Chloride 1 GM Tab PO SCH ×2 (09:07→18:02)
[2020-09-26] MEDS: Potassium Chloride 20 MEQ Tab.ER PO SCH (09:07)
[2020-09-26] MEDS: Loratadine 10 MG Tab PO SCH (09:07)
[2020-09-26] MEDS: Vitamin B Complex Tab PO SCH (09:07)
[2020-09-26] MEDS: Hydrochlorothiazide 25 MG Tab PO SCH (09:07)
[2020-09-26] MEDS: Diltiazem 120 MG Cap.CD PO SCH (09:07)
[2020-09-26] MEDS: Levothyroxine 75 MCG Tab PO SCH (09:07)
[2020-09-26] MEDS: Cholecalciferol (Vitamin D3) 10 MCG Tab PO SCH (09:08)
[2020-09-26] MEDS: Dextromethorphan/guaiFENesin 600-30 MG Tab.ER PO SCH ×2 (09:08→18:02)
[2020-09-26] MEDS: Calcium Carbonate/Vitamin D3 1500 MG-400 Units Tab PO SCH ×2 (09:08→18:03)
[2020-09-26] MEDS: Metoprolol Succinate 25 MG Tab.ER PO SCH (09:08)
[2020-09-26] MEDS: Furosemide 40 MG Tab PO SCH (09:08)
[2020-09-26] MEDS: Ascorbic Acid 500 MG Tab PO SCH (09:08)
[2020-09-26] MEDS: Omeprazole 20 MG Cap.CR PO SCH (09:08)
[2020-09-26] MEDS: Lisinopril 20 MG Tab PO SCH (09:10)
[2020-09-26] MEDS: Levofloxacin/Dextrose 5%-Water 500 MG in Premix Bag 1 BAG IV SCH (11:01)
[2020-09-26] MEDS: Warfarin 5 MG Tab PO SCH (18:03)
[2020-09-26] MEDS: Simvastatin 20 MG Tab PO SCH (19:27)
[2020-09-27] MEDS: Nystatin Susp 100,000 Unit/ML 5 ML UD Cup PO SCH ×3 (02:13→14:48)
[2020-09-27] MEDS: Albuterol/Ipratropium 3.0-0.5 MG/3 ML Neb Soln NEB SCH ×3 (02:13→14:48)
[2020-09-27] MEDS: Budesonide 0.5 MG/2 ML Neb Susp NEB SCH (08:10)
[2020-09-27] MEDS: Arformoterol 15 MCG/2 ML Neb Soln INH SCH (08:10)
[2020-09-27] MEDS: Sodium Chloride 1 GM Tab PO SCH (08:10)
[2020-09-27] MEDS: Diltiazem 120 MG Cap.CD PO SCH (08:11)
[2020-09-27] MEDS: Vitamin B Complex Tab PO SCH (08:12)
[2020-09-27] MEDS: Magnesium Oxide 400 MG Tab PO SCH (08:12)
[2020-09-27] MEDS: Omeprazole 20 MG Cap.CR PO SCH (08:12)
[2020-09-27] MEDS: Potassium Chloride 20 MEQ Tab.ER PO SCH (08:12)
[2020-09-27] MEDS: Loratadine 10 MG Tab PO SCH (08:12)
[2020-09-27 08:13] VITALS: BP 117/49; PULSE 83
[2020-09-27] MEDS: Furosemide 40 MG Tab PO SCH (08:13)
[2020-09-27] MEDS: Dextromethorphan/guaiFENesin 600-30 MG Tab.ER PO SCH (08:13)
[2020-09-27] MEDS: Ascorbic Acid 500 MG Tab PO SCH (08:13)
[2020-09-27] MEDS: Lisinopril 20 MG Tab PO SCH (08:13)
[2020-09-27] MEDS: Sodium Chloride 0.9% 10 ML Syringe FLUSH SCH (08:14)
[2020-09-27] MEDS: Cholecalciferol (Vitamin D3) 10 MCG Tab PO SCH (08:14)
[2020-09-27] MEDS: Famotidine 20 MG/2 ML SDV IVPUSH SCH (08:14)
[2020-09-27] MEDS: Metoprolol Succinate 25 MG Tab.ER PO SCH (08:14)
[2020-09-27] MEDS: Levothyroxine 75 MCG Tab PO SCH (08:14)
[2020-09-27] MEDS: Calcium Carbonate/Vitamin D3 1500 MG-400 Units Tab PO SCH (08:14)
[2020-09-27] MEDS: Hydrochlorothiazide 25 MG Tab PO SCH (08:14)
[2020-09-27] MEDS: Levofloxacin/Dextrose 5%-Water 500 MG in Premix Bag 1 BAG IV SCH ×2 (11:12→11:49)
--- NOTE | 2020-09-27 13:55 | PCM.DCSUM1 ---
Discharge Summary - Hospital Course Brief History: Patient admitted swing bed to continue IV antibiotics for treatment of blood culture + coag negative staph. Diagnosis: Stroke: No - Discharge Data Discharge Date: 09/27/20 Discharge Disposition: Home, Self-Care 01 Condition: Good - Referral to Home Health Date of Face to Face Encounter: 09/27/20 Reason for Homebound Status: Pt elderly/has mobility issues. Worsening ability to perform ADLs. Needs medication assistance/monitoring. Primary Care Physician: Mariam Calvillo PA-C Skilled Need: as above - Discharge Diagnosis/Problem(s) (1) Sepsis SNOMED Code(s): 95828197 ICD Code: A41.9 - SEPSIS, UNSPECIFIED ORGANISM Status: Acute Priority: High Current Visit: No Problem Details: Patient noted to have increasingly elevated Lactic Acid level. Blood culture + for Coag - Staph. Possible contaminent but given patient's illness and worsening lactic acidosis she did receive a 10 day course of antibiotics IV that included Vanco and Levaquin. Lactic acidosis slowly improved. Elevated WBC actually worsened again around day 7, and patient kept on swing bed in order to continue to receive IV antibiotics. WBC dropped over the last few days and has almost normalized. No fevers/chills. No other signs of localized infection. Patient is back to usual baseline and is feeling good. Did discuss patient with ID at [facility] today, . He agreed no additional antibiotic coverage as outpatient indicated. Qualifiers: Sepsis type: sepsis due to unspecified organism Sepsis acute organ dysfunction status: without acute organ dysfunction Qualified Code(s): A41.9 - Sepsis, unspecified organism (2) Elevated lactic acid level SNOMED Code(s): 0658557 ICD Code: R79.89 - OTHER SPECIFIED ABNORMAL FINDINGS OF BLOOD CHEMISTRY Status: Acute Priority: High Current Visit: No Onset Date: 09/17/20 Problem Details: As above. Normalized during stay. (3) CHF (congestive heart failure) SNOMED Code(s): 59937846 ICD Code: I50.9 - HEART FAILURE, UNSPECIFIED Status: Chronic Priority: Medium Current Visit: No Problem Details: No chest pain or anginal type symptoms. No evidence of acute fluid overload. Negative troponins. (4) Elevated LFTs SNOMED Code(s): 645756781 ICD Code: R79.89 - OTHER SPECIFIED ABNORMAL FINDINGS OF BLOOD CHEMISTRY Status: Chronic Priority: Medium Current Visit: No Onset Date: 12/11/16 Problem Details: As above. Previous known history of chronic LFTs elevation secondary to fatty liver and current mild CHF. (5) Hypertension SNOMED Code(s): 20904486 ICD Code: I10 - ESSENTIAL (PRIMARY) HYPERTENSION Status: Chronic Priority: Medium Current Visit: No Problem Details: Elevated blood pressures initially on arrival in the emergency room, however improved without therapy. IV Lasix and oral lisinopril therapy initiated. Follow up with PCP. Stable BPs. Qualifiers: Hypertension type: essential hypertension Qualified Code(s): I10 - Essential (primary) hypertension (6) Hypomagnesemia SNOMED Code(s): 924643139 ICD Code: E83.42 - HYPOMAGNESEMIA Status: Chronic Priority: Medium Current Visit: No Onset Date: 12/11/16 Problem Details: Additional increase of her previous magnesium oxide therapy especially in light of IV Lasix. Continue close follow-up during this hospitalization and by her regular providers after discharge. Normal level when last checked. (7) Hyponatremia SNOMED Code(s): 73127428 ICD Code: E87.1 - HYPO-OSMOLALITY AND HYPONATREMIA Status: Acute Priority: Medium Current Visit: No Onset Date: 09/17/20 Problem Details: Likely secondary to her CHF/normalized during stay (8) COPD (chronic obstructive pulmonary disease) SNOMED Code(s): 89717589 ICD Code: J44.9 - CHRONIC OBSTRUCTIVE PULMONARY DISEASE, UNSPECIFIED Status: Chronic Priority: Medium Current Visit: No Problem Details: No obvious acute changes on chest film. No noted pneumonia. Qualifiers: COPD type: emphysema Emphysema type: panlobular Qualified Code(s): J43.1 - Panlobular emphysema (9) Coronary artery disease SNOMED Code(s): 44868078 ICD Code: I25.10 - ATHSCL HEART DISEASE OF [place] CORONARY ARTERY W/O ANG PCTRS Status: Chronic Priority: Medium Current Visit: No Problem Details: As above Qualifiers: Coronary Disease-Associated Artery/Lesion type: [place] artery [place] vs. transplanted heart: minto heart Associated angina: without angina Qualified Code(s): I25.10 - Atherosclerotic heart disease of [place] coronary artery without angina pectoris (10) Peptic reflux disease SNOMED Code(s): 981124909 ICD Code: K21.9 - GASTRO-ESOPHAGEAL REFLUX DISEASE WITHOUT ESOPHAGITIS Status: Chronic Priority: Medium Current Visit: No Problem Details: High- dose IV Pepcid and IV Protonix given in the emergency room and continued during this hospitalization. - Patient Summary/Data Consults: Consultations 09/21/20 09:41 Consult to Case Management/Insurance Counselor [CONS] Routine OT Evaluation and Treatment [CONS] Urgent PT Evaluation and Treatment [CONS] Urgent 09/21/20 10:50 Consult to Case Management/Insurance Counselor [CONS] Routine Consult to Occupational Therapy [OT Evaluation and Treatment] [CONS] Routine PT Evaluation and Treatment [CONS] Routine Hospital Course: As above. Patient noted to have increasing lactic acid and was place on antibiotics. No specific focal infectious source identified. Did have coag- positive staph grow in blood culture. Uncertain if this was due to contamination or if it reflected true sepsis. Antibiotics continued as lactic acid and WBC were persistently elevated for days. Patient stable. Afebrile. Was switched to swing bed for continuation of IV medication. Was kept a full 10 days due to WBC starting to elevate again around day 7. WBC now near normal. Patient is feeling back to usual self and has no acute complaints. Did review patient with from [facility]/infectious disease and patient will not need to be continued on oral antibiotics at time of discharge. - Patient Instructions Diet: Usual Diet as Tolerated Fluid Restriction: 2000 mL Activity: As Tolerated Notify Provider of: Fever Other/Special Instructions: Follow up regularly with your clinic and keep up with tracking your digoxin, magnesium, and warfarin (INR) levels. Get rechecked within the next few weeks by your primary provider/see how your are doing. Follow up as needed if you have sudden worsening problems. - Discharge Plan *PRESCRIPTION DRUG MONITORING PROGRAM REVIEWED*: Not Applicable *COPY OF PRESCRIPTION DRUG MONITORING REPORT IN PATIENT MIKE: Not Applicable Home Medications: Home Meds Acetaminophen [Acetaminophen ER] 1 tab PO QID PRN 09/27/20 [History] Albuterol [Proventil Neb Soln] 1 vial INH DAILY 09/27/20 [History] Albuterol/Ipratropium [Combivent Respimat] 2 puff INH QID PRN 09/27/20 [History] Ascorbic Acid 1 tab PO DAILY 09/27/20 [History] Budesonide [Pulmicort] 1 vial INH BID 09/27/20 [History] Calcium Carb/Vit D3/Minerals [Calcium 600+D Plus Minerals] 1 tab PO BID 09/27/20 [History] Cholecalciferol (Vitamin D3) [Vitamin D3] 1 cap PO DAILY 09/27/20 [History] Denosumab [Prolia] 1 injection SQ ASDIRECTED 09/27/20 [History] Digoxin 250 mcg PO DAILY 09/27/20 [History] Fluticasone Propionate [Flonase] 1 spray NASBOTH BID 09/27/20 [History] Formoterol [Perforomist] 1 vial INH BID 09/27/20 [History] Ipratropium [Atrovent] 1 vial INH BID 09/27/20 [History] Levothyroxine 75 mcg PO DAILY 09/27/20 [History] Lisinopril/Hydrochlorothiazide [Lisinopril-Hctz 20-25 mg Tab] 1 tab PO DAILY 09/27/20 [History] Loratadine 1 tab PO DAILY PRN 09/27/20 [History] Magnesium Oxide 1 tab PO BID 09/27/20 [History] Metoprolol Succinate [Toprol Xl] 25 mg PO DAILY 09/27/20 [History] Omeprazole 20 mg PO DAILY 09/27/20 [History] Simvastatin 40 mg PO BEDTIME 09/27/20 [History] Vit B Complx/Folic AC/C/Biotin [Xvite Tablet] 1 tab PO DAILY 09/27/20 [History] Warfarin [Coumadin] 2.5 mg PO SUTUTHSA 09/27/20 [History] Warfarin [Coumadin] 5 mg PO MOWEFR 09/27/20 [History] - Discharge Summary/Plan Comment DC Time >30 min.: Yes (waiting for son to get off of work and come get patient) - General Info Date of Service: 09/27/20 Admission Dx/Problem (Free Text: Cough/epigastric pain/+ blood culture Subjective Update: Patient wishes to go home. Denies any acute problems/concerns. Feels back to baseline. Functional Status: Reports: Pain Controlled, Tolerating Diet, Ambulating (with assistance), Urinating. Denies: New Symptoms - Review of Systems General: Reports: No Symptoms HEENT: Reports: No Symptoms Pulmonary: Reports: No Symptoms. Denies: Shortness of Breath, Cough, Sputum Cardiovascular: Reports: No Symptoms. Denies: Chest Pain, Lightheadedness Gastrointestinal: Reports: No Symptoms Genitourinary: Reports: No Symptoms Musculoskeletal: Reports: Other (no acute changes from baseline) Skin: Reports: No Symptoms Neurological: Reports: No Symptoms Psychiatric: Reports: No Symptoms - Patient Data Vitals - Most Recent: Last Vital Signs Temp 36.9 C 09/27/20 08:00 Pulse 83 09/27/20 08:14 Resp 26 H 09/27/20 08:00 BP 117/49 L 09/27/20 08:14 Pulse Ox 95 09/27/20 08:00 Weight - Most Recent: 72.62 kg I&O - Last 24 hours: Intake & Output 09/26/20 09/27/20 09/27/20 22:59 06:59 14:59 Intake Total 700 840 Balance 700 840 Lab Results - Last 24 hrs: Laboratory Results - last 24 hr 09/27/20 09/27/20 09/27/20 Range/Units 07:19 07:19 07:19 WBC 10.8 H (4.0-10.2) K/uL RBC 4.07 (3.77-5.09) M/uL Hgb 12.8 (11.7-15.5) g/dL Hct 37.3 (34.0-46.0) % MCV 91.6 (84.0-98.0) fL MCH 31.4 (28.2-33.3) pg MCHC 34.3 (31.7-36.0) g/dL RDW 12.9 (11.2-14.1) % Plt Count 337 (150-350) K/uL Neut % (Auto) 64.8 (45.0-80.0) % Lymph % (Auto) 17.1 (10.0-50.0) % [place] % (Auto) 14.7 H (2.0-14.0) % Eos % (Auto) 2.6 (0.0-5.0) % Baso % (Auto) 0.8 (0.0-2.0) % Neut # (Auto) 7.01 H (1.40-7.00) K/uL Lymph # (Auto) 1.85 (0.50-3.50) K/uL [place] # (Auto) 1.59 H (0.00-1.00) K/uL Eos # (Auto) 0.28 (0.00-0.50) K/uL Baso # (Auto) 0.09 (0.00-0.20) K/uL PT 21.6 H (9.5-12.0) SEC INR 2.2 Sodium 137 (136-145) mmol/L Potassium 3.9 (3.5-5.1) mmol/L Chloride 102 (98-107) mmol/L Carbon Dioxide 27.1 (21.0-32.0) mmol/L BUN 20 H (7-18) mg/dL Creatinine 0.93 (0.51-1.17) mg/dL Est Cr Clr Drug Dosing 41.24 mL/min Estimated GFR (MDRD) 58 mL/min Glucose 100 H (70-99) mg/dL Calcium 8.9 (8.5-10.1) mg/dL Total Bilirubin 0.8 (0.2-1.0) mg/dL AST 42 H (15-37) U/L ALT 50 (12-78) U/L Alkaline Phosphatase 66 (46-116) IU/L Total Protein 6.3 L (6.4-8.2) g/dL Albumin 3.0 L (3.4-5.0) g/dL Med Orders - Current: Current Medications Acetaminophen (Acetaminophen 325 Mg Tab) 650 mg PO Q4H PRN PRN Reason: Pain (Mild 1-3)/fever Albuterol (Albuterol 0.083% 2.5 Mg/3 Ml Neb Soln) 2.5 mg NEB Q2H PRN PRN Reason: Dyspnea Albuterol/Ipratropium (Albuterol/Ipratropium 3.0-0.5 Mg/3 Ml Neb Soln) 3 ml NEB Q4HRRT PRN PRN Reason: Dyspnea Albuterol/Ipratropium (Albuterol/Ipratropium 3.0-0.5 Mg/3 Ml Neb Soln) 3 ml NEB Q6HRRT [facility] Last Admin: 09/27/20 08:10 Dose: 3 ml Documented by: Arformoterol Tartrate (Arformoterol 15 Mcg/2 Ml Neb Soln) 15 mcg INH BIDRT [facility] Last Admin: 09/27/20 08:10 Dose: 15 mcg Documented by: Ascorbic Acid (Ascorbic Acid 500 Mg Tab) 500 mg PO DAILY [facility] Last Admin: 09/27/20 08:13 Dose: 500 mg Documented by: Bisacodyl (Bisacodyl 5 Mg Tab) 5 mg PO DAILY PRN PRN Reason: Constipation Budesonide (Budesonide 0.5 Mg/2 Ml Neb Susp) 0.5 mg NEB BIDRT [facility] Last Admin: 09/27/20 08:10 Dose: 0.5 mg Documented by: Calcium Carbonate (Calcium Carbonate/Vitamin D3 1500 Mg-400 Units Tab) 1 tab PO BID [facility] Last Admin: 09/27/20 08:14 Dose: 1 tab Documented by: Calcium Carbonate/Glycine (Calcium Carbonate 500 Mg Tab.Chew) 500 mg PO Q2HR PRN PRN Reason: Nausea Cholecalciferol (Cholecalciferol (Vitamin D3) 10 Mcg Tab) 10 mcg PO DAILY [facility] Last Admin: 09/27/20 08:14 Dose: 10 mcg Documented by: Diltiazem HCl (Diltiazem 120 Mg Cap.Cd) 240 mg PO DAILY [facility] Last Admin: 09/27/20 08:11 Dose: 240 mg Documented by: Famotidine (Famotidine 20 Mg/2 Ml Sdv) 20 mg IVPUSH Q24H [facility] Last Admin: 09/27/20 08:14 Dose: 20 mg Documented by: Furosemide (Furosemide 40 Mg Tab) 40 mg PO DAILY [facility] Last Admin: 09/27/20 08:13 Dose: 40 mg Documented by: Guaifenesin/Dextromethorphan (Dextromethorphan/Guaifenesin 600-30 Mg Tab.Er) 1 tab PO BID [facility] Last Admin: 09/27/20 08:13 Dose: 1 tab Documented by: Hydrochlorothiazide (Hydrochlorothiazide 25 Mg Tab) 25 mg PO DAILY [facility] Last Admin: 09/27/20 08:14 Dose: 25 mg Documented by: Levothyroxine Sodium (Levothyroxine 75 Mcg Tab) 75 mcg PO ACBREAKFAST [facility] Last Admin: 09/27/20 08:14 Dose: 75 mcg Documented by: Lisinopril (Lisinopril 20 Mg Tab) 20 mg PO DAILY [facility] Last Admin: 09/27/20 08:13 Dose: Not Given Documented by: Loratadine (Loratadine 10 Mg Tab) 10 mg PO DAILY [facility] Last Admin: 09/27/20 08:12 Dose: 10 mg Documented by: Magnesium Oxide (Magnesium Oxide 400 Mg Tab) 400 mg PO BID [facility] Last Admin: 09/27/20 08:12 Dose: 400 mg Documented by: Metoclopramide HCl (Metoclopramide 10 Mg/2 Ml Sdv) 10 mg IVPUSH Q6H PRN PRN Reason: Abdominal Pain Metoprolol Succinate (Metoprolol Succinate 25 Mg Tab.Er) 25 mg PO DAILY [facility] Last Admin: 09/27/20 08:14 Dose: 25 mg Documented by: Nystatin (Nystatin Susp 100,000 Unit/Ml 5 Ml Ud Cup) 5 ml PO QID@0200,0800,1400,2000 [facility] Last Admin: 09/27/20 08:15 Dose: 5 ml Documented by: Omeprazole (Omeprazole 20 Mg Cap.Cr) 20 mg PO QAM [facility] Last Admin: 09/27/20 08:12 Dose: 20 mg Documented by: Ondansetron HCl (Ondansetron 4 Mg Tab.Dis) 4 mg PO Q6H PRN PRN Reason: Nausea/Vomiting Potassium Chloride (Potassium Chloride 20 Meq Tab.Er) 20 meq PO DAILY [facility] Last Admin: 09/27/20 08:12 Dose: 20 meq Documented by: Simvastatin (Simvastatin 20 Mg Tab) 40 mg PO BEDTIME [facility] Last Admin: 09/26/20 19:27 Dose: 40 mg Documented by: Sodium Chloride (Sodium Chloride 0.9% 10 Ml Syringe) 10 ml FLUSH ASDIRECTED PRN PRN Reason: Keep Vein Open Last Admin: 09/24/20 10:05 Dose: 10 ml Documented by: Sodium Chloride (Sodium Chloride 0.9% 10 Ml Syringe) 10 ml FLUSH Q12HR [facility] Last Admin: 09/27/20 08:14 Dose: 10 ml Documented by: Sodium Chloride (Sodium Chloride 1 Gm Tab) 1 gm PO BID [facility] Last Admin: 09/27/20 08:10 Dose: 1 gm Documented by: Vitamin B Complex (Vitamin B Complex Tab) 1 each PO DAILY [facility] Last Admin: 09/27/20 08:12 Dose: 1 each Documented by: Warfarin Sodium (Warfarin 5 Mg Tab) 5 mg PO DAILY@1800 [facility] Last Admin: 09/26/20 18:03 Dose: 5 mg Documented by: Discontinued Medications Levofloxacin/Dextrose 500 mg/ (Premix) 100 mls @ 100 mls/hr IV Q24H [facility] Last Admin: 09/27/20 11:49 Dose: Not Given Documented by: Vancomycin HCl 1.5 gm/ Premix 300 mls @ 200 mls/hr IV Q12H [facility] Last Admin: 09/22/20 17:36 Dose: Not Given Documented by: Vancomycin HCl 2 gm/ Sodium (Chloride) 500 mls @ 165 mls/hr IV Q12H [facility] Vancomycin HCl 1 gm/ Sodium (Chloride) 250 mls @ 165 mls/hr IV Q12H [facility] Stop: 09/25/20 12:00 Last Admin: 09/25/20 09:13 Dose: 165 mls/hr Documented by: Magnesium Sulfate/Dextrose 1 (gm/ Premix) 100 mls @ 100 mls/hr IV ONETIME ONE Stop: 09/24/20 14:23 Last Admin: 09/24/20 14:55 Dose: 100 mls/hr Documented by: Vancomycin HCl 1 gm/ Sodium (Chloride) 250 mls @ 165 mls/hr IV Q24H [facility] Last Admin: 09/27/20 08:10 Dose: 165 mls/hr Documented by: Ipratropium [place] (Ipratropium 0.02% 0.5 Mg/2.5 Ml Neb Soln) 3 mg INH BIDRT [facility] Last Admin: 09/21/20 19:15 Dose: Not Given Documented by: Vancomycin HCl (Pharmacy To Dose - Vancomycin) 1 dose .XX ASDIRECTED [facility] Zolpidem Tartrate (Zolpidem 5 Mg Tab) 5 mg PO BEDTIME PRN PRN Reason: Sleep - Exam Quality Assessment: Reports: DVT Prophylaxis General: Reports: Alert, Oriented, Cooperative, No Acute Distress HEENT: Reports: Pupils Equal, Pupils Reactive, EOMI, Mucous Membr. Moist/[place] Neck: Reports: Supple Lungs: Reports: Normal Respiratory Effort, Other (scattered mild rhonchi. Good air flow) Cardiovascular: Reports: No Murmurs, Irregular Rhythm GI/Abdominal Exam: Normal Bowel Sounds, Soft, Non-Tender, No Distention (Female) Exam: Deferred Rectal (Female) Exam: Deferred Back Exam: Denies: CVA Tenderness (L), CVA Tenderness (R), Muscle Spasm Extremities: Non-Tender, Normal Capillary Refill Skin: Reports: Warm, Dry Neurological: Reports: No New Focal Deficit Psy/Mental Status: Reports: Alert, Normal Affect, Normal Mood
== END 2020-09-27 17:45 | disposition home health service (06) | DRG 871 ==
LOC: LL.MS 09:45
PROVIDERS: ADMIT Physician Assistant; ATTEND Physician Assistant
DX: A41.1 Sepsis due to other specified staphylococcus (principal); J18.9 Pneumonia, unspecified organism; E87.1 Hypo-osmolality and hyponatremia; I50.9 Heart failure, unspecified; K76.0 Fatty (change of) liver, not elsewhere classified; I11.0 Hypertensive heart disease with heart failure; E83.42 Hypomagnesemia; J43.1 Panlobular emphysema; I25.10 Atherosclerotic heart disease of native coronary artery without angina pectoris; K21.9 Gastro-esophageal reflux disease without esophagitis; Z79.890 Hormone replacement therapy; Z79.899 Other long term (current) drug therapy; Z79.01 Long term (current) use of anticoagulants
CPT/HCPCS: 36415; 71046; 80048; 80053; 80202; 83605; 83735; 83880; 84484; 85025; 85610; 86140; 94640; 97110-GO; 97161-GP; 97165-GO; 97530-GO; 97530-GP; 97535-GO; A9270-GY; J1956; J3370; J3475; J3490; J7050; J7620-GY

== ENCOUNTER 2021-04-22 10:44 | Observation (INO) | payer MEDICARE, MEDICAID ==
[2021-04-22] MEDS ORDERED: Sodium Chloride 0.9% 1,000 ML IV ONE ×2 (10:54→13:17)
[2021-04-22 12:02] LABS: PTT,PARTIAL THROMBOPLSTIN TIME 35.2 SEC (23.6-29.8)
[2021-04-22 12:17] LABS: CHLORIDE,CL 94 mmol/L (98-107); SODIUM,NA 132 mmol/L (136-145)
[2021-04-22 12:17] LABS: CORONAVIRUS COVID-19 NAA NEGATIVE (NEGATIVE); RESPIRATORY SYNCYTIAL VIR NAA NEGATIVE (NEGATIVE)
[2021-04-22 12:18] LABS: ANION GAP 15.3 meq/L (7-15)
[2021-04-22] MEDS ORDERED: Iopamidol 612 MG/ML 100 ML Bottle IVPUSH ONE (13:07)
[2021-04-22] MEDS ORDERED: Acetaminophen 650 MG Tab.ER PO PRN (17:37)
[2021-04-22] MEDS: Arformoterol 15 MCG/2 ML Neb Soln INH SCH (19:14)
[2021-04-22] MEDS: Fluticasone Propionate Nasal Spray 16 GM Bottle NASBOTH SCH (19:14)
[2021-04-22] MEDS: Albuterol/Ipratropium 4 GM Inhalation Spray INH SCH (19:14)
[2021-04-22] MEDS: Warfarin 5 MG Tab PO SCH ×2 (19:14→19:15)
[2021-04-22] MEDS: Sodium Chloride 0.9% 1,000 ML IV SCH (19:25)
[2021-04-22] MEDS: Ipratropium 0.02% 0.5 MG/2.5 ML Neb Soln INH SCH (21:13)
[2021-04-22] MEDS: Hydrocortisone 2.5% Crm 30 GM Tube TOP SCH (21:13)
[2021-04-23 08:00] LABS: ANION GAP 8.7 meq/L (7-15); CHLORIDE,CL 104 mmol/L (98-107); SODIUM,NA 138 mmol/L (136-145)
[2021-04-23] MEDS ORDERED: Omeprazole 20 MG Cap.CR PO SCH (08:00)
[2021-04-23] MEDS: Hydrocortisone 2.5% Crm 30 GM Tube TOP SCH ×4 (08:02→19:48)
[2021-04-23] MEDS: Ipratropium 0.02% 0.5 MG/2.5 ML Neb Soln INH SCH ×3 (08:03→17:02)
[2021-04-23] MEDS: Levothyroxine 50 MCG Tab PO SCH (08:03)
[2021-04-23] MEDS: Fluticasone Propionate Nasal Spray 16 GM Bottle NASBOTH SCH ×2 (08:03→17:33)
[2021-04-23] MEDS: Albuterol/Ipratropium 4 GM Inhalation Spray INH SCH ×2 (08:04→17:33)
[2021-04-23] MEDS: Arformoterol 15 MCG/2 ML Neb Soln INH SCH ×2 (08:12→17:33)
[2021-04-23] MEDS: Sodium Chloride 0.9% 1,000 ML IV SCH (08:50)
[2021-04-23] MEDS ORDERED: Lactated Ringers 1,000 ML IV SCH (14:15)
[2021-04-23] MEDS ORDERED: Warfarin 5 MG Tab PO SCH (18:00)
[2021-04-24] MEDS: Arformoterol 15 MCG/2 ML Neb Soln INH SCH (07:38)
[2021-04-24] MEDS: Hydrocortisone 2.5% Crm 30 GM Tube TOP SCH ×2 (07:39→12:15)
[2021-04-24] MEDS: Albuterol/Ipratropium 4 GM Inhalation Spray INH SCH (07:39)
[2021-04-24] MEDS: Fluticasone Propionate Nasal Spray 16 GM Bottle NASBOTH SCH (07:39)
[2021-04-24] MEDS: Levothyroxine 50 MCG Tab PO SCH (07:40)
[2021-04-24 08:07] LABS: CHLORIDE,CL 106 mmol/L (98-107); SODIUM,NA 140 mmol/L (136-145)
[2021-04-24 08:14] LABS: ANION GAP 10.3 meq/L (7-15)
[2021-04-24 12:10] VITALS: BP 107/49; PULSE 79
[2021-04-24] MEDS ORDERED: Potassium Chloride 20 MEQ Tab.ER PO ONE (12:55)
[2021-04-24] MEDS ORDERED: Metoprolol Succinate 25 MG Tab.ER PO SCH (20:00)
== END 2021-04-24 15:40 | disposition home health service (06) ==
LOC: LL.ED 10:44 → LL.MS 16:23
PROVIDERS: ADMIT Emergency Medicine; ATTEND Hospitalist
DX: R19.7 Diarrhea, unspecified (principal); I95.9 Hypotension, unspecified; R78.89 Finding of other specified substances, not normally found in blood; I48.91 Unspecified atrial fibrillation; I25.10 Atherosclerotic heart disease of native coronary artery without angina pectoris; I11.0 Hypertensive heart disease with heart failure; I50.9 Heart failure, unspecified; E78.00 Pure hypercholesterolemia, unspecified; I73.9 Peripheral vascular disease, unspecified; J44.9 Chronic obstructive pulmonary disease, unspecified; K21.9 Gastro-esophageal reflux disease without esophagitis; E11.51 Type 2 diabetes mellitus with diabetic peripheral angiopathy without gangrene; E03.9 Hypothyroidism, unspecified; E66.9 Obesity, unspecified; E11.65 Type 2 diabetes mellitus with hyperglycemia; Z88.8 Allergy status to other drugs, medicaments and biological substances; Z79.01 Long term (current) use of anticoagulants; Z79.899 Other long term (current) drug therapy; Z20.822 Contact with and (suspected) exposure to COVID-19; Z98.890 Other specified postprocedural states; Z86.73 Personal history of transient ischemic attack (TIA), and cerebral infarction without residual deficits
CPT/HCPCS: 0241U; 36415; 74022; 74177; 80048; 80053; 80162; 81003; 83605; 83735; 84443; 85025; 85610; 85730; 94640; 99285; 99285-25; A9270-GY; J7030; J7120

== ENCOUNTER 2021-05-12 13:21 | Day surgery (SDC) | payer MEDICARE, MEDICAID ==
[2021-05-12] MEDS ORDERED: Sodium Chloride 0.9% 10 ML Syringe FLUSH SCH (13:45)
[2021-05-12] MEDS ORDERED: Midazolam 1 MG/ML 2 ML SDV ONE (14:36)
[2021-05-12] MEDS ORDERED: Propofol 200 MG/20 ML SDV ONE (14:37)
[2021-05-12] MEDS: Lactated Ringers 1,000 ML IV SCH (15:12)
[2021-05-12] MEDS: 50% Dextrose in Water 50 ML Syringe IVPUSH ONE (15:17)
[2021-05-12] MEDS ORDERED: Glycopyrrolate 0.2 MG/ML SDV IVPUSH ONE (15:25)
[2021-05-12 18:10] VITALS: BP 104/83; PULSE 93
== END 2021-05-12 17:00 | disposition home or self-care (01) ==
LOC: LL.SDS 13:21
PROVIDERS: ATTEND Surgery
DX: K57.30 Diverticulosis of large intestine without perforation or abscess without bleeding (principal); K64.4 Residual hemorrhoidal skin tags; R63.4 Abnormal weight loss; K31.89 Other diseases of stomach and duodenum; I78.1 Nevus, non-neoplastic; I48.0 Paroxysmal atrial fibrillation; E03.9 Hypothyroidism, unspecified; E78.2 Mixed hyperlipidemia; E66.9 Obesity, unspecified; I10 Essential (primary) hypertension; J45.41 Moderate persistent asthma with (acute) exacerbation; E11.9 Type 2 diabetes mellitus without complications; J44.9 Chronic obstructive pulmonary disease, unspecified; Z79.899 Other long term (current) drug therapy; Z88.8 Allergy status to other drugs, medicaments and biological substances
CPT/HCPCS: 43239; 45378; 82947; 88305; 88342; J3490; J7120; 00813

== ENCOUNTER 2021-12-05 18:25 | Emergency (ER) | payer MEDICARE, OTHER, MEDICAID ==
[2021-12-05 19:09] VITALS: BP 96/78; PULSE 91
== END 2021-12-05 19:40 | disposition home or self-care (01) ==
LOC: LL.ED 18:25
DX: U07.1 COVID-19 (principal); J44.9 Chronic obstructive pulmonary disease, unspecified; I10 Essential (primary) hypertension; E11.9 Type 2 diabetes mellitus without complications; E66.9 Obesity, unspecified; Z88.1 Allergy status to other antibiotic agents; Z79.899 Other long term (current) drug therapy; Z79.01 Long term (current) use of anticoagulants; Z90.49 Acquired absence of other specified parts of digestive tract
CPT/HCPCS: 99283; 99284

== ENCOUNTER 2021-12-08 18:52 | Emergency (ER) | payer MEDICARE, OTHER, MEDICAID ==
[2021-12-08] MEDS ORDERED: Sodium Chloride 0.9% 500 ML IV ONE (19:05)
[2021-12-08] MEDS ORDERED: Acetaminophen 325 MG Tab PO PRN (19:11)
[2021-12-08 19:18] LABS: POTASSIUM,POC 4.7 mmol/L (3.5-4.5)
[2021-12-08] MEDS ORDERED: cefTRIAXone 1 GM in Sodium Chloride 0.9% 100 ML IV SCH (19:45)
[2021-12-08] MEDS ORDERED: Azithromycin 500 MG in Sodium Chloride 0.9% 250 ML IV SCH (19:45)
[2021-12-09 00:27] VITALS: BP 93/62; PULSE 122
== END 2021-12-08 21:00 ==
LOC: LL.ED 18:52
DX: R50.9 Fever, unspecified (principal); I48.91 Unspecified atrial fibrillation; I11.9 Hypertensive heart disease without heart failure; J44.9 Chronic obstructive pulmonary disease, unspecified; E11.9 Type 2 diabetes mellitus without complications; E03.9 Hypothyroidism, unspecified; E66.9 Obesity, unspecified; Z68.23 Body mass index [BMI] 23.0-23.9, adult; Z88.1 Allergy status to other antibiotic agents; Z79.01 Long term (current) use of anticoagulants; Z79.899 Other long term (current) drug therapy
CPT/HCPCS: 36415; 71045; 80047; 84484; 85025; 85379; 85610; 93005; 93010; 96361; 96365; 99284; 99284-25; A9270-GY; J0696; J7030

== ENCOUNTER 2021-12-13 11:31 | Inpatient (IN) | payer MEDICARE, OTHER, MEDICAID ==
[2021-12-13] MEDS ORDERED: Albuterol 0.083% 2.5 MG/3 ML Neb Soln INH PRN (17:23)
[2021-12-13] MEDS ORDERED: Acetaminophen 650 MG Tab.ER PO PRN (17:23)
[2021-12-13] MEDS ORDERED: Benzonatate 100 MG Cap PO PRN (17:23)
[2021-12-13] MEDS ORDERED: Betamethasone Dipropionate/Clotrimazole 0.05-1% Crm 15 GM Tube TOP PRN (17:23)
[2021-12-13] MEDS ORDERED: Denosumab 60 MG/1 ML Syringe SUBCUT SCH (17:30)
[2021-12-13] MEDS ORDERED: Warfarin 5 MG Tab PO SCH (18:00)
[2021-12-13] MEDS: Calcium Carbonate/Vitamin D3 625 MG-125 Unit Tab PO SCH (18:03)
[2021-12-13] MEDS: Fluticasone NASAL Spray 16 GM Bottle NASBOTH SCH (18:03)
[2021-12-13] MEDS: Amoxicillin/Clavulanate K 875-125 MG Tab PO SCH (20:24)
[2021-12-13] MEDS: Budesonide 0.5 MG/2 ML Neb Susp INH SCH (20:25)
[2021-12-13] MEDS: Arformoterol 15 MCG/2 ML Neb Soln INH SCH (20:34)
[2021-12-14] MEDS ORDERED: Digoxin 125 MCG Tab PO SCH (08:00)
[2021-12-14] MEDS: Amoxicillin/Clavulanate K 875-125 MG Tab PO SCH (08:21)
[2021-12-14] MEDS: Metoprolol Succinate 25 MG Tab.ER PO SCH (08:22)
[2021-12-14] MEDS: Lisinopril 5 MG Tab PO SCH (08:22)
[2021-12-14] MEDS: Levothyroxine 50 MCG Tab PO SCH (08:23)
[2021-12-14] MEDS: Calcium Carbonate/Vitamin D3 625 MG-125 Unit Tab PO SCH ×2 (08:23→18:09)
[2021-12-14] MEDS: Cholecalciferol (Vitamin D3) 10 MCG Tab PO SCH (08:23)
[2021-12-14] MEDS: Lactobacillus Rhamnosus GG (Probiotic) Cap PO SCH ×2 (08:23→18:09)
[2021-12-14] MEDS: Arformoterol 15 MCG/2 ML Neb Soln INH SCH ×2 (08:24→19:50)
[2021-12-14] MEDS: Budesonide 0.5 MG/2 ML Neb Susp INH SCH ×2 (08:24→19:50)
[2021-12-14] MEDS: Fluticasone NASAL Spray 16 GM Bottle NASBOTH SCH ×2 (08:24→18:10)
[2021-12-14] MEDS: Warfarin 5 MG Tab PO SCH (18:09)
[2021-12-15] MEDS: Levothyroxine 50 MCG Tab PO SCH (07:36)
[2021-12-15] MEDS: Calcium Carbonate/Vitamin D3 625 MG-125 Unit Tab PO SCH ×2 (07:36→20:05)
[2021-12-15] MEDS: Arformoterol 15 MCG/2 ML Neb Soln INH SCH ×2 (08:14→19:59)
[2021-12-15] MEDS: Fluticasone NASAL Spray 16 GM Bottle NASBOTH SCH ×2 (08:14→20:04)
[2021-12-15] MEDS: Budesonide 0.5 MG/2 ML Neb Susp INH SCH ×2 (08:15→19:59)
[2021-12-15] MEDS: Metoprolol Succinate 25 MG Tab.ER PO SCH (08:15)
[2021-12-15] MEDS: Lactobacillus Rhamnosus GG (Probiotic) Cap PO SCH ×2 (08:19→20:05)
[2021-12-15] MEDS: Cholecalciferol (Vitamin D3) 10 MCG Tab PO SCH (08:19)
[2021-12-15] MEDS: Lisinopril 5 MG Tab PO SCH (08:19)
[2021-12-15] MEDS: Warfarin 5 MG Tab PO SCH (20:05)
[2021-12-16] MEDS: Metoprolol Succinate 25 MG Tab.ER PO SCH (07:40)
[2021-12-16] MEDS: Calcium Carbonate/Vitamin D3 625 MG-125 Unit Tab PO SCH ×2 (07:40→17:17)
[2021-12-16] MEDS: Lisinopril 5 MG Tab PO SCH (07:40)
[2021-12-16] MEDS: Arformoterol 15 MCG/2 ML Neb Soln INH SCH ×2 (07:40→21:04)
[2021-12-16] MEDS: Budesonide 0.5 MG/2 ML Neb Susp INH SCH ×2 (07:40→21:04)
[2021-12-16] MEDS: Cholecalciferol (Vitamin D3) 10 MCG Tab PO SCH (07:40)
[2021-12-16] MEDS: Levothyroxine 50 MCG Tab PO SCH (07:40)
[2021-12-16] MEDS: Lactobacillus Rhamnosus GG (Probiotic) Cap PO SCH ×2 (07:40→17:17)
[2021-12-16] MEDS: Fluticasone NASAL Spray 16 GM Bottle NASBOTH SCH ×2 (07:43→17:18)
[2021-12-16] MEDS: Warfarin 5 MG Tab PO SCH (17:17)
[2021-12-17] MEDS: Lisinopril 5 MG Tab PO SCH (08:21)
[2021-12-17] MEDS: Lactobacillus Rhamnosus GG (Probiotic) Cap PO SCH ×2 (08:21→17:28)
[2021-12-17] MEDS: Arformoterol 15 MCG/2 ML Neb Soln INH SCH ×2 (08:21→19:27)
[2021-12-17] MEDS: Calcium Carbonate/Vitamin D3 625 MG-125 Unit Tab PO SCH ×2 (08:21→17:28)
[2021-12-17] MEDS: Cholecalciferol (Vitamin D3) 10 MCG Tab PO SCH (08:21)
[2021-12-17] MEDS: Levothyroxine 50 MCG Tab PO SCH (08:21)
[2021-12-17] MEDS: Budesonide 0.5 MG/2 ML Neb Susp INH SCH ×2 (08:21→19:27)
[2021-12-17] MEDS: Metoprolol Succinate 25 MG Tab.ER PO SCH (08:21)
[2021-12-17] MEDS: Fluticasone NASAL Spray 16 GM Bottle NASBOTH SCH ×2 (08:24→17:28)
[2021-12-17] MEDS: Warfarin 5 MG Tab PO SCH (17:28)
[2021-12-18] MEDS: Lisinopril 5 MG Tab PO SCH (08:29)
[2021-12-18] MEDS: Lactobacillus Rhamnosus GG (Probiotic) Cap PO SCH ×2 (08:29→17:36)
[2021-12-18] MEDS: Levothyroxine 50 MCG Tab PO SCH (08:29)
[2021-12-18] MEDS: Budesonide 0.5 MG/2 ML Neb Susp INH SCH ×2 (08:30→19:30)
[2021-12-18] MEDS: Metoprolol Succinate 25 MG Tab.ER PO SCH (08:30)
[2021-12-18] MEDS: Arformoterol 15 MCG/2 ML Neb Soln INH SCH ×2 (08:30→19:30)
[2021-12-18] MEDS: Cholecalciferol (Vitamin D3) 10 MCG Tab PO SCH (08:30)
[2021-12-18] MEDS: Calcium Carbonate/Vitamin D3 625 MG-125 Unit Tab PO SCH ×2 (08:30→17:36)
[2021-12-18] MEDS: Fluticasone NASAL Spray 16 GM Bottle NASBOTH SCH ×2 (08:31→17:36)
[2021-12-18] MEDS: Warfarin 5 MG Tab PO SCH (17:36)
[2021-12-19] MEDS: Budesonide 0.5 MG/2 ML Neb Susp INH SCH ×2 (07:25→20:20)
[2021-12-19] MEDS: Fluticasone NASAL Spray 16 GM Bottle NASBOTH SCH ×2 (07:25→18:06)
[2021-12-19] MEDS: Levothyroxine 50 MCG Tab PO SCH (07:25)
[2021-12-19] MEDS: Arformoterol 15 MCG/2 ML Neb Soln INH SCH ×2 (07:25→20:20)
[2021-12-19] MEDS: Metoprolol Succinate 25 MG Tab.ER PO SCH (07:26)
[2021-12-19] MEDS: Lactobacillus Rhamnosus GG (Probiotic) Cap PO SCH ×2 (07:26→18:06)
[2021-12-19] MEDS: Calcium Carbonate/Vitamin D3 625 MG-125 Unit Tab PO SCH ×2 (07:26→18:06)
[2021-12-19] MEDS: Cholecalciferol (Vitamin D3) 10 MCG Tab PO SCH (07:26)
[2021-12-19] MEDS: Lisinopril 5 MG Tab PO SCH (07:26)
[2021-12-19] MEDS: Warfarin 5 MG Tab PO SCH (18:06)
[2021-12-20] MEDS: Fluticasone NASAL Spray 16 GM Bottle NASBOTH SCH ×2 (07:58→18:58)
[2021-12-20] MEDS: Lisinopril 5 MG Tab PO SCH (08:01)
[2021-12-20] MEDS: Lactobacillus Rhamnosus GG (Probiotic) Cap PO SCH ×2 (08:02→18:57)
[2021-12-20] MEDS: Cholecalciferol (Vitamin D3) 10 MCG Tab PO SCH (08:02)
[2021-12-20] MEDS: Metoprolol Succinate 25 MG Tab.ER PO SCH (08:02)
[2021-12-20] MEDS: Arformoterol 15 MCG/2 ML Neb Soln INH SCH ×2 (08:03→19:59)
[2021-12-20] MEDS: Levothyroxine 50 MCG Tab PO SCH (08:03)
[2021-12-20] MEDS: Budesonide 0.5 MG/2 ML Neb Susp INH SCH ×2 (08:03→19:59)
[2021-12-20] MEDS: Calcium Carbonate/Vitamin D3 625 MG-125 Unit Tab PO SCH ×2 (08:03→18:57)
[2021-12-20] MEDS ORDERED: Metoprolol Succinate 25 MG Tab.ER PO ONE (09:15)
[2021-12-20] MEDS: Warfarin 5 MG Tab PO SCH (18:57)
[2021-12-21] MEDS: Levothyroxine 50 MCG Tab PO SCH (07:59)
[2021-12-21] MEDS: Lactobacillus Rhamnosus GG (Probiotic) Cap PO SCH ×2 (07:59→18:50)
[2021-12-21] MEDS: Budesonide 0.5 MG/2 ML Neb Susp INH SCH ×2 (07:59→20:09)
[2021-12-21] MEDS: Lisinopril 5 MG Tab PO SCH (07:59)
[2021-12-21] MEDS: Metoprolol Succinate 50 MG Tab.ER PO SCH (07:59)
[2021-12-21] MEDS: Arformoterol 15 MCG/2 ML Neb Soln INH SCH ×2 (07:59→20:09)
[2021-12-21] MEDS: Calcium Carbonate/Vitamin D3 625 MG-125 Unit Tab PO SCH ×2 (07:59→18:50)
[2021-12-21] MEDS: Cholecalciferol (Vitamin D3) 10 MCG Tab PO SCH (07:59)
[2021-12-21] MEDS: Fluticasone NASAL Spray 16 GM Bottle NASBOTH SCH ×2 (08:01→18:50)
[2021-12-21] MEDS: Warfarin 5 MG Tab PO SCH (18:50)
[2021-12-22] MEDS: Fluticasone NASAL Spray 16 GM Bottle NASBOTH SCH ×2 (07:34→17:13)
[2021-12-22] MEDS: Budesonide 0.5 MG/2 ML Neb Susp INH SCH ×2 (07:35→20:09)
[2021-12-22] MEDS: Lisinopril 5 MG Tab PO SCH (07:35)
[2021-12-22] MEDS: Lactobacillus Rhamnosus GG (Probiotic) Cap PO SCH ×2 (07:35→17:13)
[2021-12-22] MEDS: Arformoterol 15 MCG/2 ML Neb Soln INH SCH ×2 (07:35→20:09)
[2021-12-22] MEDS: Metoprolol Succinate 50 MG Tab.ER PO SCH (07:36)
[2021-12-22] MEDS: Calcium Carbonate/Vitamin D3 625 MG-125 Unit Tab PO SCH ×2 (07:39→17:13)
[2021-12-22] MEDS: Levothyroxine 50 MCG Tab PO SCH (07:39)
[2021-12-22] MEDS: Cholecalciferol (Vitamin D3) 10 MCG Tab PO SCH (07:39)
[2021-12-22] MEDS: Warfarin 5 MG Tab PO SCH (17:13)
[2021-12-23] MEDS: Levothyroxine 50 MCG Tab PO SCH (08:13)
[2021-12-23] MEDS: Cholecalciferol (Vitamin D3) 10 MCG Tab PO SCH (08:13)
[2021-12-23] MEDS: Calcium Carbonate/Vitamin D3 625 MG-125 Unit Tab PO SCH (08:13)
[2021-12-23] MEDS: Lactobacillus Rhamnosus GG (Probiotic) Cap PO SCH (08:13)
[2021-12-23] MEDS: Fluticasone NASAL Spray 16 GM Bottle NASBOTH SCH (08:14)
[2021-12-23] MEDS: Lisinopril 5 MG Tab PO SCH (08:16)
[2021-12-23] MEDS: Metoprolol Succinate 50 MG Tab.ER PO SCH (08:17)
[2021-12-23] MEDS: Budesonide 0.5 MG/2 ML Neb Susp INH SCH (08:17)
[2021-12-23] MEDS: Arformoterol 15 MCG/2 ML Neb Soln INH SCH (08:21)
[2021-12-23 13:48] VITALS: BP 118/64; PULSE 94
== END 2021-12-23 17:05 | disposition home or self-care (01) | DRG 947 ==
LOC: LL.MS 16:17
PROVIDERS: ADMIT Physician Assistant Medical; ATTEND Physician Assistant Medical
DX: R53.81 Other malaise (principal); J18.9 Pneumonia, unspecified organism; I21.A1 Myocardial infarction type 2; I42.9 Cardiomyopathy, unspecified; I48.20 Chronic atrial fibrillation, unspecified; R32 Unspecified urinary incontinence; E03.9 Hypothyroidism, unspecified; Z86.16 Personal history of COVID-19; E78.5 Hyperlipidemia, unspecified; Z85.828 Personal history of other malignant neoplasm of skin; Z79.01 Long term (current) use of anticoagulants; Z79.890 Hormone replacement therapy; Z98.49 Cataract extraction status, unspecified eye
CPT/HCPCS: 36416; 85610; 94640; 97110-GO; 97110-GP; 97162-GP; 97165-GO; 97530-GO; 97530-GP; 97535-GO; 99306; 99316; A9270-GY

== ENCOUNTER 2022-05-17 14:57 | Emergency (ER) | payer MEDICARE, OTHER ==
[2022-05-17 15:15] VITALS: PULSE 52
[2022-05-17 16:16] LABS: PTT,PARTIAL THROMBOPLSTIN TIME 32.5 SEC (23.6-29.8)
[2022-05-17 16:18] LABS: ANION GAP 9.9 meq/L (7-15)
[2022-05-17 16:46] VITALS: BP 112/61
== END 2022-05-17 16:44 | disposition home or self-care (01) ==
LOC: LL.ED 14:57
DX: S00.83XA Contusion of other part of head, initial encounter (principal); S40.021A Contusion of right upper arm, initial encounter; S50.01XA Contusion of right elbow, initial encounter; I48.91 Unspecified atrial fibrillation; I25.2 Old myocardial infarction; I11.9 Hypertensive heart disease without heart failure; K21.9 Gastro-esophageal reflux disease without esophagitis; J44.9 Chronic obstructive pulmonary disease, unspecified; E11.9 Type 2 diabetes mellitus without complications; E03.9 Hypothyroidism, unspecified; E66.9 Obesity, unspecified; Z88.1 Allergy status to other antibiotic agents; Z79.01 Long term (current) use of anticoagulants; Z79.899 Other long term (current) drug therapy; Z68.22 Body mass index [BMI] 22.0-22.9, adult; W22.09XA Striking against other stationary object, initial encounter
CPT/HCPCS: 36415; 70450; 70486; 80053; 85025; 85610; 85730; 86140; 99284